=== PATIENT | male | born 1950 | race African-American/Black ===

== ENCOUNTER 2016-07-01 08:10 | Day surgery (SDC) | payer OTHER, MEDICAID ==
[~2016-07-01 08:10] MED LIST: ASPI81 CHEW; ATOR40TA49 PO; CART240C4 PO; CLOP75 PO; DOCU50SY2 PO; LISI20 PO; LORA0.5T PO; NITR0.4S SL; PROT40TA PO; REST30CA PO; SULF-154 PO; VENTAER INH
== END 2016-07-01 08:35 | disposition home or self-care (01) ==
LOC: HROP 08:10 → HRIP 08:19 → HROP 08:35
PROVIDERS: ATTEND Internal Medicine Hematology & Oncology
DX: Z45.2 Encounter for adjustment and management of vascular access device (principal); C34.32 Malignant neoplasm of lower lobe, left bronchus or lung; Z53.9 Procedure and treatment not carried out, unspecified reason

== ENCOUNTER 2016-07-07 12:04 | Day surgery (SDC) | payer OTHER ==
[~2016-07-07] VITALS: Ht 182.9 cm; Wt 61.8 kg
[2016-07-07 12:27] VITALS: BP 129/69; PULSE 68; RESP 20; TEMP 98.2; O2SAT 99
[2016-07-07] MEDS ORDERED: ceFAZolin 2 GM PREMIX 50 ML - gastrostomy and jejunostomy initial insertion IV SCH (12:45)
[2016-07-07] MEDS ORDERED: Infusaport/Implanted VAD PRN NS Lock Flush IVF (12:45)
[2016-07-07] MEDS ORDERED: SODIUM CHLORIDE 0.9% 1000 ML IV SCH (13:00)
[2016-07-07 13:08] LABS: APTT (PATIENT) 25.9 SEC (24.3-30.1); PROTHROMBIN TIME - PATIENT 11.3 SEC (9.8-11.6)
[2016-07-07] MEDS ORDERED: MIDAZOLAM HCL 5 MG/5 ML VIAL ONE (14:59)
[2016-07-07] MEDS ORDERED: fentaNYL CITRATE 250 MCG/5 ML AMP ONE (15:00)
[2016-07-07] MEDS ORDERED: GLUCAGON 1 MG/ML VIAL ONE (15:00)
[2016-07-07] MEDS ORDERED: MIDAZOLAM HCL 2 MG/2 ML VIAL ONE (15:41)
--- NOTE | 2016-07-07 15:58 | PD.RAD ---
Post Procedure Progress Note Pre Procedure Diagnosis: (1) Pulmonary mass Post Procedure Diagnosis: (1) Pulmonary mass Procedure Date: Jul 07, 2016 Supervising Radiologist: Rc Hsu Proceduralist/Assist: Byron Ruiz RT(R), Lily Prather RT(R)() Anesthesia: Local, Conscious Sedation Plan of Activity Patient to Unit: [facility] Patient Condition: Fair See PACS Report for procedural detail/treatment Feeding Tube Gastrostomy Placement Lebanese: 18 Rc Hsu MD Jul 07, 2016 15:58
[2016-07-07 16:00] VITALS: BP 102/53; PULSE 68; RESP 18; TEMP 97.8; O2SAT 98
[2016-07-07] MEDS ORDERED: IOHEXOL 350 MG/ML 50 ML BTL (for RAD DIAG) G-TUBE ONE (16:04)
[2016-07-07 16:15] VITALS: BP 105/57; PULSE 66; RESP 18; O2SAT 97
--- NOTE | 2016-07-07 16:20 | RADRPT ---
EXAM DATE/TIME: 07/07/2016 14:54 [facility] COMPARISON: No previous studies available for comparison. INDICATIONS : Patient presents with lung cancer and the inability to eat in need of gastrostomy tube placement for nutrition. 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 Limited abdominal ultrasound. 2. Fluoroscopically guided gastrostomy tube placement. 3. Conscious sedation with continuous EKG and oximetry monitoring. The risks, benefits and alternatives to the procedure were explained and verbal and written consent w as obtained. The site was prepped in sterile fashion. Full sterile technique was used, including ca p, mask, sterile gloves and gown and a large sterile sheet. Hand hygiene and 2% chlorhexidine and/or betadine/alcohol prep was utilized per protocol for cutaneous antisepsis. The skin and subcutaneous tissues were infiltrated with local anesthetic solution. Ultrasound was used to parth the position of the liver. The stomach was insufflated with room air. Th ree percutaneous fasteners were placed to secure the anterior gastric wall. A small incision was made between the fasteners. The stomach was accessed with an 18 gauge needle. A n 0.035 wire was advanced into the small bowel. The tract was dilated. The gastrostomy tube was int roduced through a peel-away sheath. The position was confirmed with an injection of contrast. Conscious sedation was performed with the prescribed dosages and duration as above. The patient kamron ated the procedure well and there were no complications. EKG and oximetry remained stable throughout the procedure. The patient was sent to post anesthesia recovery in stable condition. CONCLUSION: Uncomplicated gastrostomy tube placement as above. Rc Hsu MD on July 07, 2016 at 16:18 Board Certified Radiologist. This report was verified electronically.
[2016-07-07 16:45] VITALS: BP 109/67; PULSE 69; RESP 18; O2SAT 96
[2016-07-07 17:15] VITALS: BP 111/69; PULSE 65; RESP 18; O2SAT 97
[2016-07-07 17:45] VITALS: BP 131/76; PULSE 60; RESP 18; O2SAT 95
[2016-07-07] MEDS ORDERED: HYDROmorphone HCL PF 2 MG/ML VIAL ONE (17:45)
== END 2016-07-07 18:25 | disposition home or self-care (01) ==
LOC: HROP 12:04 → HRIP 12:06 → HROP 18:25
PROVIDERS: ATTEND Internal Medicine Hematology & Oncology
DX: C34.90 Malignant neoplasm of unspecified part of unspecified bronchus or lung (principal); I10 Essential (primary) hypertension; I25.2 Old myocardial infarction; Z01.818 Encounter for other preprocedural examination
CPT/HCPCS: 49440; 76942; 85610; 85730; C1769; C1887; J0690; J1170; J1610; J1642; J2250; J3010; Q9967

== ENCOUNTER 2016-07-09 19:26 | Emergency (ER) | payer OTHER ==
[~2016-07-09] VITALS: Ht 182.9 cm; Wt 60.0 kg
[~2016-07-09 19:26] MED LIST changes: -SULF-154 PO
[2016-07-09 19:37] VITALS: BP 100/59; PULSE 98; RESP 14; TEMP 98.4; O2SAT 95
[2016-07-09] MEDS ORDERED: DIATRIZOATE MEGLUM/DIATRIZOATE SOD 120 ML BTL (for RAD DIAG) PEG ONE (21:02)
--- NOTE | 2016-07-09 21:28 | PD ---
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 He states that he had just placed a few days ago. He accidentally pulled it out this evening when he was attempting to do a tube feeding. He states that he pushed it right back in. He did go ahead and feed himself. His doctor advised him to come in this evening to have it checked. He has no complaints otherwise. PFSH Past Medical History Hx Anticoagulant Therapy: Yes (ASA) Arthritis: Yes Asthma: No Autoimmune Disease: No Blood Disorders: No Anxiety: No Depression: No Heart Rhythm Problems: No Cancer: No Cardiac Catheterization: Yes (W/ STENTS) Cardiovascular Problems: Yes (LOOP MONITOR STENTS) High Cholesterol: Yes Chemotherapy: No Chest Pain: No Congestive Heart Failure: No COPD: No Cerebrovascular Accident: No Diabetes: No Diminished Hearing: No Endocrine: No GERD: No Glaucoma: No Genitourinary: No Headaches: Yes (OCC) Hepatitis: No Hiatal Hernia: No Heparin Induced Thrombocytopen: No Hypertension: Yes Immune Disorder: No Kidney Stones: Yes Musculoskeletal: Yes Neurologic: No Psychiatric: No Reproductive: No Respiratory: No Migraines: No Myocardial Infarction: Yes ([place] x2) Radiation Therapy: No Renal Failure: No Seizures: No Sickle Cell Disease: No Sleep Apnea: No Thyroid Disease: No Ulcer: Yes Tetanus Vaccination: > 5 Years Past Surgical History Abdominal Surgery: No AICD: No Appendectomy: No Arteriovenous Shunt: No Cardiac Surgery: Yes (stents* 3, LOOP RECORDER) Cholecystectomy: No Ear Surgery: No Endocrine Surgery: No Eye Surgery: No Genitourinary Surgery: No Gynecologic Surgery: No Insulin Pump: No Joint Replacement: No Oral Surgery: Yes Pacemaker: No Thoracic Surgery: No Other Surgery: Yes Social History Alcohol Use: No Tobacco Use: No Substance Use: No Allergies-Medications (Allergen,Severity, Reaction): Coded Allergies: No Known Allergies (Unverified , 07/09/16) Reported Meds & Prescriptions Reported Meds & Active Scripts Active Ventolin Hfa 18 GM Inh (Albuterol Sulfate) 90 Mcg/Act Aer 2 Puff INH Q4H PRN Lipitor 40 Mg Tab (Atorvastatin Calcium) 40 Mg Tab 40 Mg PO HS 30 Days Protonix (Pantoprazole Sodium) 40 Mg Tab 40 Mg PO DAILY 90 Days Prinivil 20 mg (Lisinopril) 20 Mg Tab 20 Mg PO DAILY 30 Days Plavix (Clopidogrel Bisulfate) 75 Mg Tab 75 Mg PO DAILY 90 Days Aspirin Low Str81 M3 81 Mg Chw 81 Mg CHEW DAILY 30 Days Reported Docusate Sodium 50 Mg/5 Ml Liq 100 Mg PO DAILY Nitrostat (Nitroglycerin) 0.4 Mg Subl 0.4 Mg SL PRN 1 TAB SL EVERY 5 MINS X 3 PRN CHEST PAIN Lorazepam 0.5 Mg Tab 0.5 Mg PO DAILY Cartia Xt240 Mg/24 240 Mg/24 Hr Cap 240 Mg PO DAILY Restoril 30 mg (Temazepam) 30 Mg Cap 1 Cap PO HS PRN Review of Systems Except as stated in HPI: all other systems reviewed are Neg General / Constitutional: No: Fever, Chills Cardiovascular: No: Chest Pain or Discomfort Respiratory: No: Cough, Shortness of Breath Gastrointestinal: No: Nausea, Vomiting, Abdominal Pain Genitourinary: No: Dysuria, Hematuria Physical Exam Narrative GENERAL: This is a well-nourished, well-developed patient, in no apparent distress. SKIN: No rashes, ecchymoses or lesions. Warm and dry. HEAD: Atraumatic. Normocephalic. EYES: PERRL, EOMI, no discharge or injection. No scleral icterus. EARS: Clear NOSE: Nasal turbinates appear normal. THROAT: Mucosa pink and moist. Airway patent. NECK: Trachea midline. supple, moves head freely. LUNGS: Clear to auscultation. CV: Regular in rhythm. ABDOMEN: Soft nontender. Patient has a feeding tube in place. EXT: No clubbing cyanosis or edema. Data Data Last Documented VS Vital Signs Date Time Temp Pulse Resp B/P Pulse Ox O2 Delivery O2 Flow Rate FiO2 07/09/16 20:56 Room Air 07/09/16 19:37 98.4 98 14 100/59 95 Orders Abdomen, Single View (07/09/16 ) Diatrizoate Liq ( Gastrocharles Lynn) (07/09/16 21:02) MDM Medical Decision Making Medical Screen Exam Complete: Yes Emergency Medical Condition: Yes Medical Record Reviewed: Yes Interpretation(s) KUB: Positive feeding tube in the stomach. There is reflux into the esophagus. Differential Diagnosis Differential diagnoses: Feeding tube malfunction, normal feeding tube, feeding tube in the peritoneal cavity Narrative Course The feeding tube has no air in the balloon. We have flushed the balloon with 5 cc of saline have gotten all of the saline back. We have now gone ahead and placed 10 cc in the balloon. He has been sent for a KUB with Gastrografin to verify placement. Diagnosis Primary Impression: feeding tube malfunction Patient Instructions: General Instructions Additional Instructions: Rest. Continue your normal feedings. Follow-up with your doctor next week. Med/Other Pt SpecificInfo: No Change to Meds Disposition: 01 DISCHARGE HOME Condition: Stable Stanton Harvey Jul 09, 2016 21:28
--- NOTE | 2016-07-09 21:36 | RADRPT ---
EXAM DATE/TIME: 07/09/2016 20:50 [facility] COMPARISON: No previous studies available for comparison. INDICATIONS : Evaluate feeding tube placement. MEDICAL HISTORY : None. SURGICAL HISTORY : PEG tube placement. ENCOUNTER: Initial ACUITY: 1 day PAIN SCORE: 0/10 LOCATION: Bilateral abdomen. FINDINGS: Contrast has been instilled through a PEG tube. It clearly fills the stomach. There is reflux into the distal esophagus. There is increased density at the left lung base. There is a loop recorder in place. CONCLUSION: 1. PEG tube with its tip in the stomach. 2. Reflux of contrast into the distal esophagus. 3. Left base consolidation, atelectasis and possible effusion. Jamil Ramirez MD on July 09, 2016 at 21:30 Board Certified Radiologist. This report was verified electronically.
== END 2016-07-09 22:01 | disposition home or self-care (01) ==
LOC: NEPB 19:26
DX: K94.23 Gastrostomy malfunction (principal)
CPT/HCPCS: 74000; 99283; Q9963

== ENCOUNTER 2016-08-01 11:38 | Emergency (ER) | payer OTHER ==
[~2016-08-01] VITALS: Ht 182.9 cm; Wt 58.0 kg
[2016-08-01 11:40] VITALS: BP 110/59; PULSE 91; RESP 14; TEMP 97.5; O2SAT 96
[2016-08-01 11:54] VITALS: BP 125/65; PULSE 81; RESP 18; TEMP 98.3; O2SAT 99
--- NOTE | 2016-08-01 11:56 | PD ---
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 He states he feel as if the balloon is not inflated. Patient reports getting the feeding tube approximately 1 month ago. His oncologist is Dr. Gannon. He states he had malignancy that was pushing on his esophagus. He was unable to eat or drink and a feeding tube was placed. However, he states he is now able to eat and drink. He has the feeding tube taped to his abdominal wall because he states that slides out and water comes out around the feeding tube. Patient states otherwise, he feels good. PFSH Past Medical History Hx Anticoagulant Therapy: Yes (ASA) Arthritis: Yes Asthma: No Autoimmune Disease: No Blood Disorders: No Anxiety: No Depression: No Heart Rhythm Problems: No Cancer: No Cardiac Catheterization: Yes (W/ STENTS) Cardiovascular Problems: Yes (LOOP MONITOR STENTS) High Cholesterol: Yes Chemotherapy: No Chest Pain: No Congestive Heart Failure: No COPD: No Cerebrovascular Accident: No Diabetes: No Diminished Hearing: No Endocrine: No GERD: No Glaucoma: No Genitourinary: No Headaches: Yes (OCC) Hepatitis: No Hiatal Hernia: No Heparin Induced Thrombocytopen: No Hypertension: Yes Immune Disorder: No Kidney Stones: Yes Musculoskeletal: Yes Neurologic: No Psychiatric: No Reproductive: No Respiratory: No Migraines: No Myocardial Infarction: Yes ([place] x2) Radiation Therapy: No Renal Failure: No Seizures: No Sickle Cell Disease: No Sleep Apnea: No Thyroid Disease: No Ulcer: Yes Past Surgical History Abdominal Surgery: No AICD: No Appendectomy: No Arteriovenous Shunt: No Cardiac Surgery: Yes (stents* 3, LOOP RECORDER) Cholecystectomy: No Ear Surgery: No Endocrine Surgery: No Eye Surgery: No Genitourinary Surgery: No Gynecologic Surgery: No Insulin Pump: No Joint Replacement: No Oral Surgery: Yes Pacemaker: No Thoracic Surgery: No Other Surgery: Yes Social History Alcohol Use: No Tobacco Use: No Substance Use: No Allergies-Medications (Allergen,Severity, Reaction): Coded Allergies: No Known Allergies (Unverified , 07/09/16) Reported Meds & Prescriptions Reported Meds & Active Scripts Active Ventolin Hfa 18 GM Inh (Albuterol Sulfate) 90 Mcg/Act Aer 2 Puff INH Q4H PRN Lipitor 40 Mg Tab (Atorvastatin Calcium) 40 Mg Tab 40 Mg PO HS 30 Days Protonix (Pantoprazole Sodium) 40 Mg Tab 40 Mg PO DAILY 90 Days Prinivil 20 mg (Lisinopril) 20 Mg Tab 20 Mg PO DAILY 30 Days Plavix (Clopidogrel Bisulfate) 75 Mg Tab 75 Mg PO DAILY 90 Days Aspirin Low Str81 M3 81 Mg Chw 81 Mg CHEW DAILY 30 Days Reported Docusate Sodium 50 Mg/5 Ml Liq 100 Mg PO DAILY Nitrostat (Nitroglycerin) 0.4 Mg Subl 0.4 Mg SL PRN 1 TAB SL EVERY 5 MINS X 3 PRN CHEST PAIN Lorazepam 0.5 Mg Tab 0.5 Mg PO DAILY Cartia Xt240 Mg/24 240 Mg/24 Hr Cap 240 Mg PO DAILY Restoril 30 mg (Temazepam) 30 Mg Cap 1 Cap PO HS PRN Review of Systems Except as stated in HPI: all other systems reviewed are Neg Physical Exam Narrative GENERAL: Well-developed male patient, afebrile. SKIN: Warm and dry. HEAD: Normocephalic. Atraumatic. EYES: No scleral icterus. No injection or drainage. NECK: Supple, trachea midline. No JVD or lymphadenopathy. CARDIOVASCULAR: Regular rate and rhythm without murmurs, gallops, or rubs. RESPIRATORY: Breath sounds equal bilaterally. No accessory muscle use. GASTROINTESTINAL: Abdomen soft, non-tender, nondistended. Patient has 18 Libyan feeding tube to the mid abdomen that is taped in place. MUSCULOSKELETAL: No cyanosis, or edema. BACK: Nontender without obvious deformity. No CVA tenderness. Data Data Last Documented VS Vital Signs Date Time Temp Pulse Resp B/P Pulse Ox O2 Delivery O2 Flow Rate FiO2 08/01/16 11:59 78 77 99 Room Air 08/01/16 11:54 98.3 125/65 MDM Medical Decision Making Medical Screen Exam Complete: Yes Emergency Medical Condition: Yes Medical Record Reviewed: Yes Differential Diagnosis Feeding tube dislodgment versus new feeding tube placement versus medical clearance Narrative Course 66-year-old male presents to the emergency department stating that he believes his feeding tube is dislodged and the balloon is no longer keeping it in place. I discussed the case with my attending physician, Dr. Buck, who recommends feeding tube replacement. Dr. Buck and I attempted to replace 18 occitan feeding tube. When existing feeding tube was removed, it was found that the balloon was deflated and just under the skin. We attempted to replace tube with a new one, however, we were unable to advance feeding tube. Patient wishes to not have a new tube stating he has not received nutrition from it in 4-[address] Bolaños is paged. [phone] - I spoke to Dr. Johnson, business economist for Dr. Bolaños, who recommends not replacing the tube due to not currently using. Dressing is placed. Patient is agreeable to this. He is instructed to follow up with Dr. Bolaños. He is to return for any acute, worsening symptoms. The patient was discharged in stable condition with instructions, including return instructions and follow up instructions. Diagnosis Primary Impression: Feeding tube dysfunction Qualified Code: T85.598A - Feeding tube dysfunction, initial encounter Referrals: Gregory Bolaños MD call for appointment Patient Instructions: General Instructions, Tube Feeding (DC) Additional Instructions: Follow up with Dr. Bolaños. Feeding tube site my leak. Return to the emergency department for any acute, worsening of symptoms. Med/Other Pt SpecificInfo: No Change to Meds Disposition: 01 DISCHARGE HOME Condition: Stable Allison Mandel GUNJAN Aug 01, 2016 11:56
--- NOTE | 2016-08-01 12:55 | PD ---
Data Data Last Documented VS Vital Signs Date Time Temp Pulse Resp B/P Pulse Ox O2 Delivery O2 Flow Rate FiO2 08/01/16 11:59 78 77 99 Room Air 08/01/16 11:54 98.3 125/65 MDM Supervised Visit with SHEA: Yes Narrative Course The history, exam, and medical decision-making in the associated mid-level provider note were completed with my assistance. I reviewed and agree with the findings presented. I attest that I had a [id number] encounter with the patient on the same day, and personally performed and documented my assessment and findings in the medical record. *My assessment and Findings: 66-year-old man presents with malfunctioning feeding tube. He feels like the balloons dominant coming out. We removed due to with the tendon replacing it. The tube was only barely into 16 his tissues. The tract below that appears to have completely close. Were unable to replace the feeding tube. We spoke with Dr. Hamilton, remote operations producer for the patient's oncologist, who agrees with leaving the tube out. The patient hasn't used the tube for nutrition some time. Diagnosis Primary Impression: Feeding tube dysfunction Qualified Code: T85.598A - Feeding tube dysfunction, initial encounter Referrals: Gregory Bolaños MD call for appointment Patient Instructions: General Instructions, Tube Feeding (DC) Additional Instruction: Follow up with Dr. Bolaños. Feeding tube site my leak. Return to the emergency department for any acute, worsening of symptoms. Disposition: 01 DISCHARGE HOME Condition: Stable Kaleb Buck MD Aug 01, 2016 12:55
[2016-08-01 13:26] VITALS: BP 126/76; TEMP 98.4
== END 2016-08-01 13:16 | disposition home or self-care (01) ==
LOC: NEPC 11:38
DX: T85.598A Other mechanical complication of other gastrointestinal prosthetic devices, implants and grafts, initial encounter (principal); E78.00 Pure hypercholesterolemia, unspecified; I10 Essential (primary) hypertension; I25.2 Old myocardial infarction; Z43.1 Encounter for attention to gastrostomy; Z79.82 Long term (current) use of aspirin; Z87.39 Personal history of other diseases of the musculoskeletal system and connective tissue; Z86.79 Personal history of other diseases of the circulatory system; Z87.442 Personal history of urinary calculi; Z87.19 Personal history of other diseases of the digestive system
CPT/HCPCS: 99282

== ENCOUNTER 2016-08-16 12:21 | Emergency (ER) | payer OTHER ==
[~2016-08-16] VITALS: Ht 182.9 cm; Wt 58.0 kg
[2016-08-16 12:25] VITALS: BP 98/57; PULSE 104; RESP 20; TEMP 98; O2SAT 90
--- NOTE | 2016-08-16 13:19 | PD ---
HPI Chief Complaint: GI Complaint Time Seen by Provider: 13:14 Travel History International Travel<30 days: No Contact w/Intl Traveler<30days: No Traveled to known affect area: No History of Present Illness HPI Patient is a 66-year-old male who presents emergency department for evaluation of increased fatigue, weakness. Patient is currently being treated for lung cancer. His last chemotherapy was one week ago. He has radiation daily. Patient states that his feeding tube came out 2 weeks ago, he was evaluated for that and it was decided to leave it out since at that time he had good oral intake. Patient was supplementing himself through the feeding tube with 3-5 cans a day of nutritional supplementation, since the feeding tube has been out patient has not been getting the extra supplementation. Patient reports an episode of vomiting this morning and a fast heart rate for the last week as well. Patient's oncologist is Dr. Bolaños, his primary doctor is Reginaldo. PFSH Past Medical History Hx Anticoagulant Therapy: Yes (ASA) Arthritis: Yes Asthma: No Autoimmune Disease: No Blood Disorders: No Anxiety: No Depression: No Heart Rhythm Problems: No Cancer: No Cardiac Catheterization: Yes (W/ STENTS) Cardiovascular Problems: Yes (STENTS) High Cholesterol: Yes Chemotherapy: Yes Chest Pain: No Congestive Heart Failure: No COPD: No Cerebrovascular Accident: No Diabetes: No Diminished Hearing: No Endocrine: No Gastrointestinal Disorders: No GERD: No Glaucoma: No Genitourinary: No Headaches: Yes (OCC) Hepatitis: No Hiatal Hernia: No Heparin Induced Thrombocytopen: No Hypertension: Yes Immune Disorder: No Implanted Vascular Access Dvce: No Kidney Stones: Yes Musculoskeletal: Yes Neurologic: No Psychiatric: No Reproductive: No Respiratory: Yes (LUNG CA) Migraines: No Myocardial Infarction: Yes ([place] x2) Radiation Therapy: No Renal Failure: No Seizures: No Sickle Cell Disease: No Sleep Apnea: No Thyroid Disease: No Ulcer: Yes Past Surgical History Abdominal Surgery: No AICD: No Appendectomy: No Arteriovenous Shunt: No Cardiac Surgery: Yes (stents* 3, LOOP RECORDER) Cholecystectomy: No Ear Surgery: No Endocrine Surgery: No Eye Surgery: No Genitourinary Surgery: No Gynecologic Surgery: No Insulin Pump: No Joint Replacement: No Neurologic Surgery: No Oral Surgery: Yes Pacemaker: No Thoracic Surgery: No Other Surgery: Yes Social History Alcohol Use: No Tobacco Use: No Substance Use: No Allergies-Medications (Allergen,Severity, Reaction): Coded Allergies: No Known Allergies (Unverified , 08/16/16) Reported Meds & Prescriptions Reported Meds & Active Scripts Active Ventolin Hfa 18 GM Inh (Albuterol Sulfate) 90 Mcg/Act Aer 2 Puff INH Q4H PRN Lipitor 40 Mg Tab (Atorvastatin Calcium) 40 Mg Tab 40 Mg PO HS 30 Days Protonix (Pantoprazole Sodium) 40 Mg Tab 40 Mg PO DAILY 90 Days Prinivil 20 mg (Lisinopril) 20 Mg Tab 20 Mg PO DAILY 30 Days Plavix (Clopidogrel Bisulfate) 75 Mg Tab 75 Mg PO DAILY 90 Days Aspirin Low Str81 M3 81 Mg Chw 81 Mg CHEW DAILY 30 Days Reported Docusate Sodium 50 Mg/5 Ml Liq 100 Mg PO DAILY Nitrostat (Nitroglycerin) 0.4 Mg Subl 0.4 Mg SL PRN 1 TAB SL EVERY 5 MINS X 3 PRN CHEST PAIN Lorazepam 0.5 Mg Tab 0.5 Mg PO DAILY Cartia Xt240 Mg/24 240 Mg/24 Hr Cap 240 Mg PO DAILY Restoril 30 mg (Temazepam) 30 Mg Cap 1 Cap PO HS PRN Review of Systems Except as stated in HPI: all other systems reviewed are Neg General / Constitutional: Positive: Other (fatigued) Cardiovascular: No: Chest Pain or Discomfort Respiratory: No: Shortness of Breath Gastrointestinal: Positive: Nausea, Vomiting, Loss of Appetite, No: Abdominal Pain Musculoskeletal: No: Myalgias Neurologic: Positive: Weakness Physical Exam Narrative GENERAL: Cachectic, well-developed, gentleman. Resting comfortably in no acute distress. SKIN: Warm and dry. HEAD: Atraumatic. Normocephalic. EYES: Pupils equal and round. No scleral icterus. No injection or drainage. ENT: No nasal bleeding or discharge. Mucous membranes pink and moist. NECK: Trachea midline. No JVD. CARDIOVASCULAR: Mildly tachycardic with a rate in the low 100s. No murmur appreciated. RESPIRATORY: No accessory muscle use. Clear to auscultation. Breath sounds equal bilaterally. GASTROINTESTINAL: Abdomen soft, non-tender, nondistended. Hepatic and splenic margins not palpable. MUSCULOSKELETAL: No obvious deformities. No clubbing. No cyanosis. No edema. NEUROLOGICAL: Awake and alert. No obvious cranial nerve deficits. Motor grossly within normal limits. Normal speech. PSYCHIATRIC: Appropriate mood and affect; insight and judgment normal. Data Data Last Documented VS Vital Signs Date Time Temp Pulse Resp B/P Pulse Ox O2 Delivery O2 Flow Rate FiO2 08/16/16 12:25 98.0 104 20 98/57 90 Room Air Orders Complete Blood Count With Diff (08/16/16 13:04) Comprehensive Metabolic Panel (08/16/16 13:04) Lactic Acid Sepsis Protocol (08/16/16 13:04) Magnesium (Mg) (08/16/16 13:04) Urinalysis - C+S If Indicated (08/16/16 13:04) [facility] Medical Decision Making Medical Screen Exam Complete: Yes Emergency Medical Condition: Yes Medical Record Reviewed: Yes Interpretation(s) Vital Signs Date Time Temp Pulse Resp B/P Pulse Ox O2 Delivery O2 Flow Rate FiO2 08/16/16 12:25 98.0 104 20 98/57 90 Room Air Differential Diagnosis Dehydration versus anemia versus neutropenia versus sepsis versus electrolyte abnormality versus acute kidney injury versus other Narrative Course Patient 66-year-old male presenting to emergency room evaluation of increased fatigue and weakness over the last week. Patient's feeding tube became dislodged 2 weeks ago, patient did use the feeding tube for medications as well as nutritional supplementation. Patient was using 3-5 cans a day of a nutritional supplement, now he has only been able to drink one can a day. Patient symptoms may likely be secondary to dehydration, malnutrition since the feeding tube was dislodged. Labs ordered and pending. Care of patient will be transferred to provide a medical bed when available. Petra Duron Aug 16, 2016 13:19
[2016-08-16 13:56] LABS: BLOOD, URINE NEG (NEG); GLUCOSE,URINE NEG (NEG); HYALINE CAST, URINE 16 /lpf (RARE); KETONE, URINE NEG (NEG); MUCUS URINE FEW /lpf (OCC); NITRITE,URINE NEG (NEG); SQUAMOUS EPITHELIAL CELL URINE <1 /hpf (0-5); URINE COLOR YELLOW (YELLW/STRAW)
[2016-08-16 13:58] LABS: COMMENT (UR) CATH-CULT NOT IND; CULTURE IF INDICATED CATH CULTURE NOT IND
[2016-08-16 14:01] LABS: AUTOMATED NEUTROPHIL # 2.2 TH/MM3 (1.8-7.7); BASOPHIL % 0.6 % (0.0-2.0); EOSINOPHIL % 0.7 % (0.0-4.0); HEMATOCRIT 28.9 % (39.0-51.0); HEMO FLAGS DIFF FINAL; LYMPH % 9.9 % (9.0-44.0); LYMPHOCYTE # 0.3 TH/MM3 (1.0-4.8); MEAN CORPUSCULAR HEMOGLOBIN 32.8 PG (27.0-34.0); MEAN CORPUSCULAR HGB CONC 33.8 % (32.0-36.0); MONO % 12.6 % (0.0-8.0); NEUT % 76.2 % (16.0-70.0); PLATELET COUNT 434 TH/MM3 (150-450); RED BLOOD COUNT 2.97 MIL/MM3 (4.50-5.90); WHITE BLOOD COUNT 2.9 TH/MM3 (4.0-11.0)
[2016-08-16] MEDS ORDERED: SODIUM CHLOR 0.9% 1000 ML INJ 1,000 ML IV SCH (14:01)
[2016-08-16 14:07] VITALS: BP 120/73; PULSE 96; RESP 13; O2SAT 100
[2016-08-16 14:15] VITALS: BP_SYST 106; BP_SYST 108; BP_SYST 117; BP_DIAS 54; BP_DIAS 66; BP_DIAS 68; RESP 14; RESP 20; RESP 22
[2016-08-16 14:15] LABS: ALT (GPT) 17 U/L (12-78); ANION GAP 7 MEQ/L (5-15); AST (GOT) 18 U/L (15-37); BICARBONATE 28.2 MEQ/L (21.0-32.0); BLOOD UREA NITROGEN 16 MG/DL (7-18); CHLORIDE 101 MEQ/L (98-107); GLOMERULAR FILTRATION RATE 89 ML/MIN (>89); MAGNESIUM 1.9 MG/DL (1.5-2.5); POTASSIUM 4.2 MEQ/L (3.5-5.1); SODIUM (NA) 136 MEQ/L (136-145)
[2016-08-16] MEDS ORDERED: SODIUM CHLORIDE 0.9% FLUSH 5 ML FLUSH IVF PRN (14:15)
[2016-08-16 14:17] LABS: ALKALINE PHOSPHATASE 79 U/L (45-117); TOTAL BILIRUBIN ADULT 0.4 MG/DL (0.2-1.0)
[2016-08-16 14:30] VITALS: BP 113/71; PULSE 104; RESP 22; O2SAT 99
[2016-08-16] MEDS ORDERED: COLA100C3 PO (14:46)
[2016-08-16] MEDS ORDERED: SYMB160A INH (14:46)
[2016-08-16] MEDS ORDERED: PLAV75TA29 PO (14:46)
[2016-08-16] MEDS ORDERED: REST30CA PO (14:46)
[2016-08-16] MEDS ORDERED: OMEP20TA PO (14:46)
[2016-08-16] MEDS ORDERED: ONDA8TAB8 SL (14:46)
[2016-08-16] MEDS ORDERED: DIGO0.12 PO (14:46)
[2016-08-16] MEDS ORDERED: ASPI81TA11 PO (14:46)
[2016-08-16] MEDS ORDERED: LORA-373 PO (14:46)
[2016-08-16] MEDS ORDERED: NITR1SUB3 SL (14:46)
[2016-08-16] MEDS ORDERED: ATOR40TA16 PO (14:46)
[2016-08-16] MEDS ORDERED: MAGICADU2 SWISH-SWAL (14:46)
--- NOTE | 2016-08-16 15:08 | RADRPT ---
EXAM DATE/TIME: 08/16/2016 14:32 [facility] COMPARISON: CHEST SINGLE AP, May 12, 2016, 16:04. INDICATIONS : Short of breath, pain in right ribs MEDICAL HISTORY : Carcinoma, lung. Cardiovascular disease. Myocardial infarction. SURGICAL HISTORY : Coronary artery stent. infusaport, loop recorder ENCOUNTER: Initial ACUITY: 1 day PAIN SCORE: 10/10 LOCATION: Right chest FINDINGS: A single view of the chest demonstrates the lungs to be symmetrically aerated without evidence of mas s, infiltrate or effusion. The cardiomediastinal contours are unremarkable. Osseous structures are intact. Right subclavian venous catheter in place a pneumothorax CONCLUSION: No acute disease. Oscar Hobbs MD on August 16, 2016 at 15:06 Board Certified Radiologist. This report was verified electronically.
--- NOTE | 2016-08-16 15:09 | PD ---
Physical Exam Time Seen by Provider: 15:03 Narrative Patient was initially assessed and evaluated by GUNJAN Smith. See her note for initial assessment. Data Data Last Documented VS Vital Signs Date Time Temp Pulse Resp B/P Pulse Ox O2 Delivery O2 Flow Rate FiO2 08/16/16 14:15 101 14 117/66 107 20 108/68 126 22 106/54 08/16/16 14:10 100 Room Air 08/16/16 12:25 98.0 Orders Complete Blood Count With Diff (08/16/16 13:04) Comprehensive Metabolic Panel (08/16/16 13:04) Lactic Acid Sepsis Protocol (08/16/16 13:04) Magnesium (Mg) (08/16/16 13:04) Urinalysis - C+S If Indicated (08/16/16 13:04) Electrocardiogram (08/16/16 14:01) Chest, Single Ap (08/16/16 14:01) Ecg Monitoring (08/16/16 14:01) Iv Access Insert/Monitor (08/16/16 14:01) Oximetry (08/16/16 14:01) Sodium Chloride 0.9% Flush (Ns Flush) (08/16/16 14:15) Orthostatic Vital Signs (08/16/16 14:01) Sodium Chlor 0.9% 1000 Ml Inj (Ns 1000 M (08/16/16 14:01) Oxygen Administration (08/16/16 14:06) Ct Pulmonary Angiogram (08/16/16 ) Iohexol 350 Inj (Omnipaque 350 Inj) (08/16/16 15:43) Labs Laboratory Tests Test 08/16/16 08/16/16 13:29 13:30 Sodium Level 136 MEQ/L Potassium Level 4.2 MEQ/L Chloride Level 101 MEQ/L Carbon Dioxide Level 28.2 MEQ/L Anion Gap 7 MEQ/L Blood Urea Nitrogen 16 MG/DL Creatinine 1.01 MG/DL Estimat Glomerular Filtration 89 ML/MIN Rate Random Glucose 104 MG/DL Calcium Level 8.8 MG/DL Magnesium Level 1.9 MG/DL Total Bilirubin 0.4 MG/DL Aspartate Amino Transf 18 U/L (AST/SGOT) Alanine Aminotransferase 17 U/L (ALT/SGPT) Alkaline Phosphatase 79 U/L Total Protein 7.3 GM/DL Albumin 3.1 GM/DL White Blood Count 2.9 TH/MM3 Red Blood Count 2.97 MIL/MM3 Hemoglobin 9.8 GM/DL Hematocrit 28.9 % Mean Corpuscular Volume 97.0 FL Mean Corpuscular Hemoglobin 32.8 PG Mean Corpuscular Hemoglobin 33.8 % Concent Red Cell Distribution Width 14.0 % Platelet Count 434 TH/MM3 Mean Platelet Volume 6.6 FL Neutrophils (%) (Auto) 76.2 % Lymphocytes (%) (Auto) 9.9 % Monocytes (%) (Auto) 12.6 % Eosinophils (%) (Auto) 0.7 % Basophils (%) (Auto) 0.6 % Neutrophils # (Auto) 2.2 TH/MM3 Lymphocytes # (Auto) 0.3 TH/MM3 Monocytes # (Auto) 0.4 TH/MM3 Eosinophils # (Auto) 0.0 TH/MM3 Basophils # (Auto) 0.0 TH/MM3 CBC Comment DIFF FINAL Differential Comment Urine Color YELLOW Urine Turbidity CLEAR Urine pH 6.0 Urine Specific [place] 1.018 Urine Protein TRACE mg/dL Urine Glucose (UA) NEG mg/dL Urine Ketones NEG mg/dL Urine Occult Blood NEG Urine Nitrite NEG Urine Bilirubin NEG Urine Urobilinogen 2.0 MG/DL Urine Leukocyte Esterase NEG Urine RBC LESS THAN 1 /hpf Urine WBC 1 /hpf Urine Squamous Epithelial <1 /hpf Cells Urine Hyaline Casts 16 /lpf Urine Mucus FEW /lpf Microscopic Urinalysis Comment CATH-CULT NOT IND Lactic Acid Level 1.1 mmol/L [facility] Medical Record Reviewed: Yes Supervised Visit with SHEA: Yes Differential Diagnosis Electrolyte imbalance, arrhythmia, dehydration, PE Narrative Course I assumed patient care upon arrival to [facility]. See GUNJAN Ross's note for initial assessment. Patient placed on cardiopulmonary monitor. IV site obtained. Labs pending. Chest x-ray ordered. Fluid bolus ordered. CBC findings are consistent with past lab findings; WBC 2.9, hemoglobin 9.8. BMP unremarkable. Lactic acid 1.1. Urinalysis with no signs of infection. 1517: Chest x-ray with no acute findings. I discussed the patient with my attending physician, Dr. Pitt, and he agreed CTA is necessary to rule out PE. CTA ordered. 1618: CTA concludes No evidence of pulmonary no acute cardiopulmonary process. Regression with persistent thickening of the left hilar mass and mediastinal adenopathy. New finding of metastatic disease to the liver. Copy of CTA provided to the patient. Findings discussed. Instructed patient to follow up with oncologist. Patient verbalized understanding and agreement with treatment plan. Patient is medically cleared and stable for discharge. Discussed reasons to return to the emergency department. Instructed patient to follow up with primary care provider. Patient agrees with treatment plan. The patients vital signs are stable and the patient is stable for outpatient follow-up and treatment. Patient discharged home, stable and in no acute distress. Diagnosis Primary Impression: Metastatic cancer to liver Referrals: Oncologist Primary Care Physician Patient Instructions: General Instructions, Liver Cancer (DC) Additional Instruction: Follow-up with oncologist Follow-up with primary care provider Return to the emergency department immediately with worsening of symptoms Disposition: 01 DISCHARGE HOME Condition: Stable Paola Al Aug 16, 2016 15:09
[2016-08-16] MEDS ORDERED: IOHEXOL 350 MG/ML 10 ML VIAL (for RAD DIAG) IV ONE (15:43)
--- NOTE | 2016-08-16 16:02 | RADRPT ---
EXAM DATE/TIME: 08/16/2016 15:37 [facility] COMPARISON: CT PULMONARY ANGIOGRAM, May 07, 2016, 20:31. CHEST SINGLE AP, August 16, 2016, 14:32. INDICATIONS : General weakness and syncope for one week. IV CONTRAST: 50 cc Omnipaque 350 (iohexol) IV RADIATION DOSE: 4.83 CTDIvol (mGy) MEDICAL HISTORY : Carcinoma, lung. Myocardial infarction. SURGICAL HISTORY : loop recorder, cardiac stents ENCOUNTER: Initial ACUITY: 1 week PAIN SCALE: 0/10 LOCATION: Bilateral chest TECHNIQUE: Volumetric scanning of the chest was performed using a pulmonary embolism protocol MIP images were re constructed. Using automated exposure control and adjustment of the mA and/or kV according to patien t size, radiation dose was kept as low as reasonably achievable to obtain optimal diagnostic quality images. FINDINGS: There is regression of the [place] left hilar mass and mediastinal adenopathy with residual thickening. There is no evidence of pulmonary embolism with a vessel seen to the fourth and fifth order branchin g and no evidence of defect. Noted in the upper abdomen is apparent low density ill-defined lesions m ultiple the liver consistent with metastatic disease. Indwelling right venous catheter is noted in pl [place]. CONCLUSION: No evidence of pulmonary no acute cardiopulmonary process. Regression with persistent thickening of the left hilar mass and mediastinal adenopathy. New finding of metastatic disease to the liver Oscar Hobbs MD on August 16, 2016 at 15:55 Board Certified Radiologist. This report was verified electronically.
[2016-08-16 17:05] VITALS: BP 105/58; PULSE 98; RESP 12; O2SAT 99
--- NOTE | 2016-08-17 17:02 | EKG ---
Date Performed: 08/16/2016 Time Performed: 14:20:56 PTAGE: 66 years EKG: Sinus rhythm POSSIBLE RIGHT ATRIAL ENLARGEMENT POSSIBLE LEFT ATRIAL ENLARGEMENT LOW QRS VOLTAGE IN EXTREMITY LEAD S Since previous tracing, no significant change noted BORDERLINE ECG PREVIOUS TRACING : 02/12/2016 10.35 DOCTOR: Bennie Sloan Interpretating Date/Time 08/17/2016 17:00:40
== END 2016-08-16 17:25 | disposition home or self-care (01) ==
LOC: NEPE 12:21
DX: C78.7 Secondary malignant neoplasm of liver and intrahepatic bile duct (principal); C34.90 Malignant neoplasm of unspecified part of unspecified bronchus or lung; I10 Essential (primary) hypertension; I25.2 Old myocardial infarction; R53.1 Weakness; Z79.899 Other long term (current) drug therapy
CPT/HCPCS: 71010; 71275; 80053; 81001; 83605; 83735; 85025; 93005; 96360; 99285; J7030; Q9967

== ENCOUNTER 2016-09-07 11:45 | Inpatient (IN) | payer OTHER, MEDICARE ==
[~2016-09-07] VITALS: Ht 182.9 cm; Wt 62.3 kg
[2016-09-07] VITALS (9 sets, daily range): BP systolic 88–120; BP diastolic 51–60; PULSE 74–112; RESP 16–22; TEMP 97.6–98.7; O2SAT 95–99
[~2016-09-07 11:45] MED LIST changes: -ASPI81 CHEW; +ASPI81TA11 PO; +ATOR40TA16 PO; -ATOR40TA49 PO; -CART240C4 PO; -CLOP75 PO; +COLA100C3 PO; +DIGO0.12 PO; -DOCU50SY2 PO; -LISI20 PO; +LORA-373 PO; -LORA0.5T PO; +MAGICADU2 SWISH-SWAL; -NITR0.4S SL; +NITR1SUB3 SL; +OMEP20TA PO; +ONDA8TAB8 SL; +PLAV75TA29 PO; -PROT40TA PO; +SYMB160A INH
--- NOTE | 2016-09-07 12:25 | PD ---
HPI Chief Complaint: General Weakness Time Seen by Provider: 12:22 Travel History International Travel<30 days: No Contact w/Intl Traveler<30days: No Traveled to known affect area: No History of Present Illness HPI Patient is a 66-year-old male sent by his primary care provider Dr. Rice due to generalized weakness. Patient has metastatic lung cancer. He reports increased dizziness, shortness of breath, constipation. He also reports feeling heart palpitations and his heart racing yesterday. Patient states it is feeling weak for a few weeks however it's gotten worse and was sent to emergency department for evaluation. He denies any nausea, vomiting, chest pain , diarrhea, appetite disturbance, falls. 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 Velazquez placed him on diltiazem 3 times daily on September 03 due to the fast heart rate. PFSH Past Medical History Hx Anticoagulant Therapy: Yes (ASA) Arthritis: Yes Asthma: No Autoimmune Disease: No Blood Disorders: No Anxiety: No Depression: No Heart Rhythm Problems: No Cancer: Yes (LUNG CA) Cardiac Catheterization: Yes (W/ STENTS X 3) Cardiovascular Problems: Yes (STENTS) High Cholesterol: Yes Chemotherapy: Yes Chest Pain: No Congestive Heart Failure: No COPD: No Cerebrovascular Accident: No Diabetes: No Diminished Hearing: No Endocrine: No Gastrointestinal Disorders: No GERD: No Glaucoma: No Genitourinary: No Headaches: Yes Hepatitis: No Hiatal Hernia: No Heparin Induced Thrombocytopen: No Hypertension: Yes Immune Disorder: No Implanted Vascular Access Dvce: Yes (RIGHT CHEST) Kidney Stones: Yes Musculoskeletal: Yes Neurologic: No Psychiatric: No Reproductive: No Respiratory: Yes (LUNG CA) Migraines: No Myocardial Infarction: Yes (SD x2) Pneumonia: Yes Radiation Therapy: No Renal Failure: No Seizures: No Sickle Cell Disease: No Sleep Apnea: No Thyroid Disease: No Ulcer: Yes Past Surgical History Abdominal Surgery: No AICD: No Appendectomy: No Arteriovenous Shunt: No Cardiac Surgery: Yes (stents* 3, LOOP RECORDER) Cholecystectomy: No Coronary Stent: Yes (X 3) Ear Surgery: No Endocrine Surgery: No Eye Surgery: No Genitourinary Surgery: No Gynecologic Surgery: No Insulin Pump: No Joint Replacement: No Neurologic Surgery: No Oral Surgery: Yes Pacemaker: No Thoracic Surgery: No Other Surgery: Yes (PORT PLACED- RIGHT CHEST) Social History Alcohol Use: No Tobacco Use: No Substance Use: No Allergies-Medications (Allergen,Severity, Reaction): Coded Allergies: No Known Allergies (Unverified , 09/07/16) Reported Meds & Prescriptions Reported Meds & Active Scripts Active Ventolin Hfa 18 GM Inh (Albuterol Sulfate) 90 Mcg/Act Aer 2 Puff INH Q4H PRN Reported Diltiazem (Diltiazem HCl) 90 Mg Tab 90 Mg PO QID PRN Aspirin EC (Aspirin) 81 Mg Tabdr 81 Mg PO DAILY Atorvastatin (Atorvastatin Calcium) 40 Mg Tab 40 Mg PO DAILY Plavix (Clopidogrel Bisulfate) 75 Mg Tab 75 Mg PO DAILY Lorazepam 0.5 Mg Tab 0.5 Mg PO HS PRN Omeprazole 20 Mg Tab 20 Mg PO DAILY Restoril (Temazepam) 30 Mg Cap 30 Mg PO HS PRN Symbicort Inh (Budesonide/Formoterol Fumarate) 160-4.5 Mcg/Act Aero 2 Puff INH Q12HR Colace (Docusate Sodium) 100 Mg Cap 100 Mg PO DAILY Ondansetron Odt 8 Mg Tab 8 Mg SL TID PRN Nitroglycerin SL (Nitroglycerin) 0.4 Mg Subl 0.4 Mg SL DIRECTED PRN ONE TABLET UNDER THE TONGUE NEEDED FOR CHEST PAIN, MAY REPEAT EVERY FIVE MINUTES FOR A TOTAL OF 3 DOSES OR CALL 911 IF NO RELIEF Magic Mouthwash Adult Liq (Multi-Ingredient Mouthwash/Gargle) 120 Ml Susp 5 Ml SWISH-SWAL TIDAC Each 5mL contains: Nystatin 200,000units, Diphenhydramine 4.25mg, Viscous Lidocaine 10mg, Fernando syrup 0.8 mL Review of Systems Except as stated in HPI: all other systems reviewed are Neg General / Constitutional: No: Fever, Chills HENT: No: Headaches Cardiovascular: No: Chest Pain or Discomfort Respiratory: Positive: Shortness of Breath Gastrointestinal: Positive: Nausea, Constipation, No: Vomiting, Abdominal Pain Genitourinary: No: Dysuria Musculoskeletal: No: Myalgias Neurologic: Positive: Weakness, Dizziness, No: Syncope Physical Exam Narrative GENERAL: Cachectic, well-developed, alert gentleman. Resting comfortably in no acute distress. SKIN: Warm and dry. HEAD: Atraumatic. Normocephalic. EYES: Pupils equal and round. No scleral icterus. No injection or drainage. ENT: No nasal bleeding or discharge. Mucous membranes pink and moist. NECK: Trachea midline. No JVD. CARDIOVASCULAR: Tachycardic. No murmur appreciated. RESPIRATORY: No accessory muscle use. Diminished in bases. No wheezes, rhonchi , rales noted. GASTROINTESTINAL: Abdomen soft, non-tender, nondistended. Hepatic and splenic margins not palpable. MUSCULOSKELETAL: No obvious deformities. No clubbing. No cyanosis. No edema. NEUROLOGICAL: Awake and alert. No obvious cranial nerve deficits. Motor grossly within normal limits. Normal speech. PSYCHIATRIC: Appropriate mood and affect; insight and judgment normal. Data Data Last Documented VS Vital Signs Date Time Temp Pulse Resp B/P Pulse Ox O2 Delivery O2 Flow Rate FiO2 09/07/16 14:23 77 18 114/59 96 Nasal Cannula 2 09/07/16 11:48 97.8 Orders Complete Blood Count With Diff (09/07/16 12:18) Comprehensive Metabolic Panel (09/07/16 12:18) Magnesium (Mg) (09/07/16 12:18) Urinalysis - C+S If Indicated (09/07/16 12:18) Electrocardiogram (09/07/16 12:18) Chest, Pa & Lat (09/07/16 12:18) Abdomen, Kub Only (09/07/16 ) Lactic Acid Sepsis Protocol (09/07/16 12:25) Prothrombin Time / Inr (Pt) (09/07/16 13:22) Act Partial Throm Time (Ptt) (09/07/16 13:22) Phosphorus (Po4) (09/07/16 13:22) Ckmb (Isoenzyme) Profile (09/07/16 13:22) Troponin I (09/07/16 13:22) Influenzae A/B Antigen (09/07/16 13:22) Blood Culture (09/07/16 13:22) Vancomycin Inj (Vancomycin Inj) (09/07/16 13:25) Piperacil-Tazo 4.5 Gm Premix (Zosyn 4.5 (09/07/16 13:25) Sodium Chlor 0.9% 1000 Ml Inj (Ns 1000 M (09/07/16 13:25) Sodium Chlor 0.9% 1000 Ml Inj (Ns 1000 M (09/07/16 13:25) Admit Order (Ed Use Only) (09/07/16 14:37) Labs Laboratory Tests Test 09/07/16 09/07/16 12:34 13:55 White Blood Count 5.5 TH/MM3 Red Blood Count 2.37 MIL/MM3 Hemoglobin 8.1 GM/DL Hematocrit 24.5 % Mean Corpuscular Volume 103.2 FL Mean Corpuscular Hemoglobin 34.2 PG Mean Corpuscular Hemoglobin 33.2 % Concent Red Cell Distribution Width 18.7 % Platelet Count 176 TH/MM3 Mean Platelet Volume 7.5 FL Neutrophils (%) (Auto) 74.0 % Lymphocytes (%) (Auto) 12.1 % Monocytes (%) (Auto) 12.6 % Eosinophils (%) (Auto) 0.9 % Basophils (%) (Auto) 0.4 % Neutrophils # (Auto) 4.1 TH/MM3 Lymphocytes # (Auto) 0.7 TH/MM3 Monocytes # (Auto) 0.7 TH/MM3 Eosinophils # (Auto) 0.1 TH/MM3 Basophils # (Auto) 0.0 TH/MM3 CBC Comment DIFF FINAL Differential Comment Urine Color YELLOW Urine Turbidity CLEAR Urine pH 5.5 Urine Specific [place] 1.017 Urine Protein TRACE mg/dL Urine Glucose (UA) NEG mg/dL Urine Ketones NEG mg/dL Urine Occult Blood MOD Urine Nitrite NEG Urine Bilirubin NEG Urine Urobilinogen 2.0 MG/DL Urine Leukocyte Esterase NEG Urine RBC 3 /hpf Urine WBC 1 /hpf Urine Squamous Epithelial <1 /hpf Cells Urine Hyaline Casts 21 /lpf Urine Mucus FEW /lpf Microscopic Urinalysis Comment CULT NOT INDICATED Sodium Level 141 MEQ/L Potassium Level 4.2 MEQ/L Chloride Level 105 MEQ/L Carbon Dioxide Level 23.1 MEQ/L Anion Gap 13 MEQ/L Blood Urea Nitrogen 17 MG/DL Creatinine 0.89 MG/DL Estimat Glomerular Filtration 103 ML/MIN Rate Random Glucose 111 MG/DL Lactic Acid Level 4.1 mmol/L Calcium Level 8.8 MG/DL Magnesium Level 1.7 MG/DL Total Bilirubin 0.4 MG/DL Aspartate Amino Transf 45 U/L (AST/SGOT) Alanine Aminotransferase 31 U/L (ALT/SGPT) Alkaline Phosphatase 97 U/L Total Protein 7.2 GM/DL Albumin 2.6 GM/DL Prothrombin Time 12.4 SEC Prothromb Time International 1.1 RATIO Ratio Activated Partial 26.7 SEC Thromboplast Time Phosphorus Level 3.1 MG/DL Total Creatine Kinase 51 U/L Troponin I LESS THAN 0.02 NG/ML MDM Medical Decision Making Medical Screen Exam Complete: Yes Emergency Medical Condition: Yes Interpretation(s) Vital Signs Date Time Temp Pulse Resp B/P Pulse Ox O2 Delivery O2 Flow Rate FiO2 09/07/16 11:48 97.8 112 16 88/51 95 Differential Diagnosis Obstruction versus electrolyte abnormality versus pneumonia versus increased tumor burden versus medication side effects versus sepsis versus other Narrative Course Patient is a 66-year-old male presenting to emergency for generalized weakness, dizziness, nausea, constipation. He was sent by his primary care provider. Patient is hypotensive and tachycardic in the emergency department. Labs and imaging ordered and pending. Workup initiated triage, care of patient was transferred to a provider with a medical bed is available. Petra Duron Sep 07, 2016 12:25
[2016-09-07 12:50] LABS: AUTOMATED NEUTROPHIL # 4.1 TH/MM3 (1.8-7.7); BASOPHIL % 0.4 % (0.0-2.0); EOSINOPHIL # 0.1 TH/MM3 (0-0.4); EOSINOPHIL % 0.9 % (0.0-4.0); HEMATOCRIT 24.5 % (39.0-51.0); HEMO FLAGS DIFF FINAL; LYMPH % 12.1 % (9.0-44.0); LYMPHOCYTE # 0.7 TH/MM3 (1.0-4.8); MEAN CELL VOLUME 103.2 FL (80.0-100.0); MEAN CORPUSCULAR HEMOGLOBIN 34.2 PG (27.0-34.0); MEAN CORPUSCULAR HGB CONC 33.2 % (32.0-36.0); MONO % 12.6 % (0.0-8.0); PLATELET COUNT 176 TH/MM3 (150-450); RED BLOOD COUNT 2.37 MIL/MM3 (4.50-5.90); RED CELL DISTRIBUTION WIDTH 18.7 % (11.6-17.2); WHITE BLOOD COUNT 5.5 TH/MM3 (4.0-11.0)
[2016-09-07 12:59] LABS: BLOOD, URINE MOD (NEG); COMMENT (UR) CULT NOT INDICATED; CULTURE IF INDICATED CULT NOT INDICATED; GLUCOSE,URINE NEG (NEG); HYALINE CAST, URINE 21 /lpf (RARE); KETONE, URINE NEG (NEG); MUCUS URINE FEW /lpf (OCC); NITRITE,URINE NEG (NEG); PH, URINE 5.5 (5.0-8.5); SQUAMOUS EPITHELIAL CELL URINE <1 /hpf (0-5); URINE COLOR YELLOW (YELLW/STRAW)
[2016-09-07 13:11] LABS: ALT (GPT) 31 U/L (12-78); ANION GAP 13 MEQ/L (5-15); AST (GOT) 45 U/L (15-37); BICARBONATE 23.1 MEQ/L (21.0-32.0); BLOOD UREA NITROGEN 17 MG/DL (7-18); CHLORIDE 105 MEQ/L (98-107); GLOMERULAR FILTRATION RATE 103 ML/MIN (>89); MAGNESIUM 1.7 MG/DL (1.5-2.5); POTASSIUM 4.2 MEQ/L (3.5-5.1); SODIUM (NA) 141 MEQ/L (136-145)
[2016-09-07 13:17] LABS: ALKALINE PHOSPHATASE 97 U/L (45-117); TOTAL BILIRUBIN ADULT 0.4 MG/DL (0.2-1.0)
[2016-09-07] MEDS ORDERED: VANCOMYCIN INJ 1,000 MG in SODIUM CHLOR 0.9% 250 ML INJ 250 ML IV STA (13:25)
[2016-09-07] MEDS ORDERED: PIPERACIL-TAZO 4.5 GM PREMIX 100 ML IV STA (13:25)
[2016-09-07] MEDS ORDERED: SODIUM CHLOR 0.9% 1000 ML INJ 1,000 ML IV ONE (13:25)
[2016-09-07] MEDS ORDERED: SODIUM CHLOR 0.9% 1000 ML INJ 800 ML IV ONE (13:25)
--- NOTE | 2016-09-07 13:30 | RADRPT ---
EXAM DATE/TIME: 09/07/2016 12:53 [facility] COMPARISON: CHEST PA & LAT, October 19, 2015, 8:18. INDICATIONS : Patient has been short of breath for a week. MEDICAL HISTORY : Carcinoma, lung. Cardiovascular disease. Myocardial infarction. SURGICAL HISTORY : Coronary artery stent. infusaport, loop recorder ENCOUNTER: Initial ACUITY: 1 week PAIN SCORE: 0/10 LOCATION: Bilateral chest FINDINGS: There is a CT compatible [id number] in place from the right side with the tip overlying the SVC. T here is a loop recorder seen. The heart size is normal. Coronary artery stent is seen. There is incre ased density at the left base and a mild left effusion. The right lung is grossly clear. CONCLUSION: Left lower lobe consolidation and mild effusion. Jamil Ramirez MD on September 07, 2016 at 13:22 Board Certified Radiologist. This report was verified electronically.
[2016-09-07] MEDS ORDERED: DILT90TA PO (13:34)
--- NOTE | 2016-09-07 13:47 | PD ---
Physical Exam Time Seen by Provider: 13:43 Narrative 66-year-old male with history of metastatic small cell carcinoma, hypertension, CAD, cardiac stent placement, presents to emergency department for evaluation of worsening weakness, dizziness, constipation. Patient was advised to come here by his primary care provider Dr. Hair. Patient completed radiation treatments July,. He is followed by Dr. Bolaños. As that approximately 3 weeks since his last chemotherapy treatment and he is to start a new chemotherapy treatment tomorrow. Patient denies any recent fever or chills. He has had decreased appetite and an underlying nausea without vomiting. He has not had a bowel movement in 2 days. Denies any abdominal pain. Patient has a chronic productive cough of a clear sputum. Denies hemoptysis. No urinary difficulty. No other symptoms to report. Data Data Last Documented VS Vital Signs Date Time Temp Pulse Resp B/P Pulse Ox O2 Delivery O2 Flow Rate FiO2 09/07/16 13:19 82 18 120/58 113/60 09/07/16 11:48 97.8 95 Orders Complete Blood Count With Diff (09/07/16 12:18) Comprehensive Metabolic Panel (09/07/16 12:18) Magnesium (Mg) (09/07/16 12:18) Urinalysis - C+S If Indicated (09/07/16 12:18) Electrocardiogram (09/07/16 12:18) Chest, Pa & Lat (09/07/16 12:18) Abdomen, Kub Only (09/07/16 ) Lactic Acid Sepsis Protocol (09/07/16 12:25) Prothrombin Time / Inr (Pt) (09/07/16 13:22) Act Partial Throm Time (Ptt) (09/07/16 13:22) Phosphorus (Po4) (09/07/16 13:22) Ckmb (Isoenzyme) Profile (09/07/16 13:22) Troponin I (09/07/16 13:22) Influenzae A/B Antigen (09/07/16 13:22) Blood Culture (09/07/16 13:22) Vancomycin Inj (Vancomycin Inj) (09/07/16 13:25) Piperacil-Tazo 4.5 Gm Premix (Zosyn 4.5 (09/07/16 13:25) Sodium Chlor 0.9% 1000 Ml Inj (Ns 1000 M (09/07/16 13:25) Sodium Chlor 0.9% 1000 Ml Inj (Ns 1000 M (09/07/16 13:25) Labs Laboratory Tests Test 09/07/16 12:34 White Blood Count 5.5 TH/MM3 Red Blood Count 2.37 MIL/MM3 Hemoglobin 8.1 GM/DL Hematocrit 24.5 % Mean Corpuscular Volume 103.2 FL Mean Corpuscular Hemoglobin 34.2 PG Mean Corpuscular Hemoglobin 33.2 % Concent Red Cell Distribution Width 18.7 % Platelet Count 176 TH/MM3 Mean Platelet Volume 7.5 FL Neutrophils (%) (Auto) 74.0 % Lymphocytes (%) (Auto) 12.1 % Monocytes (%) (Auto) 12.6 % Eosinophils (%) (Auto) 0.9 % Basophils (%) (Auto) 0.4 % Neutrophils # (Auto) 4.1 TH/MM3 Lymphocytes # (Auto) 0.7 TH/MM3 Monocytes # (Auto) 0.7 TH/MM3 Eosinophils # (Auto) 0.1 TH/MM3 Basophils # (Auto) 0.0 TH/MM3 CBC Comment DIFF FINAL Differential Comment Urine Color YELLOW Urine Turbidity CLEAR Urine pH 5.5 Urine Specific [place] 1.017 Urine Protein TRACE mg/dL Urine Glucose (UA) NEG mg/dL Urine Ketones NEG mg/dL Urine Occult Blood MOD Urine Nitrite NEG Urine Bilirubin NEG Urine Urobilinogen 2.0 MG/DL Urine Leukocyte Esterase NEG Urine RBC 3 /hpf Urine WBC 1 /hpf Urine Squamous Epithelial <1 /hpf Cells Urine Hyaline Casts 21 /lpf Urine Mucus FEW /lpf Microscopic Urinalysis Comment CULT NOT INDICATED Sodium Level 141 MEQ/L Potassium Level 4.2 MEQ/L Chloride Level 105 MEQ/L Carbon Dioxide Level 23.1 MEQ/L Anion Gap 13 MEQ/L Blood Urea Nitrogen 17 MG/DL Creatinine 0.89 MG/DL Estimat Glomerular Filtration 103 ML/MIN Rate Random Glucose 111 MG/DL Lactic Acid Level 4.1 mmol/L Calcium Level 8.8 MG/DL Magnesium Level 1.7 MG/DL Total Bilirubin 0.4 MG/DL Aspartate Amino Transf 45 U/L (AST/SGOT) Alanine Aminotransferase 31 U/L (ALT/SGPT) Alkaline Phosphatase 97 U/L Total Protein 7.2 GM/DL Albumin 2.6 GM/DL [facility] Medical Record Reviewed: Yes Supervised Visit with SHEA: No Differential Diagnosis Pneumonia versus influenza versus bacteremia versus UTI Narrative Course 66-year-old male presents to emergency department for evaluation of worsening weakness. Patient appears as though he does not feel well. He is hypotensive and tachycardic initially. Sepsis protocol was initiated in triage. I seemed care of the patient when he is transferred to a medical bed. I discussed the patient and his history with my attending physician Dr. Nascimento who recommends broad-spectrum antibiotic and IV fluids. Lactic acid is 4.1. Laboratory Tests Test 09/07/16 12:34 White Blood Count 5.5 TH/MM3 Red Blood Count 2.37 MIL/MM3 Hemoglobin 8.1 GM/DL Hematocrit 24.5 % Mean Corpuscular Volume 103.2 FL Mean Corpuscular Hemoglobin 34.2 PG Mean Corpuscular Hemoglobin 33.2 % Concent Red Cell Distribution Width 18.7 % Platelet Count 176 TH/MM3 Mean Platelet Volume 7.5 FL Neutrophils (%) (Auto) 74.0 % Lymphocytes (%) (Auto) 12.1 % Monocytes (%) (Auto) 12.6 % Eosinophils (%) (Auto) 0.9 % Basophils (%) (Auto) 0.4 % Neutrophils # (Auto) 4.1 TH/MM3 Lymphocytes # (Auto) 0.7 TH/MM3 Monocytes # (Auto) 0.7 TH/MM3 Eosinophils # (Auto) 0.1 TH/MM3 Basophils # (Auto) 0.0 TH/MM3 CBC Comment DIFF FINAL Differential Comment Urine Color YELLOW Urine Turbidity CLEAR Urine pH 5.5 Urine Specific [place] 1.017 Urine Protein TRACE mg/dL Urine Glucose (UA) NEG mg/dL Urine Ketones NEG mg/dL Urine Occult Blood MOD Urine Nitrite NEG Urine Bilirubin NEG Urine Urobilinogen 2.0 MG/DL Urine Leukocyte Esterase NEG Urine RBC 3 /hpf Urine WBC 1 /hpf Urine Squamous Epithelial <1 /hpf Cells Urine Hyaline Casts 21 /lpf Urine Mucus FEW /lpf Microscopic Urinalysis Comment CULT NOT INDICATED Sodium Level 141 MEQ/L Potassium Level 4.2 MEQ/L Chloride Level 105 MEQ/L Carbon Dioxide Level 23.1 MEQ/L Anion Gap 13 MEQ/L Blood Urea Nitrogen 17 MG/DL Creatinine 0.89 MG/DL Estimat Glomerular Filtration 103 ML/MIN Rate Random Glucose 111 MG/DL Lactic Acid Level 4.1 mmol/L Calcium Level 8.8 MG/DL Magnesium Level 1.7 MG/DL Total Bilirubin 0.4 MG/DL Aspartate Amino Transf 45 U/L (AST/SGOT) Alanine Aminotransferase 31 U/L (ALT/SGPT) Alkaline Phosphatase 97 U/L Total Protein 7.2 GM/DL Albumin 2.6 GM/DL CBC is without leukocytosis however patient has undergone chemotherapy, hemoglobin is 8.1. CMP is without acute concern. Urinalysis is a moderate occult blood, few mucus. Culture is not indicated. Chest x-ray shows left lower lobe consolidation and mild effusion. Patient meets sepsis criteria. A call has been placed to [facility] for admission. Diagnosis Primary Impression: Sepsis Qualified Code: A41.9 - Sepsis, due to unspecified organism Additional Impressions: Pneumonia Qualified Code: J18.1 - Pneumonia of left lower lobe due to infectious organism Generalized weakness Pulmonary mass Metastatic cancer to liver Admitting Information Admitting Physician Requests: Admit Condition: Stable Mary Kate Ojeda Sep 07, 2016 13:46
--- NOTE | 2016-09-07 14:16 | RADRPT ---
EXAM DATE/TIME: 09/07/2016 13:00 [facility] COMPARISON: No previous studies available for comparison. INDICATIONS : Patient was short of breath. MEDICAL HISTORY : Carcinoma, lung. Cardiovascular disease. Myocardial infarction. SURGICAL HISTORY : Coronary artery stent. infMyShape, GITR recorder ENCOUNTER: Initial ACUITY: 1 day PAIN SCORE: 0/10 LOCATION: Abdomen. FINDINGS: Supine view of the abdomen was performed. The abdominal bowel gas pattern is normal. Oral contrast i s seen in the colon. No abnormal masses, calcifications, or organomegaly is seen. The osseous struct ures are unremarkable. CONCLUSION: No acute disease. Jamil Ramirez MD on September 07, 2016 at 14:09 Board Certified Radiologist. This report was verified electronically.
--- NOTE | 2016-09-07 14:30 | PD ---
Data Data Last Documented VS Vital Signs Date Time Temp Pulse Resp B/P Pulse Ox O2 Delivery O2 Flow Rate FiO2 09/07/16 14:23 77 18 114/59 96 Nasal Cannula 2 09/07/16 11:48 97.8 Orders Complete Blood Count With Diff (09/07/16 12:18) Comprehensive Metabolic Panel (09/07/16 12:18) Magnesium (Mg) (09/07/16 12:18) Urinalysis - C+S If Indicated (09/07/16 12:18) Electrocardiogram (09/07/16 12:18) Chest, Pa & Lat (09/07/16 12:18) Abdomen, Kub Only (09/07/16 ) Lactic Acid Sepsis Protocol (09/07/16 12:25) Prothrombin Time / Inr (Pt) (09/07/16 13:22) Act Partial Throm Time (Ptt) (09/07/16 13:22) Phosphorus (Po4) (09/07/16 13:22) Ckmb (Isoenzyme) Profile (09/07/16 13:22) Troponin I (09/07/16 13:22) Influenzae A/B Antigen (09/07/16 13:22) Blood Culture (09/07/16 13:22) Vancomycin Inj (Vancomycin Inj) (09/07/16 13:25) Piperacil-Tazo 4.5 Gm Premix (Zosyn 4.5 (09/07/16 13:25) Sodium Chlor 0.9% 1000 Ml Inj (Ns 1000 M (09/07/16 13:25) Sodium Chlor 0.9% 1000 Ml Inj (Ns 1000 M (09/07/16 13:25) Labs Laboratory Tests Test 09/07/16 12:34 White Blood Count 5.5 TH/MM3 Red Blood Count 2.37 MIL/MM3 Hemoglobin 8.1 GM/DL Hematocrit 24.5 % Mean Corpuscular Volume 103.2 FL Mean Corpuscular Hemoglobin 34.2 PG Mean Corpuscular Hemoglobin 33.2 % Concent Red Cell Distribution Width 18.7 % Platelet Count 176 TH/MM3 Mean Platelet Volume 7.5 FL Neutrophils (%) (Auto) 74.0 % Lymphocytes (%) (Auto) 12.1 % Monocytes (%) (Auto) 12.6 % Eosinophils (%) (Auto) 0.9 % Basophils (%) (Auto) 0.4 % Neutrophils # (Auto) 4.1 TH/MM3 Lymphocytes # (Auto) 0.7 TH/MM3 Monocytes # (Auto) 0.7 TH/MM3 Eosinophils # (Auto) 0.1 TH/MM3 Basophils # (Auto) 0.0 TH/MM3 CBC Comment DIFF FINAL Differential Comment Urine Color YELLOW Urine Turbidity CLEAR Urine pH 5.5 Urine Specific [place] 1.017 Urine Protein TRACE mg/dL Urine Glucose (UA) NEG mg/dL Urine Ketones NEG mg/dL Urine Occult Blood MOD Urine Nitrite NEG Urine Bilirubin NEG Urine Urobilinogen 2.0 MG/DL Urine Leukocyte Esterase NEG Urine RBC 3 /hpf Urine WBC 1 /hpf Urine Squamous Epithelial <1 /hpf Cells Urine Hyaline Casts 21 /lpf Urine Mucus FEW /lpf Microscopic Urinalysis Comment CULT NOT INDICATED Sodium Level 141 MEQ/L Potassium Level 4.2 MEQ/L Chloride Level 105 MEQ/L Carbon Dioxide Level 23.1 MEQ/L Anion Gap 13 MEQ/L Blood Urea Nitrogen 17 MG/DL Creatinine 0.89 MG/DL Estimat Glomerular Filtration 103 ML/MIN Rate Random Glucose 111 MG/DL Lactic Acid Level 4.1 mmol/L Calcium Level 8.8 MG/DL Magnesium Level 1.7 MG/DL Total Bilirubin 0.4 MG/DL Aspartate Amino Transf 45 U/L (AST/SGOT) Alanine Aminotransferase 31 U/L (ALT/SGPT) Alkaline Phosphatase 97 U/L Total Protein 7.2 GM/DL Albumin 2.6 GM/DL MDM Supervised Visit with SHEA: Yes Narrative Course I, Dr. Nascimento, have reviewed the advance practice practioner's documentation and am in agreement, met with the patient face to face, made the diagnosis, and the medical decision making was done by me. *My assessment and Findings: 66-year-old male undergoing treatment for metastatic lung cancer here with complaint of generalized weakness and hypotension. Patient states that for the last week or so he is felt generally weak, fatigue, poor appetite. No documented fevers or chills. He notes some mild increase in shortness of breath and a dry primarily nonproductive cough. No abdominal pain, nausea vomiting, urinary symptoms. He has a port in the right upper chest. Patient was seen by his PCP and noted to be hypotensive in the 80s and transferred here for further evaluation. Patient is well-appearing on exam, cachectic. Lung sounds are clear bilaterally but decreased in left base. Family note a history of a left-sided pleural effusion. Patient has a benign abdominal examination. Differential includes dehydration, electrolyte abnormality, symptomatic anemia, pneumonia, pleural effusion, UTI, sepsis. Laboratory workup and imaging notable for elevated lactate 4.1 and a left-sided pneumonia with pleural effusion. Patient treated with vancomycin, Zosyn, 30 mg/ kg normal saline bolus and will be admitted for further management. Sepsis Criteria SIRS Criteria (2 or more): Heart rate over 90 Sepsis Criteria (SIRS+source): Infect source susp/known Severe Sepsis (+one): Lactate >2 Septic Shock Criteria: Lactic acid >=4 Criteria Outcome: Meets SIRS criteria, Meets sepsis criteria, Meets severe sepsis criteria, Meets septic shock criteria Diagnosis Primary Impression: Septic shock Additional Impressions: Sepsis Qualified Code: A41.9 - Sepsis, due to unspecified organism Pulmonary mass Metastatic cancer to liver Generalized weakness Pneumonia Qualified Code: J18.1 - Pneumonia of left lower lobe due to infectious organism Admitting Information Admitting Physician Requests: Admit Condition: Stable Sandra Nascimento MD Sep 07, 2016 14:30
[2016-09-07 14:34] LABS: APTT (PATIENT) 26.7 SEC (24.3-30.1); INTERNATIONAL NORMALIZED RATIO 1.1 RATIO; PROTHROMBIN TIME - PATIENT 12.4 SEC (9.8-11.6)
[2016-09-07 14:43] LABS: LACTIC ACID GHOST NOT REPORTABLE
[2016-09-07] MEDS ORDERED: ONDANSETRON HCL 4 MG/2 ML VIAL IV PUSH PRN (15:00)
[2016-09-07] MEDS ORDERED: Vancomycin Consult Pharmacy 1 EA OTHER SCH (15:00)
[2016-09-07] MEDS ORDERED: RESP: ALBUTEROL 1.25 MG/3 ML NEB (PRN) NEB (15:00)
[2016-09-07] MEDS ORDERED: ACETAMINOPHEN 325 MG TAB PO PRN (15:00)
--- NOTE | 2016-09-07 15:03 | HHI.HP ---
[facility] Service [place] [facility] Primary Care Physician Jennifer Hair MD Admission Diagnosis SEPSIS; LLL pneumonia; anemia Diagnoses: (1) Pneumonia Diagnosis: Principal Chief Complaint: generalized weakness Travel History International Travel<30 Days: No Contact w/Intl Traveler <30 Da: No Traveled to Known Affected Are: No History of Present Illness patient is a 66 y/o male with history of metastatic non-small cell lung carcinoma, on radiation and chemo who was sent to ER by his pcp because of generalized weakness. he says that his weakness started after the last radiation about three weeks ago. he says that he's had some sob and with just taking a few steps he gets tired.he had some on and off fever and chills at home. he's had some cough productive of small amount of clear sputum. of note he was taken off his N/C oxygen and his O2 sat dropped to 81 %- this was improved to 95% upon putting him back on oxygen.he says that he's being followed up by and he's supposed to restart his chemo tomorrow. Review of Systems Constitutional: COMPLAINS OF: Fatigue, Fever, Chills, DENIES: Weight loss, Night Sweats Eyes: DENIES: Blurred vision, Diplopia, Vision loss, Double Vision Ears, nose, mouth, throat: DENIES: Tinnitus, Vertigo, Throat pain, Epistaxis Respiratory: COMPLAINS OF: Cough, Shortness of breath, DENIES: Apneas, Snoring , Wheezing, Hemoptysis, Sputum production Cardiovascular: DENIES: Chest pain, Palpitations, Syncope, Dyspnea on Exertion , PND, Lower Extremity Edema, Orthopnea, Claudication Gastrointestinal: DENIES: Abdominal pain, Black stools, Bloody stools, Constipation, Diarrhea, Nausea, Vomiting, Difficulty Swallowing, Anorexia Genitourinary: DENIES: Urinary frequency, Urgency, Hematuria, Dysuria Musculoskeletal: DENIES: Joint pain, Muscle aches, Stiffness, Joint Swelling Integumentary: DENIES: Rash Neurologic: DENIES: Abnormal gait, Headache, Localized weakness, Paresthesias, Seizures, Speech Problems, Tremor, Poor Balance Psychiatric: DENIES: Anxiety, Confusion, Mood changes, Depression, Hallucinations, Agitation, Suicidal Ideation, Homicidal Ideation, Delusions Past Family Social History Past Medical History lung cancer hypertension CAD Past Surgical History port placement loop recorder and stent placement Reported Medications Aspirin EC (Aspirin) 81 Mg Tabdr 81 Mg PO DAILY Atorvastatin (Atorvastatin Calcium) 40 Mg Tab 40 Mg PO DAILY Plavix (Clopidogrel Bisulfate) 75 Mg Tab 75 Mg PO DAILY Lorazepam 0.5 Mg Tab 0.5 Mg PO HS PRN Omeprazole 20 Mg Tab 20 Mg PO DAILY Restoril (Temazepam) 30 Mg Cap 30 Mg PO HS PRN Symbicort Inh (Budesonide/Formoterol Fumarate) 160-4.5 Mcg/Act Aero 2 Puff INH Q12HR Colace (Docusate Sodium) 100 Mg Cap 100 Mg PO DAILY Digoxin 0.125 Mg Tab 0.125 Mg PO DAILY Ondansetron Odt 8 Mg Tab 8 Mg SL TID PRN Nitroglycerin SL (Nitroglycerin) 0.4 Mg Subl 0.4 Mg SL DIRECTED PRN ONE TABLET UNDER THE TONGUE NEEDED FOR CHEST PAIN, MAY REPEAT EVERY FIVE MINUTES FOR A TOTAL OF 3 DOSES OR CALL 911 IF NO RELIEF Magic Mouthwash Adult Liq (Multi-Ingredient Mouthwash/Gargle) 120 Ml Susp 5 Ml SWISH-SWAL TIDAC Each 5mL contains: Nystatin 200,000units, Diphenhydramine 4.25mg, Viscous Lidocaine 10mg, Fernando syrup 0.8 mL Allergies: Coded Allergies: No Known Allergies (Unverified , 09/07/16) Active Ordered Medications Current Medications Vancomycin HCl 1000 mg/Sodium Chloride 250 ml @ 250 mls/hr ONCE STAT IV Last administered on 09/07/16 14:13; Start 09/07/16 at 13:25; Stop 09/07/16 at 14:29 ; Status DC Piperacillin Sod/ Tazobactam Sod 100 ml @ 200 mls/hr ONCE STAT IV Last administered on 09/07/16 14:22; Start 09/07/16 at 13:25; Stop 09/07/16 at 13:54 ; Status DC Sodium Chloride 1,000 ml @ 1,000 mls/hr Q1H ONCE IV Last administered on 14:21; Start 09/07/16 at 13:25; Stop 09/07/16 at 14:29; Status DC Sodium Chloride (NS 1000 ml Inj) 800 ml @ 1,000 mls/hr Q48M ONCE IV Last administered on 09/07/16t 14:22; Start 09/07/16 at 13:25; Stop 09/07/16 at 14:12 ; Status DC Family History cancer in brother and sister. Social History quit smoking nine months ago. Physical Exam Vital Signs Vital Signs Date Time Temp Pulse Resp B/P Pulse Ox O2 Delivery O2 Flow Rate FiO2 09/07/16 14:23 77 18 114/59 96 Nasal Cannula 2 09/07/16 13:19 82 18 120/58 113/60 09/07/16 13:09 97 09/07/16 11:48 97.8 112 16 88/51 95 Physical Exam GENERAL: with mild sob SKIN: No rashes, ecchymoses or lesions. Cool and dry. HEAD: Atraumatic. Normocephalic. No temporal or scalp tenderness. EYES: Pupils equal round and reactive. Extraocular motions intact. No scleral icterus. No injection or drainage. ENT: Nose without bleeding, purulent drainage or septal hematoma. Throat without erythema, tonsillar hypertrophy or exudate. Uvula midline. Airway patent. NECK: Trachea midline. No JVD or lymphadenopathy. Supple, nontender, no meningeal signs. CARDIOVASCULAR: Regular rate and rhythm without murmurs, gallops, or rubs. RESPIRATORY: diminished air entry in bases GASTROINTESTINAL: Abdomen soft, non-tender, nondistended. No hepato-splenomegaly , or palpable masses. No guarding. MUSCULOSKELETAL: Extremities without clubbing, cyanosis, or edema. No joint tenderness, effusion, or edema noted. No calf tenderness. Negative Homans sign bilaterally. NEUROLOGICAL: Awake and alert. Cranial nerves II through XII intact. Motor and sensory grossly within normal limits. Five out of 5 muscle strength in all muscle groups. Normal speech. Laboratory Laboratory Tests Test 09/07/16 09/07/16 12:34 13:55 White Blood Count 5.5 Red Blood Count 2.37 Hemoglobin 8.1 Hematocrit 24.5 Mean Corpuscular Volume 103.2 Mean Corpuscular Hemoglobin 34.2 Mean Corpuscular Hemoglobin 33.2 Concent Red Cell Distribution Width 18.7 Platelet Count 176 Mean Platelet Volume 7.5 Neutrophils (%) (Auto) 74.0 Lymphocytes (%) (Auto) 12.1 Monocytes (%) (Auto) 12.6 Eosinophils (%) (Auto) 0.9 Basophils (%) (Auto) 0.4 Neutrophils # (Auto) 4.1 Lymphocytes # (Auto) 0.7 Monocytes # (Auto) 0.7 Eosinophils # (Auto) 0.1 Basophils # (Auto) 0.0 CBC Comment DIFF FINAL Differential Comment Urine Color YELLOW Urine Turbidity CLEAR Urine pH 5.5 Urine Specific [place] 1.017 Urine Protein TRACE Urine Glucose (UA) NEG Urine Ketones NEG Urine Occult Blood MOD Urine Nitrite NEG Urine Bilirubin NEG Urine Urobilinogen 2.0 Urine Leukocyte Esterase NEG Urine RBC 3 Urine WBC 1 Urine Squamous Epithelial <1 Cells Urine Hyaline Casts 21 Urine Mucus FEW Microscopic Urinalysis Comment CULT NOT INDICATED Sodium Level 141 Potassium Level 4.2 Chloride Level 105 Carbon Dioxide Level 23.1 Anion Gap 13 Blood Urea Nitrogen 17 Creatinine 0.89 Estimat Glomerular Filtration 103 Rate Random Glucose 111 Lactic Acid Level 4.1 Calcium Level 8.8 Magnesium Level 1.7 Total Bilirubin 0.4 Aspartate Amino Transf 45 (AST/SGOT) Alanine Aminotransferase 31 (ALT/SGPT) Alkaline Phosphatase 97 Total Protein 7.2 Albumin 2.6 Prothrombin Time 12.4 Prothromb Time International 1.1 Ratio Activated Partial 26.7 Thromboplast Time Phosphorus Level 3.1 Date/Time Procedure Status Source Growth 09/07/16 14:00 Influenza Types A,B Antigen (CHERI) - Final Complete Nasal Washing NEGATIVE FOR FLU A AND B ANTIGEN.... 09/07/16 13:55 Aerobic Blood Culture Received Blood Peripheral Pending 09/07/16 13:55 Anaerobic Blood Culture Received Blood Peripheral Pending Result Diagram: 09/07/16 1234 09/07/16 1234 Imaging CXR; LLL infiltrate and effusion Assessment and Plan Assessment and Plan A/P - acute hypoxemic respiratory failure due to LLL pneumonia with history of metastatic non-small cell carcinoma continue with broad spectrum IV antibiotics given the recent radiation therapy - start neb treatment- check ABG and keep on oxygen to keep O2 sat > 90%. will follow the cultures- consult oncology ( ) -generalized weakness; consult PT -anemia- chronic; will monitor -CAD- s/p stent placement; continue aspirin and plavix -hypertension; hold Cardizem for now due to low-normal BP upon presentation -DVT prophylaxis with SCD's Discussed Condition With ER and the patient. Physician Certification 2 Midnight Certification Type: Admission for Inpatient Services Order for Inpatient Services The services are ordered in accordance with Medicare regulations or non- Medicare payer requirements, as applicable. In the case of services not specified as inpatient-only, they are appropriately provided as inpatient services in accordance with the 2-midnight benchmark. Estimated LOS (days): 2 days is the estimated time the patient will need to remain in the hospital, assuming treatment plan goals are met and no additional complications. Post-Hospital Plan: Home Problem Qualifiers (1) Pneumonia: Qualified Code: J18.1 - Pneumonia of left lower lobe due to infectious organism Tj Dobson MD Sep 07, 2016 15:03
[2016-09-07 15:12] LABS: CREATINE KINASE 51 U/L (39-308)
[2016-09-07 16:01] LABS: BLOOD GAS BASE EXCESS -3.6 mmol/L (-2-2); BLOOD GAS CARBOXYHEMOGLOBIN 1.7 % (0-4); BLOOD GAS HCO3 20 mmol/L (22-26); BLOOD GAS METHEMOGLOBIN 0.3 % (0-2); BLOOD GAS O2 HGB SATURATION 94 % (90-100); BLOOD GAS OXYGEN CONTENT 11.9 Vol % (12.0-20.0); BLOOD GAS PCO2 32 mmHg (38-42); BLOOD GAS PO2 85 mmHG (61-120); BLOOD GAS TOTAL HGB 8.9 G/DL (12.0-16.0); TEMP CORR TO 98.6
[2016-09-07 16:02] LABS: CRITICAL VALUE NO; DRAW SITE RT RADIAL; FIO2 21 %; NUMBER OF ARTERIAL PUNCTURES 1; STAT YES; ULNAR PULSE PRESENT
[2016-09-07] MEDS: RESP: ALBUTEROL 2.5 MG/IPRATROPIUM 0.5 MG NEB (SCH) NEB ×2 (17:16→21:05)
--- NOTE | 2016-09-07 18:09 | PD.PN.STU ---
Subjective Remarks Mr Lal is a pleasant 66 yo M w/metastatic non-small cell lung ca who presents with a 4 week history of weakness, shortness of breath on exertion, dizziness, and generalized fatigue. He reports that his shortness of breath has been relatively stable for the past month, but today during a PCP visit, he was told to go to the ER for low blood pressure. He also reports a recent PET scan that showed a moderate left-sided effusion. He is followed by oncologist Dr. Bolaños. He has been undergoing radiation treatment with Dr. De Luna daily for the last number of weeks. He is unsure of the chemotherapy regimen, but he underwent his last treatment 3 weeks ago and is due for another round of chemo tomorrow. Objective Vitals Vital Signs Date Time Temp Pulse Resp B/P Pulse Ox O2 Delivery O2 Flow Rate FiO2 09/07/16 17:49 83 16 113/58 96 Room Air 2 09/07/16 15:18 74 22 110/53 96 2 09/07/16 14:56 96 Nasal Cannula 2.00 09/07/16 14:23 77 18 114/59 96 Nasal Cannula 2 09/07/16 13:19 82 18 120/58 113/60 09/07/16 13:09 97 09/07/16 11:48 97.8 112 16 88/51 95 Result Diagram: 09/07/16 1234 09/07/16 1234 Imaging Last 48 hours Impressions Chest X-Ray 09/07/16 1218 Signed Impressions: Service Date/Time: Wednesday, September 07, 2016 12:53 - CONCLUSION: Left lower lobe consolidation and mild effusion. Jamil Ramirez MD Abdomen X-Ray 09/07/16 0000 Signed Impressions: Service Date/Time: Wednesday, September 07, 2016 13:00 - CONCLUSION: No acute disease. Jamil Ramirez MD Objective Remarks GENERAL: Chronically ill appearing male, n/c in place, no increased work of breathing SKIN: Warm and dry. HEAD: Atraumatic. Normocephalic. EYES: Pupils equal and round. No scleral icterus. No injection or drainage. ENT: No nasal bleeding or discharge. Mucous membranes pink and moist. NECK: Trachea midline. No JVD. Port placed on R CARDIOVASCULAR: Regular rate and rhythm. RESPIRATORY: No accessory muscle use. Decreased breath sounds on L lung base, mild inspiratory crackles on R GASTROINTESTINAL: Abdomen soft, non-tender, nondistended. Hepatic and splenic margins not palpable. MUSCULOSKELETAL: Extremities without clubbing, cyanosis, or edema. No obvious deformities. NEUROLOGICAL: Awake and alert. No obvious cranial nerve deficits. Motor grossly within normal limits. Five out of 5 muscle strength in the arms and legs. Normal speech. PSYCHIATRIC: Appropriate mood and affect; insight and judgment normal. Sierra Razo M3 Sep 07, 2016 18:09
--- NOTE | 2016-09-07 20:16 | MB ---
cc: AMOL BOLAÑOS M.D., RICHARD DATE OF CONSULTATION: 09/07/2016 REASON FOR CONSULTATION: A 66 year-old male with stage IV adenocarcinoma of the lung with metastatic disease to the liver, hypoxia, left pleural effusion. PATIENT PROFILE The patient is a 66 year-old black male. He has been twice and . He has fiance with whom he has been with for many years. He was born in [place]. He has lived in [place] for most of his life. HISTORY OF PRESENT ILLNESS The patient's history dates back to April 2016 when he was found to have a non-small cell lung cancer on bronchoscopy involving the left lower lobe. At that time he was felt to have stage III disease with involvement of the hilum and mediastinum. He was treated with radiation therapy and concomitant chemotherapy with carboplatin and Taxol by Dr. Vito De Luna, and Dr. Tashi Bolaños. Following the treatment he has not done well and there has been a general failure to thrive with increasing weakness, exertional shortness of breath, anorexia, and progressive weight loss. He had a CT scan of the thorax with contrast on August 31, 2016. I personally reviewed the images. There is significant emphysema. There are several nodules involving the left upper lobe. There is a mild to moderate left pleural effusion. The hilar and mediastinal adenopathy has decreased in size. Unfortunately the patient now has evidence of extensive metastatic disease to the liver. He had staining of the tumor and the PDL 1, was 50%. Dr. Bolaños was planning on treating him Keytruda. Today he was seen by his primary care physician. He had a low blood pressure. He was sent to the emergency room and at some point during the course of his evaluation his saturations dropped into the low 80%. He has not had any pleuritic pain. There has been no hemoptysis. The shortness of breath has been of gradual onset. In April [address] angiogram which showed a large left hilar mass. It did not show evidence of pulmonary emboli. He has had no fever or significant sputum production. PAST SURGICAL HISTORY: 1. Port placement right upper chest. 2. He briefly had a PEG placement for feeding. 3. camera operator for monitoring rhythm placed in 2016. 4. Coronary stents x3 in 2015. 5. Bronchoscopy and biopsy revealing nonsmall cell lung cancer, specifically adenocarcinoma 05/12/2016. PAST MEDICAL HISTORY: 1. Coronary artery disease with stents. 2. Myocardial infarction 2010. 3. Elevated cholesterol. 4. Hypertension. 5. Recent completion of chemotherapy and radiation therapy for what was initially stage III-A disease. ALLERGIES: None known. MEDICATIONS PRIOR TO ADMISSION 1. Albuterol 2. Aspirin 3. Atorvastatin. 4. Plavix 5. Symbicort 6. Ativan. 7. Nitroglycerin 8. Omeprazole 9. Ondansetron 10. Temazepam REVIEW OF SYSTEMS No change in vision or hearing. Occasional mild discomfort in right chest tending to relate to body position. Respiratory: Exertional shortness of breath. He could only walk about 10 to 20 feet. GI: Poor appetite, extensive weight loss. : Poor urinary stream. Musculoskeletal: No bone pain. Neurologic: No focal weakness. Psychiatric: No problems. PHYSICAL EXAMINATION: Reveals a gaunt male. He is not in acute distress. VITAL SIGNS: Blood pressure is 95/44, respiratory rate 16, pulse 85 afebrile. O2 sat presently 96% on two liters, although I am told in speaking to Dr. Dobson, who is his hospitalist that it dropped down to th low 80s off oxygen in the emergency room. Head is normocephalic. Sclera and conjunctivae are normal. Oropharynx: Upper dentures, no lesions. Heart: Regular rhythm. Lungs: The left lung decreased sounds lower third, otherwise left and right lung clear. Upper chest has [id number] right upper chest. In the left chest, the patient has a device used to monitor rhythm. Heart: Regular, rate 80. Abdomen: Soft. Liver I believe is 1 or 2 cm below the right costal margin. Extremities: No edema. Musculoskeletal: Moderate amount of muscle wasting. Neurologic: No focal weakness. ASSESSMENT A 66-year-old male who has stage IV adenocarcinoma of the lung with extensive disease involving the liver which has evolved rapidly over about 3-4 months. He has worsening shortness of breath which most likely is due to emphysema, the pleural effusion, and recent radiation therapy which included the hilum and mediastinum. RECOMMENDATIONS: 1. He may benefit from a thoracentesis although the improvement would be modest as the effusion is not large. 2. He will require oxygen at home and oxygen any time he is other than sedentary. 3. Following the paracentesis and arrangements for home oxygen, he can be discharged. He has a very small chance of long-term survival and if this to take place, it will be a result of immune therapy and, therefore, I would proceed with the thoracentesis and arrangements for home O2. Following this it would be appropriate for him to go ahead with Kim. I spoke to him about Hospice and this is not something he wants to pursue. The situation has been discussed with Dr. Dobson. Dr. Dobson will write the orders and I will be available as needed. Dr. Bolaños will return next week. In addition, it would be reasonable to give him one unit of packed cells, bringing his hemoglobin from 8.1 to 9. This may cause a transient improvement, and this man needs everything he can get. MD JUNAID Luna/CRUZ /7:15 PM /7:59 PM GISELLE
[2016-09-07] MEDS: PIPERACIL-TAZO 3.375 GM PREMIX 50 ML IV SCH (20:55)
[2016-09-07] MEDS: BUDESONIDE-FORMOTEROL 160/4.5 MCG INHALER INH SCH (20:56)
[2016-09-07] MEDS: LORazepam 0.5 MG TAB PO PRN (20:59)
[2016-09-08] VITALS (17 sets, daily range): BP systolic 92–124; BP diastolic 52–69; PULSE 90–105; RESP 17–21; TEMP 98.3–100.8; O2SAT 96–100
[2016-09-08] MEDS: PIPERACIL-TAZO 3.375 GM PREMIX 50 ML IV SCH ×4 (00:59→20:57)
[2016-09-08] MEDS: VANCOMYCIN 1,000 MG/NS 250 ML IV SCH ×4 (01:05→13:40)
[2016-09-08 02:31] LABS: AUTOMATED NEUTROPHIL # 2.5 TH/MM3 (1.8-7.7); BASOPHIL % 0.7 % (0.0-2.0); EOSINOPHIL # 0.1 TH/MM3 (0-0.4); LYMPH % 14.7 % (9.0-44.0); LYMPHOCYTE # 0.5 TH/MM3 (1.0-4.8); MEAN CELL VOLUME 100.8 FL (80.0-100.0); MEAN CORPUSCULAR HEMOGLOBIN 33.8 PG (27.0-34.0); MEAN CORPUSCULAR HGB CONC 33.5 % (32.0-36.0); MONO % 15.2 % (0.0-8.0); NEUT % 67.4 % (16.0-70.0); PLATELET COUNT 133 TH/MM3 (150-450); RED CELL DISTRIBUTION WIDTH 18.3 % (11.6-17.2); WHITE BLOOD COUNT 3.7 TH/MM3 (4.0-11.0)
[2016-09-08 02:40] LABS: HEMO FLAGS DIFF FINAL
[2016-09-08 02:41] LABS: HEMATOCRIT 18.2 % (39.0-51.0)
[2016-09-08] MEDS: RESP: ALBUTEROL 2.5 MG/IPRATROPIUM 0.5 MG NEB (SCH) NEB ×2 (03:35→08:59)
[2016-09-08] MEDS ORDERED: SODIUM CHLOR 0.9% 250 ML INJ 250 ML IV ONE (06:30)
[2016-09-08] MEDS: BUDESONIDE-FORMOTEROL 160/4.5 MCG INHALER INH SCH ×2 (09:00→20:57)
[2016-09-08] MEDS: ASPIRIN EC 81 MG TABEC PO SCH (09:00)
[2016-09-08] MEDS: CLOPIDOGREL 75 MG TAB PO SCH (09:00)
[2016-09-08] MEDS: ATORVASTATIN 40 MG TAB PO SCH (09:43)
[2016-09-08] MEDS: PANTOPRAZOLE SOD 20 MG DELAYED RELEASE TAB PO SCH (09:43)
--- NOTE | 2016-09-08 12:26 | HHI.PR ---
Subjective Remarks resting comfortably with no distress. still with some exertional dyspnea. denies pain. blood transfusion in process. Objective Vitals Vital Signs Date Time Temp Pulse Resp B/P Pulse Ox O2 Delivery O2 Flow Rate FiO2 09/08/16 09:00 96 Nasal Cannula 1.00 09/08/16 08:00 99.5 98 17 121/64 100 09/08/16 07:51 98.7 95 18 109/69 100 09/08/16 07:36 99.5 90 18 121/64 100 09/08/16 06:30 98.3 98 18 119/62 100 09/08/16 04:23 99.1 96 18 100/55 98 09/08/16 04:17 99.2 101 18 95/52 100 09/08/16 03:47 99.1 96 18 97/53 97 09/08/16 03:37 98 Nasal Cannula 2.00 09/08/16 03:31 99.1 96 18 100/55 98 09/08/16 00:27 98.8 92 20 92/53 100 09/07/16 22:00 98 Nasal Cannula 2.00 09/07/16 21:13 100 Nasal Cannula 2.00 09/07/16 21:05 99 Nasal Cannula 2.00 09/07/16 20:00 98.7 81 18 119/57 99 09/07/16 18:40 97.6 85 16 93/55 96 09/07/16 17:49 83 16 113/58 96 Room Air 2 09/07/16 15:18 74 22 110/53 96 2 09/07/16 14:56 96 Nasal Cannula 2.00 09/07/16 14:23 77 18 114/59 96 Nasal Cannula 2 09/07/16 13:19 82 18 120/58 113/60 09/07/16 13:09 97 I/O 09/07/16 09/07/16 09/07/16 09/08/16 09/08/16 09/08/16 07:00 15:00 23:00 07:00 15:00 23:00 Intake Total 480 ml Output Total 350 ml Balance 480 ml -350 ml Intake Oral 480 ml Output Urine Total 350 ml # Voids 1 2 Result Diagram: 09/08/16 0215 09/07/16 1234 Imaging Last Impressions Chest X-Ray 09/07/16 1218 Signed Impressions: Service Date/Time: Wednesday, September 07, 2016 12:53 - CONCLUSION: Left lower lobe consolidation and mild effusion. Jamil Ramirez MD Abdomen X-Ray 09/07/16 0000 Signed Impressions: Service Date/Time: Wednesday, September 07, 2016 13:00 - CONCLUSION: No acute disease. Jamil Ramirez MD Objective Remarks GENERAL: This is a well-nourished, well-developed patient, in no apparent distress. CARDIOVASCULAR: Regular rate and regular rhythm without murmurs, gallops, or rubs. RESPIRATORY: Clear to auscultation. Breath sounds equal bilaterally. No wheezes , rales, or rhonchi. GASTROINTESTINAL: Abdomen soft, non-tender, nondistended. Normal, active bowel sounds MUSCULOSKELETAL: Extremities without clubbing, cyanosis, or edema. NEURO: Alert & Oriented x4 to person, place, time, situation. Moves all ext x4 Procedures none Medications and IVs Current Medications Vancomycin HCl 1000 mg/Sodium Chloride 250 ml @ 250 mls/hr ONCE STAT IV Last administered on 09/07/16 14:13; Start 09/07/16 at 13:25; Stop 09/07/16 at 14:29 ; Status DC Piperacillin Sod/ Tazobactam Sod 100 ml @ 200 mls/hr ONCE STAT IV Last administered on 09/07/16 14:22; Start 09/07/16 at 13:25; Stop 09/07/16 at 13:54 ; Status DC Sodium Chloride 1,000 ml @ 1,000 mls/hr Q1H ONCE IV Last administered on 14:21; Start 09/07/16 at 13:25; Stop 09/07/16 at 14:29; Status DC Sodium Chloride 800 ml @ 1,000 mls/hr Q48M ONCE IV Last administered on 14:22; Start 09/07/16 at 13:25; Stop 09/07/16 at 14:12; Status DC Pharmacy Profile Note 0 ml @ 0 mls/hr UNSCH OTHER ; Start 09/07/16 at 15:00 Piperacillin Sod/ Tazobactam Sod (Zosyn 3.375 Gm Premix) 50 ml @ 100 mls/hr Q6H IV Last administered on 09/08/16 09:40; Start 09/07/16 at 20:00 Albuterol/ Ipratropium (Duoneb Neb) 1 ampule Q6HR NEB NEB Last administered on 09/08/16 08:59; Start 09/07/16 at 16:00; Stop 09/08/16 at 15:00 Albuterol Sulfate (Albuterol Neb) 1.25 mg Q2HR NEB PRN NEB SHORTNESS OF BREATH ; Start 09/07/16 at 15:00 Aspirin (Ecotrin Ec) 81 mg DAILY PO ; Start 09/08/16 at 09:00 Atorvastatin Calcium (Lipitor) 40 mg DAILY PO Last administered on 09/08/16 09 :43; Start 09/08/16 at 09:00 Budesonide/ Formoterol Fumarate (Symbicort 160-4.5 Inh) 2 puff Q12HR INH Last administered on 09/07/16 20:56; Start 09/07/16 at 21:00 Clopidogrel Bisulfate (Plavix) 75 mg DAILY PO ; Start 09/08/16 at 09:00 Lorazepam (Ativan) 0.5 mg HS PRN PO ANXIETY AND/OR INSOMNIA Last administered on 09/07/16 20:59; Start 09/07/16 at 15:00 Pantoprazole Sodium (Protonix) 20 mg DAILY PO Last administered on 09/08/16 09 :43; Start 09/08/16 at 09:00 Acetaminophen (Tylenol) 650 mg Q4H PRN PO FEVER/PAIN/HEADACHE; Start 09/07/16 at 15:00 Ondansetron HCl 4 mg 4 mg Q8HR PRN IV PUSH NAUSEA; Start 09/07/16 at 15:00 Vancomycin HCl/ Sodium Chloride (Vancomycin Inj/ NS 250 ml Inj) 250 ml @ 250 mls/hr Q12H IV Last administered on 09/08/16 01:05; Start 09/08/16 at 01:00 Miscellaneous Information SPECIFIC LAB TO BE DRAWN:VANCOMYCIN TROUGH DATE TO... ONCE ONCE XX ; Start 09/09/16 at 12:45; Stop 09/09/16 at 12:46 Sodium Chloride (NS 250 ml Inj) 250 ml @ 15 mls/hr ONCE ONCE IV Last administered on 09/08/16 06:30; Start 09/08/16 at 06:30; Stop 09/08/16 at 23:09 A/P Assessment and Plan - acute hypoxemic respiratory failure due to LLL pneumonia with history of metastatic non-small cell carcinoma continue with broad spectrum IV antibiotics given the recent radiation therapy ; will deescalate the antibiotics soon if cultures negative- continue neb treatment- keep on oxygen to keep O2 sat > 90%. follow the cultures- consulted oncology ( being followed up by ) d/w Dr. Jenkins; IR consulted for thoracentesis- walk test tomorrow. -generalized weakness; consulted PT -anemia- chronic;PRBC transfusion in process- will monitor H/H post-transfusion. -CAD- s/p stent placement; aspirin and plavix on hold for planned procedure -hypertension; hold Cardizem for now due to low-normal BP - will monitor for now -DVT prophylaxis with SCD's Tj Dobson MD Sep 08, 2016 12:26
[2016-09-08] MEDS ORDERED: MAGNESIUM HYDROXIDE SUSP 30 ML CUP PO PRN (14:30)
[2016-09-08 17:32] LABS: HEMATOCRIT 27.2 % (39.0-51.0)
--- NOTE | 2016-09-08 18:45 | PD.ONC.PN ---
Subjective Subjective Remarks remains tired and sob with mild exertion Objective Data Date Time Temp Pulse Resp B/P Pulse Ox O2 Delivery O2 Flow Rate FiO2 09/08/16 18:17 99 Nasal Cannula 1.00 09/08/16 16:00 100.8 102 21 124/64 99 09/08/16 12:29 100.3 99 17 103/59 99 09/08/16 09:00 96 Nasal Cannula 1.00 09/08/16 08:00 99.5 98 17 121/64 100 09/08/16 07:51 98.7 95 18 109/69 100 09/08/16 07:36 99.5 90 18 121/64 100 09/08/16 06:30 98.3 98 18 119/62 100 09/08/16 04:23 99.1 96 18 100/55 98 09/08/16 04:17 99.2 101 18 95/52 100 09/08/16 03:47 99.1 96 18 97/53 97 09/08/16 03:37 98 Nasal Cannula 2.00 09/08/16 03:31 99.1 96 18 100/55 98 09/08/16 00:27 98.8 92 20 92/53 100 09/07/16 22:00 98 Nasal Cannula 2.00 09/07/16 21:13 100 Nasal Cannula 2.00 09/07/16 21:05 99 Nasal Cannula 2.00 09/07/16 20:00 98.7 81 18 119/57 99 09/08/16 09/08/16 09/08/16 07:00 15:00 23:00 Intake Total 825 ml Output Total 350 ml Balance -350 ml 825 ml Result Diagram: 09/08/16 1634 09/07/16 1234 Laboratory Results Laboratory Tests Test 09/08/16 09/08/16 02:15 16:34 White Blood Count 3.7 TH/MM3 Red Blood Count 1.80 MIL/MM3 Hemoglobin 6.1 GM/DL 9.5 GM/DL Hematocrit 18.2 % 27.2 % Mean Corpuscular Volume 100.8 FL Mean Corpuscular Hemoglobin 33.8 PG Mean Corpuscular Hemoglobin 33.5 % Concent Red Cell Distribution Width 18.3 % Platelet Count 133 TH/MM3 Mean Platelet Volume 7.1 FL Neutrophils (%) (Auto) 67.4 % Lymphocytes (%) (Auto) 14.7 % Monocytes (%) (Auto) 15.2 % Eosinophils (%) (Auto) 2.0 % Basophils (%) (Auto) 0.7 % Neutrophils # (Auto) 2.5 TH/MM3 Lymphocytes # (Auto) 0.5 TH/MM3 Monocytes # (Auto) 0.6 TH/MM3 Eosinophils # (Auto) 0.1 TH/MM3 Basophils # (Auto) 0.0 TH/MM3 CBC Comment DIFF FINAL Differential Comment Lactic Acid Level 2.5 mmol/L Blood Type B POSITIVE Antibody Screen NEGATIVE Crossmatch Leukocyte-Reduced Red Blood Cells Blood Bank Comment Culture Results Microbiology Date/Time Procedure Status Source Growth 09/07/16 13:50 Aerobic Blood Culture - Preliminary Resulted Blood Peripheral NO GROWTH IN 1 DAY 09/07/16 13:50 Anaerobic Blood Culture - Preliminary Resulted Blood Peripheral NO GROWTH IN 1 DAY 09/07/16 13:55 Aerobic Blood Culture - Preliminary Resulted Blood Peripheral NO GROWTH IN 1 DAY 09/07/16 13:55 Anaerobic Blood Culture - Preliminary Resulted Blood Peripheral NO GROWTH IN 1 DAY 09/07/16 14:00 Influenza Types A,B Antigen (CHERI) - Final Complete Nasal Washing NEGATIVE FOR FLU A AND B ANTIGEN.... Administered Medications Medications (Trade) Dose Ordered Sig/Edvin Route PRN Reason Start Time Stop Time Status Last Admin Dose Admin Piperacillin Sod/ Tazobactam Sod (Zosyn 3.375 Gm Premix) 50 ml @ 100 mls/hr Q6H IV 09/07/16 20:00 09/08/16 15:40 Atorvastatin Calcium (Lipitor) 40 mg DAILY PO 09/08/16 09:00 09/08/16 09:43 Budesonide/ Formoterol Fumarate (Symbicort 160-4.5 Inh) 2 puff Q12HR INH 09/07/16 21:00 09/07/16 20:56 Lorazepam (Ativan) 0.5 mg HS PRN PO ANXIETY AND/OR INSOMNIA 09/07/16 15:00 09/07/16 20:59 Pantoprazole Sodium (Protonix) 20 mg DAILY PO 09/08/16 09:00 09/08/16 09:43 Acetaminophen 650 mg 650 mg Q4H PRN PO FEVER/PAIN/HEADACHE 09/07/16 15:00 09/08/16 16:30 Vancomycin HCl 1000 mg/Sodium Chloride 250 ml @ 250 mls/hr Q12H IV 09/08/16 01:00 09/08/16 13:40 Sodium Chloride (NS 250 ml Inj) 250 ml @ 15 mls/hr ONCE ONCE IV 09/08/16 06:30 09/08/16 23:09 09/08/16 06:30 Magnesium Hydroxide (Milk Of Magnshanice Liq) 30 ml DAILY PRN PO CONSTIPATION 09/08/16 14:30 09/08/16 16:28 Objective Remarks GENERAL: gaunt SKIN: Warm and dry. HEAD: Normocephalic. EYES: No scleral icterus. No injection or drainage. NECK: Supple, trachea midline. No JVD or lymphadenopathy. LYMPHATIC: No adenopathy. CARDIOVASCULAR: Regular rate and rhythm without murmurs. RESPIRATORY: decreased sounds left base. GASTROINTESTINAL: Abdomen soft, non-tender, nondistended. EXTREMITIES: No cyanosis, or edema. MUSCULOSKELETAL: mild muscle wasting. NEUROLOGICAL: No obvious focal deficit. Awake, alert, and oriented x3. PSYCHIATRIC: Appropriate mood and affect; insight and judgment normal. Assessment/Plan Assessment 1: stage IV non small cell lung cancer with liver mets and moderate left sided effusion. Case discussed with Dr. Dobson and recommend - transfuse to hemoglobin of greater then or equal to 9. hold plavix and proceed with left thoracentesis. oxygen at home. Once this has taken place the patient will proceed with immune therapy with pembroluzimab. Rambo Jenkins MD Sep 08, 2016 18:45
--- NOTE | 2016-09-08 20:26 | EKG ---
Date Performed: 09/07/2016 Time Performed: 12:28:56 PTAGE: 66 years EKG: Sinus rhythm LOW QRS VOLTAGE IN EXTREMITY LEADS ABNORMAL ECG PREVIOUS TRACING : 08/16/2016 14.20 Compared to prior tracing no significant change DOCTOR: Lauro Evans Interpretating Date/Time 09/08/2016 20:24:33
[2016-09-09] VITALS (7 sets, daily range): BP systolic 106–125; BP diastolic 63–68; PULSE 88–109; RESP 20; TEMP 97.6–100.6; O2SAT 96–99
[2016-09-09] MEDS: VANCOMYCIN 1,000 MG/NS 250 ML IV SCH ×2 (00:43)
[2016-09-09] MEDS: PIPERACIL-TAZO 3.375 GM PREMIX 50 ML IV SCH ×4 (02:24→20:59)
[2016-09-09 06:16] LABS: AUTOMATED NEUTROPHIL # 4.3 TH/MM3 (1.8-7.7); BASOPHIL % 0.4 % (0.0-2.0); EOSINOPHIL # 0.1 TH/MM3 (0-0.4); EOSINOPHIL % 1.6 % (0.0-4.0); HEMATOCRIT 29.5 % (39.0-51.0); HEMO FLAGS DIFF FINAL; LYMPH % 10.8 % (9.0-44.0); LYMPHOCYTE # 0.6 TH/MM3 (1.0-4.8); MEAN CELL VOLUME 94.8 FL (80.0-100.0); MEAN CORPUSCULAR HEMOGLOBIN 32.3 PG (27.0-34.0); MEAN CORPUSCULAR HGB CONC 34.1 % (32.0-36.0); MONO % 12.1 % (0.0-8.0); NEUT % 75.1 % (16.0-70.0); PLATELET COUNT 119 TH/MM3 (150-450); RED BLOOD COUNT 3.11 MIL/MM3 (4.50-5.90); RED CELL DISTRIBUTION WIDTH 19.4 % (11.6-17.2); WHITE BLOOD COUNT 5.7 TH/MM3 (4.0-11.0)
--- NOTE | 2016-09-09 07:30 | HHI.PR ---
Subjective Remarks This is a pleasant 66 y/o male with history of Metastatic non small cell lung carcinoma, on radiation and chemotherapy, sent to ER by PCP due to generalized weakness, that started after the last radiation therapy, three weeks ago, came with productive cough, with Hypoxemia on admission, admitted with LLL Pneumonia and anemia, also had Hypertension, CAD, Patient seen in the room in the presence of nurse Mr. Rajput no complaint, wants to go home, awaiting for Left Thoracentesis. Awaiting final recommendations by Hematology and processing specialist for discharge. Objective Vital Signs Date Time Temp Pulse Resp B/P Pulse Ox O2 Delivery O2 Flow Rate FiO2 09/09/16 04:00 97.6 93 20 111/63 99 09/09/16 00:00 98.9 100 20 115/67 98 09/08/16 22:10 98 Room Air 09/08/16 20:55 99.0 94 18 124/60 96 09/08/16 18:17 99 21 09/08/16 16:00 100.8 102 21 124/64 99 09/08/16 12:29 100.3 99 17 103/59 99 09/08/16 09:40 Nasal Cannula 2.00 09/08/16 09:00 96 Nasal Cannula 1.00 09/08/16 08:05 98.5 105 19 112/67 97 09/08/16 08:00 99.5 98 17 121/64 100 09/08/16 07:51 98.7 95 18 109/69 100 09/08/16 07:50 98.7 94 20 109/69 100 09/08/16 07:36 99.5 90 18 121/64 100 I/O 09/08/16 09/08/16 09/08/16 09/09/16 09/09/16 09/09/16 07:00 15:00 23:00 07:00 15:00 23:00 Intake Total 1185 ml 120 ml Output Total 350 ml Balance -350 ml 1185 ml 120 ml Intake Oral 1185 ml 120 ml Output Urine Total 350 ml # Voids 4 1 # Bowel Movements 1 2 Result Diagram: 09/09/16 0556 09/09/16 0556 Imaging Last Impressions Chest X-Ray 09/07/16 1218 Signed Impressions: Service Date/Time: Wednesday, September 07, 2016 12:53 - CONCLUSION: Left lower lobe consolidation and mild effusion. Jamil Ramirez MD Abdomen X-Ray 09/07/16 0000 Signed Impressions: Service Date/Time: Wednesday, September 07, 2016 13:00 - CONCLUSION: No acute disease. Jamil Ramirez MD Procedures No procedures performed Other Results Laboratory Tests Test 09/07/16 09/07/16 09/07/16 09/08/16 12:34 13:55 15:47 02:15 Urine Color YELLOW Urine Turbidity CLEAR Urine pH 5.5 Urine Specific Craig 1.017 Urine Protein TRACE mg/dL Urine Glucose (UA) NEG mg/dL Urine Ketones NEG mg/dL Urine Occult Blood MOD Urine Nitrite NEG Urine Bilirubin NEG Urine Urobilinogen 2.0 MG/DL Urine Leukocyte Esterase NEG Urine RBC 3 /hpf Urine WBC 1 /hpf Urine Squamous Epithelial <1 /hpf Cells Urine Hyaline Casts 21 /lpf Urine Mucus FEW /lpf Microscopic Urinalysis Comment CULT NOT INDICATED Sodium Level 141 MEQ/L Potassium Level 4.2 MEQ/L Chloride Level 105 MEQ/L Carbon Dioxide Level 23.1 MEQ/L Anion Gap 13 MEQ/L Blood Urea Nitrogen 17 MG/DL Random Glucose 111 MG/DL Calcium Level 8.8 MG/DL Magnesium Level 1.7 MG/DL Total Bilirubin 0.4 MG/DL Aspartate Amino Transf 45 U/L (AST/SGOT) Alanine Aminotransferase 31 U/L (ALT/SGPT) Alkaline Phosphatase 97 U/L Total Protein 7.2 GM/DL Albumin 2.6 GM/DL Prothrombin Time 12.4 SEC Prothromb Time International 1.1 RATIO Ratio Activated Partial 26.7 SEC Thromboplast Time Phosphorus Level 3.1 MG/DL Total Creatine Kinase 51 U/L Troponin I LESS THAN 0.02 NG/ML Blood Gas Puncture Site RT RADIAL Blood Gas Patient Temperature 98.6 Blood Gas HCO3 20 mmol/L Blood Gas Base Excess -3.6 mmol/L Blood Gas Oxygen Saturation 94 % Arterial Blood pH 7.41 Arterial Blood Partial 32 mmHg Pressure CO2 Arterial Blood Partial 85 mmHG Pressure O2 Arterial Blood Oxygen Content 11.9 Vol % Arterial Blood 1.7 % Carboxyhemoglobin Arterial Blood Methemoglobin 0.3 % Blood Gas Hemoglobin 8.9 G/DL Blood Gas Inspired Oxygen 21 % Lactic Acid Level 2.5 mmol/L Blood Type B POSITIVE Antibody Screen NEGATIVE Crossmatch Leukocyte-Reduced Red Blood Cells Blood Bank Comment Test 09/09/16 05:56 White Blood Count 5.7 TH/MM3 Red Blood Count 3.11 MIL/MM3 Hemoglobin 10.0 GM/DL Hematocrit 29.5 % Mean Corpuscular Volume 94.8 FL Mean Corpuscular Hemoglobin 32.3 PG Mean Corpuscular Hemoglobin 34.1 % Concent Red Cell Distribution Width 19.4 % Platelet Count 119 TH/MM3 Mean Platelet Volume 7.3 FL Neutrophils (%) (Auto) 75.1 % Lymphocytes (%) (Auto) 10.8 % Monocytes (%) (Auto) 12.1 % Eosinophils (%) (Auto) 1.6 % Basophils (%) (Auto) 0.4 % Neutrophils # (Auto) 4.3 TH/MM3 Lymphocytes # (Auto) 0.6 TH/MM3 Monocytes # (Auto) 0.7 TH/MM3 Eosinophils # (Auto) 0.1 TH/MM3 Basophils # (Auto) 0.0 TH/MM3 CBC Comment DIFF FINAL Differential Comment Creatinine 0.81 MG/DL Estimat Glomerular Filtration 115 ML/MIN Rate Objective Remarks GENERAL: No acute distress. SKIN: No rashes, ecchymoses or lesions. Cool and dry. HEAD: Atraumatic. Normocephalic. No temporal or scalp tenderness. EYES: Pupils equal round and reactive. Extraocular motions intact. No scleral icterus. No injection or drainage. ENT: Nose without bleeding, purulent drainage or septal hematoma. Throat without erythema, tonsillar hypertrophy or exudate. Uvula midline. Airway patent. NECK: Trachea midline. No JVD or lymphadenopathy. Supple, nontender, no meningeal signs. CARDIOVASCULAR: Regular rate and rhythm without murmurs, gallops, or rubs. Right anterior Port in place. RESPIRATORY: Decreased breath sounds bilateral no wheezing, crackles. GASTROINTESTINAL: Abdomen soft, non-tender, nondistended. No hepato-splenomegaly , or palpable masses. No guarding. MUSCULOSKELETAL: Extremities without clubbing, cyanosis, or edema. No joint tenderness, effusion, or edema noted. No calf tenderness. Negative Homans sign bilaterally. NEUROLOGICAL: Awake and alert. Cranial nerves II through XII intact. Motor and sensory grossly within normal limits. Five out of 5 muscle strength in all muscle groups. Normal speech. Medications and IVs Current Medications Medications (Trade) Dose Ordered Sig/Edvin Route Start Time Stop Time Status Last Admin Pharmacy Profile Note 0 ml @ 0 mls/hr UNSCH OTHER 09/07/16 15:00 (Zosyn 3.375 Gm Premix) 50 ml @ 100 mls/hr Q6H IV 09/07/16 20:00 09/09/16 02:24 (Ecotrin Ec) 81 mg DAILY PO 09/08/16 09:00 (Lipitor) 40 mg DAILY PO 09/08/16 09:00 09/08/16 09:43 (Symbicort 160-4.5 Inh) 2 puff Q12HR INH 09/07/16 21:00 09/07/16 20:56 (Plavix) 75 mg DAILY PO 09/08/16 09:00 (Ativan) 0.5 mg HS PRN PO 09/07/16 15:00 09/07/16 20:59 (Protonix) 20 mg DAILY PO 09/08/16 09:00 09/08/16 09:43 (Tylenol) 650 mg Q4H PRN PO 09/07/16 15:00 09/08/16 16:30 Ondansetron HCl 4 mg 4 mg Q8HR PRN IV PUSH 09/07/16 15:00 (Vancomycin Inj/ NS 250 ml Inj) 250 ml @ 250 mls/hr Q12H IV 09/08/16 01:00 09/09/16 00:43 Miscellaneous Information SPECIFIC LAB TO BE DRAWN:VANCOMYCIN TROUGH DATE TO... ONCE ONCE XX 09/09/16 12:45 09/09/16 12:46 (Milk Of Magnshanice Liq) 30 ml DAILY PRN PO 09/08/16 14:30 09/08/16 16:28 A/P Assessment and Plan 1. acute hypoxemic respiratory failure due to LLL pneumonia with history of metastatic non-small cell carcinoma On Vancomycin and Zosyn, to remove Vancomycin if blood culture negative the first 48 hours, continue Oxygen to keep O2 sat >90%, Hematology and processing specialist consulted IR for Left Thoracentesis.Walk test for today 2. Generalized weakness consulted PT and no further Physical Therapy management. 3. Anemia/Thrombocytopenia on chronic disease status post blood transfusion, recommended by Hematology to keep Hb in 9 or over today Hemoglobin 10 4. CAD status post Stent placement Aspirin, Plavix on hold for planned procedure 5. Hypertension on hold Cardizem due to low to normal blood pressure continue monitoring. 6. Stage IV non Small cell lung cancer with liver metastases and moderate left sided effusion, planned for Immune therapy with Pembrolizumab. after Left Thoracentesis performed. 7. LLL Pneumonia blood culture is negative in 48 hours, discontinued Vancomycin and continue Zosyn and follow. he had fever until yesterday. continue present care, added Bronchodilator, Mucolytic and Incentive spirometry. DVT prophylaxis with SCDs Discharge Planning Expected by tomorrow. [place] Ritchie MD Sep 09, 2016 07:30
[2016-09-09] MEDS: ATORVASTATIN 40 MG TAB PO SCH (08:49)
[2016-09-09] MEDS: PANTOPRAZOLE SOD 20 MG DELAYED RELEASE TAB PO SCH (08:50)
[2016-09-09] MEDS: BUDESONIDE-FORMOTEROL 160/4.5 MCG INHALER INH SCH ×2 (08:57→20:59)
[2016-09-09] MEDS: ASPIRIN EC 81 MG TABEC PO SCH (08:57)
[2016-09-09] MEDS: CLOPIDOGREL 75 MG TAB PO SCH (08:57)
[2016-09-09] MEDS ORDERED: PHARMACY ORDERED LAB XX ONE (12:45)
[2016-09-09] MEDS: guaiFENesin E.R. 600 MG TAB PO SCH ×2 (13:36→20:59)
[2016-09-09] MEDS: LORazepam 0.5 MG TAB PO PRN (20:59)
[2016-09-10] MEDS: PIPERACIL-TAZO 3.375 GM PREMIX 50 ML IV SCH ×3 (01:33→14:18)
[2016-09-10 04:00] VITALS: BP 93/59; PULSE 110; RESP 20; TEMP 96; O2SAT 99
[2016-09-10 08:03] VITALS: O2SAT 99
[2016-09-10 08:32] VITALS: BP 99/67; PULSE 107; RESP 19; TEMP 97.2; O2SAT 98
[2016-09-10] MEDS: BUDESONIDE-FORMOTEROL 160/4.5 MCG INHALER INH SCH (09:00)
[2016-09-10] MEDS: CLOPIDOGREL 75 MG TAB PO SCH (09:00)
[2016-09-10] MEDS: ASPIRIN EC 81 MG TABEC PO SCH (09:00)
[2016-09-10] MEDS: guaiFENesin E.R. 600 MG TAB PO SCH (09:04)
[2016-09-10] MEDS: ATORVASTATIN 40 MG TAB PO SCH (09:05)
[2016-09-10] MEDS: PANTOPRAZOLE SOD 20 MG DELAYED RELEASE TAB PO SCH (09:05)
--- NOTE | 2016-09-10 09:15 | HHI.PR ---
Subjective Remarks This is a pleasant 66 y/o male with history of Metastatic non small cell lung carcinoma, on radiation and chemotherapy, sent to ER by PCP due to generalized weakness, that started after the last radiation therapy, three weeks ago, came with productive cough, with Hypoxemia on admission, admitted with LLL Pneumonia and anemia, also had Hypertension, CAD, Patient seen in the room in the presence of nurse Mr. Rajput no complaint, wants to go home, The patient was awaiting for Left Thoracentesis, but today stars specialist discussed with IR Doctor Ventura and the patient cant have Thoracentesis due to Insufficient Volume Patient cleared for discharge , recommended to Resume Plavix and Aspirin upon Discharge, Slightly elevated Temperature due to Metastatic Disease recommended to stop IV antibiotics and sent home with By mouth antibiotics, recommended to schedule and appointment with Doctor Bolaños for next week. Objective Vital Signs Date Time Temp Pulse Resp B/P Pulse Ox O2 Delivery O2 Flow Rate FiO2 09/10/16 08:32 97.2 107 19 99/67 98 09/10/16 08:03 99 Nasal Cannula 1.00 09/10/16 04:00 96.0 110 20 93/59 99 09/09/16 23:59 98.3 100 20 106/63 96 09/09/16 22:13 Room Air 09/09/16 20:00 100.6 105 20 107/65 97 09/09/16 16:42 100.3 94 20 118/67 96 09/09/16 12:03 98.2 88 20 125/68 98 I/O 09/09/16 09/09/16 09/09/16 09/10/16 09/10/16 09/10/16 07:00 15:00 23:00 07:00 15:00 23:00 Intake Total 120 ml 360 ml 240 ml 585 ml Output Total 200 ml 900 ml Balance 120 ml 360 ml 40 ml -315 ml Intake Oral 120 ml 360 ml 240 ml 480 ml IV Total 105 ml Output Urine Total 200 ml 900 ml # Voids 1 3 1 # Bowel Movements 2 1 0 0 Result Diagram: 09/09/16 0556 09/09/16 0556 Imaging Last Impressions Chest X-Ray 09/07/16 1218 Signed Impressions: Service Date/Time: Wednesday, September 07, 2016 12:53 - CONCLUSION: Left lower lobe consolidation and mild effusion. Jamil Ramirez MD Abdomen X-Ray 09/07/16 0000 Signed Impressions: Service Date/Time: Wednesday, September 07, 2016 13:00 - CONCLUSION: No acute disease. Jamil Ramirez MD Procedures No procedures performed Other Results Laboratory Tests Test 09/07/16 09/07/16 09/07/16 09/08/16 12:34 13:55 15:47 02:15 Urine Color YELLOW Urine Turbidity CLEAR Urine pH 5.5 Urine Specific [place] 1.017 Urine Protein TRACE mg/dL Urine Glucose (UA) NEG mg/dL Urine Ketones NEG mg/dL Urine Occult Blood MOD Urine Nitrite NEG Urine Bilirubin NEG Urine Urobilinogen 2.0 MG/DL Urine Leukocyte Esterase NEG Urine RBC 3 /hpf Urine WBC 1 /hpf Urine Squamous Epithelial <1 /hpf Cells Urine Hyaline Casts 21 /lpf Urine Mucus FEW /lpf Microscopic Urinalysis Comment CULT NOT INDICATED Sodium Level 141 MEQ/L Potassium Level 4.2 MEQ/L Chloride Level 105 MEQ/L Carbon Dioxide Level 23.1 MEQ/L Anion Gap 13 MEQ/L Blood Urea Nitrogen 17 MG/DL Random Glucose 111 MG/DL Calcium Level 8.8 MG/DL Magnesium Level 1.7 MG/DL Total Bilirubin 0.4 MG/DL Aspartate Amino Transf 45 U/L (AST/SGOT) Alanine Aminotransferase 31 U/L (ALT/SGPT) Alkaline Phosphatase 97 U/L Total Protein 7.2 GM/DL Albumin 2.6 GM/DL Prothrombin Time 12.4 SEC Prothromb Time International 1.1 RATIO Ratio Activated Partial 26.7 SEC Thromboplast Time Phosphorus Level 3.1 MG/DL Total Creatine Kinase 51 U/L Troponin I LESS THAN 0.02 NG/ML Blood Gas Puncture Site RT RADIAL Blood Gas Patient Temperature 98.6 Blood Gas HCO3 20 mmol/L Blood Gas Base Excess -3.6 mmol/L Blood Gas Oxygen Saturation 94 % Arterial Blood pH 7.41 Arterial Blood Partial 32 mmHg Pressure CO2 Arterial Blood Partial 85 mmHG Pressure O2 Arterial Blood Oxygen Content 11.9 Vol % Arterial Blood 1.7 % Carboxyhemoglobin Arterial Blood Methemoglobin 0.3 % Blood Gas Hemoglobin 8.9 G/DL Blood Gas Inspired Oxygen 21 % Lactic Acid Level 2.5 mmol/L Blood Type B POSITIVE Antibody Screen NEGATIVE Crossmatch Leukocyte-Reduced Red Blood Cells Blood Bank Comment Test 09/09/16 05:56 White Blood Count 5.7 TH/MM3 Red Blood Count 3.11 MIL/MM3 Hemoglobin 10.0 GM/DL Hematocrit 29.5 % Mean Corpuscular Volume 94.8 FL Mean Corpuscular Hemoglobin 32.3 PG Mean Corpuscular Hemoglobin 34.1 % Concent Red Cell Distribution Width 19.4 % Platelet Count 119 TH/MM3 Mean Platelet Volume 7.3 FL Neutrophils (%) (Auto) 75.1 % Lymphocytes (%) (Auto) 10.8 % Monocytes (%) (Auto) 12.1 % Eosinophils (%) (Auto) 1.6 % Basophils (%) (Auto) 0.4 % Neutrophils # (Auto) 4.3 TH/MM3 Lymphocytes # (Auto) 0.6 TH/MM3 Monocytes # (Auto) 0.7 TH/MM3 Eosinophils # (Auto) 0.1 TH/MM3 Basophils # (Auto) 0.0 TH/MM3 CBC Comment DIFF FINAL Differential Comment Creatinine 0.81 MG/DL Estimat Glomerular Filtration 115 ML/MIN Rate Objective Remarks GENERAL: No acute distress. SKIN: No rashes, ecchymoses or lesions. Cool and dry. HEAD: Atraumatic. Normocephalic. No temporal or scalp tenderness. EYES: Pupils equal round and reactive. Extraocular motions intact. No scleral icterus. No injection or drainage. ENT: Nose without bleeding, purulent drainage or septal hematoma. Throat without erythema, tonsillar hypertrophy or exudate. Uvula midline. Airway patent. NECK: Trachea midline. No JVD or lymphadenopathy. Supple, nontender, no meningeal signs. CARDIOVASCULAR: Regular rate and rhythm without murmurs, gallops, or rubs. Right anterior Port in place. RESPIRATORY: Decreased breath sounds bilateral no wheezing, crackles. GASTROINTESTINAL: Abdomen soft, non-tender, nondistended. No hepato-splenomegaly , or palpable masses. No guarding. MUSCULOSKELETAL: Extremities without clubbing, cyanosis, or edema. No joint tenderness, effusion, or edema noted. No calf tenderness. Negative Homans sign bilaterally. NEUROLOGICAL: Awake and alert. Cranial nerves II through XII intact. Motor and sensory grossly within normal limits. Five out of 5 muscle strength in all muscle groups. Normal speech. Medications and IVs Current Medications Medications (Trade) Dose Ordered Sig/Edvin Route Start Time Stop Time Status Last Admin (Zosyn 3.375 Gm Premix) 50 ml @ 100 mls/hr Q6H IV 09/07/16 20:00 09/10/16 01:33 (Ecotrin Ec) 81 mg DAILY PO 09/08/16 09:00 (Lipitor) 40 mg DAILY PO 09/08/16 09:00 09/09/16 08:49 (Symbicort 160-4.5 Inh) 2 puff Q12HR INH 09/07/16 21:00 09/07/16 20:56 (Plavix) 75 mg DAILY PO 09/08/16 09:00 (Ativan) 0.5 mg HS PRN PO 09/07/16 15:00 09/09/16 20:59 (Protonix) 20 mg DAILY PO 09/08/16 09:00 09/09/16 08:50 (Tylenol) 650 mg Q4H PRN PO 09/07/16 15:00 09/08/16 16:30 (Zofran Inj) 4 mg Q8HR PRN IV PUSH 09/07/16 15:00 (Milk Of Magnesia Liq) 30 ml DAILY PRN PO 09/08/16 14:30 09/08/16 16:28 (Mucinex Er) 600 mg BID PO 09/09/16 12:15 09/09/16 20:59 A/P Problem List: (1) Pneumonia ICD Code: J18.9 (2) Sepsis ICD Code: A41.9 (3) Pulmonary mass ICD Code: R91.8 (4) Metastatic cancer to liver ICD Code: C78.7 Assessment and Plan 1. acute hypoxemic respiratory failure due to LLL pneumonia with history of metastatic non-small cell carcinoma On Vancomycin and Zosyn, to remove Vancomycin if blood culture negative the first 48 hours, continue Oxygen to keep O2 sat >90%, Hematology and air traffic control specialist center consulted IR for Left Thoracentesis.Walk test for today 95% Patient discussed by The patient was awaiting for Left Thoracentesis, but today stars specialist discussed with IR Doctor Ventura and the patient can't have Thoracentesis due to Insufficient Volume Patient cleared for discharge, recommended to Resume Plavix and Aspirin upon Discharge, Slightly elevated Temperature due to Metastatic Disease recommended to stop IV antibiotics and sent home with By mouth antibiotics , recommended to schedule and appointment with Doctor Bolaños for next week. 2. Generalized weakness consulted PT and no further Physical Therapy management. 3. Anemia/Thrombocytopenia on chronic disease status post blood transfusion, recommended by Hematology to keep Hb in 9 or over today Hemoglobin 10 4. CAD status post Stent placement Aspirin, Plavix re started no procedure planned 5. Hypertension on hold Cardizem 6. Stage IV non Small cell lung cancer with liver metastases and moderate left sided effusion, planned for Immune therapy with Pembrolizumab. after Left Thoracentesis performed. 7. LLL Pneumonia blood culture is negative in 48 hours, discontinued Vancomycin and continue Zosyn and follow. will continue Levofloxacin at discharge along with Probiotics and follow by PCP and air traffic control specialist center next week. continue present care, added Bronchodilator, Mucolytic and Incentive spirometry. Discussed with patient and nurse Mr. Rajput in the room and with his all questions answered to the best of my abilities. DVT prophylaxis with SCDs Discharge Planning Discharge Home today. Problem Qualifiers (1) Pneumonia: Qualified Code: J18.1 - Pneumonia of left lower lobe due to infectious organism (2) Sepsis: Qualified Code: A41.9 - Sepsis, due to unspecified organism Berlin Ritchie MD Sep 10, 2016 09:15
--- NOTE | 2016-09-10 09:36 | PD.ONC.PN ---
Subjective Subjective Remarks Tmax 100.6 overnight. Patient wants to know when he can go home. He is still waiting to have thoracentesis. Objective Data Date Time Temp Pulse Resp B/P Pulse Ox O2 Delivery O2 Flow Rate FiO2 09/10/16 08:32 97.2 107 19 99/67 98 09/10/16 08:03 99 Nasal Cannula 1.00 09/10/16 04:00 96.0 110 20 93/59 99 09/09/16 23:59 98.3 100 20 106/63 96 09/09/16 22:13 Room Air 09/09/16 20:00 100.6 105 20 107/65 97 09/09/16 16:42 100.3 94 20 118/67 96 09/09/16 12:03 98.2 88 20 125/68 98 09/10/16 09/10/16 09/10/16 07:00 15:00 23:00 Intake Total 585 ml Output Total 900 ml Balance -315 ml Result Diagram: 09/09/16 0556 09/09/16 0556 Culture Results Microbiology Date/Time Procedure Status Source Growth 09/07/16 13:50 Aerobic Blood Culture - Preliminary Resulted Blood Peripheral NO GROWTH IN 2 DAYS 09/07/16 13:50 Anaerobic Blood Culture - Preliminary Resulted Blood Peripheral NO GROWTH IN 2 DAYS 09/07/16 13:55 Aerobic Blood Culture - Preliminary Resulted Blood Peripheral NO GROWTH IN 2 DAYS 09/07/16 13:55 Anaerobic Blood Culture - Preliminary Resulted Blood Peripheral NO GROWTH IN 2 DAYS 09/07/16 14:00 Influenza Types A,B Antigen (CHERI) - Final Complete Nasal Washing NEGATIVE FOR FLU A AND B ANTIGEN.... Administered Medications Medications (Trade) Dose Ordered Sig/Edvin Route PRN Reason Start Time Stop Time Status Last Admin Dose Admin Piperacillin Sod/ Tazobactam Sod (Zosyn 3.375 Gm Premix) 50 ml @ 100 mls/hr Q6H IV 09/07/16 20:00 09/10/16 09:04 Atorvastatin Calcium (Lipitor) 40 mg DAILY PO 09/08/16 09:00 09/10/16 09:05 Budesonide/ Formoterol Fumarate (Symbicort 160-4.5 Inh) 2 puff Q12HR INH 09/07/16 21:00 09/07/16 20:56 Lorazepam (Ativan) 0.5 mg HS PRN PO ANXIETY AND/OR INSOMNIA 09/07/16 15:00 09/09/16 20:59 Pantoprazole Sodium (Protonix) 20 mg DAILY PO 09/08/16 09:00 09/10/16 09:05 Acetaminophen (Tylenol) 650 mg Q4H PRN PO FEVER/PAIN/HEADACHE 09/07/16 15:00 09/08/16 16:30 Magnesium Hydroxide (Milk Of Magnesia Liq) 30 ml DAILY PRN PO CONSTIPATION 09/08/16 14:30 09/08/16 16:28 Guaifenesin (Mucinex Er) 600 mg BID PO 09/09/16 12:15 09/10/16 09:04 Objective Remarks GENERAL: Middle aged male, sitting up in bed in nad. SKIN: Warm and dry. HEAD: Normocephalic. EYES: No injection or drainage. NECK: Supple, trachea midline. CARDIOVASCULAR: Regular rate and rhythm RESPIRATORY: diminished at left base. GASTROINTESTINAL: Abdomen soft, non-tender, nondistended. EXTREMITIES: No cyanosis, or edema. MUSCULOSKELETAL: Adequate muscle tone. NEUROLOGICAL: awake and alert, normal speech. moving extremities. Assessment/Plan Assessment 66y/o male with stage IV NSCLC Plan 1. will ask IR if they can do thoracentesis today. Patient can be discharged home following thoracentesis. UPDATE: I spoke with Dr. Ventura, patient cannot have thoracentesis d/t insufficient volume. patient clear for discharge home. 2. would resume Plavix and ASA upon discharge. 3. Slightly elevated temp is likely due to metastatic disease. would stop IV antibiotics and send home with ~ 1 week oral antibiotics. 4. patient advised to call the clinic and schedule appointment for next week with Dr. Bolaños as he missed his appointment this week due to admission. Attending Statement The exam, history, and the medical decision-making described in the above note were completed with the assistance of the mid-level provider. I reviewed and agree with the findings presented. I attest that I had a [id number] encounter with the patient on the same day, and personally performed and documented my assessment and findings in the medical record. patient seen and clinically unchanged. he his having low grade temperatures and I do not believe the problem is pneumonia. suspect temps secondary to extensive tumor in liver. Agree with discharge and follow up as outpatient to begin treatment with immune checkpoint inhibitor next week as this is the only chance of significantly impacting the progression of his disease. would empirically give him 1 week of antibiotics on discharge but suspect low grade fevers will continue. he can resume aspirin and Plavix on discharge. Marie Croft Sep 10, 2016 09:36 Rambo Jenkins MD Sep 10, 2016 18:08
--- NOTE | 2016-09-10 11:26 | RADRPT ---
EXAM DATE/TIME: 09/10/2016 00:00 [facility] COMPARISON: No previous studies available for comparison. INDICATIONS : History of lung cancer, small left pleural effusion. FINDINGS: By chest radiographs Mr. askew has a small left pleural effusion , less then 15%. This is not safe to aspirate while on 83 date hold for Plavix. Thank you for this consultation. Ajay Ventura MD FACR on September 10, 2016 at 11:23 Board Certified Radiologist. This report was verified electronically.
[2016-09-10 11:59] VITALS: BP 100/64; PULSE 95; RESP 18; TEMP 98.8; O2SAT 98
[2016-09-10] MEDS ORDERED: LEVA750T PO (14:59)
[2016-09-10] MEDS ORDERED: MUCI600T PO (14:59)
--- NOTE | 2016-09-10 15:07 | HHI.DS ---
Discharge Summary Admission Date Sep 07, 2016 at 14:40 Discharge Date: Sep 10, 2016 Admitting Diagnosis SEPSIS; LLL pneumonia; anemia (1) Pneumonia ICD Code: J18.9 Diagnosis: Principal (2) Pulmonary mass ICD Code: R91.8 Diagnosis: Principal (3) Metastatic cancer to liver ICD Code: C78.7 Diagnosis: Principal (4) Sepsis ICD Code: A41.9 Diagnosis: Principal Procedures none Brief History - From Admission patient is a 66 y/o male with history of metastatic non-small cell lung carcinoma, on radiation and chemo who was sent to ER by his pcp because of generalized weakness. he says that his weakness started after the last radiation about three weeks ago. he says that he's had some sob and with just taking a few steps he gets tired.he had some on and off fever and chills at home. he's had some cough productive of small amount of clear sputum. of note he was taken off his N/C oxygen and his O2 sat dropped to 81 %- this was improved to 95% upon putting him back on oxygen.he says that he's being followed up by and he's supposed to restart his chemo tomorrow. CBC/BMP: 09/09/16 0556 09/09/16 0556 Significant Findings Laboratory Tests Test 09/07/16 09/08/16 09/08/16 09/09/16 15:47 02:15 16:34 05:56 Blood Gas HCO3 20 mmol/L (22-26) Blood Gas Base Excess -3.6 mmol/L (-2-2) Arterial Blood Partial 32 mmHg (38-42) Pressure CO2 Arterial Blood Oxygen Content 11.9 Vol % (12.0-20.0) Blood Gas Hemoglobin 8.9 G/DL (12.0-16.0) White Blood Count 3.7 TH/MM3 (4.0-11.0) Red Blood Count 1.80 MIL/MM3 3.11 MIL/MM3 (4.50-5.90) (4.50-5.90) Hemoglobin 6.1 GM/DL 9.5 GM/DL 10.0 GM/DL (13.0-17.0) (13.0-17.0) (13.0-17.0) Hematocrit 18.2 % 27.2 % 29.5 % (39.0-51.0) (39.0-51.0) (39.0-51.0) Mean Corpuscular Volume 100.8 FL (80.0-100.0) Red Cell Distribution Width 18.3 % 19.4 % (11.6-17.2) (11.6-17.2) Platelet Count 133 TH/MM3 119 TH/MM3 (150-450) (150-450) Monocytes (%) (Auto) 15.2 % 12.1 % (0.0-8.0) (0.0-8.0) Lymphocytes # (Auto) 0.5 TH/MM3 0.6 TH/MM3 (1.0-4.8) (1.0-4.8) Lactic Acid Level 2.5 mmol/L (0.4-2.0) Neutrophils (%) (Auto) 75.1 % (16.0-70.0) Imaging Last Impressions Chest X-Ray 09/07/16 1218 Signed Impressions: Service Date/Time: Wednesday, September 07, 2016 12:53 - CONCLUSION: Left lower lobe consolidation and mild effusion. Jamil Ramirez MD Abdomen X-Ray 09/07/16 0000 Signed Impressions: Service Date/Time: Wednesday, September 07, 2016 13:00 - CONCLUSION: No acute disease. Jamil Ramirez MD PE at Discharge GENERAL: This is a well-nourished, well-developed patient, in no apparent distress. CARDIOVASCULAR: Regular rate and regular rhythm without murmurs, gallops, or rubs. RESPIRATORY: Clear to auscultation. Breath sounds equal bilaterally. No wheezes , rales, or rhonchi. GASTROINTESTINAL: Abdomen soft, non-tender, nondistended. Normal, active bowel sounds MUSCULOSKELETAL: Extremities without clubbing, cyanosis, or edema. NEURO: Alert & Oriented x4 to person, place, time, situation. Moves all ext x4 Hospital Course This is a pleasant 66 y/o male with history of Metastatic non small cell lung carcinoma, on radiation and chemotherapy, sent to ER by PCP due to generalized weakness, that started after the last radiation therapy, three weeks ago, came with productive cough, with Hypoxemia on admission, admitted with LLL Pneumonia and anemia, also had Hypertension, CAD, Patient seen in the room in the presence of nurse Mr. Rajput no complaint, wants to go home, The patient was awaiting for Left Thoracentesis, but today process control specialist discussed with IR Doctor Ventura and the patient cant have Thoracentesis due to Insufficient Volume Patient cleared for discharge , recommended to Resume Plavix and Aspirin upon Discharge, Slightly elevated Temperature due to Metastatic Disease recommended to stop IV antibiotics and sent home with By mouth antibiotics, recommended to schedule and appointment with Doctor Bolaños for next week. Assessment and Plan 1. acute hypoxemic respiratory failure due to LLL pneumonia with history of metastatic non-small cell carcinoma On Vancomycin and Zosyn, to remove Vancomycin if blood culture negative the first 48 hours, continue Oxygen to keep O2 sat >90%, Hematology and client relation specialist consulted IR for Left Thoracentesis.Walk test for today 95% Patient discussed by The patient was awaiting for Left Thoracentesis, but today process control specialist discussed with IR Doctor Ventura and the patient can't have Thoracentesis due to Insufficient Volume Patient cleared for discharge, recommended to Resume Plavix and Aspirin upon Discharge, Slightly elevated Temperature due to Metastatic Disease recommended to stop IV antibiotics and sent home with By mouth antibiotics , recommended to schedule and appointment with Doctor Bolaños for next week. 2. Generalized weakness consulted PT and no further Physical Therapy management. 3. Anemia/Thrombocytopenia on chronic disease status post blood transfusion, recommended by Hematology to keep Hb in 9 or over today Hemoglobin 10 4. CAD status post Stent placement Aspirin, Plavix re started no procedure planned 5. Hypertension on hold Cardizem 6. Stage IV non Small cell lung cancer with liver metastases and moderate left sided effusion, planned for Immune therapy with Pembrolizumab. after Left Thoracentesis performed. 7. LLL Pneumonia blood culture is negative in 48 hours, discontinued Vancomycin and continue Zosyn and follow. will continue Levofloxacin at discharge along with Probiotics and follow by PCP and client relation specialist next week. continue present care, added Bronchodilator, Mucolytic and Incentive spirometry. Discussed with patient and nurse Mr. Rajput in the room and with his all questions answered to the best of my abilities. DVT prophylaxis with SCDs Discharge Planning Discharge Home today. Pt Condition on Discharge: Stable Discharge Disposition: Discharge Home Discharge Time: > 30 minutes Discharge Instructions DIET: Follow Instructions for: Heart Healthy Diet Activities you can perform: Regular-No Restrictions [place] Ritchie MD Sep 10, 2016 15:07
--- NOTE | 2016-09-18 12:44 | PQ ---
Physician Query Response Document PATIENT: GEOFFREY GOLD : 1950 ADMIT DATE: 09/07/2016 2:40 PM DISCH DATE: 09/10/2016 4:28 PM RESPONDING PROVIDER #: [email or web address] QUERY TEXT: Sepsis Query Based on your medical judgement, can you further clarify the folowiin. Sepsis (SIRS due to an infection) 2. Sepsis with Organ Dysfunction 3. A localized Infection only 4. Another condition - please specify 5. Unable to determine - please explain. Depending on your selection above, please indicate one of the below if applicable: - Sepsis was present on Admission - Sepsis developed after admission The patient's Clinical Indicators include: Heart rate over > 90, Resp >20, wbd >12, temp <96.9 or >100.9, systolic B/P >90, lactic acid >2 09/07/16: temp 97.8, HR 112, Resp 16, B/P 88/51, pulse ox 95 (2L/NC) 09/07/16: WBC 5.5; 09/08/16: Wbc 3.7 09/07/16: Lactic Acid 4.1 Query created by: Felix Mercer on 09/08/2016 4:29 PM RESPONSE TEXT: Localized infection. QUERY TEXT: Anemia Type Anemia is documented in the Medical Record. Please specify the cause (includes suspected or probable cause) Such as: -- Due to acute blood loss -- Due to chronic blood loss -- Due to iron deficiency -- Due to postoperative blood loss -- Due to chronic disease -- Other, please specify The patient's Clinical Indicators include: History and physical 09/07/14: -anemia- chronic; will monitor 09/07/16 Hbg 8.1, Hct 24.5 09/08/16 hbg 6.1, Hct 18.2 Query created by: Felix Mercer on 09/08/2016 4:43 PM RESPONSE TEXT: Anemia of chronic disease. QUERY TEXT: Malnutrition Severity Based on your medical judgment, can you further clarify which, if any, of the following conditions are associated with this information: -- Malnutrition: unspecified protein calorie -- Mild malnutrition -- Moderate malnutritiion -- Severe malnutrition -- Unable to determine (please explain) -- Other, please specify The patient's Clinical Indicators include: BMI= _18.1___ weight upon admission: kg wt / cm ht Albumin=_2.6 __ Other: anorexia Query created by: Felix Mercer on 09/09/2016 9:10 AM RESPONSE TEXT: Moderate malnutrition. Electronically signed by: Tj Dobson MD 09/18/2016 12:40 PM
== END 2016-09-10 16:28 | disposition home or self-care (01) | DRG 193 ==
LOC: NEPE 11:45 → NEDA 14:40 → N05A 18:13
PROVIDERS: ADMIT Internal Medicine; ATTEND Internal Medicine
PROC: 30233N1 Transfusion of Nonautologous Red Blood Cells into Peripheral Vein, Percutaneous Approach (ICD-10-PCS; principal; 2016-09-07)
DX: J18.9 Pneumonia, unspecified organism (principal); J96.01 Acute respiratory failure with hypoxia; R64 Cachexia; C78.7 Secondary malignant neoplasm of liver and intrahepatic bile duct; D69.6 Thrombocytopenia, unspecified; J91.8 Pleural effusion in other conditions classified elsewhere; C34.90 Malignant neoplasm of unspecified part of unspecified bronchus or lung; J43.9 Emphysema, unspecified; R62.7 Adult failure to thrive; R50.81 Fever presenting with conditions classified elsewhere; I10 Essential (primary) hypertension; I25.10 Atherosclerotic heart disease of native coronary artery without angina pectoris; K59.00 Constipation, unspecified; Z92.3 Personal history of irradiation; I25.2 Old myocardial infarction; Z95.5 Presence of coronary angioplasty implant and graft; M19.90 Unspecified osteoarthritis, unspecified site; Z79.82 Long term (current) use of aspirin; Z87.442 Personal history of urinary calculi; E78.00 Pure hypercholesterolemia, unspecified; Z79.02 Long term (current) use of antithrombotics/antiplatelets; Z87.891 Personal history of nicotine dependence; R59.0 Localized enlarged lymph nodes; D63.8 Anemia in other chronic diseases classified elsewhere
CPT/HCPCS: 36430; 36600; 71020; 74000; 80053; 81001; 82550; 82565; 82805; 83605; 83735; 84100; 84484; 85014; 85018; 85025; 85610; 85730; 86850; 86900; 86901; 86920; 87040; 87804; 93005; 94150; 94620; 94640; 94664; 96365; J2543; J3370; J7030; J7050; J7613; P9016

== ENCOUNTER 2016-09-23 23:55 | Inpatient (IN) | payer MEDICARE, OTHER ==
[~2016-09-23] VITALS: Ht 91.4 cm; Wt 54.1 kg
[~2016-09-23 23:55] MED LIST changes: -DIGO0.12 PO; +LEVA750T PO; +MUCI600T PO
[2016-09-23 23:57] VITALS: BP 98/52; PULSE 112; RESP 22; O2SAT 95
[2016-09-24] VITALS (12 sets, daily range): BP systolic 82–111; BP diastolic 51–69; PULSE 90–112; RESP 12–19; TEMP 96.9–98.6; O2SAT 92–100
[2016-09-24] MEDS ORDERED: SODIUM CHLORIDE 0.9% FLUSH 10 ML FLUSH IVF PRN (00:30)
[2016-09-24] MEDS ORDERED: MORP1SOL3 PO (00:52)
[2016-09-24 01:01] LABS: AUTOMATED NEUTROPHIL # 9.2 TH/MM3 (1.8-7.7); BASOPHIL # 0.2 TH/MM3 (0-0.2); BASOPHIL % 1.2 % (0.0-2.0); EOSINOPHIL # 0.1 TH/MM3 (0-0.4); EOSINOPHIL % 0.5 % (0.0-4.0); LYMPH % 14.7 % (9.0-44.0); LYMPHOCYTE # 1.9 TH/MM3 (1.0-4.8); MEAN CELL VOLUME 101.5 FL (80.0-100.0); MEAN CORPUSCULAR HEMOGLOBIN 33.3 PG (27.0-34.0); MEAN CORPUSCULAR HGB CONC 32.8 % (32.0-36.0); MONO % 12.5 % (0.0-8.0); NEUT % 71.1 % (16.0-70.0); PLATELET COUNT 282 TH/MM3 (150-450); RED BLOOD COUNT 1.96 MIL/MM3 (4.50-5.90); RED CELL DISTRIBUTION WIDTH 21.3 % (11.6-17.2)
--- NOTE | 2016-09-24 01:02 | RADRPT ---
EXAM DATE/TIME: 09/24/2016 00:26 [facility] COMPARISON: CHEST PA & LAT, September 07, 2016, 12:53. CHEST SINGLE AP, August 16, 2016, 14:32. INDICATIONS : Shortness of breath. MEDICAL HISTORY : Carcinoma, lung. Cardiovascular disease. Myocardial infarction. SURGICAL HISTORY : Coronary artery stent. Infusaport. Loop recorder ENCOUNTER: Initial ACUITY: 3 days PAIN SCORE: 0/10 LOCATION: chest FINDINGS: Portable AP view of the chest demonstrates a normal-sized cardiac silhouette. Right chest wall Infuse -a-Port remains present and a loop recorder device is in place. There is a large left-sided pleural-p arenchymal opacity that has significantly increased from the prior study. No abnormality is identifie d in the right hemithorax. No acute osseous abnormalities seen. CONCLUSION: Large left pleural effusion with associated compressive atelectasis and/or consolidation. The left pl eural effusion has significantly increased in size compared to the study from earlier this month. Jamil Gates MD on September 24, 2016 at 0:59 Board Certified Radiologist. This report was verified electronically.
[2016-09-24 01:03] LABS: BLOOD GAS CARBOXYHEMOGLOBIN 1.9 % (0-4); BLOOD GAS HCO3 17 mmol/L (22-26); BLOOD GAS METHEMOGLOBIN 0.4 % (0-2); BLOOD GAS O2 HGB SATURATION 92 % (90-100); BLOOD GAS OXYGEN CONTENT 10.5 Vol % (12.0-20.0); BLOOD GAS PCO2 24 mmHg (38-42); BLOOD GAS PO2 72 mmHG (61-120); CRITICAL VALUE YES; TEMP CORR TO 98.6
[2016-09-24 01:04] LABS: DRAW SITE RT RADIAL; FIO2 28 %; LITER FLOW 2 L/M; NUMBER OF ARTERIAL PUNCTURES 1; OXYGEN DEVICE NASAL CANNULA; STAT NO; ULNAR PULSE PRESENT
[2016-09-24 01:05] LABS: HEMO FLAGS AUTO DIFF
[2016-09-24 01:06] LABS: HEMATOCRIT 19.9 % (39.0-51.0)
[2016-09-24 01:11] LABS: APTT (PATIENT) 26.7 SEC (24.3-30.1); INTERNATIONAL NORMALIZED RATIO 1.2 RATIO; PROTHROMBIN TIME - PATIENT 13.2 SEC (9.8-11.6)
[2016-09-24 01:14] LABS: ANION GAP 17 MEQ/L (5-15); BICARBONATE 19.8 MEQ/L (21.0-32.0); BLOOD UREA NITROGEN 37 MG/DL (7-18); CHLORIDE 101 MEQ/L (98-107); GLOMERULAR FILTRATION RATE 72 ML/MIN (>89); MAGNESIUM 2.9 MG/DL (1.5-2.5); POTASSIUM 4.6 MEQ/L (3.5-5.1); SODIUM (NA) 138 MEQ/L (136-145)
--- NOTE | 2016-09-24 01:15 | PD ---
HPI Chief Complaint: Respiratory Distress Time Seen by Provider: 00:09 Travel History International Travel<30 days: No Contact w/Intl Traveler<30days: No Traveled to known affect area: No History of Present Illness HPI 66yo M with PMH of metastatic nonsmall cell lung CA, HTN, HLD presents to the ED with c/o worsening sob. Pt has chronic abdominal pain secondary to metastasis to the liver. Denies any fever, chest pain, n/v, focal weakness or numbness. Pt uses oxygen at home. As per Dr. Bolaños's note on 09/01/16, pt completed radiation on 08/18 and had increased sob and fatigue. Pt states he completed chemotherapy. PFSH Past Medical History Hx Anticoagulant Therapy: Yes Arthritis: Yes Asthma: No Autoimmune Disease: No Blood Disorders: No Anxiety: No Depression: No Heart Rhythm Problems: No Cancer: Yes (LUNG CA) Cardiac Catheterization: Yes (W/ STENTS X 3) Cardiovascular Problems: Yes High Cholesterol: Yes Chemotherapy: Yes Chest Pain: No Congestive Heart Failure: No COPD: No Cerebrovascular Accident: No Diabetes: No Diminished Hearing: No Endocrine: No Gastrointestinal Disorders: No GERD: No Glaucoma: No Genitourinary: No Headaches: Yes Hepatitis: No Hiatal Hernia: No Heparin Induced Thrombocytopen: No Hypertension: Yes Immune Disorder: No Implanted Vascular Access Dvce: Yes (RIGHT CHEST) Kidney Stones: Yes Musculoskeletal: Yes Neurologic: No Psychiatric: No Reproductive: No Respiratory: Yes Migraines: No Myocardial Infarction: Yes (ID x2) Pneumonia: Yes Radiation Therapy: No Renal Failure: No Seizures: No Sickle Cell Disease: No Sleep Apnea: No Thyroid Disease: No Ulcer: Yes Past Surgical History Abdominal Surgery: No AICD: No Appendectomy: No Arteriovenous Shunt: No Cardiac Surgery: Yes (stents* 3, LOOP RECORDER) Cholecystectomy: No Coronary Stent: Yes (X 3) Ear Surgery: No Endocrine Surgery: No Eye Surgery: No Genitourinary Surgery: No Gynecologic Surgery: No Insulin Pump: No Joint Replacement: No Neurologic Surgery: No Oral Surgery: No Pacemaker: No Thoracic Surgery: No Other Surgery: Yes (PORT PLACED- RIGHT CHEST) Social History Alcohol Use: No Tobacco Use: No Substance Use: No Allergies-Medications (Allergen,Severity, Reaction): Coded Allergies: No Known Allergies (Unverified , 09/07/16) Reported Meds & Prescriptions Reported Meds & Active Scripts Active Mucinex ER 12 HR (Guaifenesin) 600 Mg Kassidy 600 Mg PO BID Ventolin Hfa 18 GM Inh (Albuterol Sulfate) 90 Mcg/Act Aer 2 Puff INH Q4H PRN Reported Morphine Liq (Morphine Sulfate) 10 Mg/5 Ml Liq 10 Mg PO Q3HR Aspirin EC (Aspirin) 81 Mg Tabdr 81 Mg PO DAILY Plavix (Clopidogrel Bisulfate) 75 Mg Tab 75 Mg PO DAILY Lorazepam 0.5 Mg Tab 0.5 Mg PO HS PRN Omeprazole 20 Mg Tab 20 Mg PO DAILY Restoril (Temazepam) 30 Mg Cap 30 Mg PO HS PRN Symbicort Inh (Budesonide/Formoterol Fumarate) 160-4.5 Mcg/Act Aero 2 Puff INH Q12HR Colace (Docusate Sodium) 100 Mg Cap 100 Mg PO DAILY Ondansetron Odt 8 Mg Tab 8 Mg SL TID PRN Nitroglycerin SL (Nitroglycerin) 0.4 Mg Subl 0.4 Mg SL DIRECTED PRN ONE TABLET UNDER THE TONGUE NEEDED FOR CHEST PAIN, MAY REPEAT EVERY FIVE MINUTES FOR A TOTAL OF 3 DOSES OR CALL 911 IF NO RELIEF Magic Mouthwash Adult Liq (Multi-Ingredient Mouthwash/Gargle) 120 Ml Susp 5 Ml SWISH-SWAL TIDAC Each 5mL contains: Nystatin 200,000units, Diphenhydramine 4.25mg, Viscous Lidocaine 10mg, Fernando syrup 0.8 mL Review of Systems Except as stated in HPI: all other systems reviewed are Neg Physical Exam Narrative GENERAL: 66yo M in moderate distress. Pt is cachetic. SKIN: Focused skin assessment warm/dry. HEAD: Atraumatic. Normocephalic. EYES: Pupils equal and round. No scleral icterus. No injection or drainage. ENT: No nasal bleeding or discharge. Mucous membranes pink and moist. NECK: Trachea midline. No JVD. CARDIOVASCULAR: Regular rate and rhythm. No murmur appreciated. RESPIRATORY: +accessory muscle use. Decreased breath sounds on left. GASTROINTESTINAL: Abdomen soft, +TTP diffusely. MUSCULOSKELETAL: No obvious deformities. No clubbing. No cyanosis. No edema. NEUROLOGICAL: Awake and alert. No obvious cranial nerve deficits. Motor grossly within normal limits. Normal speech. PSYCHIATRIC: Appropriate mood and affect; insight and judgment normal. Data Data Last Documented VS Vital Signs Date Time Temp Pulse Resp B/P Pulse Ox O2 Delivery O2 Flow Rate FiO2 09/24/16 00:53 94 Nasal Cannula 2 09/23/16 23:57 112 22 98/52 Orders Complete Blood Count With Diff (09/24/16 00:24) Basic Metabolic Panel (Bmp) (09/24/16 00:24) B-Type Natriuretic Peptide (09/24/16 00:24) Act Partial Throm Time (Ptt) (09/24/16:24) Prothrombin Time / Inr (Pt) (09/24/16 00:24) Magnesium (Mg) (09/24/16 00:24) Ckmb (Isoenzyme) Profile (09/24/16:24) Troponin I (09/24/16:24) Arterial Blood Gas (Abg) (09/24/16 00:24) Influenzae A/B Antigen (09/24/16 00:24) Blood Culture (09/24/16:24) Iv Access Insert/Monitor (09/24/16:24) Electrocardiogram (09/24/16:24) Ecg Monitoring (09/24/16 00:24) Oximetry (09/24/16 00:24) Oxygen Administration (09/24/16:24) Chest, Single Ap (09/24/16 00:24) Sodium Chloride 0.9% Flush (Ns Flush) (09/24/16 00:30) Ct Abd/Pel W Iv Contrast(Rout) (09/24/16 ) Blood Product Administration .UPON TRANSFUSION (09/24/16 01:20) Sodium Chlor 0.9% 250 Ml Inj (Ns 250 Ml (09/24/16 01:30) Lactic Acid Sepsis Protocol (09/24/16 01:21) Ct Thorax/ Chest W Iv Contrast (09/24/16 ) Vancomycin Inj (Vancomycin Inj) (09/24/16 01:30) Piperacil-Tazo 3.375 Gm Premix (Zosyn 3. (09/24/16 01:30) Sodium Chlor 0.9% 1000 Ml Inj (Ns 1000 M (09/24/16 01:30) Iohexol 350 Inj (Omnipaque 350 Inj) (09/24/16 02:01) Admit Order (Ed Use Only) (09/24/16 02:25) Labs Laboratory Tests Test 09/24/16 09/24/16 09/24/16 00:30 00:47 01:50 White Blood Count 13.0 TH/MM3 Red Blood Count 1.96 MIL/MM3 Hemoglobin 6.5 GM/DL Hematocrit 19.9 % Mean Corpuscular Volume 101.5 FL Mean Corpuscular Hemoglobin 33.3 PG Mean Corpuscular Hemoglobin 32.8 % Concent Red Cell Distribution Width 21.3 % Platelet Count 282 TH/MM3 Mean Platelet Volume 8.4 FL Neutrophils (%) (Auto) 71.1 % Lymphocytes (%) (Auto) 14.7 % Monocytes (%) (Auto) 12.5 % Eosinophils (%) (Auto) 0.5 % Basophils (%) (Auto) 1.2 % Neutrophils # (Auto) 9.2 TH/MM3 Lymphocytes # (Auto) 1.9 TH/MM3 Monocytes # (Auto) 1.6 TH/MM3 Eosinophils # (Auto) 0.1 TH/MM3 Basophils # (Auto) 0.2 TH/MM3 CBC Comment AUTO DIFF Differential Total Cells 100 Counted Neutrophils % (Manual) 75 % Band Neutrophils % 2 % Lymphocytes % 8 % Monocytes % 12 % Basophils % 1 % Neutrophils # (Manual) 10.3 TH/MM3 Metamyelocytes 2 % Nucleated Red Blood Cells 1 /100 WBC Differential Comment FINAL DIFF MANUAL Platelet Estimate NORMAL Platelet Morphology Comment NORMAL Polychromasia 2.0 % Keratocytes 3+ Prothrombin Time 13.2 SEC Prothromb Time International 1.2 RATIO Ratio Activated Partial 26.7 SEC Thromboplast Time Sodium Level 138 MEQ/L Potassium Level 4.6 MEQ/L Chloride Level 101 MEQ/L Carbon Dioxide Level 19.8 MEQ/L Anion Gap 17 MEQ/L Blood Urea Nitrogen 37 MG/DL Creatinine 1.21 MG/DL Estimat Glomerular Filtration 72 ML/MIN Rate Random Glucose 152 MG/DL Calcium Level 8.9 MG/DL Magnesium Level 2.9 MG/DL Total Creatine Kinase 96 U/L Troponin I LESS THAN 0.02 NG/ML B-Type Natriuretic Peptide 102 PG/ML Blood Gas Puncture Site RT RADIAL Blood Gas Patient Temperature 98.6 Blood Gas HCO3 17 mmol/L Blood Gas Base Excess -6.0 mmol/L Blood Gas Oxygen Saturation 92 % Arterial Blood pH 7.46 Arterial Blood Partial 24 mmHg Pressure CO2 Arterial Blood Partial 72 mmHG Pressure O2 Arterial Blood Oxygen Content 10.5 Vol % Arterial Blood 1.9 % Carboxyhemoglobin Arterial Blood Methemoglobin 0.4 % Blood Gas Hemoglobin 8.0 G/DL Oxygen Delivery Device NASAL CANNULA Blood Gas Liter Flow 2 L/M Blood Gas Inspired Oxygen 28 % Lactic Acid Level 6.8 mmol/L [facility] Medical Decision Making Medical Screen Exam Complete: Yes Emergency Medical Condition: Yes Interpretation(s) Laboratory Tests Test 09/24/16 09/24/16 09/24/16 00:30 00:47 01:50 White Blood Count 13.0 TH/MM3 (4.0-11.0) Red Blood Count 1.96 MIL/MM3 (4.50-5.90) Hemoglobin 6.5 GM/DL (13.0-17.0) Hematocrit 19.9 % (39.0-51.0) Mean Corpuscular Volume 101.5 FL (80.0-100.0) Mean Corpuscular Hemoglobin 33.3 PG (27.0-34.0) Mean Corpuscular Hemoglobin 32.8 % Concent (32.0-36.0) Red Cell Distribution Width 21.3 % (11.6-17.2) Platelet Count 282 TH/MM3 (150-450) Mean Platelet Volume 8.4 FL (7.0-11.0) Neutrophils (%) (Auto) 71.1 % (16.0-70.0) Lymphocytes (%) (Auto) 14.7 % (9.0-44.0) Monocytes (%) (Auto) 12.5 % (0.0-8.0) Eosinophils (%) (Auto) 0.5 % (0.0-4.0) Basophils (%) (Auto) 1.2 % (0.0-2.0) Neutrophils # (Auto) 9.2 TH/MM3 (1.8-7.7) Lymphocytes # (Auto) 1.9 TH/MM3 (1.0-4.8) Monocytes # (Auto) 1.6 TH/MM3 (0-0.9) Eosinophils # (Auto) 0.1 TH/MM3 (0-0.4) Basophils # (Auto) 0.2 TH/MM3 (0-0.2) CBC Comment AUTO DIFF Differential Total Cells 100 Counted Neutrophils % (Manual) 75 % (16-70) Band Neutrophils % 2 % (0-6) Lymphocytes % 8 % (9-44) Monocytes % 12 % (0-8) Basophils % 1 % (0-2) Neutrophils # (Manual) 10.3 TH/MM3 (1.8-7.7) Metamyelocytes 2 % (0-1) Nucleated Red Blood Cells 1 /100 WBC (0-0) Differential Comment FINAL DIFF MANUAL Platelet Estimate NORMAL (NORMAL) Platelet Morphology Comment NORMAL (NORMAL) Polychromasia 2.0 % (0.0-1.9) Keratocytes 3+ (NORMAL) Prothrombin Time 13.2 SEC (9.8-11.6) Prothromb Time International 1.2 RATIO Ratio Activated Partial 26.7 SEC Thromboplast Time (24.3-30.1) Sodium Level 138 MEQ/L (136-145) Potassium Level 4.6 MEQ/L (3.5-5.1) Chloride Level 101 MEQ/L (98-107) Carbon Dioxide Level 19.8 MEQ/L (21.0-32.0) Anion Gap 17 MEQ/L (5-15) Blood Urea Nitrogen 37 MG/DL (7-18) Creatinine 1.21 MG/DL (0.60-1.30) Estimat Glomerular Filtration 72 ML/MIN (>89) Rate Random Glucose 152 MG/DL (74-106) Calcium Level 8.9 MG/DL (8.5-10.1) Magnesium Level 2.9 MG/DL (1.5-2.5) Total Creatine Kinase 96 U/L (39-308) Troponin I LESS THAN 0.02 NG/ML (0.02-0.05) B-Type Natriuretic Peptide 102 PG/ML (0-100) Blood Gas Puncture Site RT RADIAL Blood Gas Patient Temperature 98.6 Blood Gas HCO3 17 mmol/L (22-26) Blood Gas Base Excess -6.0 mmol/L (-2-2) Blood Gas Oxygen Saturation 92 % (90-100) Arterial Blood pH 7.46 (7.380-7.420) Arterial Blood Partial 24 mmHg (38-42) Pressure CO2 Arterial Blood Partial 72 mmHG Pressure O2 (61-120) Arterial Blood Oxygen Content 10.5 Vol % (12.0-20.0) Arterial Blood 1.9 % (0-4) Carboxyhemoglobin Arterial Blood Methemoglobin 0.4 % (0-2) Blood Gas Hemoglobin 8.0 G/DL (12.0-16.0) Oxygen Delivery Device NASAL CANNULA Blood Gas Liter Flow 2 L/M Blood Gas Inspired Oxygen 28 % Lactic Acid Level 6.8 mmol/L (0.4-2.0) Last Impressions Chest X-Ray 09/24/16 0024 Signed Impressions: Service Date/Time: Saturday, September 24, 2016 00:26 - CONCLUSION: Large left pleural effusion with associated compressive atelectasis and/or consolidation. The left pleural effusion has significantly increased in size compared to the study from earlier this month. Jamil Gates MD Chest CT 09/24/16 0000 Signed Impressions: Service Date/Time: Saturday, September 24, 2016 01:47 - CONCLUSION: 1. Large left pleural effusion with enhancing pleural masses in the posterior inferior left hemithorax. These findings are suspicious for pleural-based metastasis. The pleural effusion has significantly increased in size from the prior exams. 2. Please refer to abdomen and pelvis CT report for description of the subdiaphragmatic findings. Jamil Gates MD Abdomen/Pelvis CT 09/24/16 0000 Signed Impressions: Service Date/Time: Saturday, September 24, 2016 01:47 - CONCLUSION: 1. Innumerable liver masses characteristic of metastatic disease. Comparing to the partially visualized liver on the 08/16/2016 CT, suggest normal progression of metastatic disease. 2. Please refer to chest CT report for description of the supradiaphragmatic findings. Jamil Gates MD Differential Diagnosis Pleural effusion vs. pneumonia Narrative Course 66yo M with metastatic lung cancer here with worsening SOB. Pt is tachypneic and tachycardic and empirically covered with vancomycin and zosyn. Labs reviewed , leukocytosis and low hemoglobin of 6.5. Pt had history of hemoptysis but denies any current hemoptysis. I was not able to obtain much stool from rectal exam but it was positive. BUN elevated. Lactic acid elevated at 6.8. CXR showed large pleural effusion with consolidation and significantly larger than study earlier this month. CT chest showed pleural effusion and mets. CT abd/ pelvis showed innumerable liver mets. Discussed with Dr. Santacruz and accepted to ICU. Critical Care Narrative Aggregate critical care time was 40 minutes. Time to perform other separately billable procedures was not included in the critical care time. My time did not include minutes spent treating any other patients simultaneously or on activities that did nto directly contribute to the patient's treatment. The services I provided to this patient were to treat and/or prevent clinically significant deterioration that could result in: cardiovascular collapse or . I provided critical care services requiring my management, as noted below: Chart data/review, documentation time, medication orders and management, vital sign assessments/reviewing monitor data, ordering and reviewing lab tests, ordering and interpreting/reviewing x-rays and diagnostic studies, care of the patient and discussion of the patient with the admitting physicians. Diagnosis Primary Impression: Pleural effusion Admitting Information Admitting Physician Requests: Stephanie Galeana DO Sep 24, 2016 01:15
[2016-09-24 01:19] LABS: CREATINE KINASE 96 U/L (39-308)
[2016-09-24] MEDS ORDERED: PIPERACIL-TAZO 3.375 GM PREMIX 50 ML IV ONE (01:30)
[2016-09-24] MEDS ORDERED: SODIUM CHLOR 0.9% 1000 ML INJ 1,000 ML IV ONE (01:30)
[2016-09-24] MEDS ORDERED: SODIUM CHLOR 0.9% 250 ML INJ 250 ML IV ONE (01:30)
[2016-09-24] MEDS ORDERED: VANCOMYCIN INJ 1,000 MG in SODIUM CHLOR 0.9% 250 ML INJ 250 ML IV ONE (01:30)
[2016-09-24 01:35] LABS: BANDS 2 % (0-6); BASOPHILS 1 % (0-2); CORRECTED NUCLEATED RBC 1 /100 WBC (0-0); METAMYELOCYTES 2 % (0-1); NEUTROPHIL # MANUAL DIFF 10.3 TH/MM3 (1.8-7.7); POLYS (SEG NEUTROPHILS) 75 % (16-70); WBC DIFF SAMPLE 100
[2016-09-24 01:37] LABS: KERATOCYTES 3+ (NORMAL); PLATELET ESTIMATE SMEAR NORMAL (NORMAL); PLATELET MORPHOLOGY NORMAL (NORMAL); SCAN/DIFF FINAL DIFF MANUAL
[2016-09-24] MEDS ORDERED: IOHEXOL 350 MG/ML 10 ML VIAL (for RAD DIAG) IV ONE (02:01)
--- NOTE | 2016-09-24 02:15 | RADRPT ---
EXAM DATE/TIME: 09/24/2016 01:47 [facility] COMPARISON: CT PULMONARY ANGIOGRAM, August 16, 2016, 15:37. INDICATIONS : Abdominal pain and vomiting. IV CONTRAST: 70 cc Omnipaque 350 (iohexol) IV ; Cumulative dose for multiple exams. ORAL CONTRAST: No oral contrast ingested. RADIATION DOSE: 5.10 CTDIvol (mGy) ; Combined studies - Thorax/Abdomen/Pelvis MEDICAL HISTORY : Carcinoma, lung. Hypertension. Renal calculi. SURGICAL HISTORY : None. ENCOUNTER: Initial ACUITY: 1 day PAIN SCALE: 0/10 LOCATION: abdomen TECHNIQUE: Volumetric scanning of the abdomen and pelvis was performed. Using automated exposure control and ad justment of the mA and/or kV according to patient size, radiation dose was kept as low as reasonably achievable to obtain optimal diagnostic quality images. FINDINGS: LOWER LUNGS: Please refer to chest CT report for description of the supradiaphragmatic findings. LIVER: There are innumerable hypodense liver mass is with the largest confluence mass in the right lobe alon uring approximately 10.3 cm. There is no dilation of the biliary tree. No calcified gallstones. SPLEEN: Normal size without lesion. PANCREAS: Within normal limits. KIDNEYS: Normal in size and shape. There is no mass, stone or hydronephrosis. ADRENAL GLANDS: Within normal limits. VASCULAR: There is no aortic aneurysm. There is moderate atherosclerotic disease. BOWEL/MESENTERY: The stomach, small bowel, and colon demonstrate no acute abnormality. There is no free intraperitone al air. There is trace free fluid in the pelvis. ABDOMINAL WALL: Within normal limits. RETROPERITONEUM: There is no lymphadenopathy. BLADDER: No wall thickening or mass. REPRODUCTIVE: Within normal limits. INGUINAL: There is no lymphadenopathy or hernia. MUSCULOSKELETAL: There is a bone island in the left iliac bone. No acute osseous abnormalities identified. CONCLUSION: 1. Innumerable liver masses characteristic of metastatic disease. Comparing to the partially visualiz ed liver on the 08/16/2016 CT, suggest normal progression of metastatic disease. 2. Please refer to chest CT report for description of the supradiaphragmatic findings. Jamil Gates MD on September 24, 2016 at 2:08 Board Certified Radiologist. This report was verified electronically.
--- NOTE | 2016-09-24 02:18 | RADRPT ---
EXAM DATE/TIME: 09/24/2016 01:47 [facility] COMPARISON: CT PULMONARY ANGIOGRAM, August 16, 2016, 15:37. INDICATIONS : Shortness of breath. IV CONTRAST: 70 cc Omnipaque 350 (iohexol) IV ; Cumulative dose for multiple exams. RADIATION DOSE: 5.10 CTDIvol (mGy) ; Combined studies - Thorax/Abdomen/Pelvis MEDICAL HISTORY : Myocardial infarction. Hypertension. Carcinoma, lung. SURGICAL HISTORY : Stents ENCOUNTER: Initial ACUITY: 1 day PAIN SCALE: 0/10 LOCATION: chest TECHNIQUE: Volumetric scanning of the chest was performed. Using automated exposure control and adjustment of t he mA and/or kV according to patient size, radiation dose was kept as low as reasonably achievable to obtain optimal diagnostic quality images. FINDINGS: LUNGS: There is no consolidation or pneumothorax. There is compressive atelectasis of the left lung. PLEURA: There is a large left pleural effusion with enhancing pleural masses posteriorly in the mid to inferi or hemithorax. MEDIASTINUM: The heart and great vessels demonstrate no acute abnormality. There is no mediastinal or hilar lymph adenopathy. There is rightward shift of the mediastinum. [id number] is present. AXILLAE: Within normal limits. No lymphadenopathy. SKELETAL: There are degenerative changes. No acute osseous abnormality. MISCELLANEOUS: Please refer to abdomen and pelvis CT report for description of the subdiaphragmatic findings. CONCLUSION: 1. Large left pleural effusion with enhancing pleural masses in the posterior inferior left hemithora x. These findings are suspicious for pleural-based metastasis. The pleural effusion has significantly increased in size from the prior exams. 2. Please refer to abdomen and pelvis CT report for description of the subdiaphragmatic findings. Jamil Gates MD on September 24, 2016 at 2:13 Board Certified Radiologist. This report was verified electronically.
[2016-09-24] MEDS ORDERED: PANTOPRAZOLE INJ 80 MG in SODIUM CHLORIDE 0.9% INJ 35 ML IV ONE (02:30)
[2016-09-24] MEDS ORDERED: PANTOPRAZOLE INJ 80 MG in SODIUM CHLORIDE 0.9% INJ 100 ML IV SCH (02:30)
[2016-09-24] MEDS ORDERED: ZOLPIDEM TARTRATE 10 MG TAB PO ONE (03:30)
[2016-09-24] MEDS ORDERED: MORPHINE SULFATE ORAL SOLN 10 MG/0.5 ML SYRINGE PO PRN (03:45)
[2016-09-24] MEDS: PANTOPRAZOLE SODIUM 40 MG VIAL IV PUSH SCH ×2 (03:49→16:22)
[2016-09-24] MEDS: fentaNYL 25 MCG/HR PATCH T-DERMAL SCH (03:49)
--- NOTE | 2016-09-24 03:51 | HHI.HP ---
HPI Service Critical Care Medicine Primary Care Physician Jennifer Hair MD Admission Diagnosis Left pleural effusion Diagnosis: Travel History International Travel<30 Days: No Contact w/Intl Traveler <30 Da: No Traveled to Known Affected Are: No History of Present Illness 66-year-old male with past medical history of metastatic non-small cell lung cancer who presents to [facility] emergency department complaining of fatigue and shortness of breath. He states he has had progressive shortness of breath over several weeks/months. He was recently started on home O2. He has cough productive of white sputum and subjective fevers. No hemoptysis. CT C/A/P was performed in ED that demonstrates large L pleural effusion with evidence of L upper and left lower pleural metastases. He also has anemia with Hgb 6.5. He vomited x1 today, no hematemesis. He denies melena or bright red blood per rectum. Stool Hemoccult was positive. He is being transfused 2 units PRBC per ED physician. Family states that they met with Dr. Bolaños in clinic on Tuesday09/22/16 and that they were told he would not be a candidate for further chemotherapy due to poor functional status. He enrolled in hospice at that time. He states that his pain has not been adequately controlled with his pain medication regimen per hospice. He was initially on morphine 2.5 q3hr. He states it was recently increased in the last 24 hours to 10 mg q3hr but he indicates that his pain is not controlled and that he has not able to sleep despite Restoril and Ativan. Past Family Social History Allergies: Coded Allergies: No Known Allergies (Unverified , 09/07/16) Past Medical History Non-small cell lung cancer Status post palliative chemotherapy and radiation. Completed radiation therapy 08/18/16. Coronary artery disease status post stents Hyperlipidemia Hypertension Past Surgical History Port placement right chest PEG (has subsequently fallen out) Loop recorder Coronary stent Family History Has had a brother and a sister who have both of cancer though he is uncertain what type. His sister just 2 weeks ago. Social History Is a former smoker. Currently not actively smoking Denies use of alcohol or illicit drugs He is His nephew Tom Lal and Alexandro Lal are his healthcare surrogates. Physical Exam Vital Signs Vital Signs Date Time Temp Pulse Resp B/P Pulse Ox O2 Delivery O2 Flow Rate FiO2 09/24/16 00:53 94 Nasal Cannula 2 3/31/17 00:12 Nasal Cannula 2 09/23/16 23:57 112 22 98/52 95 Room Air Physical Exam GENERAL: Cachectic AAM, alert, pleasant, talkative. SKIN: Warm and dry. HEAD: Atraumatic. Normocephalic. EYES: Pupils equal and round. No scleral icterus. ENT: No nasal bleeding or discharge. Mucous membranes dry. NECK: Trachea midline. No JVD. CARDIOVASCULAR: Regular rate and rhythm, sinus on monitor. No murmurs rubs or gallops. RESPIRATORY: Diminished breath sounds left lung field and right base. No w/r. GASTROINTESTINAL: Abdomen soft, tender RUQ with hepatomegaly. Bowel sounds present. Prior PEG site healed. MUSCULOSKELETAL: Extremities without clubbing, cyanosis, or edema. No obvious deformities. NEUROLOGICAL: Awake and alert. No obvious cranial nerve deficits. Motor grossly within normal limits. Normal speech. Laboratory Laboratory Tests Test 09/24/16 09/24/16 09/24/16 00:30 00:47 01:50 White Blood Count 13.0 Red Blood Count 1.96 Hemoglobin 6.5 Hematocrit 19.9 Mean Corpuscular Volume 101.5 Mean Corpuscular Hemoglobin 33.3 Mean Corpuscular Hemoglobin 32.8 Concent Red Cell Distribution Width 21.3 Platelet Count 282 Mean Platelet Volume 8.4 Neutrophils (%) (Auto) 71.1 Lymphocytes (%) (Auto) 14.7 Monocytes (%) (Auto) 12.5 Eosinophils (%) (Auto) 0.5 Basophils (%) (Auto) 1.2 Neutrophils # (Auto) 9.2 Lymphocytes # (Auto) 1.9 Monocytes # (Auto) 1.6 Eosinophils # (Auto) 0.1 Basophils # (Auto) 0.2 CBC Comment AUTO DIFF Differential Total Cells 100 Counted Neutrophils % (Manual) 75 Band Neutrophils % 2 Lymphocytes % 8 Monocytes % 12 Basophils % 1 Neutrophils # (Manual) 10.3 Metamyelocytes 2 Nucleated Red Blood Cells 1 Differential Comment FINAL DIFF MANUAL Platelet Estimate NORMAL Platelet Morphology Comment NORMAL Polychromasia 2.0 Keratocytes 3+ Prothrombin Time 13.2 Prothromb Time International 1.2 Ratio Activated Partial 26.7 Thromboplast Time Sodium Level 138 Potassium Level 4.6 Chloride Level 101 Carbon Dioxide Level 19.8 Anion Gap 17 Blood Urea Nitrogen 37 Creatinine 1.21 Estimat Glomerular Filtration 72 Rate Random Glucose 152 Calcium Level 8.9 Magnesium Level 2.9 Total Creatine Kinase 96 Troponin I LESS THAN 0.02 B-Type Natriuretic Peptide 102 Blood Gas Puncture Site RT RADIAL Blood Gas Patient Temperature 98.6 Blood Gas HCO3 17 Blood Gas Base Excess -6.0 Blood Gas Oxygen Saturation 92 Arterial Blood pH 7.46 Arterial Blood Partial 24 Pressure CO2 Arterial Blood Partial 72 Pressure O2 Arterial Blood Oxygen Content 10.5 Arterial Blood 1.9 Carboxyhemoglobin Arterial Blood Methemoglobin 0.4 Blood Gas Hemoglobin 8.0 Oxygen Delivery Device NASAL CANNULA Blood Gas Liter Flow 2 Blood Gas Inspired Oxygen 28 Lactic Acid Level 6.8 Date/Time Procedure Status Source Growth 09/24/16 00:35 Influenza Types A,B Antigen (CHERI) - Final Complete Nasal Aspirate NEGATIVE FOR FLU A AND B ANTIGEN.... 09/24/16 00:35 Aerobic Blood Culture Received Blood Peripheral Pending 09/24/16 00:35 Anaerobic Blood Culture Received Blood Peripheral Pending 09/24/16 00:24 Influenza Types A,B Antigen (CHERI) Received Nasal Aspirate Pending Result Diagram: 09/24/162909/24/160 Assessment and Plan Assessment and Plan NEURO: Pain secondary to metastatic lung cancer Start Fentanyl patch 25 mcg. Morphine 10 q4 hours prn. Fentanyl 25-50 mcg IV q1 hour for breakthrough pain. Ambien prn sleep RESP: Metastatic non-small cell lung cancer with pleural metastases Large left pleural effusion Hypoxia Nasal cannula wean as tolerated. IS q1 hour awake. DuoNeb every 6 hours. Symbicort 2 puffs inhaled every 12 hours. Albuterol every 2 hours as needed Guafenesin 600 bid Consult IR for palliative CT guided thoracentesis if able to perform with multiple pleural mets. Hold Plavix and ASA. CV: CAD Hold ASA/plavix for thoracentesis. Monitor hemodynamics GI: Dysphagia Abdominal pain and hepatomegaly secondary to multiple liver metastases Chronic severe protein energy malnutrition Speech therapy to evaluate following provide diet recommendations. Regular diet for now as he has been taking this at home. FEN/RENAL: Voiding. Monitor intake and output. Monitor electrolyte. Replace as indicated. ID: Postobstructive pneumonia Zosyn 4.5 IV q6 hours. Followup blood cultures. Influenza negative. HEME: Symptomatic anemia Transfused 2 units packed red cells now. Updated Dr. Bolaños regarding patient's admission, he will see. ENDO: Mild hyperglycemia. Monitor and initiate insulin sliding scale if indicated. PROPH: SCDs for DVT prophylaxis. Protonix 40 g IV every 12 hours. ACCESS: Right chest port is accessed. Patient states that he does not wish to be intubated for respiratory failure. He states he is DNR/DNI. His nephew is at bedside. Admit patient to floor. Hospitalist consult to assume care. Level II H&P Ness Santacruz MD Sep 24, 2016 03:51
[2016-09-24 03:56] LABS: LACTIC ACID GHOST NOT REPORTABLE
[2016-09-24] MEDS ORDERED: RESP: ALBUTEROL 2.5 MG/3 ML NEB (PRN) INH (04:00)
[2016-09-24] MEDS ORDERED: CHLORHEXIDINE GLUCONATE 2 % 1 PACK (2 CLOTHS) TOP PRN (04:00)
[2016-09-24] MEDS ORDERED: MISCELLANEOUS NURSING INFORMATION XX SCH (04:00)
[2016-09-24] MEDS: CHLORHEXIDINE GLUCONATE 2 % 1 PACK (2 CLOTHS) TOP SCH (04:00)
[2016-09-24] MEDS: RESP: ALBUTEROL 2.5 MG/IPRATROPIUM 0.5 MG NEB (SCH) INH ×4 (04:37→20:33)
[2016-09-24] MEDS: NYSTAT/DIPHENHY/LIDO MOUTHWASH (Adult) 120ML SWISH-SWAL SCH ×3 (08:00→18:22)
[2016-09-24] MEDS ORDERED: DOCUSATE SODIUM 100 MG CAP PO SCH (09:00)
[2016-09-24] MEDS: BUDESONIDE-FORMOTEROL 160/4.5 MCG INHALER INH SCH ×2 (11:23→20:27)
[2016-09-24] MEDS: DOCUSATE SODIUM 100 MG CAP PO SCH ×2 (11:23→20:26)
[2016-09-24] MEDS: guaiFENesin E.R. 600 MG TAB PO SCH ×2 (11:24→20:26)
[2016-09-24] MEDS: SODIUM CHLOR 0.9% 1000 ML INJ 1,000 ML IV SCH ×2 (12:56→15:46)
[2016-09-24] MEDS: PIPERACIL-TAZO 4.5 GM PREMIX 100 ML IV SCH ×3 (12:56→18:22)
[2016-09-24] MEDS: MORPHINE SULFATE ORAL SOLN 10 MG/0.5 ML SYRINGE PO PRN (16:26)
--- NOTE | 2016-09-24 16:38 | EKG ---
Date Performed: 09/24/2016 Time Performed: 01:33:28 PTAGE: 66 years EKG: SINUS TACHYCARDIA LOW QRS VOLTAGE IN EXTREMITY LEADS ABNORMAL RHYTHM ECG Compared to prior tracing no significant change PREVIOUS TRACING : 09/07/2016 12.28 DOCTOR: Alexia Luevano Interpretating Date/Time 09/24/2016 16:35:59
[2016-09-24] MEDS: ZOLPIDEM TARTRATE 10 MG TAB PO PRN (20:55)
[2016-09-24 21:04] LABS: AUTOMATED NEUTROPHIL # 6.9 TH/MM3 (1.8-7.7); BASOPHIL # 0.1 TH/MM3 (0-0.2); BASOPHIL % 1.2 % (0.0-2.0); EOSINOPHIL # 0.1 TH/MM3 (0-0.4); EOSINOPHIL % 1.1 % (0.0-4.0); HEMATOCRIT 32.6 % (39.0-51.0); LYMPH % 6.9 % (9.0-44.0); LYMPHOCYTE # 0.6 TH/MM3 (1.0-4.8); MEAN CELL VOLUME 96.4 FL (80.0-100.0); MEAN CORPUSCULAR HEMOGLOBIN 32.9 PG (27.0-34.0); MEAN CORPUSCULAR HGB CONC 34.1 % (32.0-36.0); MONO % 13.4 % (0.0-8.0); NEUT % 77.4 % (16.0-70.0); PLATELET COUNT 196 TH/MM3 (150-450); RED BLOOD COUNT 3.38 MIL/MM3 (4.50-5.90); RED CELL DISTRIBUTION WIDTH 18.2 % (11.6-17.2); WHITE BLOOD COUNT 8.9 TH/MM3 (4.0-11.0)
[2016-09-24 21:34] LABS: HEMO FLAGS AUTO DIFF
[2016-09-24 22:19] LABS: BANDS 5 % (0-6); CORRECTED NUCLEATED RBC 7 /100 WBC (0-0); EOSINOPHILS 1 % (0-4); NEUTROPHIL # MANUAL DIFF 7.7 TH/MM3 (1.8-7.7); POLYS (SEG NEUTROPHILS) 81 % (16-70); WBC DIFF SAMPLE 100
[2016-09-24 22:21] LABS: PLATELET ESTIMATE SMEAR NORMAL (NORMAL)
[2016-09-24 22:22] LABS: PLATELET MORPHOLOGY NORMAL (NORMAL); SCAN/DIFF FINAL DIFF MANUAL
--- NOTE | 2016-09-24 23:09 | MB ---
cc: AMOL TEMPLE MD DATE OF CONSULTATION 09/24/[address] Santacruz REASON FOR CONSULTATION Oncology is consulted to render opinion regarding patient with metastatic lung cancer admitted with weakness and shortness of breath. HISTORY OF PRESENT ILLNESS The patient is a 66-year-old male with history of metastatic non-small cell lung cancer who presented at the hospital with increased weakness and shortness of breath. He first presented with left hilar mass and mediastinal adenopathy. PET scan also showed multiple liver lesion consistent with metastatic disease. He had hemoptysis initially and was started on palliative radiation with chemotherapy which he just completed in July. I initially planned to treat him with palliative chemotherapy. However, he had a declining performance status. He was admitted to [facility] last week with pneumonia. When I saw him in clinic earlier this week, he was very weak and bedridden. He was under the care of hospice when he was discharged from the hospital last week. He stated that over last two days he has had increased shortness of breath and was very weak. Has family brought him to the hospital. He was found to have hemoglobin of 6.[address] showed increased left pleural effusion. He also had pain in the mid epigastric and right upper quadrant area. When I saw him this evening he had to receive two units of packed red blood cell transfusion. He is feeling a little better. He denies any fever or chills. Denies any chest pain. He has dysphagia. Denies any nausea, vomiting, diarrhea, denies any melena, hematochezia, any dysuria, hematuria. PAST MEDICAL HISTORY 1. Metastatic non-small cell lung carcinoma 2. Coronary artery disease 3. Hyperlipidemia 4. Hypertension. PAST SURGICAL HISTORY 1. Port placement 2. PEG tube placement which subsequently fell out 3. Loop recorder placement 4. Coronary stent placement. FAMILY HISTORY He has a brother and sister both have some sort of cancer. SOCIAL HISTORY He has quit tobacco. He denies alcohol use. ALLERGIES No known drug allergy. MEDICATIONS Current, 1. Symbicort 2. Mucinex. 3. Colace 4. Magic mouth wash 5. Zosyn 6. Fentanyl patch. 7. DuoNebs 8. Protonix REVIEW OF SYSTEMS CONSTITUTIONAL: Increased weakness and weight loss. EYES: Denies any blurry vision, double vision. ENT: Denies sores or voice changes. CARDIOVASCULAR: Denies chest pain, palpitation RESPIRATORY: As above. GI: Denies any nausea, vomiting, diarrhea. He has a right upper quadrant mid epigastric pain. : No dysuria, hematuria. MUSCULOSKELETAL: No significant bone pain HEMATOLOGY: Negative. ENDOCRINE: Negative DERMATOLOGY: Negative. PSYCHIATRIC: Negative. NEUROLOGIC: Denies any headache, focal numbness or weakness. IMPRESSION 1. Metastatic non-small cell lung carcinoma. He first presented with hemoptysis. He had a large left hilar mass with mediastinal adenopathy. PET scan also showed multiple liver lesions consistent with metastatic disease. Bronchoscopy showed extrinsic compression of left lower lobe bronchus. Biopsy showed adenocarcinoma, but not enough tissue to do EGFR or ALK study. Due to the hemoptysis, he was given palliative radiation with concurrent chemotherapy. The initial plan was to give him more palliative chemotherapy after the radiation, however, restaging CT showed that he had a progression of disease. He also had declining performance status. He was admitted to the hospital last week with pneumonia. Since then, he has been getting weaker. He was discharged home with hospice. However, the family had decided to bring him into the hospital because of increased shortness of breath and weakness. This morning CT of the chest showed increased left lung disease. I have personally reviewed the CT scan and there is significant increase in the pleural-based masses in the left thorax. There was also increased liver metastasis. His disease is very aggressive. Clinically, he is quite weak and has poor performance status. His prognosis is very poor. He is not a good candidate for palliative chemotherapy. I recommend to continue Hospice care. 2. Shortness of breath which I think is due to progression of the left lung disease. CT showed large left pleural effusion. A few weeks ago, I sent him for thoracenteses but ultrasound did not show enough fluid. Can consult radiology again for ultrasound guided thoracentesis. 3. Dysphagia. This could be due to compression on esophagus from the tumor. However, he had received radiation to thorax and may have formed esophageal stricture. The family wants something done. We will consult GI to consider upper endoscopy to see if he has any stricture that could be a dilated. 4. Coronary artery disease, stable 5. Hypertension, stable PLAN 1. Continue supportive care. 2. Consult gastroenterology and consider upper endoscopy to evaluate the dysphagia per family request 3. Consult radiology for ultrasound guided thoracentesis 4. Recommend continue Hospice care once he is discharged from the hospital. Thank you, Dr. Santacruz, for asking me to see this patient. MD IVONNE Swan/ /7:24 PM /10:50 PM GISELLE
[2016-09-25] VITALS (9 sets, daily range): BP systolic 95–116; BP diastolic 58–72; PULSE 107–123; RESP 19–21; TEMP 95.9–98.6; O2SAT 92–97
[2016-09-25] MEDS: PIPERACIL-TAZO 4.5 GM PREMIX 100 ML IV SCH ×4 (01:11→18:04)
[2016-09-25] MEDS: PANTOPRAZOLE SODIUM 40 MG VIAL IV PUSH SCH ×2 (02:44→16:32)
[2016-09-25] MEDS: SODIUM CHLOR 0.9% 1000 ML INJ 1,000 ML IV SCH ×2 (02:49→15:36)
[2016-09-25] MEDS: CHLORHEXIDINE GLUCONATE 2 % 1 PACK (2 CLOTHS) TOP SCH (04:00)
[2016-09-25] MEDS: RESP: ALBUTEROL 2.5 MG/IPRATROPIUM 0.5 MG NEB (SCH) INH ×4 (04:36→20:12)
[2016-09-25 05:16] LABS: AUTOMATED NEUTROPHIL # 7.1 TH/MM3 (1.8-7.7); BASOPHIL # 0.1 TH/MM3 (0-0.2); BASOPHIL % 1.3 % (0.0-2.0); EOSINOPHIL # 0.1 TH/MM3 (0-0.4); EOSINOPHIL % 1.2 % (0.0-4.0); HEMATOCRIT 30.8 % (39.0-51.0); LYMPH % 6.8 % (9.0-44.0); LYMPHOCYTE # 0.6 TH/MM3 (1.0-4.8); MEAN CELL VOLUME 97.4 FL (80.0-100.0); MEAN CORPUSCULAR HEMOGLOBIN 33.5 PG (27.0-34.0); MEAN CORPUSCULAR HGB CONC 34.4 % (32.0-36.0); MONO % 13.9 % (0.0-8.0); NEUT % 76.8 % (16.0-70.0); PLATELET COUNT 173 TH/MM3 (150-450); RED BLOOD COUNT 3.17 MIL/MM3 (4.50-5.90); WHITE BLOOD COUNT 9.2 TH/MM3 (4.0-11.0)
[2016-09-25 05:24] LABS: HEMO FLAGS AUTO DIFF
[2016-09-25] MEDS: MORPHINE SULFATE ORAL SOLN 10 MG/0.5 ML SYRINGE PO PRN ×2 (05:43→09:10)
[2016-09-25 07:27] LABS: BANDS 14 % (0-6); CORRECTED NUCLEATED RBC 5 /100 WBC (0-0); METAMYELOCYTES 2 % (0-1); NEUTROPHIL # MANUAL DIFF 8.1 TH/MM3 (1.8-7.7); POLYS (SEG NEUTROPHILS) 72 % (16-70); WBC DIFF SAMPLE 100
[2016-09-25 07:34] LABS: KERATOCYTES OCC (NORMAL); PLATELET ESTIMATE SMEAR NORMAL (NORMAL); PLATELET MORPHOLOGY NORMAL (NORMAL); SCAN/DIFF FINAL DIFF MANUAL
[2016-09-25] MEDS: NYSTAT/DIPHENHY/LIDO MOUTHWASH (Adult) 120ML SWISH-SWAL SCH ×3 (09:08→16:32)
[2016-09-25] MEDS: DOCUSATE SODIUM 100 MG CAP PO SCH ×2 (09:08→20:41)
[2016-09-25] MEDS: guaiFENesin E.R. 600 MG TAB PO SCH ×2 (09:08→20:41)
[2016-09-25] MEDS: BUDESONIDE-FORMOTEROL 160/4.5 MCG INHALER INH SCH ×2 (09:09→20:41)
--- NOTE | 2016-09-25 09:55 | PD.ONC.PN ---
Subjective Subjective Remarks Afebrile overnight. Patient resting comfortably. He just woke up. He is tolerating kenny cayden this AM, but has not tried to eat/drink anything else. Objective Data Date Time Temp Pulse Resp B/P Pulse Ox O2 Delivery O2 Flow Rate FiO2 09/25/16 08:45 92 Nasal Cannula 2.00 09/25/16 04:39 96 Nasal Cannula 2.00 09/25/16 04:00 95.9 107 21 98/72 96 09/25/16 00:00 96.9 113 20 95/65 94 09/24/16 20:33 94 Nasal Cannula 2.00 09/24/16 20:00 96.9 112 19 96/64 94 09/24/16 16:00 98.3 98 12 97/69 95 09/24/16 16:00 92 Nasal Cannula 2.00 09/24/16 14:39 97.7 94 18 101/67 99 09/24/16 11:20 98.6 90 18 111/65 97 Nasal Cannula 2 09/24/16 10:20 98.6 94 18 90/60 99 Nasal Cannula 2 Result Diagram: 09/25/16 0425 09/24/16 0030 Laboratory Results Laboratory Tests Test 09/24/16 09/25/16 20:17 04:25 White Blood Count 8.9 TH/MM3 9.2 TH/MM3 Red Blood Count 3.38 MIL/MM3 3.17 MIL/MM3 Hemoglobin 11.1 GM/DL 10.6 GM/DL Hematocrit 32.6 % 30.8 % Mean Corpuscular Volume 96.4 FL 97.4 FL Mean Corpuscular Hemoglobin 32.9 PG 33.5 PG Mean Corpuscular Hemoglobin 34.1 % 34.4 % Concent Red Cell Distribution Width 18.2 % 18.0 % Platelet Count 196 TH/MM3 173 TH/MM3 Mean Platelet Volume 8.3 FL 8.0 FL Neutrophils (%) (Auto) 77.4 % 76.8 % Lymphocytes (%) (Auto) 6.9 % 6.8 % Monocytes (%) (Auto) 13.4 % 13.9 % Eosinophils (%) (Auto) 1.1 % 1.2 % Basophils (%) (Auto) 1.2 % 1.3 % Neutrophils # (Auto) 6.9 TH/MM3 7.1 TH/MM3 Lymphocytes # (Auto) 0.6 TH/MM3 0.6 TH/MM3 Monocytes # (Auto) 1.2 TH/MM3 1.3 TH/MM3 Eosinophils # (Auto) 0.1 TH/MM3 0.1 TH/MM3 Basophils # (Auto) 0.1 TH/MM3 0.1 TH/MM3 CBC Comment AUTO DIFF AUTO DIFF Differential Total Cells 100 100 Counted Neutrophils % (Manual) 81 % 72 % Band Neutrophils % 5 % 14 % Lymphocytes % 7 % 4 % Monocytes % 6 % 8 % Eosinophils % 1 % Neutrophils # (Manual) 7.7 TH/MM3 8.1 TH/MM3 Nucleated Red Blood Cells 7 /100 WBC 5 /100 WBC Differential Comment FINAL DIFF FINAL DIFF MANUAL MANUAL Platelet Estimate NORMAL NORMAL Platelet Morphology Comment NORMAL NORMAL Metamyelocytes 2 % Keratocytes OCC Culture Results Microbiology Date/Time Procedure Status Source Growth 09/24/16 00:24 Influenza Types A,B Antigen (CHERI) Received Nasal Aspirate Pending 09/24/16 00:30 Aerobic Blood Culture Received Blood Peripheral Pending 09/24/16 00:30 Anaerobic Blood Culture Received Blood Peripheral Pending 09/24/16 00:35 Aerobic Blood Culture Received Blood Peripheral Pending 09/24/16 00:35 Anaerobic Blood Culture Received Blood Peripheral Pending 09/24/16 00:35 Influenza Types A,B Antigen (CHERI) - Final Complete Nasal Aspirate NEGATIVE FOR FLU A AND B ANTIGEN.... Administered Medications Medications (Trade) Dose Ordered Sig/Edvin Route PRN Reason Start Time Stop Time Status Last Admin Dose Admin Sodium Chloride (NS Flush) 2 ml UNSCH PRN IVF FLUSH AFTER USING IV ACCESS 09/24/16 00:30 09/24/16 03:08 Pantoprazole Sodium (Protonix Inj) 40 mg Q12H IV PUSH 09/24/16 03:30 09/25/16 02:44 Budesonide/ Formoterol Fumarate (Symbicort 160-4.5 Inh) 2 puff Q12HR INH 09/24/16 09:00 09/25/16 09:09 Guaifenesin (Mucinex Er) 600 mg BID PO 09/24/16 09:00 09/25/16 09:08 Multi-Ingredient Mouthwash/Gargle (Magic Mouthwash Adult Liq) 5 ml TIDAC SWISH-SWAL 09/24/16 08:00 10/08/16 07:59 09/25/16 09:08 Fentanyl (Duragesic 25 Mcg Patch.72 Hr) 1 patch Q3D T-DERMAL 09/24/16 05:00 09/24/16 03:49 Morphine Sulfate 10 mg 10 mg Q3H PRN PO PAIN 1-10 09/24/16 06:45 09/25/16 09:10 Sodium Chloride (NS 1000 ml Inj) 1,000 ml @ 84 mls/hr [id number] IV 09/24/16 03:51 09/25/16 02:49 Docusate Sodium (Colace) 100 mg BID PO 09/24/16 09:00 09/25/16 09:08 Zolpidem Tartrate 10 mg 10 mg HS PRN PO INSOMNIA 09/24/16 04:00 09/24/16 20:55 Piperacillin Sod/ Tazobactam Sod (Zosyn 4.5 Gm Premix) 100 ml @ 200 mls/hr Q6H IV 09/24/16 07:00 09/25/16 05:45 Objective Remarks GENERAL: chronically ill elderly male, thin, lying in bed supine in nad SKIN: Warm and dry. HEAD: Normocephalic. EYES: No injection or drainage. NECK: Supple, trachea midline. CARDIOVASCULAR: Regular rate and rhythm RESPIRATORY: diminished at bases. scattered rhonchi. GASTROINTESTINAL: Abdomen soft, non-tender, nondistended. EXTREMITIES: No cyanosis MUSCULOSKELETAL: Adequate muscle tone. NEUROLOGICAL: No obvious focal deficit. Awake, alert, and oriented x3. Assessment/Plan Problem List: (1) Metastatic lung carcinoma Status: Acute Plan: --recommend continuing hospice care upon discharge. not a candidate for further chemotherapy History: --presented with large left hilar mass with mediastinal adenopathy. +multiple liver lesions ++adenocarcinoma, not enough tissue to do EGFR or ALK study. --given palliative radiation with concurrent chemotherapy. -- admitted to the hospital last week with pneumonia. Since then, he has been getting weaker. --was discharged home with hospice. However, the family had decided to bring him into the hospital because of increased shortness of breath and weakness. This morning CT of the chest showed increased left lung disease. ++significant increase in the pleural-based masses in the left thorax. + increased liver metastasis. --not a good candidate for palliative chemotherapy. (2) Dyspnea Status: Acute Plan: --likely due to progression of disease --radiology consulted for CT guided thoracentesis (3) Dysphagia Status: Acute Plan: --could be due to compression on esophagus from the tumor vs formed esophageal stricture d/t radiation --will consult GI to consider upper endoscopy to see if he has any stricture that could be dilated. Assessment 66y/o male with metastatic lung cancer admitted with weakness and shortness of breath. h/o Coronary artery disease Hyperlipidemia Hypertension. Plan 1. await GI Consult for possible EGD/dilation 2. await thoracentesis through IR 3. continue supportive measures 4. recommend discharging with hospice once the above are completed. Attending Statement The exam, history, and the medical decision-making described in the above note were completed with the assistance of the mid-level provider. I reviewed and agree with the findings presented. I attest that I had a [id number] encounter with the patient on the same day, and personally performed and documented my assessment and findings in the medical record. Still weak. Dysphagia the same. SOB stable. Consult GI for dysphagia. Await US guided thoracentesis possbily Tuesday. Continue supportive care. Continue hospice care after d/c. Marie Croft Sep 25, 2016 09:55 Gregory Bolaños MD Sep 25, 2016 11:42
--- NOTE | 2016-09-25 14:07 | HHI.PR ---
Subjective Remarks Consulted by critical care medicine for medical management and transfer of care. Chart reviewed. Follow-up dyspnea. Stable dyspnea on 2 L nasal cannula. Still having difficulty swallowing. Seen with family. Discussed with RN Objective Vitals Vital Signs Date Time Temp Pulse Resp B/P Pulse Ox O2 Delivery O2 Flow Rate FiO2 09/25/16 08:45 92 Nasal Cannula 2.00 09/25/16 08:00 97.3 118 20 103/72 93 09/25/16 04:39 96 Nasal Cannula 2.00 09/25/16 04:00 95.9 107 21 98/72 96 09/25/16 00:00 96.9 113 20 95/65 94 09/24/16 20:33 94 Nasal Cannula 2.00 09/24/16 20:00 96.9 112 19 96/64 94 09/24/16 16:00 98.3 98 12 97/69 95 09/24/16 16:00 92 Nasal Cannula 2.00 09/24/16 14:39 97.7 94 18 101/67 99 I/O 09/24/16 09/24/16 09/24/16 09/25/16 09/25/16 09/25/16 07:00 15:00 23:00 07:00 15:00 23:00 Intake Total 500 ml 240 ml 240 ml Balance 500 ml 240 ml 240 ml Intake Oral 240 ml 240 ml Packed Cells 500 ml # Voids 1 Result Diagram: 09/25/16 0425 09/24/16 0030 Imaging Last Impressions Chest X-Ray 09/24/16 0024 Signed Impressions: Service Date/Time: Saturday, September 24, 2016 00:26 - CONCLUSION: Large left pleural effusion with associated compressive atelectasis and/or consolidation. The left pleural effusion has significantly increased in size compared to the study from earlier this month. Jamil Gates MD Chest CT 09/24/16 0000 Signed Impressions: Service Date/Time: Saturday, September 24, 2016 01:47 - CONCLUSION: 1. Large left pleural effusion with enhancing pleural masses in the posterior inferior left hemithorax. These findings are suspicious for pleural-based metastasis. The pleural effusion has significantly increased in size from the prior exams. 2. Please refer to abdomen and pelvis CT report for description of the subdiaphragmatic findings. Jamil Gates MD Abdomen/Pelvis CT 09/24/16 0000 Signed Impressions: Service Date/Time: Saturday, September 24, 2016 01:47 - CONCLUSION: 1. Innumerable liver masses characteristic of metastatic disease. Comparing to the partially visualized liver on the 08/16/2016 CT, suggest normal progression of metastatic disease. 2. Please refer to chest CT report for description of the supradiaphragmatic findings. Jamil Gates MD Objective Remarks GENERAL: Cachectic AAM, looks weak SKIN: Warm and dry. HEAD: Atraumatic. Normocephalic. EYES: Pupils equal and round. No scleral icterus. ENT: No nasal bleeding or discharge. Mucous membranes dry. NECK: Trachea midline. No JVD. CARDIOVASCULAR: Regular rate and rhythm, sinus on monitor. No murmurs rubs or gallops. RESPIRATORY: Diminished breath sounds left lung field and right base. No w/r. GASTROINTESTINAL: Abdomen soft, tender RUQ with hepatomegaly. Bowel sounds present. Prior PEG site healed. MUSCULOSKELETAL: Extremities without clubbing, cyanosis, or edema. No obvious deformities. NEUROLOGICAL: Awake and alert. No obvious cranial nerve deficits. Motor grossly within normal limits. Normal speech. NEURO: A/P Problem List: (1) Dysphagia ICD Code: R13.10 Status: Acute (2) Dyspnea ICD Code: R06.00 Status: Acute (3) Pleural effusion ICD Code: J90 Status: Acute Assessment and Plan Pain secondary to metastatic lung cancer Stable continue Fentanyl patch 25 mcg. Morphine 10 q4 hours prn. Fentanyl 25-50 mcg IV q1 hour for breakthrough pain. Ambien prn sleep RESP: Metastatic non-small cell lung cancer with pleural metastases Large left pleural effusion Hypoxia Nasal cannula wean as tolerated. IS q1 hour awake. DuoNeb every 6 hours. Symbicort 2 puffs inhaled every 12 hours. Albuterol every 2 hours as needed Guafenesin 600 bid Consult IR for palliative CT guided thoracentesis if able to perform with multiple pleural mets. Hold Plavix and ASA. CV: CAD Hold ASA/plavix for thoracentesis. Monitor hemodynamics GI: Dysphagia Abdominal pain and hepatomegaly secondary to multiple liver metastases Chronic severe protein energy malnutrition Speech therapy to evaluate following provide diet recommendations recommends full liquid. Consult to GI for EGD and possible dilation FEN/RENAL: Voiding. Monitor intake and output. Monitor electrolyte. Replace as indicated. ID: Postobstructive pneumonia Septic shock with elevated lactic acid Continue IV hydration. Repeat lactic acid in the morning Continue Zosyn 4.5 IV q6 hours. Followup blood cultures. Influenza negative. HEME: Symptomatic anemia. Improved Transfused 2 units packed red cells ENDO: Mild hyperglycemia. Monitor and initiate insulin sliding scale if indicated. PROPH: SCDs for DVT prophylaxis. Hold pharmacological prophylaxis secondary to anemia. Protonix 40 g IV every 12 hours. ACCESS: Right chest port is accessed. Patient states that he does not wish to be intubated for respiratory failure. He states he is DNR/DNI. Several family members at bedside. Suraj Smith MD Sep 25, 2016 14:07
[2016-09-25] MEDS ORDERED: DILT90TA PO (16:19)
--- NOTE | 2016-09-25 16:53 | MB ---
cc: FIDE TERAN MD, JOSE R. MD DATE OF CONSULTATION 09/25/16 REASON FOR CONSULTATION Dysphagia. HISTORY OF PRESENT ILLNESS Mr. Lal is a 76-year-old gentleman with metastatic [id number] lung cancer basically admitted to the hospital this time around weakness and shortness of breath. He has a rapidly advancing disease. GI service has been consulted for difficulty with swallowing. He states he has poor appetite, but he also feels that the food does not go done well after swallowing. PAST MEDICAL HISTORY 1. Metastatic [id number] lung carcinoma 2. Coronary artery disease, 3. Hyperlipidemia, 4. Hypertension. PAST SURGICAL HISTORY 1. PEG placement which subsequently fell out. 2. Port placement 3. Coronary stent placement. FAMILY HISTORY Cancer in the family, not clear what the family has. SOCIAL HISTORY No tobacco, no alcohol at this time. ALLERGIES None documented MEDICATIONS 1. Inhalers 2. Colace. 3. Fentanyl 4. Duonebs 5. Protonix. REVIEW OF SYSTEMS Emaciated man, some shortness of breath, also has constipation complaint and dysphagia. PHYSICAL EXAMINATION GENERAL: A well-nourished man in no apparent distress. VITAL SIGNS: Stable. HEAD/NECK: Anicteric sclerae. CHEST: Bilateral air entry with rales. ABDOMENZ: Soft, nontender. No hepatosplenomegaly. Bowel sounds are present. MARINE ARCHITECT: Exam is nonfocal. RECTAL: Exam deferred at this time. LABORATORY DATA Hemoglobin 10.6, INR is 1.2, creatinine is 1.21. IMAGING STUDIES CT of the abdomen and pelvis reveals multiple spots on the liver. IMPRESSION Dysphagia RECOMMENDATIONS EGD with possible dilation tentatively planned for Tuesday, n.p.o. after midnight. Until then, continue diet as tolerated. Protonix 40 mg daily. This has been discussed with the patient and the family. We will follow with you. Thank you for this referral. MD TERRI Rasheed/ /4:37 PM /4:43 PM
[2016-09-25] MEDS ORDERED: BISACODYL 10 MG SUPP RECTAL PRN (17:30)
[2016-09-25] MEDS: SENNOSIDES 8.6 MG TAB PO SCH (18:04)
[2016-09-25] MEDS: MAGNESIUM HYDROXIDE SUSP 30 ML CUP PO PRN (18:04)
[2016-09-25] MEDS: ONDANSETRON HCL 4 MG/2 ML VIAL IV PRN (21:09)
[2016-09-26] VITALS (10 sets, daily range): BP systolic 95–121; BP diastolic 62–83; PULSE 113–119; RESP 19–24; TEMP 95.7–98.5; O2SAT 93–99
[2016-09-26] MEDS: PIPERACIL-TAZO 4.5 GM PREMIX 100 ML IV SCH ×4 (00:44→18:34)
[2016-09-26] MEDS: RESP: ALBUTEROL 2.5 MG/IPRATROPIUM 0.5 MG NEB (SCH) INH ×4 (03:04→20:19)
[2016-09-26] MEDS: CHLORHEXIDINE GLUCONATE 2 % 1 PACK (2 CLOTHS) TOP SCH (04:00)
[2016-09-26] MEDS: PANTOPRAZOLE SODIUM 40 MG VIAL IV PUSH SCH ×2 (04:16→15:20)
[2016-09-26] MEDS: SODIUM CHLOR 0.9% 1000 ML INJ 1,000 ML IV SCH (04:17)
[2016-09-26 04:36] LABS: BASOPHIL # 0.1 TH/MM3 (0-0.2); EOSINOPHIL % 0.5 % (0.0-4.0); HEMATOCRIT 29.2 % (39.0-51.0); LYMPH % 5.7 % (9.0-44.0); LYMPHOCYTE # 0.5 TH/MM3 (1.0-4.8); MEAN CELL VOLUME 99.1 FL (80.0-100.0); MEAN CORPUSCULAR HEMOGLOBIN 32.7 PG (27.0-34.0); MONO % 15.6 % (0.0-8.0); NEUT % 77.2 % (16.0-70.0); PLATELET COUNT 128 TH/MM3 (150-450); RED BLOOD COUNT 2.94 MIL/MM3 (4.50-5.90); RED CELL DISTRIBUTION WIDTH 18.5 % (11.6-17.2); WHITE BLOOD COUNT 9.1 TH/MM3 (4.0-11.0)
[2016-09-26 04:37] LABS: HEMO FLAGS AUTO DIFF
[2016-09-26 05:13] LABS: BICARBONATE 19.9 MEQ/L (21.0-32.0); MAGNESIUM 2.3 MG/DL (1.5-2.5); POTASSIUM 4.1 MEQ/L (3.5-5.1)
[2016-09-26 05:18] LABS: SCAN/DIFF AUTO DIFF CONFIRMED
[2016-09-26] MEDS ORDERED: SODIUM CHLOR 0.9% 1000 ML INJ 1,000 ML IV ONE ×2 (05:49)
[2016-09-26 06:28] LABS: LACTIC ACID GHOST NOT REPORTABLE
[2016-09-26] MEDS: SENNOSIDES 8.6 MG TAB PO SCH (08:02)
[2016-09-26] MEDS: MORPHINE SULFATE ORAL SOLN 10 MG/0.5 ML SYRINGE PO PRN ×3 (08:02→19:42)
[2016-09-26] MEDS: DOCUSATE SODIUM 100 MG CAP PO SCH ×2 (08:02→22:31)
[2016-09-26] MEDS: guaiFENesin E.R. 600 MG TAB PO SCH ×2 (08:02→22:31)
[2016-09-26] MEDS: MAGNESIUM HYDROXIDE SUSP 30 ML CUP PO PRN (08:02)
[2016-09-26] MEDS: BUDESONIDE-FORMOTEROL 160/4.5 MCG INHALER INH SCH ×2 (08:03→22:31)
[2016-09-26] MEDS: NYSTAT/DIPHENHY/LIDO MOUTHWASH (Adult) 120ML SWISH-SWAL SCH ×3 (08:03→17:42)
--- NOTE | 2016-09-26 08:40 | RADRPT ---
EXAM DATE/TIME: 09/26/2016 08:12 [place] COMPARISON: CT THORAX W CONTRAST, September 24, 2016, 1:47. CHEST SINGLE AP, September 24, 2016, 0:26. INDICATIONS : Shortness of breath. MEDICAL HISTORY : Carcinoma, lung. Cardiovascular disease. Myocardial infarction. SURGICAL HISTORY : Coronary artery stent. [id number]. Loop recorder ENCOUNTER: Initial ACUITY: 1 day PAIN SCORE: 0/10 LOCATION: Bilateral chest FINDINGS: Line in good position. Extensive consolidation and fluid is present on the left, stable in the inter jarek. Right lung is clear. Heart and pulmonary vascularity are normal. Portion of bony skeleton vis ualized is unremarkable. CONCLUSION: Stable chest with a large amount of fluid and consolidation on the left. Findings are unchanged from 09/24/2016. Ajay Ventura MD FACR on September 26, 2016 at 8:35 Board Certified Radiologist. This report was verified electronically.
--- NOTE | 2016-09-26 08:51 | HHI.PR ---
Subjective Remarks Follow-up septic shock. Did not tolerate fluid bolus complained of increased shortness of breath after 1 L bolus. Oxygen requirement increased to 5 L. at this time, improved shortness of breath Discussed with RN Objective Vitals Vital Signs Date Time Temp Pulse Resp B/P Pulse Ox O2 Delivery O2 Flow Rate FiO2 09/26/16 07:47 93 Nasal Cannula 4.00 09/26/16 04:00 97.1 115 19 108/71 95 09/26/16 00:00 98.5 118 19 95/69 95 09/25/16 20:12 93 Nasal Cannula 2.00 09/25/16 20:00 96.6 119 19 99/58 96 09/25/16 16:00 98.6 123 20 115/60 95 09/25/16 12:00 97.2 111 20 116/70 97 I/O 09/25/16 09/25/16 09/25/16 09/26/16 09/26/16 09/26/16 07:00 15:00 23:00 07:00 15:00 23:00 Intake Total 240 ml 240 ml 1664 ml 240 ml Output Total 550 ml 275 ml Balance 240 ml 240 ml 1114 ml -35 ml Intake Oral 240 ml 240 ml 480 ml 240 ml IV Total 1184 ml Output Urine Total 550 ml 275 ml # Voids 1 2 Result Diagram: 09/26/16 0400 09/26/16 0400 Imaging Last Impressions Chest X-Ray 09/26/16 0000 Signed Impressions: Service Date/Time: Monday, September 26, 2016 08:12 - CONCLUSION: Stable chest with a large amount of fluid and consolidation on the left. Findings are unchanged from 09/24/2016. Ajay Ventura MD FACR Chest CT 09/24/16 0000 Signed Impressions: Service Date/Time: Saturday, September 24, 2016 01:47 - CONCLUSION: 1. Large left pleural effusion with enhancing pleural masses in the posterior inferior left hemithorax. These findings are suspicious for pleural-based metastasis. The pleural effusion has significantly increased in size from the prior exams. 2. Please refer to abdomen and pelvis CT report for description of the subdiaphragmatic findings. Jamil Gates MD Abdomen/Pelvis CT 09/24/16 0000 Signed Impressions: Service Date/Time: Saturday, September 24, 2016 01:47 - CONCLUSION: 1. Innumerable liver masses characteristic of metastatic disease. Comparing to the partially visualized liver on the 08/16/2016 CT, suggest normal progression of metastatic disease. 2. Please refer to chest CT report for description of the supradiaphragmatic findings. Jamil Gates MD Objective Remarks GENERAL: Cachectic AAM, looks weak SKIN: Warm and dry. HEAD: Atraumatic. Normocephalic. EYES: Pupils equal and round. No scleral icterus. ENT: No nasal bleeding or discharge. Mucous membranes dry. NECK: Trachea midline. No JVD. CARDIOVASCULAR: Regular rate and rhythm, sinus on monitor. No murmurs rubs or gallops. RESPIRATORY: Diminished breath sounds left lung field and right base. No w/r. GASTROINTESTINAL: Abdomen soft, tender RUQ with hepatomegaly. Bowel sounds present. Prior PEG site healed. MUSCULOSKELETAL: Extremities without clubbing, cyanosis, or edema. No obvious deformities. NEUROLOGICAL: Awake and alert. No obvious cranial nerve deficits. Motor grossly within normal limits. Normal speech. Nonfocal A/P Problem List: (1) Dysphagia ICD Code: R13.10 Status: Acute (2) Dyspnea ICD Code: R06.00 Status: Acute (3) Pleural effusion ICD Code: J90 Status: Acute Assessment and Plan Pain secondary to metastatic lung cancer Stable continue Fentanyl patch 25 mcg. Morphine 10 q4 hours prn. Fentanyl 25-50 mcg IV q1 hour for breakthrough pain. Ambien prn sleep RESP: Metastatic non-small cell lung cancer with pleural metastases Large left pleural effusion Hypoxia Nasal cannula wean as tolerated. IS q1 hour awake. DuoNeb every 6 hours. Symbicort 2 puffs inhaled every 12 hours. Albuterol every 2 hours as needed Guafenesin 600 bid Consult IR for palliative CT guided thoracentesis if able to perform with multiple pleural mets. Hold Plavix and ASA. CV: CAD Hold ASA/plavix for thoracentesis. Monitor hemodynamics GI: Dysphagia Abdominal pain and hepatomegaly secondary to multiple liver metastases Chronic severe protein energy malnutrition Speech therapy to evaluate following provide diet recommendations recommends full liquid. GI for EGD and possible dilation in the morning. Continue PPI FEN/RENAL: Voiding. Monitor intake and output. Monitor electrolyte. Replace as indicated. ID: Postobstructive pneumonia Septic shock with elevated lactic acid Did not tolerate fluid bolus as per sepsis protocol. Continue IV hydration as tolerated. Continue Zosyn 4.5 IV q6 hours. Followup blood cultures. Influenza negative. HEME: Symptomatic anemia. Improved Transfused 2 units packed red cells ENDO: Mild hyperglycemia. Monitor and initiate insulin sliding scale if indicated. PROPH: SCDs for DVT prophylaxis. Hold pharmacological prophylaxis secondary to anemia. Protonix 40 g every 12 hours. ACCESS: Right chest port is accessed. Patient states that he does not wish to be intubated for respiratory failure. He states he is DNR/DNI. Several family members at bedside. Suraj Smith MD Sep 26, 2016 08:51
[2016-09-26] MEDS: DILTIAZEM HCL 30 MG TAB PO SCH ×3 (08:55→17:37)
--- NOTE | 2016-09-26 10:18 | PD.ONC.PN ---
Subjective Subjective Remarks Afebrile overnight. Patient states he had a hard time sleeping last night because he felt short of breath. Today he feels better now that his oxygen has been turned up. Objective Data Date Time Temp Pulse Resp B/P Pulse Ox O2 Delivery O2 Flow Rate FiO2 09/26/16 07:47 93 Nasal Cannula 4.00 09/26/16 04:00 97.1 115 19 108/71 95 09/26/16 00:00 98.5 118 19 95/69 95 09/25/16 20:12 93 Nasal Cannula 2.00 09/25/16 20:00 96.6 119 19 99/58 96 09/25/16 16:00 98.6 123 20 115/60 95 09/25/16 12:00 97.2 111 20 116/70 97 09/26/16 09/26/16 09/26/16 07:00 15:00 23:00 Intake Total 240 ml 2100 ml Output Total 275 ml 500 ml Balance -35 ml 1600 ml Result Diagram: 09/26/16 0400 09/26/16 0400 Laboratory Results Laboratory Tests Test 09/26/16 09/26/16 09/26/16 04:00 06:50 09:15 White Blood Count 9.1 TH/MM3 Red Blood Count 2.94 MIL/MM3 Hemoglobin 9.6 GM/DL Hematocrit 29.2 % Mean Corpuscular Volume 99.1 FL Mean Corpuscular Hemoglobin 32.7 PG Mean Corpuscular Hemoglobin 33.0 % Concent Red Cell Distribution Width 18.5 % Platelet Count 128 TH/MM3 Mean Platelet Volume 7.9 FL Neutrophils (%) (Auto) 77.2 % Lymphocytes (%) (Auto) 5.7 % Monocytes (%) (Auto) 15.6 % Eosinophils (%) (Auto) 0.5 % Basophils (%) (Auto) 1.0 % Neutrophils # (Auto) 7.0 TH/MM3 Lymphocytes # (Auto) 0.5 TH/MM3 Monocytes # (Auto) 1.4 TH/MM3 Eosinophils # (Auto) 0.0 TH/MM3 Basophils # (Auto) 0.1 TH/MM3 CBC Comment AUTO DIFF Differential Comment AUTO DIFF CONFIRMED Sodium Level 142 MEQ/L Potassium Level 4.1 MEQ/L Chloride Level 108 MEQ/L Carbon Dioxide Level 19.9 MEQ/L Anion Gap 14 MEQ/L Blood Urea Nitrogen 14 MG/DL Creatinine 0.76 MG/DL Estimat Glomerular Filtration 124 ML/MIN Rate Random Glucose 102 MG/DL Lactic Acid Level 6.7 mmol/L 6.0 mmol/L Calcium Level 7.9 MG/DL Magnesium Level 2.3 MG/DL B-Type Natriuretic Peptide 205 PG/ML Culture Results Microbiology Date/Time Procedure Status Source Growth 09/24/16 00:24 Influenza Types A,B Antigen (CHERI) Received Nasal Aspirate Pending 09/24/16 00:30 Aerobic Blood Culture - Preliminary Resulted Blood Peripheral NO GROWTH IN 1 DAY 09/24/16 00:30 Anaerobic Blood Culture - Preliminary Resulted Blood Peripheral NO GROWTH IN 1 DAY 09/24/16 00:35 Aerobic Blood Culture - Preliminary Resulted Blood Peripheral NO GROWTH IN 1 DAY 09/24/16 00:35 Anaerobic Blood Culture - Preliminary Resulted Blood Peripheral NO GROWTH IN 1 DAY 09/24/16 00:35 Influenza Types A,B Antigen (CHERI) - Final Complete Nasal Aspirate NEGATIVE FOR FLU A AND B ANTIGEN.... Administered Medications Medications (Trade) Dose Ordered Sig/Edvin Route PRN Reason Start Time Stop Time Status Last Admin Dose Admin Sodium Chloride (NS Flush) 2 ml UNSCH PRN IVF FLUSH AFTER USING IV ACCESS 09/24/16 00:30 09/24/16 03:08 Pantoprazole Sodium (Protonix Inj) 40 mg Q12H IV PUSH 09/24/16 03:30 09/26/16 04:16 Budesonide/ Formoterol Fumarate (Symbicort 160-4.5 Inh) 2 puff Q12HR INH 09/24/16 09:00 09/26/16 08:03 Guaifenesin (Mucinex Er) 600 mg BID PO 09/24/16 09:00 09/26/16 08:02 Multi-Ingredient Mouthwash/Gargle (Magic Mouthwash Adult Liq) 5 ml TIDAC SWISH-SWAL 09/24/16 08:00 10/08/16 07:59 09/26/16 08:03 Fentanyl (Duragesic 25 Mcg Patch.72 Hr) 1 patch Q3D T-DERMAL 09/24/16 05:00 09/24/16 03:49 Morphine Sulfate (Roxanol Liq) 10 mg Q3H PRN PO PAIN 1-10 09/24/16 06:45 09/26/16 08:02 Ondansetron HCl (Zofran Inj) 4 mg Q6H PRN IV NAUSEA OR VOMITING 09/24/16 04:00 09/25/16 21:09 Docusate Sodium (Colace) 100 mg BID PO 09/24/16 09:00 09/26/16 08:02 Zolpidem Tartrate (Ambien) 10 mg HS PRN PO INSOMNIA 09/24/16 04:00 09/24/16 20:55 Chlorhexidine Gluconate 3 pack 3 pack Taper DAILY@04 TOP 09/24/16 04:00 09/20/17 03:59 09/26/16 04:00 Piperacillin Sod/ Tazobactam Sod (Zosyn 4.5 Gm Premix) 100 ml @ 200 mls/hr Q6H IV 09/24/16 07:00 09/26/16 06:33 Magnesium Hydroxide (Milk Of Magnshanice Liq) 30 ml Q6H PRN PO CONSTIPATION 09/25/16 17:30 09/26/16 08:02 Sennosides (Senokot) 8.6 mg DAILY PO 09/25/16 17:30 09/26/16 08:02 Objective Remarks GENERAL: Thin male, sitting up in bed on 4L O2 via NC. appears comfortable. SKIN: Warm and dry. HEAD: Normocephalic. EYES: No injection or drainage. NECK: Supple, trachea midline. CARDIOVASCULAR: Regular rate and rhythm RESPIRATORY: +scattered rhonchi GASTROINTESTINAL: Abdomen soft, non-tender, nondistended. EXTREMITIES: No cyanosis MUSCULOSKELETAL: Adequate muscle tone. NEUROLOGICAL: awake and alert, normal speech. moving all extremities. Assessment/Plan Problem List: (1) Metastatic lung carcinoma Status: Acute Plan: --recommend continuing hospice care upon discharge. not a candidate for further chemotherapy History: --presented with large left hilar mass with mediastinal adenopathy. +multiple liver lesions ++adenocarcinoma, not enough tissue to do EGFR or ALK study. --given palliative radiation with concurrent chemotherapy. -- admitted to the hospital last week with pneumonia. Since then, he has been getting weaker. --was discharged home with hospice. However, the family had decided to bring him into the hospital because of increased shortness of breath and weakness. This morning CT of the chest showed increased left lung disease. ++significant increase in the pleural-based masses in the left thorax. + increased liver metastasis. --not a good candidate for palliative chemotherapy. (2) Dyspnea Status: Acute Plan: --CXR 4/2 shows stable chest. --likely due to progression of disease --radiology consulted for CT guided thoracentesis (3) Dysphagia Status: Acute Plan: --could be due to compression on esophagus from the tumor vs formed esophageal stricture d/t radiation --will consult GI to consider upper endoscopy to see if he has any stricture that could be dilated. Assessment 66y/o male with metastatic lung cancer admitted with weakness and shortness of breath. h/o Coronary artery disease Hyperlipidemia Hypertension. Plan 1. EGD tomorrow 2. thoracentesis through IR 3. hold fluids--could be contributing to dyspnea 4. continue supportive care Attending Statement The exam, history, and the medical decision-making described in the above note were completed with the assistance of the mid-level provider. I reviewed and agree with the findings presented. I attest that I had a [id number] encounter with the patient on the same day, and personally performed and documented my assessment and findings in the medical record. SOB improved with increased O2. No significant pain. Await EGD and possible thoracentesis tomorrow. Marie Croft Sep 26, 2016 10:18 Gregory Bolaños MD Sep 26, 2016 11:35
--- NOTE | 2016-09-26 15:25 | HHI.GIFU ---
Subjective Remarks 66 yo male lying in bed in no apparent distress. (Barbara Anthony) Objective Vitals I&O Vital Signs Date Time Temp Pulse Resp B/P Pulse Ox O2 Delivery O2 Flow Rate FiO2 09/26/16 12:00 98.1 116 20 98/64 96 09/26/16 08:30 116 09/26/16 08:00 95.7 117 24 121/83 99 09/26/16 07:47 93 Nasal Cannula 4.00 09/26/16 04:00 97.1 115 19 108/71 95 09/26/16 00:00 98.5 118 19 95/69 95 09/25/16 20:12 93 Nasal Cannula 2.00 09/25/16 20:00 96.6 119 19 99/58 96 09/25/16 16:00 98.6 123 20 115/60 95 I/O 09/25/16 09/25/16 09/25/16 09/26/16 09/26/16 09/26/16 07:00 15:00 23:00 07:00 15:00 23:00 Intake Total 240 ml 240 ml 1664 ml 240 ml 2100 ml Output Total 550 ml 275 ml 500 ml Balance 240 ml 240 ml 1114 ml -35 ml 1600 ml Intake Oral 240 ml 240 ml 480 ml 240 ml IV Total 1184 ml 2100 ml Output Urine Total 550 ml 275 ml 500 ml # Voids 1 2 Laboratory Laboratory Tests Test 09/26/16 09/26/16 09/26/16 04:00 06:50 09:15 White Blood Count 9.1 Red Blood Count 2.94 Hemoglobin 9.6 Hematocrit 29.2 Mean Corpuscular Volume 99.1 Mean Corpuscular Hemoglobin 32.7 Mean Corpuscular Hemoglobin 33.0 Concent Red Cell Distribution Width 18.5 Platelet Count 128 Mean Platelet Volume 7.9 Neutrophils (%) (Auto) 77.2 Lymphocytes (%) (Auto) 5.7 Monocytes (%) (Auto) 15.6 Eosinophils (%) (Auto) 0.5 Basophils (%) (Auto) 1.0 Neutrophils # (Auto) 7.0 Lymphocytes # (Auto) 0.5 Monocytes # (Auto) 1.4 Eosinophils # (Auto) 0.0 Basophils # (Auto) 0.1 CBC Comment AUTO DIFF Differential Comment AUTO DIFF CONFIRMED Sodium Level 142 Potassium Level 4.1 Chloride Level 108 Carbon Dioxide Level 19.9 Anion Gap 14 Blood Urea Nitrogen 14 Creatinine 0.76 Estimat Glomerular Filtration 124 Rate Random Glucose 102 Lactic Acid Level 6.7 6.0 Calcium Level 7.9 Magnesium Level 2.3 B-Type Natriuretic Peptide 205 Date/Time Procedure Status Source Growth 09/24/16 00:35 Influenza Types A,B Antigen (CHERI) - Final Complete Nasal Aspirate NEGATIVE FOR FLU A AND B ANTIGEN.... 09/24/16 00:35 Aerobic Blood Culture - Preliminary Resulted Blood Peripheral NO GROWTH IN 2 DAYS 09/24/16 00:35 Anaerobic Blood Culture - Preliminary Resulted Blood Peripheral NO GROWTH IN 2 DAYS 09/24/16 00:24 Influenza Types A,B Antigen (CHERI) Received Nasal Aspirate Pending Imaging Last Impressions Chest X-Ray 09/26/16 0000 Signed Impressions: Service Date/Time: Monday, September 26, 2016 08:12 - CONCLUSION: Stable chest with a large amount of fluid and consolidation on the left. Findings are unchanged from 09/24/2016. Ajay Ventura MD FACR Chest CT 09/24/16 0000 Signed Impressions: Service Date/Time: Saturday, September 24, 2016 01:47 - CONCLUSION: 1. Large left pleural effusion with enhancing pleural masses in the posterior inferior left hemithorax. These findings are suspicious for pleural-based metastasis. The pleural effusion has significantly increased in size from the prior exams. 2. Please refer to abdomen and pelvis CT report for description of the subdiaphragmatic findings. Jamil Gates MD Abdomen/Pelvis CT 09/24/16 0000 Signed Impressions: Service Date/Time: Saturday, September 24, 2016 01:47 - CONCLUSION: 1. Innumerable liver masses characteristic of metastatic disease. Comparing to the partially visualized liver on the 08/16/2016 CT, suggest normal progression of metastatic disease. 2. Please refer to chest CT report for description of the supradiaphragmatic findings. Jamil Gates MD Physical Exam HEENT: PERRLA; normocephalic; atraumatic; no jaundice. NECK: Neck is supple, no JVD, no lymphadenopathy. CHEST: CTA CARDIAC: RRR with no murmur gallop or rubs. ABDOMEN: Soft, nondistended, tender RUQ, with hepatomegaly; bowel sounds x 4 quadrants. Prior PEG site healed EXTREMITIES: No clubbing, cyanosis, or edema. SKIN: Normal; no rash; no jaundice. PHYSICAL CHEMIST: No focal deficits; A&O x 3. (Barbara Anthony) Assessment and Plan Plan ASSESSMENT: -Dysphagia, EGD with dilation on Tuesday planned. Speech therapy recommends full liquid diet. -RUQ Abdominal Pain and hepatomegaly, secondary to multiple liver metastases Abdomen/Pelvis CT 09/24/16 1. Innumerable liver masses characteristic of metastatic disease. Comparing to the partially visualized liver on the 08/16/2016 CT, suggest normal progression of metastatic disease. 2. Please refer to chest CT report for description of the supradiaphragmatic findings. -Metastatic non-small cell lung cancer with pleural metastases. With Hypoxia. Chest CT 09/24/16 1. Large left pleural effusion with enhancing pleural masses in the posterior inferior left hemithorax. These findings are suspicious for pleural-based metastasis. The pleural effusion has significantly increased in size from the prior exams. Chest X-Ray 09/26/16 0000 Signed Stable chest with a large amount of fluid and consolidation on the left. Findings are unchanged from 09/24/2016. -Anemia, Improved HH on 09/24 was 6.5/19.9, s/p transfusion 2 u PRBC. Today HH 9.6/29.2 -Septic shock with elevated lactic acid, per primary. Blood culture, no growth in 2 days. Lactic acid 6 today. IV hydration. PLAN: -EGD with dilation Tuesday -Obtain consents -NPO after MN tonight -Protonix 40 mg daily -Monitor H/H, transfuse as needed. -Further recommendations to follow based on results of above. Patient seen and examined by Dr. Rey and myself and this note is written on his behalf. (Barbara Anthony) Physician Comments Seen and examined with SENIOR SOFTWARE ANALYST, egd/dilation planned for tomorrow. (Raul Rey MD) Barbara Anthony Sep 26, 2016 15:25 Raul Rey MD Sep 26, 2016 15:36
[2016-09-26] MEDS ORDERED: SODIUM CHLOR 0.9% 1000 ML INJ 1,000 ML IV SCH (22:15)
[2016-09-27] VITALS (14 sets, daily range): BP systolic 86–117; BP diastolic 53–74; PULSE 10–115; RESP 18–20; TEMP 96.3–99.4; O2SAT 88–100
[2016-09-27] MEDS: PIPERACIL-TAZO 4.5 GM PREMIX 100 ML IV SCH ×4 (01:42→18:36)
[2016-09-27] MEDS: RESP: ALBUTEROL 2.5 MG/IPRATROPIUM 0.5 MG NEB (SCH) INH ×4 (02:40→21:36)
[2016-09-27] MEDS: LACTATED RINGER'S 1000 ML INJ 1,000 ML IV SCH (03:30)
[2016-09-27] MEDS ORDERED: SODIUM CHLORID 0.9% 500 ML IV PRN (03:30)
[2016-09-27] MEDS ORDERED: CHLORHEXIDINE GLUCONATE 2 % 1 PACK (2 CLOTHS) TOPICAL PRN (03:30)
[2016-09-27] MEDS ORDERED: POVIDONE IODINE 5% (ANTISEPSIS KIT) 4 APPLICATIONS EACH NARE PRN (03:30)
[2016-09-27] MEDS: PANTOPRAZOLE SODIUM 40 MG VIAL IV PUSH SCH (04:47)
[2016-09-27] MEDS: CHLORHEXIDINE GLUCONATE 2 % 1 PACK (2 CLOTHS) TOP SCH (04:50)
[2016-09-27] MEDS: fentaNYL 25 MCG/HR PATCH T-DERMAL SCH (04:55)
[2016-09-27] MEDS: DOCUSATE SODIUM 100 MG CAP PO SCH ×2 (07:54→21:35)
[2016-09-27] MEDS: guaiFENesin E.R. 600 MG TAB PO SCH ×2 (07:54→21:35)
[2016-09-27] MEDS: SENNOSIDES 8.6 MG TAB PO SCH (07:54)
[2016-09-27] MEDS: NYSTAT/DIPHENHY/LIDO MOUTHWASH (Adult) 120ML SWISH-SWAL SCH ×3 (07:54→16:24)
[2016-09-27] MEDS: DILTIAZEM HCL 30 MG TAB PO SCH ×3 (08:44→16:17)
[2016-09-27] MEDS: BUDESONIDE-FORMOTEROL 160/4.5 MCG INHALER INH SCH ×2 (09:00→21:36)
[2016-09-27] MEDS ORDERED: PROPOFOL 200 MG/20 ML AMP IV ONE (09:17)
[2016-09-27 09:55] LABS: APTT (PATIENT) 34.3 SEC (24.3-30.1); INTERNATIONAL NORMALIZED RATIO 1.3 RATIO; PROTHROMBIN TIME - PATIENT 14.2 SEC (9.8-11.6)
[2016-09-27] MEDS: ONDANSETRON HCL 4 MG/2 ML VIAL IV PRN (10:06)
--- NOTE | 2016-09-27 10:06 | GIPROC ---
[facility] [address] [facility]. [facility], [id number] EGD PROCEDURE REPORT EXAM DATE: 09/27/2016 PATIENT NAME: Gunnar Lal MR #: [id number] BIRTHDATE: 1950 ATTENDING: Raul Rey MD ORDER #: [id number] COAL GETTER: Bandar Teague and Musa Thompson STATUS: inpatient INDICATIONS: The patient is a 66 yr old male here for an EGD due to dysphagia PROCEDURE PERFORMED: EGD w/ dilation of esophagus via guidewire MEDICATIONS: None and Per Anesthesia. TOPICAL ANESTHETIC: CONSENT: The patient understands the risks and benefits of the procedure and understands that these risks include, but are not limited to: sedation, allergic reaction, infection, perforation and/or bleeding. Alternative means of evaluation and treatment include, among others: physical exam, x-rays, and/or surgical intervention. The patient elects to proceed with this endoscopic procedure. medical equipment was checked for proper function. Hand hygiene and appropriate measures for infection prevention was taken. After the risks, benefits and alternatives of the procedure were thoroughly explained, Informed consent was verified, confirmed and timeout was successfully executed by the treatment team. The patient was anesthetized with topical anesthesia and the Pentax [id number] endoscope was introduced through the mouth and advanced to the gastroesophageal junction. The gastroscope was then slowly withdrawn and removed. ESOPHAGUS: There was LA Class C esophagitis noted. The stricture was dilated using a 15mm (45Fr) savary dilator over guidewire. Following this dilation, there was a moderate amount of heme. ADVERSE EVENTS: There were no complications. IMPRESSIONS: There was LA Class C esophagitis noted; The stricture was dilated using a 15mm (45Fr) savary dilator over guidewire.; Following this dilation, there was a moderate amount of heme RECOMMENDATIONS: 1. Anti-reflux regimen 2. Continue PPI PATIENT CONDITION: stable DISPOSITION: Inpatient REPEAT EXAM: Return 1 week EGD Raul Rey MD eSigned: Raul Rey MD 09/27/2016 10:06 AM cc:
--- NOTE | 2016-09-27 10:58 | HHI.PR ---
Subjective Remarks Follow-up hypoxia. Denies shortness of breath oxygen down to 3.5 L. Tolerated EGD reportedly underwent dilatation. Discussed with RN, not to restart IV fluid Objective Vitals Vital Signs Date Time Temp Pulse Resp B/P Pulse Ox O2 Delivery O2 Flow Rate FiO2 09/27/16 10:22 96.4 109 20 117/73 97 09/27/16 09:34 101 16 95/67 97 09/27/16 09:29 102 16 102/68 97 09/27/16 09:24 97.5 107 16 100/67 96 09/27/16 08:54 96.6 10 19 91/69 100 09/27/16 04:00 96.6 110 19 91/69 100 09/27/16 00:00 99.0 115 18 94/59 99 09/26/16 20:20 97 Nasal Cannula 4.00 09/26/16 20:18 113 09/26/16 20:00 97.4 119 19 100/68 96 09/26/16 16:00 98.0 119 20 104/62 98 09/26/16 12:00 98.1 116 20 98/64 96 I/O 09/26/16 09/26/16 09/26/16 09/27/16 09/27/16 09/27/16 07:00 15:00 23:00 07:00 15:00 23:00 Intake Total 240 ml 2340 ml 690 ml 480 ml 200 ml Output Total 275 ml 700 ml 500 ml 150 ml Balance -35 ml 1640 ml 190 ml 330 ml 200 ml Intake Oral 240 ml 240 ml 480 ml IV Total 2100 ml 210 ml 480 ml Other 200 ml Output Urine Total 275 ml 700 ml 500 ml 150 ml # Voids 2 Result Diagram: 09/26/16 0400 09/26/16 0400 Imaging Last Impressions Chest X-Ray 09/26/16 0000 Signed Impressions: Service Date/Time: Monday, September 26, 2016 08:12 - CONCLUSION: Stable chest with a large amount of fluid and consolidation on the left. Findings are unchanged from 09/24/2016. Ajay Ventura MD FACR Chest CT 09/24/16 0000 Signed Impressions: Service Date/Time: Saturday, September 24, 2016 01:47 - CONCLUSION: 1. Large left pleural effusion with enhancing pleural masses in the posterior inferior left hemithorax. These findings are suspicious for pleural-based metastasis. The pleural effusion has significantly increased in size from the prior exams. 2. Please refer to abdomen and pelvis CT report for description of the subdiaphragmatic findings. Jamil Gates MD Abdomen/Pelvis CT 09/24/16 0000 Signed Impressions: Service Date/Time: Saturday, September 24, 2016 01:47 - CONCLUSION: 1. Innumerable liver masses characteristic of metastatic disease. Comparing to the partially visualized liver on the 08/16/2016 CT, suggest normal progression of metastatic disease. 2. Please refer to chest CT report for description of the supradiaphragmatic findings. Jamil Gates MD Objective Remarks GENERAL: Cachectic AAM, looks weak SKIN: Warm and dry. HEAD: Atraumatic. Normocephalic. EYES: Pupils equal and round. No scleral icterus. ENT: No nasal bleeding or discharge. Mucous membranes dry. NECK: Trachea midline. No JVD. CARDIOVASCULAR: Regular rate and rhythm, sinus on monitor. No murmurs rubs or gallops. RESPIRATORY: Diminished breath sounds left lung field and right base. No w/r. GASTROINTESTINAL: Abdomen soft, tender RUQ with hepatomegaly. Bowel sounds present. Prior PEG site healed. MUSCULOSKELETAL: Extremities without clubbing, cyanosis, or edema. No obvious deformities. NEUROLOGICAL: Awake and alert. No obvious cranial nerve deficits. Motor grossly within normal limits. Normal speech. Nonfocal A/P Problem List: (1) Dysphagia ICD Code: R13.10 Status: Acute (2) Dyspnea ICD Code: R06.00 Status: Acute (3) Pleural effusion ICD Code: J90 Status: Acute Assessment and Plan Pain secondary to metastatic lung cancer Stable continue Fentanyl patch 25 mcg. Morphine 10 q4 hours prn. Fentanyl 25 mcg IV q1 hour for breakthrough pain. Ambien prn sleep RESP: Metastatic non-small cell lung cancer with pleural metastases Large left pleural effusion Hypoxia Nasal cannula wean as tolerated. IS q1 hour awake. DuoNeb every 6 hours. Symbicort 2 puffs inhaled every 12 hours. Albuterol every 2 hours as needed Guafenesin 600 bid Consult IR for palliative CT guided thoracentesis if able to perform with multiple pleural mets. Hold Plavix and ASA. CV: CAD Hold ASA/plavix for thoracentesis. Monitor hemodynamics GI: Dysphagia Abdominal pain and hepatomegaly secondary to multiple liver metastases Chronic severe protein energy malnutrition Speech therapy to evaluate following provide diet recommendations recommends full liquid. Status post EGD with dilation. Antireflux mechanisms. Continue PPI FEN/RENAL: Voiding. Monitor intake and output. Monitor electrolyte. Replace as indicated. ID: Postobstructive pneumonia Septic shock with elevated lactic acid Did not tolerate fluid bolus as per sepsis protocol. Continue IV hydration as tolerated. Continue Zosyn 4.5 IV q6 hours. Followup blood cultures. Influenza negative. HEME: Symptomatic anemia. Improved Transfused 2 units packed red cells ENDO: Mild hyperglycemia. Monitor and initiate insulin sliding scale if indicated. PROPH: SCDs for DVT prophylaxis. Hold pharmacological prophylaxis secondary to anemia. Protonix 40 g every 12 hours. ACCESS: Right chest port is accessed. Patient states that he does not wish to be intubated for respiratory failure. He states he is DNR/DNI. Several family members at bedside. Discharge Planning Not ready for discharge Suraj Smith MD Sep 27, 2016 10:58
[2016-09-27] MEDS: MORPHINE SULFATE ORAL SOLN 10 MG/0.5 ML SYRINGE PO PRN (11:27)
--- NOTE | 2016-09-27 12:01 | PD.ONC.PN ---
Subjective Subjective Remarks Afebrile overnight. Pt resting in bed getting a breathing treatment. He has just come back from an esophageal dilatation, and is scheduled to go downstairs for a CT guided thoracentesis. He is asking for water. Objective Data Date Time Temp Pulse Resp B/P Pulse Ox O2 Delivery O2 Flow Rate FiO2 09/27/16 10:22 96.4 109 20 117/73 97 09/27/16 09:34 101 16 95/67 97 09/27/16 09:29 102 16 102/68 97 09/27/16 09:24 97.5 107 16 100/67 96 09/27/16 08:54 96.6 10 19 91/69 100 09/27/16 04:00 96.6 110 19 91/69 100 09/27/16 00:00 99.0 115 18 94/59 99 09/26/16 20:20 97 Nasal Cannula 4.00 09/26/16 20:18 113 09/26/16 20:00 97.4 119 19 100/68 96 09/26/16 16:00 98.0 119 20 104/62 98 09/26/16 12:00 98.1 116 20 98/64 96 09/27/16 09/27/16 09/27/16 07:00 15:00 23:00 Intake Total 480 ml 200 ml Output Total 150 ml Balance 330 ml 200 ml Result Diagram: 09/26/16 0400 09/26/16 0400 Laboratory Results Laboratory Tests Test 09/27/16 08:30 Prothrombin Time 14.2 SEC Prothromb Time International 1.3 RATIO Ratio Activated Partial 34.3 SEC Thromboplast Time Imaging Studies Last 48 hours Impressions Chest X-Ray 09/26/16 0000 Signed Impressions: Service Date/Time: Monday, September 26, 2016 08:12 - CONCLUSION: Stable chest with a large amount of fluid and consolidation on the left. Findings are unchanged from 09/24/2016. Ajay Ventura MD FACR Administered Medications Medications (Trade) Dose Ordered Sig/Edvin Route PRN Reason Start Time Stop Time Status Last Admin Dose Admin Sodium Chloride (NS Flush) 2 ml UNSCH PRN IVF FLUSH AFTER USING IV ACCESS 09/24/16 00:30 09/24/16 03:08 Pantoprazole Sodium (Protonix Inj) 40 mg Q12H IV PUSH 09/24/16 03:30 09/27/16 04:47 Budesonide/ Formoterol Fumarate (Symbicort 160-4.5 Inh) 2 puff Q12HR INH 09/24/16 09:00 09/26/16 22:31 Guaifenesin (Mucinex Er) 600 mg BID PO 09/24/16 09:00 09/26/16 22:31 Multi-Ingredient Mouthwash/Gargle (Magic Mouthwash Adult Liq) 5 ml TIDAC SWISH-SWAL 09/24/16 08:00 10/08/16 07:59 09/26/16 17:42 Fentanyl (Duragesic 25 Mcg Patch.72 Hr) 1 patch Q3D T-DERMAL 09/24/16 05:00 09/27/16 04:55 Morphine Sulfate (Roxanol Liq) 10 mg Q3H PRN PO PAIN 1-10 09/24/16 06:45 09/27/16 11:27 Ondansetron HCl (Zofran Inj) 4 mg Q6H PRN IV NAUSEA OR VOMITING 09/24/16 04:00 09/27/16 10:06 Docusate Sodium (Colace) 100 mg BID PO 09/24/16 09:00 09/26/16 22:31 Zolpidem Tartrate (Ambien) 10 mg HS PRN PO INSOMNIA 09/24/16 04:00 09/24/16 20:55 Chlorhexidine Gluconate 3 pack 3 pack Taper DAILY@04 TOP 09/24/16 04:00 09/20/17 03:59 09/27/16 04:50 Piperacillin Sod/ Tazobactam Sod (Zosyn 4.5 Gm Premix) 100 ml @ 200 mls/hr Q6H IV 09/24/16 07:00 09/27/16 06:08 Magnesium Hydroxide (Milk Of Magnesia Liq) 30 ml Q6H PRN PO CONSTIPATION 09/25/16 17:30 09/26/16 08:02 Sennosides (Senokot) 8.6 mg DAILY PO 09/25/16 17:30 09/26/16 08:02 Objective Remarks GENERAL: Older male, lying in bed getting a breathing treatment. SKIN: Warm and dry. HEAD: Normocephalic. EYES: No injection or drainage. NECK: Supple, trachea midline. CARDIOVASCULAR: Regular rate and rhythm without murmurs. RESPIRATORY: Occasional rhonchi anteriorly. GASTROINTESTINAL: Abdomen soft, non-tender, nondistended. EXTREMITIES: No edema. NEUROLOGICAL: No obvious focal deficit. Awake, alert, and oriented x3. Assessment/Plan Problem List: (1) Metastatic lung carcinoma Status: Acute Plan: --recommend continuing hospice care upon discharge. not a candidate for further chemotherapy History: --presented with large left hilar mass with mediastinal adenopathy. +multiple liver lesions ++adenocarcinoma, not enough tissue to do EGFR or ALK study. --given palliative radiation with concurrent chemotherapy. -- admitted to the hospital last week with pneumonia. Since then, he has been getting weaker. --was discharged home with hospice. However, the family had decided to bring him into the hospital because of increased shortness of breath and weakness. This morning CT of the chest showed increased left lung disease. ++significant increase in the pleural-based masses in the left thorax. + increased liver metastasis. --not a good candidate for palliative chemotherapy. (2) Dyspnea Status: Acute Plan: --CXR 09/26 shows stable chest. --likely due to progression of disease -- CT guided thoracentesis planned for today 09/27. (3) Dysphagia Status: Acute Plan: --GI did an upper endoscopy for dilatation of the esophagus. Assessment 66y/o male with metastatic lung cancer admitted with weakness and shortness of breath. h/o Coronary artery disease Hyperlipidemia Hypertension. Plan 1. Esophageal dilatation done by GI this am. 2. Ct guided thoracentesis planned for today. 3. Labs in am. 4. Continue supportive care. Attending Statement The exam, history, and the medical decision-making described in the above note were completed with the assistance of the mid-level provider. I reviewed and agree with the findings presented. I attest that I had a [id number] encounter with the patient on the same day, and personally performed and documented my assessment and findings in the medical record.+SOB. Await thoracentesis. S/p EGD with dilatation of esophageal stricture. Continue supportive care. Karley Hernandez Sep 27, 2016 12:01 Gregory Bolaños MD Sep 27, 2016 17:32
[2016-09-27] MEDS ORDERED: fentaNYL CITRATE 250 MCG/5 ML AMP ONE (12:49)
[2016-09-27] MEDS ORDERED: MIDAZOLAM HCL 5 MG/5 ML VIAL ONE (12:49)
--- NOTE | 2016-09-27 15:58 | RADRPT ---
EXAM DATE/TIME: 09/27/2016 13:38 INDICATIONS : Left thoracentesis with chest tube placement; pleural effusion. SEDATION TIME: 30 minutes MEDICATION(S): 1.) 0.50 mg midazolam (Versed) IV 2.) 50 mcg fentanyl (Sublimaze) IV DEVICE(S): 1.) 8 Fr catheter MEDICAL HISTORY : Carcinoma, lung. SURGICAL HISTORY : None. ENCOUNTER: Initial ACUITY: 1 day PAIN SCORE: 0/10 LOCATION: Left chest PROCEDURE: 1. CT guided Left thoracentesis with chest tube placement. 2. Conscious sedation with continuous EKG and oximetry monitoring. 3. EKG and oximetry remained stable throughout the procedure. The site was prepped in sterile fashion. Full sterile technique was used, including cap, mask, steri le gloves and gown and a large sterile sheet. Hand hygiene and 2% chlorhexidine and/or betadine/alco hol prep was utilized per protocol for cutaneous antisepsis. The skin and subcutaneous tissues were infiltrated with local anesthetic solution. Using automated exposure control and adjustment of the m A and/or kV according to patient size, radiation dose was kept as low as reasonably achievable to obt ain optimal diagnostic quality images. Under CT guidance an 8-Spanish catheter was placed in the left pleural space and 3500 cc of hemorrhagi c fluid were removed. Catheter was sutured in placed to Pleur-evac. Patient may be candidate for talc pleurodesis The patient tolerated the procedure well and there were no complications. EKG and oximetry remained s table throughout the procedure. The patient was sent to recovery in stable condition. CONCLUSION: Uncomplicated CT-guided chest tube placement on the left Ajay Ventura MD FACR on September 27, 2016 at 15:54 Board Certified Radiologist. This report was verified electronically.
[2016-09-27] MEDS: PANTOPRAZOLE SOD 40 MG DELAYED RELEASE TAB PO SCH (21:35)
[2016-09-28] VITALS (9 sets, daily range): BP systolic 92–100; BP diastolic 52–65; PULSE 97–108; RESP 12–16; TEMP 96.1–98.6; O2SAT 92–99
[2016-09-28] MEDS: ONDANSETRON HCL 4 MG/2 ML VIAL IV PRN ×2 (00:27→10:09)
[2016-09-28] MEDS: PIPERACIL-TAZO 4.5 GM PREMIX 100 ML IV SCH ×4 (02:08→18:08)
[2016-09-28] MEDS: MAGNESIUM HYDROXIDE SUSP 30 ML CUP PO PRN ×2 (02:11→09:26)
[2016-09-28] MEDS: LACTATED RINGER'S 1000 ML INJ 1,000 ML IV SCH (03:30)
[2016-09-28] MEDS: RESP: ALBUTEROL 2.5 MG/IPRATROPIUM 0.5 MG NEB (SCH) INH ×4 (04:03→22:27)
[2016-09-28] MEDS: CHLORHEXIDINE GLUCONATE 2 % 1 PACK (2 CLOTHS) TOP SCH (04:17)
--- NOTE | 2016-09-28 06:22 | RADRPT ---
EXAM DATE/TIME: 09/28/2016 05:36 [facility] COMPARISON: CHEST SINGLE AP, September 26, 2016, 8:12. INDICATIONS : Short of breath, evaluate left pneumothorax and chest tube MEDICAL HISTORY : Carcinoma, lung. SURGICAL HISTORY : thoracentesis, chest tube ENCOUNTER: Subsequent ACUITY: 2 days PAIN SCORE: Non-responsive. LOCATION: Left chest FINDINGS: A single portable frontal view of the chest shows interval placement of a small caliber left chest tu be. The effusion has resolved. A mixed interstitial and intra-alveolar infiltrate is seen involving t he left lung most pronounced within the lingula and lower lobe. Right lung is hyperinflated and clear . Heart is normal in size. Power port is seen on the right. Heart is normal in size. No pneumothorace s. CONCLUSION: Interval left thoracostomy tube placement with evacuation of the effusion. A left lung infiltrate is noted. Talha Long Jr., MD on September 28, 2016 at 6:19 Board Certified Radiologist. This report was verified electronically.
[2016-09-28] MEDS: MORPHINE SULFATE ORAL SOLN 10 MG/0.5 ML SYRINGE PO PRN ×3 (06:51→22:14)
[2016-09-28] MEDS: NYSTAT/DIPHENHY/LIDO MOUTHWASH (Adult) 120ML SWISH-SWAL SCH ×3 (08:00→16:04)
--- NOTE | 2016-09-28 08:46 | HHI.GIFU ---
Subjective Remarks Resting in bed. Intermittent nausea, no vomiting. States he is swallowing better. Objective Vitals I&O Vital Signs Date Time Temp Pulse Resp B/P Pulse Ox O2 Delivery O2 Flow Rate FiO2 09/28/16 08:00 98.6 97 12 92/52 93 09/28/16 04:00 98.0 100 16 94/59 09/28/16 00:30 98.1 104 99 09/28/16 00:30 92/63 09/27/16 21:43 Nasal Cannula 4.00 09/27/16 20:19 109 09/27/16 20:00 99.4 110 99 09/27/16 20:00 90/60 09/27/16 16:34 98.7 112 18 95/61 09/27/16 16:00 97.3 114 20 105/64 09/27/16 15:05 98 20 90/53 94 09/27/16 14:35 102 20 86/67 92 09/27/16 14:20 97.5 67 18 99/74 88 09/27/16 14:20 97.5 98 20 99/74 88 09/27/16 13:08 108 09/27/16 12:00 96.3 111 20 105/63 97 09/27/16 10:22 96.4 109 20 117/73 97 09/27/16 10:20 96 Nasal Cannula 4.00 09/27/16 09:34 101 16 95/67 97 09/27/16 09:29 102 16 102/68 97 09/27/16 09:24 97.5 107 16 100/67 96 09/27/16 08:54 96.6 10 19 91/69 100 I/O 09/27/16 09/27/16 09/27/16 09/28/16 09/28/16 09/28/16 07:00 15:00 23:00 07:00 15:00 23:00 Intake Total 480 ml 200 ml 340 ml 340 ml Output Total 150 ml 2300 ml 450 ml Balance 330 ml 200 ml -1960 ml -110 ml Intake Oral 0 ml 240 ml 240 ml IV Total 480 ml 100 ml 100 ml Other 200 ml Output Urine Total 150 ml 200 ml Chest Tube Drainage Total 1850 ml 250 ml Drainage Total 450 ml # Voids 2 # Bowel Movements 0 Laboratory Date/Time Procedure Status Source Growth 09/24/16 00:35 Influenza Types A,B Antigen ([facility]) - Final Complete Nasal Aspirate NEGATIVE FOR FLU A AND B ANTIGEN.... 09/24/16 00:35 Aerobic Blood Culture - Preliminary Resulted Blood Peripheral NO GROWTH IN 3 DAYS 09/24/16 00:35 Anaerobic Blood Culture - Preliminary Resulted Blood Peripheral NO GROWTH IN 3 DAYS 09/24/16 00:24 Influenza Types A,B Antigen ([facility]) Received Nasal Aspirate Pending Imaging Last Impressions Chest X-Ray 09/28/16 0000 Signed Impressions: Service Date/Time: Wednesday, September 28, 2016 05:36 - CONCLUSION: Interval left thoracostomy tube placement with evacuation of the effusion. A left lung infiltrate is noted. Talha Long Jr., MD Chest Tube Insertion 09/27/16 0000 Signed Impressions: Service Date/Time: Tuesday, September 27, 2016 13:38 - CONCLUSION: Uncomplicated CT-guided chest tube placement on the left Ajay Ventura MD FACR Chest CT 09/24/16 0000 Signed Impressions: Service Date/Time: Saturday, September 24, 2016 01:47 - CONCLUSION: 1. Large left pleural effusion with enhancing pleural masses in the posterior inferior left hemithorax. These findings are suspicious for pleural-based metastasis. The pleural effusion has significantly increased in size from the prior exams. 2. Please refer to abdomen and pelvis CT report for description of the subdiaphragmatic findings. Jamil Gates MD Abdomen/Pelvis CT 09/24/16 0000 Signed Impressions: Service Date/Time: Saturday, September 24, 2016 01:47 - CONCLUSION: 1. Innumerable liver masses characteristic of metastatic disease. Comparing to the partially visualized liver on the 08/16/2016 CT, suggest normal progression of metastatic disease. 2. Please refer to chest CT report for description of the supradiaphragmatic findings. Jamil Gates MD Physical Exam HEENT: PERRLA; normocephalic; atraumatic; no jaundice. CHEST: Resp. even/unlabored. CT to left. N/C 4L CARDIAC: RRR with no murmur gallop or rubs. ABDOMEN: Soft, nondistended, tender RUQ, with hepatomegaly; bowel sounds x 4 quadrants. EXTREMITIES: No clubbing, cyanosis, or edema. SKIN: Normal; no rash; no jaundice. CLINICAL PROJECT ASSISTANT: No focal deficits; A&O x 3. Assessment and Plan Plan ASSESSMENT: -Dysphagia. S/P EGD with dilatation (09/27/16)----> There was LA Class C esophagitis noted; The stricture was dilated using a 15mm (45Fr) savary dilator over guidewire.; Following this dilation, there was a moderate amount of heme. Recommend EGD in 1 week. PPI. -RUQ Abdominal Pain and hepatomegaly, secondary to multiple liver metastases Abdomen/Pelvis CT 09/24/16 1. Innumerable liver masses characteristic of metastatic disease. Comparing to the partially visualized liver on the 08/16/2016 CT, suggest normal progression of metastatic disease. 2. Please refer to chest CT report for description of the supradiaphragmatic findings. Controlled. -Metastatic non-small cell lung cancer with pleural metastases. With Hypoxia. Chest CT 09/24/16 1. Large left pleural effusion with enhancing pleural masses in the posterior inferior left hemithorax. These findings are suspicious for pleural-based metastasis. The pleural effusion has significantly increased in size from the prior exams. Chest X-Ray 09/26/16 0000 Signed Stable chest with a large amount of fluid and consolidation on the left. Findings are unchanged from 09/24/2016. Pt with CT to left. -Anemia. S/P 2 units PRBC. HH 9.1/26.0. -Septic shock with elevated lactic acid, per primary. Blood culture, no growth in 2 days. Lactic acid 6 today. IV hydration. PLAN: - [facility] - Cont. PPI - Monitor HH - Transfuse as necessary - Rpt EGD 1 week - Supportive care - Further recommendations to follow based on results of above - Pt seen and examined by Dr. Olivera and myself and this note is written on his behalf Sandrita Llanes Sep 28, 2016 08:46
[2016-09-28] MEDS: DILTIAZEM HCL 30 MG TAB PO SCH ×3 (09:00→17:40)
[2016-09-28] MEDS: BUDESONIDE-FORMOTEROL 160/4.5 MCG INHALER INH SCH ×2 (09:00→19:46)
[2016-09-28] MEDS: PANTOPRAZOLE SOD 40 MG DELAYED RELEASE TAB PO SCH ×2 (09:25→19:45)
[2016-09-28] MEDS: guaiFENesin E.R. 600 MG TAB PO SCH ×2 (09:25→19:45)
[2016-09-28] MEDS: DOCUSATE SODIUM 100 MG CAP PO SCH ×2 (09:25→19:45)
[2016-09-28] MEDS: SENNOSIDES 8.6 MG TAB PO SCH (09:25)
--- NOTE | 2016-09-28 11:26 | PD.ONC.PN ---
Subjective Subjective Remarks Afebrile overnight. Patient had chest tube placed yesterday and EGD with dilatation. He states he can swallow easier but food doesn't have much taste. Objective Data Date Time Temp Pulse Resp B/P Pulse Ox O2 Delivery O2 Flow Rate FiO2 09/28/16 10:31 92 High Flow Nasal Cannula 4.00 09/28/16 08:00 98.6 97 12 92/52 93 09/28/16 04:00 98.0 100 16 94/59 09/28/16 00:30 98.1 104 99 09/28/16 00:30 92/63 09/27/16 21:43 Nasal Cannula 4.00 09/27/16 20:19 109 09/27/16 20:00 99.4 110 99 09/27/16 20:00 90/60 09/27/16 16:34 98.7 112 18 95/61 09/27/16 16:00 97.3 114 20 105/64 09/27/16 15:05 98 20 90/53 94 09/27/16 14:35 102 20 86/67 92 09/27/16 14:20 97.5 67 18 99/74 88 09/27/16 14:20 97.5 98 20 99/74 88 09/27/16 13:08 108 09/27/16 12:00 96.3 111 20 105/63 97 09/28/16 09/28/16 09/28/16 07:00 15:00 23:00 Intake Total 340 ml Output Total 450 ml Balance -110 ml Result Diagram: 09/26/16 0400 09/26/16 0400 Imaging Studies Last 24 hours Impressions Chest X-Ray 09/28/16 0000 Signed Impressions: Service Date/Time: Wednesday, September 28, 2016 05:36 - CONCLUSION: Interval left thoracostomy tube placement with evacuation of the effusion. A left lung infiltrate is noted. Talha Long Jr., MD Administered Medications Medications (Trade) Dose Ordered Sig/Edvin Route PRN Reason Start Time Stop Time Status Last Admin Dose Admin Sodium Chloride (NS Flush) 2 ml UNSCH PRN IVF FLUSH AFTER USING IV ACCESS 09/24/16 00:30 09/24/16 03:08 Budesonide/ Formoterol Fumarate (Symbicort 160-4.5 Inh) 2 puff Q12HR INH 09/24/16 09:00 4/3/17 21:36 Guaifenesin (Mucinex Er) 600 mg BID PO 09/24/16 09:00 09/28/16 09:25 Multi-Ingredient Mouthwash/Gargle (Magic Mouthwash Adult Liq) 5 ml TIDAC SWISH-SWAL 09/24/16 08:00 10/08/16 07:59 09/26/16 17:42 Fentanyl (Duragesic 25 Mcg Patch.72 Hr) 1 patch Q3D T-DERMAL 09/24/16 05:00 09/27/16 04:55 Morphine Sulfate (Roxanol Liq) 10 mg Q3H PRN PO PAIN 1-10 09/24/16 06:45 09/28/16 06:51 Ondansetron HCl (Zofran Inj) 4 mg Q6H PRN IV NAUSEA OR VOMITING 09/24/16 04:00 09/28/16 10:09 Docusate Sodium (Colace) 100 mg BID PO 09/24/16 09:00 09/28/16 09:25 Zolpidem Tartrate (Ambien) 10 mg HS PRN PO INSOMNIA 09/24/16 04:00 09/24/16 20:55 Chlorhexidine Gluconate 3 pack 3 pack Taper DAILY@04 TOP 09/24/16 04:00 09/20/17 03:59 09/28/16 04:17 Piperacillin Sod/ Tazobactam Sod (Zosyn 4.5 Gm Premix) 100 ml @ 200 mls/hr Q6H IV 09/24/16 07:00 09/28/16 06:10 Magnesium Hydroxide (Milk Of Magnesia Liq) 30 ml Q6H PRN PO CONSTIPATION 09/25/16 17:30 09/28/16 09:26 Sennosides (Senokot) 8.6 mg DAILY PO 09/25/16 17:30 09/28/16 09:25 Pantoprazole Sodium (Protonix) 40 mg Q12HR PO 09/27/16 21:00 09/28/16 09:25 Objective Remarks GENERAL: chronically ill male, sitting up in bed, multiple family members at bedside. SKIN: Warm and dry. HEAD: Normocephalic. EYES: No injection or drainage. NECK: Supple, trachea midline. CARDIOVASCULAR: Regular rate and rhythm RESPIRATORY: +scattered rhonchi GASTROINTESTINAL: Abdomen soft, non-tender, nondistended. EXTREMITIES: No cyanosis MUSCULOSKELETAL: Adequate muscle tone. NEUROLOGICAL: aox3. normal speech. moving extremities. Assessment/Plan Problem List: (1) Metastatic lung carcinoma Status: Acute Plan: --recommend continuing hospice care upon discharge. not a candidate for further chemotherapy History: --presented with large left hilar mass with mediastinal adenopathy. +multiple liver lesions ++adenocarcinoma, not enough tissue to do EGFR or ALK study. --given palliative radiation with concurrent chemotherapy. -- admitted to the hospital last week with pneumonia. Since then, he has been getting weaker. --was discharged home with hospice. However, the family had decided to bring him into the hospital because of increased shortness of breath and weakness. This morning CT of the chest showed increased left lung disease. ++significant increase in the pleural-based masses in the left thorax. + increased liver metastasis. --not a good candidate for palliative chemotherapy. (2) Dyspnea Status: Acute Plan: --CXR 09/26 shows stable chest. --likely due to progression of disease -- s/p thoracentesis with chest tube placement on 09/27. will have pleurodesis or pleur-x catheter placement once drainage reduced (3) Dysphagia Status: Acute Plan: --s/p EGD for dilatation of the esophagus, 09/27 Assessment 66y/o male with metastatic lung cancer admitted with weakness and shortness of breath. h/o Coronary artery disease Hyperlipidemia Hypertension. Plan 1. supportive care 2. pleur-x catheter vs. pleurodesis once drainage improved per IR Attending Statement The exam, history, and the medical decision-making described in the above note were completed with the assistance of the mid-level provider. I reviewed and agree with the findings presented. I attest that I had a [id number] encounter with the patient on the same day, and personally performed and documented my assessment and findings in the medical record. Feels better after the chest tube placement. Has soreness around the chest tube site. Consider Pleurx catheter placement so hospice can manage the pleural effusion after d/c. Continue supportive care. Marie Croft Sep 28, 2016 11:26 Gregory Bolaños MD Sep 28, 2016 17:51
--- NOTE | 2016-09-28 12:14 | HHI.PR ---
Subjective Remarks Follow-up dysphagia and shortness of breath. Tolerated EGD and elevation states swallowing better. Improving shortness of breath on 4 L nasal cannula. Still with significant output from chest to 250 cc in the last 8 hours. Discussed with RN and IR Objective Vitals Vital Signs Date Time Temp Pulse Resp B/P Pulse Ox O2 Delivery O2 Flow Rate FiO2 09/28/16 10:31 92 High Flow Nasal Cannula 4.00 09/28/16 08:00 98.6 97 12 92/52 93 09/28/16 04:00 98.0 100 16 94/59 09/28/16 00:30 98.1 104 99 09/28/16 00:30 92/63 09/27/16 21:43 Nasal Cannula 4.00 09/27/16 20:19 109 09/27/16 20:00 99.4 110 99 09/27/16 20:00 90/60 09/27/16 16:34 98.7 112 18 95/61 09/27/16 16:00 97.3 114 20 105/64 09/27/16 15:05 98 20 90/53 94 09/27/16 14:35 102 20 86/67 92 09/27/16 14:20 97.5 67 18 99/74 88 09/27/16 14:20 97.5 98 20 99/74 88 09/27/16 13:08 108 I/O 09/27/16 09/27/16 09/27/16 09/28/16 09/28/16 09/28/16 07:00 15:00 23:00 07:00 15:00 23:00 Intake Total 480 ml 200 ml 340 ml 340 ml Output Total 150 ml 2300 ml 450 ml Balance 330 ml 200 ml -1960 ml -110 ml Intake Oral 0 ml 240 ml 240 ml IV Total 480 ml 100 ml 100 ml Other 200 ml Output Urine Total 150 ml 200 ml Chest Tube Drainage Total 1850 ml 250 ml Drainage Total 450 ml # Voids 2 # Bowel Movements 0 Result Diagram: 09/26/16 0400 09/26/16 0400 Imaging Last Impressions Chest X-Ray 09/28/16 0000 Signed Impressions: Service Date/Time: Wednesday, September 28, 2016 05:36 - CONCLUSION: Interval left thoracostomy tube placement with evacuation of the effusion. A left lung infiltrate is noted. Talha Long Jr., MD Chest Tube Insertion 09/27/16 0000 Signed Impressions: Service Date/Time: Tuesday, September 27, 2016 13:38 - CONCLUSION: Uncomplicated CT-guided chest tube placement on the left Ajay Ventura MD FACR Chest CT 09/24/16 0000 Signed Impressions: Service Date/Time: Saturday, September 24, 2016 01:47 - CONCLUSION: 1. Large left pleural effusion with enhancing pleural masses in the posterior inferior left hemithorax. These findings are suspicious for pleural-based metastasis. The pleural effusion has significantly increased in size from the prior exams. 2. Please refer to abdomen and pelvis CT report for description of the subdiaphragmatic findings. Jamil Gates MD Abdomen/Pelvis CT 09/24/16 0000 Signed Impressions: Service Date/Time: Saturday, September 24, 2016 01:47 - CONCLUSION: 1. Innumerable liver masses characteristic of metastatic disease. Comparing to the partially visualized liver on the 08/16/2016 CT, suggest normal progression of metastatic disease. 2. Please refer to chest CT report for description of the supradiaphragmatic findings. Jamil Gates MD Objective Remarks GENERAL: Cachectic AAM, looks weak SKIN: Warm and dry. HEAD: Atraumatic. Normocephalic. EYES: Pupils equal and round. No scleral icterus. ENT: No nasal bleeding or discharge. Mucous membranes dry. NECK: Trachea midline. No JVD. CARDIOVASCULAR: Regular rate and rhythm, sinus on monitor. No murmurs rubs or gallops. RESPIRATORY: Diminished breath sounds left lung field and right base. Left chest tube in place GASTROINTESTINAL: Abdomen soft, tender RUQ with hepatomegaly. Bowel sounds present. Prior PEG site healed. MUSCULOSKELETAL: Extremities without clubbing, cyanosis, or edema. No obvious deformities. NEUROLOGICAL: Awake and alert. No obvious cranial nerve deficits. Motor grossly within normal limits. Normal speech. Nonfocal Procedures Chest tube insertion A/P Problem List: (1) Dysphagia ICD Code: R13.10 Status: Acute (2) Dyspnea ICD Code: R06.00 Status: Acute (3) Pleural effusion ICD Code: J90 Status: Acute Assessment and Plan Pain secondary to metastatic lung cancer Stable continue Fentanyl patch 25 mcg. Morphine 10 q4 hours prn. Fentanyl 25 mcg IV q1 hour for breakthrough pain. Ambien prn sleep RESP: Metastatic non-small cell lung cancer with pleural metastases Large left pleural effusion Hypoxia Nasal cannula wean as tolerated. IS q1 hour awake. DuoNeb every 6 hours. Symbicort 2 puffs inhaled every 12 hours. Albuterol every 2 hours as needed Guafenesin 600 bid Discussed with IR, continue chest tube until output has decreased significantly and will consider Pleurx versus pleurodesis CV: CAD Hold ASA/plavix till cleared by IR Monitor hemodynamics GI: Dysphagia Abdominal pain and hepatomegaly secondary to multiple liver metastases Chronic severe protein energy malnutrition Speech therapy to evaluate following provide diet recommendations recommends full liquid. Status post EGD with dilation. Antireflux mechanisms. Continue PPI FEN/RENAL: Voiding. Monitor intake and output. Monitor electrolyte. Replace as indicated. ID: Postobstructive pneumonia Septic shock with elevated lactic acid Did not tolerate fluid bolus as per sepsis protocol. Continue Zosyn 4.5 IV q6 hours. Followup blood cultures. Influenza negative. HEME: Symptomatic anemia. Improved Transfused 2 units packed red cells ENDO: Mild hyperglycemia. Monitor and initiate insulin sliding scale if indicated. PROPH: SCDs for DVT prophylaxis. Hold pharmacological prophylaxis secondary to anemia. Protonix 40 g every 12 hours. ACCESS: Right chest port is accessed. Patient states that he does not wish to be intubated for respiratory failure. He states he is DNR/DNI. He wants to wait for his nephew before making decision about resuming hospice Discharge Planning Not ready for discharge Suraj Smith MD Sep 28, 2016 12:14
[2016-09-29] VITALS (13 sets, daily range): BP systolic 79–100; BP diastolic 51–68; PULSE 78–117; RESP 16–20; TEMP 94–99; O2SAT 92–100
[2016-09-29] MEDS: PIPERACIL-TAZO 4.5 GM PREMIX 100 ML IV SCH ×4 (01:21→18:54)
[2016-09-29] MEDS: RESP: ALBUTEROL 2.5 MG/IPRATROPIUM 0.5 MG NEB (SCH) INH ×4 (03:05→19:35)
[2016-09-29] MEDS: LACTATED RINGER'S 1000 ML INJ 1,000 ML IV SCH (03:30)
[2016-09-29] MEDS: CHLORHEXIDINE GLUCONATE 2 % 1 PACK (2 CLOTHS) TOP SCH (04:32)
[2016-09-29 05:55] LABS: AUTOMATED NEUTROPHIL # 7.5 TH/MM3 (1.8-7.7); BASOPHIL % 0.4 % (0.0-2.0); EOSINOPHIL # 0.1 TH/MM3 (0-0.4); EOSINOPHIL % 0.8 % (0.0-4.0); HEMATOCRIT 22.9 % (39.0-51.0); LYMPH % 4.9 % (9.0-44.0); LYMPHOCYTE # 0.5 TH/MM3 (1.0-4.8); MEAN CELL VOLUME 100.9 FL (80.0-100.0); MEAN CORPUSCULAR HEMOGLOBIN 33.5 PG (27.0-34.0); MEAN CORPUSCULAR HGB CONC 33.2 % (32.0-36.0); MONO % 13.6 % (0.0-8.0); NEUT % 80.3 % (16.0-70.0); PLATELET COUNT 101 TH/MM3 (150-450); RED BLOOD COUNT 2.27 MIL/MM3 (4.50-5.90); RED CELL DISTRIBUTION WIDTH 19.9 % (11.6-17.2); WHITE BLOOD COUNT 9.3 TH/MM3 (4.0-11.0)
[2016-09-29 06:00] LABS: HEMO FLAGS AUTO DIFF
[2016-09-29] MEDS: NYSTAT/DIPHENHY/LIDO MOUTHWASH (Adult) 120ML SWISH-SWAL SCH ×3 (08:00→12:10)
[2016-09-29 08:08] LABS: BANDS 8 % (0-6); CORRECTED NUCLEATED RBC 4 /100 WBC (0-0); EOSINOPHILS 1 % (0-4); NEUTROPHIL # MANUAL DIFF 8.6 TH/MM3 (1.8-7.7); PLATELET ESTIMATE SMEAR LOW (NORMAL); PLATELET MORPHOLOGY NORMAL (NORMAL); POLYCHROMASIA 2.1 % (0.0-1.9); POLYS (SEG NEUTROPHILS) 84 % (16-70); SCAN/DIFF FINAL DIFF MANUAL; WBC DIFF SAMPLE 100
[2016-09-29] MEDS ORDERED: SODIUM CHLOR 0.9% 250 ML INJ 250 ML IV ONE (08:30)
[2016-09-29] MEDS: DILTIAZEM HCL 30 MG TAB PO SCH ×4 (09:00→16:23)
[2016-09-29] MEDS: BUDESONIDE-FORMOTEROL 160/4.5 MCG INHALER INH SCH ×2 (09:00→20:58)
[2016-09-29] MEDS: ONDANSETRON HCL 4 MG/2 ML VIAL IV PRN (09:30)
[2016-09-29] MEDS: FUROSEMIDE 20 MG/2 ML VIAL IV ONE ×2 (09:32→18:54)
[2016-09-29] MEDS: PANTOPRAZOLE SOD 40 MG DELAYED RELEASE TAB PO SCH ×2 (09:35→21:00)
[2016-09-29] MEDS: DOCUSATE SODIUM 100 MG CAP PO SCH ×2 (09:35→20:59)
[2016-09-29] MEDS: guaiFENesin E.R. 600 MG TAB PO SCH ×2 (09:36→20:59)
[2016-09-29] MEDS: MORPHINE SULFATE ORAL SOLN 10 MG/0.5 ML SYRINGE PO PRN (09:36)
[2016-09-29] MEDS: SENNOSIDES 8.6 MG TAB PO SCH ×2 (09:36→21:00)
--- NOTE | 2016-09-29 11:35 | HHI.PR ---
Subjective Remarks Follow-up pleural effusion. Still with significant output. Requesting switch of liquid narcotics to tabs. Discussed with his nephew, will resume hospice upon discharge. Discussed with RN Objective Vitals Vital Signs Date Time Temp Pulse Resp B/P Pulse Ox O2 Delivery O2 Flow Rate FiO2 09/29/16 09:23 92 Nasal Cannula 4.00 09/29/16 08:00 97.9 103 18 92/68 09/29/16 08:00 117 09/29/16 04:00 97.2 101 18 95/57 100 09/29/16 00:00 99.0 101 18 94/54 99 09/28/16 22:27 96 Nasal Cannula 4.00 09/28/16 21:00 98.5 108 16 100/58 95 09/28/16 16:00 96.1 102 16 98/59 93 09/28/16 12:48 105 09/28/16 12:00 96.5 105 16 99/65 95 I/O 09/28/16 09/28/16 09/28/16 09/29/16 09/29/16 09/29/16 07:00 15:00 23:00 07:00 15:00 23:00 Intake Total 340 ml 120 ml 390 ml 240 ml Output Total 450 ml 660 ml 550 ml 170 ml Balance -110 ml 120 ml -270 ml -310 ml -170 ml Intake Oral 240 ml 120 ml 240 ml 120 ml IV Total 100 ml 150 ml 120 ml Output Urine Total 200 ml 400 ml Chest Tube Drainage Total 250 ml 260 ml 550 ml 170 ml # Voids 0 # Bowel Movements 0 Result Diagram: 09/29/16 0535 09/26/16 0400 Objective Remarks GENERAL: Cachectic AAM, looks weak SKIN: Warm and dry. HEAD: Atraumatic. Normocephalic. EYES: Pupils equal and round. No scleral icterus. ENT: No nasal bleeding or discharge. Mucous membranes dry. NECK: Trachea midline. No JVD. CARDIOVASCULAR: Regular rate and rhythm, sinus on monitor. No murmurs rubs or gallops. RESPIRATORY: Diminished breath sounds left lung field and right base. Left chest tube in place GASTROINTESTINAL: Abdomen soft, tender RUQ with hepatomegaly. Bowel sounds present. Prior PEG site healed. MUSCULOSKELETAL: Extremities without clubbing, cyanosis, or edema. No obvious deformities. NEUROLOGICAL: Awake and alert. No obvious cranial nerve deficits. Motor grossly within normal limits. Normal speech. Nonfocal Procedures Chest tube insertion A/P Problem List: (1) Dysphagia ICD Code: R13.10 Status: Acute (2) Dyspnea ICD Code: R06.00 Status: Acute (3) Pleural effusion ICD Code: J90 Status: Acute Assessment and Plan Pain secondary to metastatic lung cancer Stable continue Fentanyl patch 25 mcg, switch morphine pills as needed and fentanyl IV for breakthrough. Ambien prn sleep RESP: Metastatic non-small cell lung cancer with pleural metastases Large left pleural effusion Hypoxia Nasal cannula wean as tolerated. IS q1 hour awake. DuoNeb every 6 hours. Symbicort 2 puffs inhaled every 12 hours. Albuterol every 2 hours as needed Guafenesin 600 bid Discussed with IR, continue chest tube until output has decreased significantly and will consider Pleurx versus pleurodesis CV: CAD Hold ASA/plavix till cleared by IR Monitor hemodynamics GI: Dysphagia Abdominal pain and hepatomegaly secondary to multiple liver metastases Chronic severe protein energy malnutrition Speech therapy to evaluate following provide diet recommendations recommends full liquid. Status post EGD with dilation. Antireflux mechanisms. Continue PPI FEN/RENAL: Voiding. Monitor intake and output. Monitor electrolyte. Replace as indicated. ID: Postobstructive pneumonia Septic shock with elevated lactic acid Did not tolerate fluid bolus as per sepsis protocol. Continue Zosyn 4.5 IV q6 hours. Followup blood cultures. Influenza negative. HEME: Symptomatic anemia. Improved Transfused 2 units packed red cells /5. Hemoglobin 7.6, he agrees to receive another part RBC transfusion. Repeat CBC in the morning ENDO: Mild hyperglycemia. Monitor and initiate insulin sliding scale if indicated. PROPH: SCDs for DVT prophylaxis. Hold pharmacological prophylaxis secondary to anemia. Protonix 40 g every 12 hours. ACCESS: Right chest port is accessed. Patient states that he does not wish to be intubated for respiratory failure. He states he is DNR/DNI. Discharge Planning Not ready for discharge Suraj Smith MD Sep 29, 2016 11:35
[2016-09-29] MEDS: MORPHINE SULFATE 15 MG TAB PO PRN ×2 (12:12→23:03)
--- NOTE | 2016-09-29 12:37 | PD.ONC.PN ---
Subjective Subjective Remarks Afebrile overnight. Patient felt nauseated this AM and did not have much of an appetite. He ate very little food. CT in place, they are waiting for the drainage to reduce so pleurodesis can be done. Objective Data Date Time Temp Pulse Resp B/P Pulse Ox O2 Delivery O2 Flow Rate FiO2 09/29/16 09:23 92 Nasal Cannula 4.00 09/29/16 08:00 97.9 103 18 92/68 09/29/16 08:00 117 09/29/16 04:00 97.2 101 18 95/57 100 09/29/16 00:00 99.0 101 18 94/54 99 09/28/16 22:27 96 Nasal Cannula 4.00 09/28/16 21:00 98.5 108 16 100/58 95 09/28/16 16:00 96.1 102 16 98/59 93 09/28/16 12:48 105 09/29/16 09/29/16 09/29/16 07:00 15:00 23:00 Intake Total 240 ml Output Total 550 ml 170 ml Balance -310 ml -170 ml Result Diagram: 09/29/16 0535 09/26/16 0400 Laboratory Results Laboratory Tests Test 09/29/16 09/29/16 05:35 10:35 White Blood Count 9.3 TH/MM3 Red Blood Count 2.27 MIL/MM3 Hemoglobin 7.6 GM/DL Hematocrit 22.9 % Mean Corpuscular Volume 100.9 FL Mean Corpuscular Hemoglobin 33.5 PG Mean Corpuscular Hemoglobin 33.2 % Concent Red Cell Distribution Width 19.9 % Platelet Count 101 TH/MM3 Mean Platelet Volume 8.7 FL Neutrophils (%) (Auto) 80.3 % Lymphocytes (%) (Auto) 4.9 % Monocytes (%) (Auto) 13.6 % Eosinophils (%) (Auto) 0.8 % Basophils (%) (Auto) 0.4 % Neutrophils # (Auto) 7.5 TH/MM3 Lymphocytes # (Auto) 0.5 TH/MM3 Monocytes # (Auto) 1.3 TH/MM3 Eosinophils # (Auto) 0.1 TH/MM3 Basophils # (Auto) 0.0 TH/MM3 CBC Comment AUTO DIFF Differential Total Cells 100 Counted Neutrophils % (Manual) 84 % Band Neutrophils % 8 % Lymphocytes % 1 % Monocytes % 6 % Eosinophils % 1 % Neutrophils # (Manual) 8.6 TH/MM3 Nucleated Red Blood Cells 4 /100 WBC Differential Comment FINAL DIFF MANUAL Platelet Estimate LOW Platelet Morphology Comment NORMAL Polychromasia 2.1 % Blood Type B POSITIVE Antibody Screen NEGATIVE Crossmatch Leukocyte-Reduced Red Blood Cells Blood Bank Comment Administered Medications Medications (Trade) Dose Ordered Sig/Edvin Route PRN Reason Start Time Stop Time Status Last Admin Dose Admin Sodium Chloride (NS Flush) 2 ml UNSCH PRN IVF FLUSH AFTER USING IV ACCESS 09/24/16 00:30 09/24/16 03:08 Budesonide/ Formoterol Fumarate (Symbicort 160-4.5 Inh) 2 puff Q12HR INH 09/24/16 09:00 09/29/16 09:00 Guaifenesin (Mucinex Er) 600 mg BID PO 09/24/16 09:00 09/29/16 09:36 Multi-Ingredient Mouthwash/Gargle (Magic Mouthwash Adult Liq) 5 ml TIDAC SWISH-SWAL 09/24/16 08:00 10/08/16 07:59 09/26/16 17:42 Fentanyl (Duragesic 25 Mcg Patch.72 Hr) 1 patch Q3D T-DERMAL 09/24/16 05:00 09/27/16 04:55 Ondansetron HCl (Zofran Inj) 4 mg Q6H PRN IV NAUSEA OR VOMITING 09/24/16 04:00 09/29/16 09:30 Docusate Sodium (Colace) 100 mg BID PO 09/24/16 09:00 09/29/16 09:35 Zolpidem Tartrate (Ambien) 10 mg HS PRN PO INSOMNIA 09/24/16 04:00 09/24/16 20:55 Chlorhexidine Gluconate Taper DAILY@04 TOP 09/24/16 04:00 09/20/17 03:59 09/29/16 04:32 Piperacillin Sod/ Tazobactam Sod (Zosyn 4.5 Gm Premix) 100 ml @ 200 mls/hr Q6H IV 09/24/16 07:00 09/29/16 12:13 Magnesium Hydroxide (Milk Of Magnesia Liq) 30 ml Q6H PRN PO CONSTIPATION 09/25/16 17:30 09/28/16 09:26 Pantoprazole Sodium (Protonix) 40 mg Q12HR PO 09/27/16 21:00 09/29/16 09:35 Sennosides (Senokot) 8.6 mg BID PO 09/29/16 09:00 09/29/16 09:36 Morphine Sulfate (Msir) 15 mg Q4H PRN PO pain 1-10 09/29/16 11:30 09/29/16 12:12 Objective Remarks GENERAL: chronically ill male, supine in bed, appears fatigued. SKIN: Warm and dry. HEAD: Normocephalic. EYES: No injection or drainage. NECK: Supple, trachea midline. CARDIOVASCULAR: Regular rate and rhythm RESPIRATORY: +scattered rhonchi. CT in place. GASTROINTESTINAL: Abdomen soft, non-tender, nondistended. EXTREMITIES: No cyanosis MUSCULOSKELETAL: Adequate muscle tone. NEUROLOGICAL: awake and alert, normal speech. moving extremities. Assessment/Plan Problem List: (1) Metastatic lung carcinoma Status: Acute Plan: --recommend continuing hospice care upon discharge. not a candidate for further chemotherapy History: --presented with large left hilar mass with mediastinal adenopathy. +multiple liver lesions ++adenocarcinoma, not enough tissue to do EGFR or ALK study. --given palliative radiation with concurrent chemotherapy. -- admitted to the hospital last week with pneumonia. Since then, he has been getting weaker. --was discharged home with hospice. However, the family had decided to bring him into the hospital because of increased shortness of breath and weakness. This morning CT of the chest showed increased left lung disease. ++significant increase in the pleural-based masses in the left thorax. + increased liver metastasis. --not a good candidate for palliative chemotherapy. (2) Dyspnea Status: Acute Plan: --likely due to progression of disease -- s/p thoracentesis with chest tube placement on 09/27. will have pleurodesis or pleur-x catheter placement once drainage reduced (3) Dysphagia Status: Acute Plan: --s/p EGD for dilatation of the esophagus, 09/27 Assessment 66y/o male with metastatic lung cancer admitted with weakness and shortness of breath. h/o Coronary artery disease Hyperlipidemia Hypertension. Plan 1. change diet to regular, ensure with each meal 2. pleur-x catheter vs. pleurodesis once drainage improved per IR Attending Statement The exam, history, and the medical decision-making described in the above note were completed with the assistance of the mid-level provider. I reviewed and agree with the findings presented. I attest that I had a [id number] encounter with the patient on the same day, and personally performed and documented my assessment and findings in the medical record. Feels stronger today. SOB improved. Chest tube is still draining. they have questions regarding Pleurx cath vs pleurodesis. Explained procedures to them. Pt prefers pleurodesis because he does not want any foreign body in him. Can have pleurodesis when drainage decreased. Marie Croft Sep 29, 2016 12:37 Gregory Bolaños MD Sep 29, 2016 16:06
--- NOTE | 2016-09-29 14:05 | RADRPT ---
EXAM DATE/TIME: 09/29/2016 13:33 [facility] COMPARISON: CHEST SINGLE AP, September 26, 2016, 8:12. INDICATIONS : Follow up on left chest tube. MEDICAL HISTORY : Cardiovascular disease. Carcinoma, lung. SURGICAL HISTORY : coronary artery stent; port placement; loop recorder ENCOUNTER: Subsequent ACUITY: 2 days PAIN SCORE: 7/10 LOCATION: Left upper chest FINDINGS: A single view of the chest demonstrates the left [place] loop thoracostomy tube is now outside the thora cic cavity in the regional soft tissues. There is a small left pleural effusion, markedly improved f rom the 09-26-16 exam. Patchy airspace disease in the left lung field. Stable pleural catheter and in t he left apex. Right lung is clear. No pneumothorax. Right IJ Insuat-f-Ewnp catheter is unchanged in p osition. Heart size is normal. Loop recorder projects over the left upper abdominal quadrant. CONCLUSION: 1. Left-sided thoracostomy tube has been withdrawn outside the thoracic cavity with the [place] loop in the deep tissues of the left hemithorax. 2. Small left effusion with patchy left basilar airspace disease and stable left apical capping. No p neumothorax. 3. Right lung remains clear. Raymundo Rm MD on September 29, 2016 at 14:00 Board Certified Radiologist. This report was verified electronically.
--- NOTE | 2016-09-29 15:51 | HHI.GIFU ---
Subjective Remarks Resting in bed. States swallowing has improved. Still not much appetite. Thinks he can take ensure. (Sandrita Llanes) Objective Vitals I&O Vital Signs Date Time Temp Pulse Resp B/P Pulse Ox O2 Delivery O2 Flow Rate FiO2 09/29/16 15:21 96.3 98 20 96/54 98 09/29/16 12:00 98.0 112 16 82/54 09/29/16 09:23 92 Nasal Cannula 4.00 09/29/16 08:00 97.9 103 18 92/68 09/29/16 08:00 117 09/29/16 04:00 97.2 101 18 95/57 100 09/29/16 00:00 99.0 101 18 94/54 99 09/28/16 22:27 96 Nasal Cannula 4.00 09/28/16 21:00 98.5 108 16 100/58 95 09/28/16 16:00 96.1 102 16 98/59 93 I/O 09/28/16 09/28/16 09/28/16 09/29/16 09/29/16 09/29/16 07:00 15:00 23:00 07:00 15:00 23:00 Intake Total 340 ml 120 ml 390 ml 240 ml 100 ml Output Total 450 ml 660 ml 550 ml 170 ml Balance -110 ml 120 ml -270 ml -310 ml -70 ml Intake Oral 240 ml 120 ml 240 ml 120 ml IV Total 100 ml 150 ml 120 ml 100 ml Output Urine Total 200 ml 400 ml Chest Tube Drainage Total 250 ml 260 ml 550 ml 170 ml # Voids 0 # Bowel Movements 0 Laboratory Laboratory Tests Test 09/29/16 09/29/16 05:35 10:35 White Blood Count 9.3 Red Blood Count 2.27 Hemoglobin 7.6 Hematocrit 22.9 Mean Corpuscular Volume 100.9 Mean Corpuscular Hemoglobin 33.5 Mean Corpuscular Hemoglobin 33.2 Concent Red Cell Distribution Width 19.9 Platelet Count 101 Mean Platelet Volume 8.7 Neutrophils (%) (Auto) 80.3 Lymphocytes (%) (Auto) 4.9 Monocytes (%) (Auto) 13.6 Eosinophils (%) (Auto) 0.8 Basophils (%) (Auto) 0.4 Neutrophils # (Auto) 7.5 Lymphocytes # (Auto) 0.5 Monocytes # (Auto) 1.3 Eosinophils # (Auto) 0.1 Basophils # (Auto) 0.0 CBC Comment AUTO DIFF Differential Total Cells 100 Counted Neutrophils % (Manual) 84 Band Neutrophils % 8 Lymphocytes % 1 Monocytes % 6 Eosinophils % 1 Neutrophils # (Manual) 8.6 Nucleated Red Blood Cells 4 Differential Comment FINAL DIFF MANUAL Platelet Estimate LOW Platelet Morphology Comment NORMAL Polychromasia 2.1 Blood Type B POSITIVE Antibody Screen NEGATIVE Crossmatch Leukocyte-Reduced Red Blood Cells Blood Bank Comment Imaging Last Impressions Chest X-Ray 09/29/16 0000 Signed Impressions: Service Date/Time: Thursday, September 29, 2016 13:33 - CONCLUSION: 1. Left- sided thoracostomy tube has been withdrawn outside the thoracic cavity with the [place] loop in the deep tissues of the left hemithorax. 2. Small left effusion with patchy left basilar airspace disease and stable left apical capping. No pneumothorax. 3. Right lung remains clear. Raymundo Rm MD Chest Tube Insertion 09/27/16 0000 Signed Impressions: Service Date/Time: Tuesday, September 27, 2016 13:38 - CONCLUSION: Uncomplicated CT-guided chest tube placement on the left Ajay Ventura MD FACR Chest CT 09/24/16 0000 Signed Impressions: Service Date/Time: Saturday, September 24, 2016 01:47 - CONCLUSION: 1. Large left pleural effusion with enhancing pleural masses in the posterior inferior left hemithorax. These findings are suspicious for pleural-based metastasis. The pleural effusion has significantly increased in size from the prior exams. 2. Please refer to abdomen and pelvis CT report for description of the subdiaphragmatic findings. Jamil Gates MD Abdomen/Pelvis CT 09/24/16 0000 Signed Impressions: Service Date/Time: Saturday, September 24, 2016 01:47 - CONCLUSION: 1. Innumerable liver masses characteristic of metastatic disease. Comparing to the partially visualized liver on the 08/16/2016 CT, suggest normal progression of metastatic disease. 2. Please refer to chest CT report for description of the supradiaphragmatic findings. Jamil Gates MD Physical Exam HEENT: PERRLA; normocephalic; atraumatic; no jaundice. CHEST: Resp. even/unlabored. CARDIAC: RRR with no murmur gallop or rubs. ABDOMEN: Soft, nondistended, tender RUQ, with hepatomegaly; bowel sounds x 4 quadrants. EXTREMITIES: No clubbing, cyanosis, or edema. SKIN: Normal; no rash; no jaundice. COAL SCREENER: No focal deficits; A&O x 3. (Sandrita Llanes) Assessment and Plan Plan ASSESSMENT: -Dysphagia. S/P EGD with dilatation (09/27/16)----> There was LA Class C esophagitis noted; The stricture was dilated using a 15mm (45Fr) savary dilator over guidewire.; Following this dilation, there was a moderate amount of heme. Recommend EGD in 1 week. Swallowing has improved. Still not much appetite. Will add ensure. -RUQ Abdominal Pain and hepatomegaly, secondary to multiple liver metastases Abdomen/Pelvis CT 09/24/16 1. Innumerable liver masses characteristic of metastatic disease. Comparing to the partially visualized liver on the 08/16/2016 CT, suggest normal progression of metastatic disease. 2. Please refer to chest CT report for description of the supradiaphragmatic findings. Controlled. -Metastatic non-small cell lung cancer with pleural metastases. With Hypoxia. Chest CT 09/24/16 1. Large left pleural effusion with enhancing pleural masses in the posterior inferior left hemithorax. These findings are suspicious for pleural-based metastasis. The pleural effusion has significantly increased in size from the prior exams. Chest X-Ray 09/26/16 0000 Signed Stable chest with a large amount of fluid and consolidation on the left. Findings are unchanged from 09/24/2016. CT was removed. -Anemia. S/P 3 units PRBC. HH 7.6/22.5 -Septic shock with elevated lactic acid, per primary. Blood culture, no growth in 2 days. Lactic acid 6. IV hydration. PLAN: - ENRICO- Add ensure - Cont. PPI - Monitor HH - Transfuse as necessary - EGD in one week inpatient vs. outpatient - GI will sign off, please reconsult as needed - Pt seen and examined by Dr. Rey and myself and this note is written on his behalf (Sandrita Llanes) Physician Comments Seen and examined with GUNJAN, dysphagia improved after egd/dilation. Repeat exam next week. If discharged please schedule gi fu. Will sign off, thank you ( Raul Rey MD) Sandrita Llanes Sep 29, 2016 15:50 Raul Rey MD Sep 29, 2016 18:55
[2016-09-29] MEDS: ACETAMINOPHEN 325 MG TAB PO PRN (16:09)
[2016-09-29] MEDS: diphenhydrAMINE HCL 25 MG CAP PO PRN (16:09)
[2016-09-29] MEDS ORDERED: ACETAMINOPHEN 325 MG TAB PO PRN (16:45)
[2016-09-29] MEDS ORDERED: diphenhydrAMINE HCL 25 MG CAP PO PRN (17:00)
[2016-09-29] MEDS ORDERED: SODIUM CHLORIDE 0.9% FLUSH 10 ML FLUSH IV FLUSH PRN (23:45)
[2016-09-30] VITALS (9 sets, daily range): BP systolic 88–106; BP diastolic 54–70; PULSE 96–118; RESP 16–20; TEMP 96.3–98.2; O2SAT 94–100
[2016-09-30] MEDS: PIPERACIL-TAZO 4.5 GM PREMIX 100 ML IV SCH ×4 (03:03→18:41)
[2016-09-30] MEDS: LACTATED RINGER'S 1000 ML INJ 1,000 ML IV SCH (03:30)
[2016-09-30] MEDS: CHLORHEXIDINE GLUCONATE 2 % 1 PACK (2 CLOTHS) TOP SCH (03:48)
[2016-09-30] MEDS: RESP: ALBUTEROL 2.5 MG/IPRATROPIUM 0.5 MG NEB (SCH) INH ×4 (04:18→21:27)
[2016-09-30] MEDS: fentaNYL 25 MCG/HR PATCH T-DERMAL SCH (06:14)
[2016-09-30] MEDS ORDERED: ALTEPLASE RECOMBINANT 2 MG VIAL INTRACATH ONE (06:15)
[2016-09-30] MEDS ORDERED: ALTEPLASE RECOMBINANT 2 MG VIAL IV ONE (06:15)
[2016-09-30] MEDS ORDERED: ALTEPLASE RECOMBINANT 2 MG VIAL INTRACATH PRN (07:00)
[2016-09-30] MEDS: NYSTAT/DIPHENHY/LIDO MOUTHWASH (Adult) 120ML SWISH-SWAL SCH ×3 (08:00→18:41)
[2016-09-30] MEDS: DILTIAZEM HCL 30 MG TAB PO SCH ×3 (09:00→17:46)
[2016-09-30] MEDS: guaiFENesin E.R. 600 MG TAB PO SCH ×2 (09:10→20:24)
[2016-09-30] MEDS: PANTOPRAZOLE SOD 40 MG DELAYED RELEASE TAB PO SCH ×2 (09:11→20:25)
[2016-09-30] MEDS: SENNOSIDES 8.6 MG TAB PO SCH ×2 (09:11→20:24)
[2016-09-30] MEDS: DOCUSATE SODIUM 100 MG CAP PO SCH ×2 (09:11→20:25)
[2016-09-30] MEDS: BUDESONIDE-FORMOTEROL 160/4.5 MCG INHALER INH SCH ×2 (09:12→20:26)
[2016-09-30 09:52] LABS: AUTOMATED NEUTROPHIL # 9.5 TH/MM3 (1.8-7.7); BASOPHIL # 0.2 TH/MM3 (0-0.2); EOSINOPHIL # 0.1 TH/MM3 (0-0.4); EOSINOPHIL % 0.7 % (0.0-4.0); HEMATOCRIT 32.1 % (39.0-51.0); LYMPH % 3.3 % (9.0-44.0); LYMPHOCYTE # 0.4 TH/MM3 (1.0-4.8); MEAN CELL VOLUME 96.7 FL (80.0-100.0); MEAN CORPUSCULAR HEMOGLOBIN 31.5 PG (27.0-34.0); MEAN CORPUSCULAR HGB CONC 32.6 % (32.0-36.0); MONO % 13.1 % (0.0-8.0); NEUT % 80.9 % (16.0-70.0); PLATELET COUNT 89 TH/MM3 (150-450); RED BLOOD COUNT 3.32 MIL/MM3 (4.50-5.90); WHITE BLOOD COUNT 11.7 TH/MM3 (4.0-11.0)
[2016-09-30 09:58] LABS: HEMO FLAGS AUTO DIFF
[2016-09-30 10:10] LABS: BICARBONATE 25.8 MEQ/L (21.0-32.0); MAGNESIUM 1.8 MG/DL (1.5-2.5); POTASSIUM 4.2 MEQ/L (3.5-5.1)
--- NOTE | 2016-09-30 10:32 | HHI.PR ---
Subjective Remarks F/u metastatic lung cancer. Improved shortness of breath not wearing oxygen. He does not want Pleurx catheter witnessed by nephew. Discussed with IR and RN Objective Vitals Vital Signs Date Time Temp Pulse Resp B/P Pulse Ox O2 Delivery O2 Flow Rate FiO2 09/30/16 08:54 97.6 105 16 102/62 98 09/30/16 08:25 94 Nasal Cannula 3.00 09/30/16 07:27 18 09/30/16 04:28 98.2 96 20 88/59 97 09/30/16 00:40 16 09/30/16 00:00 96.9 100 18 90/54 100 09/29/16 23:35 97.4 103 18 79/51 98 Manual Cuff/Auscultation 09/29/16 20:22 103 09/29/16 20:00 94.0 103 16 100/56 100 09/29/16 19:35 100 Nasal Cannula 1.00 09/29/16 18:50 96.8 107 16 90/57 97 09/29/16 17:22 98.3 78 16 97/58 09/29/16 17:05 98.9 106 16 93/58 09/29/16 15:21 96.3 98 20 96/54 98 09/29/16 12:00 98.0 112 16 82/54 I/O 09/29/16 09/29/16 09/29/16 09/30/16 09/30/16 09/30/16 07:00 15:00 23:00 07:00 15:00 23:00 Intake Total 240 ml 100 ml 720 ml Output Total 550 ml 170 ml 300 ml Balance -310 ml -70 ml 420 ml Intake Oral 120 ml 720 ml IV Total 120 ml 100 ml Output Urine Total 300 ml Chest Tube Drainage Total 550 ml 170 ml # Voids 1 Result Diagram: 09/30/16 0815 09/30/16 0815 Imaging Last Impressions Chest X-Ray 09/29/16 0000 Signed Impressions: Service Date/Time: Thursday, September 29, 2016 13:33 - CONCLUSION: 1. Left- sided thoracostomy tube has been withdrawn outside the thoracic cavity with the [place] loop in the deep tissues of the left hemithorax. 2. Small left effusion with patchy left basilar airspace disease and stable left apical capping. No pneumothorax. 3. Right lung remains clear. Raymundo Rm MD Chest Tube Insertion 09/27/16 0000 Signed Impressions: Service Date/Time: Tuesday, September 27, 2016 13:38 - CONCLUSION: Uncomplicated CT-guided chest tube placement on the left Ajay Ventura MD FACR Chest CT 09/24/16 0000 Signed Impressions: Service Date/Time: Saturday, September 24, 2016 01:47 - CONCLUSION: 1. Large left pleural effusion with enhancing pleural masses in the posterior inferior left hemithorax. These findings are suspicious for pleural-based metastasis. The pleural effusion has significantly increased in size from the prior exams. 2. Please refer to abdomen and pelvis CT report for description of the subdiaphragmatic findings. Jamil Gates MD Abdomen/Pelvis CT 09/24/16 0000 Signed Impressions: Service Date/Time: Saturday, September 24, 2016 01:47 - CONCLUSION: 1. Innumerable liver masses characteristic of metastatic disease. Comparing to the partially visualized liver on the 08/16/2016 CT, suggest normal progression of metastatic disease. 2. Please refer to chest CT report for description of the supradiaphragmatic findings. Jamil Gates MD Objective Remarks GENERAL: Cachectic AAM, looks weak SKIN: Warm and dry. HEAD: Atraumatic. Normocephalic. EYES: Pupils equal and round. No scleral icterus. ENT: No nasal bleeding or discharge. Mucous membranes dry. NECK: Trachea midline. No JVD. CARDIOVASCULAR: Regular rate and rhythm, sinus on monitor. No murmurs rubs or gallops. RESPIRATORY: Diminished breath sounds left lung field GASTROINTESTINAL: Abdomen soft, tender RUQ with hepatomegaly. Bowel sounds present. Prior PEG site healed. MUSCULOSKELETAL: Extremities without clubbing, cyanosis, or edema. No obvious deformities. NEUROLOGICAL: Awake and alert. No obvious cranial nerve deficits. Motor grossly within normal limits. Normal speech. Nonfocal Procedures Chest tube insertion A/P Problem List: (1) Dysphagia ICD Code: R13.10 Status: Acute (2) Dyspnea ICD Code: R06.00 Status: Acute (3) Pleural effusion ICD Code: J90 Status: Acute Assessment and Plan Pain secondary to metastatic lung cancer Stable continue Fentanyl patch 25 mcg, switch to morphine pills as needed and fentanyl IV for breakthrough. Ambien prn sleep RESP: Metastatic non-small cell lung cancer with pleural metastases Large left pleural effusion Hypoxia Nasal cannula wean as tolerated. IS q1 hour awake. DuoNeb every 6 hours. Symbicort 2 puffs inhaled every 12 hours. Albuterol every 2 hours as needed Guafenesin 600 bid Discussed with IR, rpt CXR today then reinsert CT if indicated then pleurodesis when output has decreased significantly CV: CAD Hold ASA/plavix till cleared by IR Monitor hemodynamics GI: Dysphagia Abdominal pain and hepatomegaly secondary to multiple liver metastases Chronic severe protein energy malnutrition Speech therapy to evaluate following provide diet recommendations recommends full liquid. Status post EGD with dilation. Antireflux mechanisms. Continue PPI FEN/RENAL: Voiding. Monitor intake and output. Monitor electrolyte. Replace as indicated. ID: Postobstructive pneumonia Septic shock with elevated lactic acid Did not tolerate fluid bolus as per sepsis protocol. Clinically improved switch Zosyn to Levaquin Followup blood cultures negative to date. Influenza negative. HEME: Symptomatic anemia. Improved Transfused 2 units packed red cells 4/5. Hemoglobin 7.6, he agrees to receive another part RBC transfusion. Repeat CBC with improved blood count ENDO: Mild hyperglycemia. Monitor and initiate insulin sliding scale if indicated. PROPH: SCDs for DVT prophylaxis. Hold pharmacological prophylaxis secondary to anemia. Protonix 40 g every 12 hours. ACCESS: Right chest port is accessed. Patient states that he does not wish to be intubated for respiratory failure. He states he is DNR/DNI. Discharge Planning Not ready for discharge Suraj Smith MD Sep 30, 2016 10:32
[2016-09-30] MEDS ORDERED: SENN8.6T15 PO (10:35)
[2016-09-30] MEDS ORDERED: MSIR15 PO (10:35)
[2016-09-30] MEDS ORDERED: FENT25T T-DERMAL (10:35)
[2016-09-30] MEDS ORDERED: DILT31TA PO (10:35)
--- NOTE | 2016-09-30 10:35 | HHI.DCPOC ---
Discharge Care Plan Diagnosis: (1) Metastatic lung carcinoma Your Health Problems Are: Difficulty with ADL Exercise Tolerance Goals to Promote Your Health * To prevent worsening of your condition and complications * To maintain your health at the optimal level Directions to Meet Your Goals Take your medications as prescribed Follow your dietary instruction Follow activity as directed Keep your appointments as scheduled Take your immunizations and boosters as scheduled If your symptoms worsen call your PCP, if no PCP go to Urgent Care Center or Emergency Room Smoking is Dangerous to Your Health. Avoid second hand smoke Call the 24-hour hour crisis hotline for domestic abuse at Suraj Smith MD Sep 30, 2016 10:35
[2016-09-30 10:37] LABS: BANDS 13 % (0-6); CORRECTED NUCLEATED RBC 1 /100 WBC (0-0); NEUTROPHIL # MANUAL DIFF 10.8 TH/MM3 (1.8-7.7); POLYS (SEG NEUTROPHILS) 79 % (16-70); WBC DIFF SAMPLE 100
[2016-09-30 10:38] LABS: POLYCHROMASIA 2.3 % (0.0-1.9)
[2016-09-30 10:39] LABS: HELMET CELLS OCC (NORMAL); KERATOCYTES OCC (NORMAL); PLATELET ESTIMATE SMEAR LOW (NORMAL); PLATELET MORPHOLOGY NORMAL (NORMAL); SCAN/DIFF FINAL DIFF MANUAL
--- NOTE | 2016-09-30 12:38 | PD.ONC.PN ---
Subjective Subjective Remarks Afebrile overnight. Chest tube fell out yesterday. He is going to have a new one placed today. Nephew at bedside. Objective Data Date Time Temp Pulse Resp B/P Pulse Ox O2 Delivery O2 Flow Rate FiO2 09/30/16 08:54 97.6 105 16 102/62 98 09/30/16 08:25 94 Nasal Cannula 3.00 09/30/16 07:27 18 09/30/16 04:28 98.2 96 20 88/59 97 09/30/16 00:40 16 09/30/16 00:00 96.9 100 18 90/54 100 09/29/16 23:35 97.4 103 18 79/51 98 Manual Cuff/Auscultation 09/29/16 20:22 103 09/29/16 20:00 94.0 103 16 100/56 100 09/29/16 19:35 100 Nasal Cannula 1.00 09/29/16 18:50 96.8 107 16 90/57 97 09/29/16 17:22 98.3 78 16 97/58 09/29/16 17:05 98.9 106 16 93/58 09/29/16 15:21 96.3 98 20 96/54 98 Result Diagram: 09/30/16 0815 09/30/16 0815 Laboratory Results Laboratory Tests Test 09/30/16 08:15 White Blood Count 11.7 TH/MM3 Red Blood Count 3.32 MIL/MM3 Hemoglobin 10.5 GM/DL Hematocrit 32.1 % Mean Corpuscular Volume 96.7 FL Mean Corpuscular Hemoglobin 31.5 PG Mean Corpuscular Hemoglobin 32.6 % Concent Red Cell Distribution Width 18.0 % Platelet Count 89 TH/MM3 Mean Platelet Volume 9.8 FL Neutrophils (%) (Auto) 80.9 % Lymphocytes (%) (Auto) 3.3 % Monocytes (%) (Auto) 13.1 % Eosinophils (%) (Auto) 0.7 % Basophils (%) (Auto) 2.0 % Neutrophils # (Auto) 9.5 TH/MM3 Lymphocytes # (Auto) 0.4 TH/MM3 Monocytes # (Auto) 1.5 TH/MM3 Eosinophils # (Auto) 0.1 TH/MM3 Basophils # (Auto) 0.2 TH/MM3 CBC Comment AUTO DIFF Differential Total Cells 100 Counted Neutrophils % (Manual) 79 % Band Neutrophils % 13 % Lymphocytes % 3 % Monocytes % 5 % Neutrophils # (Manual) 10.8 TH/MM3 Nucleated Red Blood Cells 1 /100 WBC Differential Comment FINAL DIFF MANUAL Platelet Estimate LOW Platelet Morphology Comment NORMAL Polychromasia 2.3 % Helmet Cells OCC Keratocytes OCC Sodium Level 138 MEQ/L Potassium Level 4.2 MEQ/L Chloride Level 102 MEQ/L Carbon Dioxide Level 25.8 MEQ/L Anion Gap 10 MEQ/L Blood Urea Nitrogen 10 MG/DL Creatinine 0.61 MG/DL Estimat Glomerular Filtration 160 ML/MIN Rate Random Glucose 71 MG/DL Calcium Level 8.1 MG/DL Magnesium Level 1.8 MG/DL Administered Medications Medications (Trade) Dose Ordered Sig/Edvin Route PRN Reason Start Time Stop Time Status Last Admin Dose Admin Sodium Chloride (NS Flush) 2 ml UNSCH PRN IVF FLUSH AFTER USING IV ACCESS 09/24/16 00:30 09/24/16 03:08 Budesonide/ Formoterol Fumarate (Symbicort 160-4.5 Inh) 2 puff Q12HR INH 09/24/16 09:00 09/30/16 09:12 Guaifenesin (Mucinex Er) 600 mg BID PO 09/24/16 09:00 09/30/16 09:10 Multi-Ingredient Mouthwash/Gargle (Magic Mouthwash Adult Liq) 5 ml TIDAC SWISH-SWAL 09/24/16 08:00 10/08/16 07:59 09/26/16 17:42 Fentanyl (Duragesic 25 Mcg Patch.72 Hr) 1 patch Q3D T-DERMAL 09/24/16 05:00 09/30/16 06:14 Ondansetron HCl (Zofran Inj) 4 mg Q6H PRN IV NAUSEA OR VOMITING 09/24/16 04:00 09/29/16 09:30 Docusate Sodium (Colace) 100 mg BID PO 09/24/16 09:00 09/30/16 09:11 Zolpidem Tartrate (Ambien) 10 mg HS PRN PO INSOMNIA 09/24/16 04:00 09/24/16 20:55 Chlorhexidine Gluconate Taper DAILY@04 TOP 09/24/16 04:00 09/20/17 03:59 09/29/16 04:32 Piperacillin Sod/ Tazobactam Sod (Zosyn 4.5 Gm Premix) 100 ml @ 200 mls/hr Q6H IV 09/24/16 07:00 09/30/16 06:15 Magnesium Hydroxide (Milk Of [place]) 30 ml Q6H PRN PO CONSTIPATION 09/25/16 17:30 09/28/16 09:26 Pantoprazole Sodium (Protonix) 40 mg Q12HR PO 09/27/16 21:00 09/30/16 09:11 Sennosides (Senokot) 8.6 mg BID PO 09/29/16 09:00 09/30/16 09:11 Morphine Sulfate (Msir) 15 mg Q4H PRN PO pain 1-10 09/29/16 11:30 09/29/16 23:03 Diphenhydramine HCl (Benadryl) 25 mg Q4H PRN PO BLOOD PRODUCT ADMINSTRATION 09/29/16 16:45 09/29/16 16:09 Acetaminophen (Tylenol) 650 mg Q4H PRN PO BLOOD PRODUCTS ADMINISTRATION 09/29/16 16:45 09/29/16 16:09 Heparin Sodium (Porcine) (Heparin Central Flush) 500 units UNSCH IV FLUSH 09/29/16 23:45 09/29/16 23:45 Objective Remarks GENERAL: malnourished male, lying supine in bed in nad SKIN: Warm and dry. HEAD: Normocephalic. EYES: No injection or drainage. NECK: Supple, trachea midline. CARDIOVASCULAR: Regular rate and rhythm RESPIRATORY: +scattered rhonchi. diminished along left base GASTROINTESTINAL: Abdomen soft, non-tender, nondistended. EXTREMITIES: No cyanosis MUSCULOSKELETAL: Adequate muscle tone. NEUROLOGICAL: aox3 moving extremities. normal speech Assessment/Plan Problem List: (1) Metastatic lung carcinoma Status: Acute Plan: History: --presented with large left hilar mass with mediastinal adenopathy. +multiple liver lesions ++adenocarcinoma, not enough tissue to do EGFR or ALK study. --given palliative radiation with concurrent chemotherapy. -- admitted to the hospital last week with pneumonia. Since then, he has been getting weaker. --was discharged home with hospice. However, the family had decided to bring him into the hospital because of increased shortness of breath and weakness. This morning CT of the chest showed increased left lung disease. ++significant increase in the pleural-based masses in the left thorax. + increased liver metastasis. --not a good candidate for palliative chemotherapy. (2) Dyspnea Status: Acute Plan: --likely due to progression of disease (3) Dysphagia Status: Acute Plan: --s/p EGD for dilatation of the esophagus, 09/27 Assessment 66y/o male with metastatic lung cancer admitted with weakness and shortness of breath. h/o Coronary artery disease Hyperlipidemia Hypertension. Plan 1. new chest tube placement today 2. supportive care Attending Statement The exam, history, and the medical decision-making described in the above note were completed with the assistance of the mid-level provider. I reviewed and agree with the findings presented. I attest that I had a [id number] encounter with the patient on the same day, and personally performed and documented my assessment and findings in the medical record. Chest tube fell out yesterday. Slightly more SOB and fatigue. Await chest tube replacement. He does not want Pleurx cath but he wants pleurodesis. Will consult IR for pleurodesis. Continue supportive care. Marie Croft Sep 30, 2016 12:38 Gregory Bolaños MD Sep 30, 2016 14:27
--- NOTE | 2016-09-30 13:28 | RADRPT ---
EXAM DATE/TIME: 09/30/2016 12:58 [facility] COMPARISON: CHEST EXPIRATION ONLY, September 28, 2016, 5:36. CHEST SINGLE AP, September 29, 2016, 13:33. INDICATIONS : Left pleural effusion. MEDICAL HISTORY : Cardiovascular disease. Carcinoma, lung. SURGICAL HISTORY : Coronary artery stent. Loop recorder. Port placement. ENCOUNTER: Subsequent ACUITY: 4 - 6 days PAIN SCORE: 0/10 LOCATION: Left chest FINDINGS: Frontal view of the chest demonstrates increase in the size of the opacity in the lateral left costop hrenic angle, characteristic of reticulation of pleural effusion. The width of the opacity measures 2.2 cm. There is also some opacity tracking to the apex measuring up to 1 cm in thickness. Some pat marcell infiltrates in the retrocardiac region is similar prior examination. The right lung is clear. R ight hemidiaphragm is well delineated. Ijjbjw-v-Urqh catheter tip in the distal superior vena cava. CONCLUSION: Increasing size to the left costophrenic angle opacity suggesting enlarging pleural effusion. Talha Franklin MD on September 30, 2016 at 13:25 Board Certified Radiologist. This report was verified electronically.
[2016-09-30] MEDS ORDERED: LIDOCAINE 1%/EPINEPHrine 1:100,000 SOLN 20 ML VIAL ONE (15:04)
[2016-09-30] MEDS ORDERED: fentaNYL CITRATE 250 MCG/5 ML AMP ONE (15:50)
[2016-09-30] MEDS ORDERED: MIDAZOLAM HCL 5 MG/5 ML VIAL ONE (15:50)
--- NOTE | 2016-09-30 16:48 | PD.RAD ---
Post Procedure Progress Note Pre Procedure Diagnosis: (1) Pleural effusion (2) Metastatic lung carcinoma Post Procedure Diagnosis: (1) Pleural effusion (2) Metastatic lung carcinoma Procedure Date: Sep 30, 2016 Supervising Radiologist: Yfn Ventura Anesthesia: Local, Conscious Sedation Plan of Activity Patient to Unit: ROPU Patient Condition: Fair Additional Comments: Left chest tube placed without difficulty Tube placed to 40cm suction. Full dictated report to follow. See PACS Report for procedural detail/treatment Yfn Ventura MD Sep 30, 2016 16:48
--- NOTE | 2016-09-30 17:17 | RADRPT ---
EXAM DATE/TIME: 09/30/2016 17:01 [facility] COMPARISON: CHEST SINGLE AP, September 30, 2016, 12:58. INDICATIONS : Chest tube placement. MEDICAL HISTORY : Cardiovascular disease. Carcinoma, lung. SURGICAL HISTORY : coronary artery stent; port placement; loop recorder. ENCOUNTER: Subsequent ACUITY: 1 week PAIN SCORE: Non-responsive. LOCATION: Bilateral chest FINDINGS: Single view thorax demonstrates a small bore chest tube in good position of the left lung base. There is no pneumothorax. There's been complete removal of the patient's left pleural effusion. The Prhhsh-m-Orgm in good position. The right lung is clear. CONCLUSION: 1. Left basilar chest tube in good position. No pneumothorax identified. Yfn Ventura MD on September 30, 2016 at 17:15 Board Certified Radiologist. This report was verified electronically.
[2016-09-30] MEDS: MORPHINE SULFATE 15 MG TAB PO PRN (19:13)
[2016-09-30] MEDS: ZOLPIDEM TARTRATE 10 MG TAB PO PRN (20:24)
[2016-10-01] VITALS (11 sets, daily range): BP systolic 91–100; BP diastolic 53–77; PULSE 18–109; RESP 18–20; TEMP 95–97.1; O2SAT 18–96
[2016-10-01] MEDS: PIPERACIL-TAZO 4.5 GM PREMIX 100 ML IV SCH ×3 (01:10→12:36)
[2016-10-01] MEDS: LACTATED RINGER'S 1000 ML INJ 1,000 ML IV SCH (03:30)
[2016-10-01] MEDS: RESP: ALBUTEROL 2.5 MG/IPRATROPIUM 0.5 MG NEB (SCH) INH ×2 (03:33→08:15)
[2016-10-01] MEDS: CHLORHEXIDINE GLUCONATE 2 % 1 PACK (2 CLOTHS) TOP SCH (03:52)
--- NOTE | 2016-10-01 06:41 | RADRPT ---
EXAM DATE/TIME: 10/01/2016 06:02 [facility] COMPARISON: CHEST SINGLE AP, September 30, 2016, 12:58. CT THORAX W CONTRAST, September 24, 2016, 1:47. CHEST EXPIRATIO N ONLY, September 30, 2016, 17:01. INDICATIONS : Evaluate for pneumothorax. MEDICAL HISTORY : Cardiovascular disease. Carcinoma, lung. SURGICAL HISTORY : Coronary artery stent. Port placement. Loop recorder ENCOUNTER: Subsequent ACUITY: 1 week PAIN SCORE: 0/10 LOCATION: chest FINDINGS: Chest tube is present on the left side. Right Sjaegs-k-Upao is present and there is no pneumothorax. Slight left lung apical opacity is present measure present on the length consolidation and/or infiltr ate, however a mass is difficult to exclude. The rest of the examination has not significantly change d. CONCLUSION: No pneumothorax and left apical density has not changed possibly consolidation or infiltrate and cont inued follow up is suggested. Dodie Jameson MD on October 01, 2016 at 6:37 Board Certified Radiologist. This report was verified electronically.
[2016-10-01 07:27] LABS: AUTOMATED NEUTROPHIL # 9.3 TH/MM3 (1.8-7.7); BASOPHIL # 0.1 TH/MM3 (0-0.2); BASOPHIL % 0.9 % (0.0-2.0); EOSINOPHIL % 0.3 % (0.0-4.0); HEMATOCRIT 26.7 % (39.0-51.0); LYMPH % 4.5 % (9.0-44.0); LYMPHOCYTE # 0.5 TH/MM3 (1.0-4.8); MEAN CELL VOLUME 97.5 FL (80.0-100.0); MEAN CORPUSCULAR HEMOGLOBIN 32.8 PG (27.0-34.0); MEAN CORPUSCULAR HGB CONC 33.6 % (32.0-36.0); MONO % 13.2 % (0.0-8.0); NEUT % 81.1 % (16.0-70.0); PLATELET COUNT 101 TH/MM3 (150-450); RED BLOOD COUNT 2.73 MIL/MM3 (4.50-5.90); RED CELL DISTRIBUTION WIDTH 18.5 % (11.6-17.2); WHITE BLOOD COUNT 11.5 TH/MM3 (4.0-11.0)
[2016-10-01 07:37] LABS: HEMO FLAGS AUTO DIFF
[2016-10-01] MEDS ORDERED: WALKER WHEELS/F1 MIS (07:59)
[2016-10-01] MEDS: SENNOSIDES 8.6 MG TAB PO SCH ×2 (08:30→20:38)
[2016-10-01] MEDS: guaiFENesin E.R. 600 MG TAB PO SCH ×2 (08:30→20:38)
[2016-10-01] MEDS: NYSTAT/DIPHENHY/LIDO MOUTHWASH (Adult) 120ML SWISH-SWAL SCH ×3 (08:30→16:49)
[2016-10-01] MEDS: DOCUSATE SODIUM 100 MG CAP PO SCH ×2 (08:30→20:38)
[2016-10-01] MEDS: PANTOPRAZOLE SOD 40 MG DELAYED RELEASE TAB PO SCH ×2 (08:30→20:39)
[2016-10-01] MEDS: MORPHINE SULFATE 15 MG TAB PO PRN ×3 (08:31→20:38)
[2016-10-01] MEDS: BUDESONIDE-FORMOTEROL 160/4.5 MCG INHALER INH SCH ×2 (08:32→20:41)
--- NOTE | 2016-10-01 08:34 | RADRPT ---
EXAM DATE/TIME: 09/30/2016 16:08 INDICATIONS : Left pleural effusion. SEDATION TIME: 25 minutes MEDICATION(S): 1.) 50 mcg fentanyl (Sublimaze) IV DEVICE(S): 1.) 18 gauge [place] blunt needle 2.) 10 Fr [place] Total volume of850 cc of red fluid was remoted. MEDICAL HISTORY : Carcinoma, lung. Cardiovascular disease. Hypertension. SURGICAL HISTORY : Coronary artery stent. Port-right chest. ENCOUNTER: Initial ACUITY: 1 day PAIN SCORE: 0/10 LOCATION: chest PROCEDURE: PROCEDURE : 1. CT guided chest tube placement. 2. Conscious sedation with continuous EKG and oximetry monitoring. The risks, benefits and alternatives to the procedure were explained and verbal and written consent w as obtained. The site was prepped in sterile fashion. Full sterile technique was used, including ca p, mask, sterile gloves and gown and a large sterile sheet. Hand hygiene and 2% chlorhexidine and/or betadine/alcohol prep was utilized per protocol for cutaneous antisepsis. The skin and subcutaneous tissues were infiltrated with local anesthetic solution. Using automated exposure control and adjus tment of the mA and/or kV according to patient size, radiation dose was kept as low as reasonably ach ievable to obtain optimal diagnostic quality images. With CT guidance the chest was punctured and the prescribed catheter was placed in the lung apex. Wal l suction was applied. Post procedure images demonstrate satisfactory position of the tube. The cat heter was sutured in place and a Percu-Stay was applied. A followup CT scan demonstrated to be in good position. Conscious sedation was performed with the prescribed dosages and duration as above. The patient kamron ated the procedure well and there were no complications. EKG and oximetry remained stable throughout the procedure. The patient was sent to post anesthesia recovery in stable condition. CONCLUSION: Uncomplicated chest tube placement in the left lung base as above. Yfn Ventura MD on October 01, 2016 at 8:32 Board Certified Radiologist. This report was verified electronically.
[2016-10-01] MEDS: DILTIAZEM HCL 30 MG TAB PO SCH ×3 (08:38→16:41)
[2016-10-01 08:41] LABS: BANDS 6 % (0-6); CORRECTED NUCLEATED RBC 1 /100 WBC (0-0); NEUTROPHIL # MANUAL DIFF 9.7 TH/MM3 (1.8-7.7); POLYCHROMASIA 2.7 % (0.0-1.9); POLYS (SEG NEUTROPHILS) 78 % (16-70); WBC DIFF SAMPLE 100
[2016-10-01 08:52] LABS: KERATOCYTES OCC (NORMAL); PLATELET ESTIMATE SMEAR LOW (NORMAL); PLATELET MORPHOLOGY NORMAL (NORMAL); SCAN/DIFF FINAL DIFF MANUAL
--- NOTE | 2016-10-01 08:52 | RADRPT ---
EXAM DATE/TIME: 09/29/2016 00:00 [facility] COMPARISON: No previous studies available for comparison. INDICATIONS : Pleural effusion, chest tube not in pleural space documented on most recent chest x-ray. DEVICE(S): 1.) Vaseline occlusive dressingLeft PROCEDURE : Chest tube removal. Most recent chest radiograph showed the previously placed chest tube positioned outside of the left t horacic cavity in the regional soft tissues. Using aseptic technique the previously placed chest tube was easily removed in one piece and Vaseline gauze and sterile dressing was applied. Chest radiograp h is to be obtained. CONCLUSION: Uncomplicated chest tube removal. Raymundo Rm MD on October 01, 2016 at 8:50 Board Certified Radiologist. This report was verified electronically.
--- NOTE | 2016-10-01 11:15 | HHI.PR ---
Subjective Remarks Follow-up pneumonia with effusion and metastatic lung cancer. Patient undecided on Pleurx catheter versus pleurodesis. Seen with nephew. Discussed with RN Objective Vitals Vital Signs Date Time Temp Pulse Resp B/P Pulse Ox O2 Delivery O2 Flow Rate FiO2 10/01/16 08:16 96 Nasal Cannula 4.00 10/01/16 08:08 105 10/01/16 08:00 96.4 101 19 91/56 94 10/01/16 04:00 97.0 109 19 100/77 94 10/01/16 03:36 96 21 10/01/16 00:00 97.1 101 19 98/58 94 09/30/16 21:27 97 21 09/30/16 20:00 96.3 114 17 95/57 97 09/30/16 20:00 108 09/30/16 19:48 18 09/30/16 17:42 97.5 118 16 106/70 95 09/30/16 12:00 97.4 105 16 96/54 97 I/O 09/30/16 09/30/16 09/30/16 10/01/16 10/01/16 10/01/16 07:00 15:00 23:00 07:00 15:00 23:00 Intake Total 240 ml 120 ml Output Total 350 ml 1580 ml 1180 ml Balance -350 ml -1340 ml -1060 ml Intake Oral 240 ml 120 ml Output Urine Total 350 ml 300 ml 600 ml Drainage Total 1280 ml 580 ml # Voids 1 # Bowel Movements 0 0 Result Diagram: 10/01/16 0547 09/30/16 0815 Imaging Last Impressions Chest X-Ray 10/01/16 0000 Signed Impressions: Service Date/Time: Saturday, October 01, 2016 06:02 - CONCLUSION: No pneumothorax and left apical density has not changed possibly consolidation or infiltrate and continued follow up is suggested. Dodie Jameson MD Chest Tube Insertion 09/30/16 0000 Signed Impressions: Service Date/Time: September 16:08 - CONCLUSION: Uncomplicated chest tube placement in the left lung base as above. Yfn Ventura MD Tunnelled Chest Tube Removal 09/29/16 0000 Signed Impressions: Service Date/Time: Thursday, September 29, 2016 00:00 - CONCLUSION: Uncomplicated chest tube removal. Raymundo Rm MD Chest CT 09/24/16 0000 Signed Impressions: Service Date/Time: Saturday, September 24, 2016 01:47 - CONCLUSION: 1. Large left pleural effusion with enhancing pleural masses in the posterior inferior left hemithorax. These findings are suspicious for pleural-based metastasis. The pleural effusion has significantly increased in size from the prior exams. 2. Please refer to abdomen and pelvis CT report for description of the subdiaphragmatic findings. Jamil Gates MD Abdomen/Pelvis CT 09/24/16 0000 Signed Impressions: Service Date/Time: Saturday, September 24, 2016 01:47 - CONCLUSION: 1. Innumerable liver masses characteristic of metastatic disease. Comparing to the partially visualized liver on the 08/16/2016 CT, suggest normal progression of metastatic disease. 2. Please refer to chest CT report for description of the supradiaphragmatic findings. Jamil Gates MD Objective Remarks GENERAL: Cachectic AAM, looks weak SKIN: Warm and dry. HEAD: Atraumatic. Normocephalic. EYES: Pupils equal and round. No scleral icterus. ENT: No nasal bleeding or discharge. Mucous membranes dry. NECK: Trachea midline. No JVD. CARDIOVASCULAR: Regular rate and rhythm, sinus on monitor. No murmurs rubs or gallops. RESPIRATORY: Diminished breath sounds left lung field. Chest tube in place GASTROINTESTINAL: Abdomen soft, tender RUQ with hepatomegaly. Bowel sounds present. Prior PEG site healed. MUSCULOSKELETAL: Extremities without clubbing, cyanosis, or edema. No obvious deformities. NEUROLOGICAL: Awake and alert. No obvious cranial nerve deficits. Motor grossly within normal limits. Normal speech. Nonfocal Procedures Chest tube insertion 2 A/P Problem List: (1) Dysphagia ICD Code: R13.10 Status: Acute (2) Dyspnea ICD Code: R06.00 Status: Acute (3) Pleural effusion ICD Code: J90 Status: Acute Assessment and Plan Pain secondary to metastatic lung cancer Stable continue Fentanyl patch 25 mcg, switch to morphine pills as needed and fentanyl IV for breakthrough. Ambien prn sleep RESP: Metastatic non-small cell lung cancer Large left pleural effusion Hypoxia Nasal cannula wean as tolerated. IS q1 hour awake. DuoNeb every 6 hours. Symbicort 2 puffs inhaled every 12 hours. Albuterol every 2 hours as needed Guafenesin 600 bid Discussed with IR, reinserted CT still with significant output. Pleur X cath vs pleurodesis when output has decreased significantly CV: CAD Hold ASA/plavix till cleared by IR Monitor hemodynamics GI: Dysphagia Abdominal pain and hepatomegaly secondary to multiple liver metastases Chronic severe protein energy malnutrition Speech therapy to evaluate following provide diet recommendations recommends full liquid. Status post EGD with dilation. Antireflux mechanisms. Continue PPI FEN/RENAL: Voiding. Monitor intake and output. Monitor electrolyte. Replace as indicated. ID: Postobstructive pneumonia Septic shock with elevated lactic acid Did not tolerate fluid bolus as per sepsis protocol. Clinically improved switch Zosyn to Levaquin Followup blood cultures negative to date. Influenza negative. HEME: Symptomatic anemia. Improved Transfused 2 units packed red cells 4/5. Hemoglobin 7.6, he agrees to receive another part RBC transfusion. Repeat CBC with improved blood count ENDO: Mild hyperglycemia. Monitor and initiate insulin sliding scale if indicated. PROPH: SCDs for DVT prophylaxis. Hold pharmacological prophylaxis secondary to anemia. Protonix 40 g every 12 hours. ACCESS: Right chest port is accessed. Patient states that he does not wish to be intubated for respiratory failure. He states he is DNR/DNI. Discharge Planning Dc when pleur x cath placed Suraj Smith MD Oct 01, 2016 11:15
--- NOTE | 2016-10-01 12:54 | PD.ONC.PN ---
Subjective Subjective Remarks Afebrile overnight. No appetite. Feeling fatigued. Katharine Maher, healthcare surrogate is at the bedside. Objective Data Date Time Temp Pulse Resp B/P Pulse Ox O2 Delivery O2 Flow Rate FiO2 10/01/16 08:16 96 Nasal Cannula 4.00 10/01/16 08:08 105 10/01/16 08:00 96.4 101 19 91/56 94 10/01/16 04:00 97.0 109 19 100/77 94 10/01/16 03:36 96 21 10/01/16 00:00 97.1 101 19 98/58 94 09/30/16 21:27 97 21 09/30/16 20:00 96.3 114 17 95/57 97 09/30/16 20:00 108 09/30/16 19:48 18 09/30/16 17:42 97.5 118 16 106/70 95 Result Diagram: 10/01/16 0547 09/30/16 0815 Laboratory Results Laboratory Tests Test 10/01/16 05:47 White Blood Count 11.5 TH/MM3 Red Blood Count 2.73 MIL/MM3 Hemoglobin 9.0 GM/DL Hematocrit 26.7 % Mean Corpuscular Volume 97.5 FL Mean Corpuscular Hemoglobin 32.8 PG Mean Corpuscular Hemoglobin 33.6 % Concent Red Cell Distribution Width 18.5 % Platelet Count 101 TH/MM3 Mean Platelet Volume 9.9 FL Neutrophils (%) (Auto) 81.1 % Lymphocytes (%) (Auto) 4.5 % Monocytes (%) (Auto) 13.2 % Eosinophils (%) (Auto) 0.3 % Basophils (%) (Auto) 0.9 % Neutrophils # (Auto) 9.3 TH/MM3 Lymphocytes # (Auto) 0.5 TH/MM3 Monocytes # (Auto) 1.5 TH/MM3 Eosinophils # (Auto) 0.0 TH/MM3 Basophils # (Auto) 0.1 TH/MM3 CBC Comment AUTO DIFF Differential Total Cells 100 Counted Neutrophils % (Manual) 78 % Band Neutrophils % 6 % Lymphocytes % 3 % Monocytes % 13 % Neutrophils # (Manual) 9.7 TH/MM3 Nucleated Red Blood Cells 1 /100 WBC Differential Comment FINAL DIFF MANUAL Platelet Estimate LOW Platelet Morphology Comment NORMAL Polychromasia 2.7 % Keratocytes OCC Imaging Studies Last 24 hours Impressions Chest X-Ray 10/01/16 0000 Signed Impressions: Service Date/Time: Saturday, October 01, 2016 06:02 - CONCLUSION: No pneumothorax and left apical density has not changed possibly consolidation or infiltrate and continued follow up is suggested. Dodie Jameson MD Administered Medications Medications (Trade) Dose Ordered Sig/Edvin Route PRN Reason Start Time Stop Time Status Last Admin Dose Admin Sodium Chloride (NS Flush) 2 ml UNSCH PRN IVF FLUSH AFTER USING IV ACCESS 09/24/16 00:30 09/24/16 03:08 Budesonide/ Formoterol Fumarate (Symbicort 160-4.5 Inh) 2 puff Q12HR INH 09/24/16 09:00 10/01/16 08:32 Guaifenesin (Mucinex Er) 600 mg BID PO 09/24/16 09:00 10/01/16 08:30 Multi-Ingredient Mouthwash/Gargle (Magic Mouthwash Adult Liq) 5 ml TIDAC SWISH-SWAL 09/24/16 08:00 10/08/16 07:59 10/01/16 12:36 Fentanyl (Duragesic 25 Mcg Patch.72 Hr) 1 patch Q3D T-DERMAL 09/24/16 05:00 09/30/16 06:14 Ondansetron HCl (Zofran Inj) 4 mg Q6H PRN IV NAUSEA OR VOMITING 09/24/16 04:00 09/29/16 09:30 Docusate Sodium (Colace) 100 mg BID PO 09/24/16 09:00 10/01/16 08:30 Zolpidem Tartrate (Ambien) 10 mg HS PRN PO INSOMNIA 09/24/16 04:00 09/30/16 20:24 Chlorhexidine Gluconate Taper DAILY@04 TOP 09/24/16 04:00 09/20/17 03:59 09/29/16 04:32 Piperacillin Sod/ Tazobactam Sod (Zosyn 4.5 Gm Premix) 100 ml @ 200 mls/hr Q6H IV 09/24/16 07:00 10/01/16 12:36 Magnesium Hydroxide (Milk Of Magnesia Liq) 30 ml Q6H PRN PO CONSTIPATION 09/25/16 17:30 09/28/16 09:26 Pantoprazole Sodium (Protonix) 40 mg Q12HR PO 09/27/16 21:00 10/01/16 08:30 Sennosides (Senokot) 8.6 mg BID PO 09/29/16 09:00 10/01/16 08:30 Morphine Sulfate (Msir) 15 mg Q4H PRN PO pain 1-10 09/29/16 11:30 10/01/16 12:25 Diphenhydramine HCl (Benadryl) 25 mg Q4H PRN PO BLOOD PRODUCT ADMINSTRATION 09/29/16 16:45 09/29/16 16:09 Acetaminophen (Tylenol) 650 mg Q4H PRN PO BLOOD PRODUCTS ADMINISTRATION 09/29/16 16:45 09/29/16 16:09 Heparin Sodium (Porcine) (Heparin Central Flush) 500 units UNSCH IV FLUSH 09/29/16 23:45 09/29/16 23:45 Objective Remarks GENERAL: malnourished male, lying supine in bed in nad SKIN: Warm and dry. HEAD: Normocephalic. EYES: No injection or drainage. NECK: Supple, trachea midline. CARDIOVASCULAR: Regular rate and rhythm RESPIRATORY: +scattered rhonchi. diminished along left base. CT in place. GASTROINTESTINAL: Abdomen soft, non-tender, nondistended. EXTREMITIES: No cyanosis. MUSCULOSKELETAL: generalized muscle wasting NEUROLOGICAL: awake and alert, normal speech. Assessment/Plan Problem List: (1) Metastatic lung carcinoma Status: Acute Plan: History: --presented with large left hilar mass with mediastinal adenopathy. +multiple liver lesions ++adenocarcinoma, not enough tissue to do EGFR or ALK study. --given palliative radiation with concurrent chemotherapy. -- admitted to the hospital last week with pneumonia. Since then, he has been getting weaker. --was discharged home with hospice. However, the family had decided to bring him into the hospital because of increased shortness of breath and weakness. This morning CT of the chest showed increased left lung disease. ++significant increase in the pleural-based masses in the left thorax. + increased liver metastasis. --not a good candidate for palliative chemotherapy. (2) Dyspnea Status: Acute Plan: --likely due to progression of disease (3) Dysphagia Status: Acute Plan: --s/p EGD for dilatation of the esophagus, 09/27 Assessment 66y/o male with metastatic lung cancer admitted with weakness and shortness of breath. h/o Coronary artery disease Hyperlipidemia Hypertension. Plan 1. if patient receives pleur-x catheter today, potential discharge this weekend 2. discussed with patient and patient's healthcare surrogate, also called Gunnar , placing the pleur-x catheter today. Gunnar is agreeable to have the procedure done. Attending Statement The exam, history, and the medical decision-making described in the above note were completed with the assistance of the mid-level provider. I reviewed and agree with the findings presented. I attest that I had a [id number] encounter with the patient on the same day, and personally performed and documented my assessment and findings in the medical record. S/p Aspira draining cath placement. No new c/o. Can be d/c home with hospice. Hospice can drain the pleural effusion. Discussed with pt's family. Marie Croft Oct 01, 2016 12:54 Gregory Bolaños MD Oct 01, 2016 18:47
[2016-10-01] MEDS ORDERED: MIDAZOLAM HCL 2 MG/2 ML VIAL ONE (14:03)
[2016-10-01] MEDS ORDERED: LIDOCAINE 1%/EPINEPHrine 1:100,000 SOLN 20 ML VIAL ONE (14:08)
[2016-10-01] MEDS ORDERED: IOHEXOL 350 MG/ML 50 ML BTL (for RAD DIAG) ONE (15:02)
--- NOTE | 2016-10-01 15:20 | PD.RAD ---
Post Procedure Progress Note Pre Procedure Diagnosis: (1) Pulmonary mass (2) Metastatic cancer to liver (3) Pleural effusion (4) Metastatic lung carcinoma Post Procedure Diagnosis: (1) Pulmonary mass (2) Pleural effusion (3) Metastatic lung carcinoma (4) Metastatic cancer to liver Procedure Date: Oct 01, 2016 Supervising Radiologist: Raymundo Rm Proceduralist/Assist: France Morejon, RT(R)(CV), Vandana Rodriguez, RT(R) Anesthesia: Local, Analgesia Plan of Activity Patient to Unit: Nursing Unit Patient Condition: Fair See PACS Report for procedural detail/treatment Drainage Procedure Procedure 1 Imaging Guidance: Fluoroscopy Side: Left Procedure Type: Chest Tube Tunneled Procedure: Exchange (Had CT guided chest tube) Drainage: Pleurovac Fluid Removal (CCs): 100 Fluid Description: Bloody Findings: Catheter and wire directed into the posterior pulmonary sulcus through existing chest tube. Aspira drain placed over this access wire. Raymundo Rm MD Oct 01, 2016 15:19
[2016-10-01] MEDS ORDERED: LEVA750T PO (15:22)
--- NOTE | 2016-10-01 15:23 | HHI.DS ---
Discharge Summary Admission Date Sep 24, 2016 at 02:28 Discharge Date: Oct 01, 2016 Admitting Diagnosis Left pleural effusion (1) Dysphagia ICD Code: R13.10 Diagnosis: Principal (2) Dyspnea ICD Code: R06.00 Diagnosis: Principal (3) Pleural effusion ICD Code: J90 Diagnosis: Principal Procedures Chest tube insertion 2 Brief History - From Admission 66-year-old male with past medical history of metastatic non-small cell lung cancer who presents to [facility] emergency department complaining of fatigue and shortness of breath. He states he has had progressive shortness of breath over several weeks/months. He was recently started on home O2. He has cough productive of white sputum and subjective fevers. No hemoptysis. CT C/A/P was performed in ED that demonstrates large L pleural effusion with evidence of L upper and left lower pleural metastases. He also has anemia with Hgb 6.5. He vomited x1 today, no hematemesis. He denies melena or bright red blood per rectum. Stool Hemoccult was positive. He is being transfused 2 units PRBC per ED physician. Family states that they met with Dr. Bolaños in clinic on Tuesday09/22/16 and that they were told he would not be a candidate for further chemotherapy due to poor functional status. He enrolled in hospice at that time. He states that his pain has not been adequately controlled with his pain medication regimen per hospice. He was initially on morphine 2.5 q3hr. He states it was recently increased in the last 24 hours to 10 mg q3hr but he indicates that his pain is not controlled and that he has not able to sleep despite Restoril and Ativan. CBC/BMP: 10/01/16 0547 09/30/16 0815 Significant Findings Laboratory Tests Test 09/29/16 09/30/16 10/01/16 05:35 08:15 05:47 Red Blood Count 2.27 MIL/MM3 3.32 MIL/MM3 2.73 MIL/MM3 (4.50-5.90) (4.50-5.90) (4.50-5.90) Hemoglobin 7.6 GM/DL 10.5 GM/DL 9.0 GM/DL (13.0-17.0) (13.0-17.0) (13.0-17.0) Hematocrit 22.9 % 32.1 % 26.7 % (39.0-51.0) (39.0-51.0) (39.0-51.0) Mean Corpuscular Volume 100.9 FL (80.0-100.0) Red Cell Distribution Width 19.9 % 18.0 % 18.5 % (11.6-17.2) (11.6-17.2) (11.6-17.2) Platelet Count 101 TH/MM3 89 TH/MM3 101 TH/MM3 (150-450) (150-450) (150-450) Neutrophils (%) (Auto) 80.3 % 80.9 % 81.1 % (16.0-70.0) (16.0-70.0) (16.0-70.0) Lymphocytes (%) (Auto) 4.9 % 3.3 % 4.5 % (9.0-44.0) (9.0-44.0) (9.0-44.0) Monocytes (%) (Auto) 13.6 % 13.1 % 13.2 % (0.0-8.0) (0.0-8.0) (0.0-8.0) Lymphocytes # (Auto) 0.5 TH/MM3 0.4 TH/MM3 0.5 TH/MM3 (1.0-4.8) (1.0-4.8) (1.0-4.8) Monocytes # (Auto) 1.3 TH/MM3 1.5 TH/MM3 1.5 TH/MM3 (0-0.9) (0-0.9) (0-0.9) Neutrophils % (Manual) 84 % (16-70) 79 % (16-70) 78 % (16-70) Band Neutrophils % 8 % (0-6) 13 % (0-6) Lymphocytes % 1 % (9-44) 3 % (9-44) 3 % (9-44) Neutrophils # (Manual) 8.6 TH/MM3 10.8 TH/MM3 9.7 TH/MM3 (1.8-7.7) (1.8-7.7) (1.8-7.7) Nucleated Red Blood Cells 4 /100 WBC 1 /100 WBC 1 /100 WBC (0-0) (0-0) (0-0) Platelet Estimate LOW (NORMAL) LOW (NORMAL) LOW (NORMAL) Polychromasia 2.1 % (0.0-1.9) 2.3 % (0.0-1.9) 2.7 % (0.0-1.9) White Blood Count 11.7 TH/MM3 11.5 TH/MM3 (4.0-11.0) (4.0-11.0) Neutrophils # (Auto) 9.5 TH/MM3 9.3 TH/MM3 (1.8-7.7) (1.8-7.7) Random Glucose 71 MG/DL (74-106) Calcium Level 8.1 MG/DL (8.5-10.1) Monocytes % 13 % (0-8) Imaging Last Impressions Chest X-Ray 10/01/16 0000 Signed Impressions: Service Date/Time: Saturday, October 01, 2016 06:02 - CONCLUSION: No pneumothorax and left apical density has not changed possibly consolidation or infiltrate and continued follow up is suggested. Dodie Jameson MD Chest Tube Insertion 09/30/16 0000 Signed Impressions: Service Date/Time: September 16:08 - CONCLUSION: Uncomplicated chest tube placement in the left lung base as above. Yfn Ventura MD Tunnelled Chest Tube Removal 09/29/16 0000 Signed Impressions: Service Date/Time: Thursday, September 29, 2016 00:00 - CONCLUSION: Uncomplicated chest tube removal. Raymundo Rm MD Chest CT 09/24/16 0000 Signed Impressions: Service Date/Time: Saturday, September 24, 2016 01:47 - CONCLUSION: 1. Large left pleural effusion with enhancing pleural masses in the posterior inferior left hemithorax. These findings are suspicious for pleural-based metastasis. The pleural effusion has significantly increased in size from the prior exams. 2. Please refer to abdomen and pelvis CT report for description of the subdiaphragmatic findings. Jamil Gates MD Abdomen/Pelvis CT 09/24/16 0000 Signed Impressions: Service Date/Time: Saturday, September 24, 2016 01:47 - CONCLUSION: 1. Innumerable liver masses characteristic of metastatic disease. Comparing to the partially visualized liver on the 08/16/2016 CT, suggest normal progression of metastatic disease. 2. Please refer to chest CT report for description of the supradiaphragmatic findings. Jamil Gates MD PE at Discharge GENERAL: Cachectic AAM, looks weak SKIN: Warm and dry. HEAD: Atraumatic. Normocephalic. EYES: Pupils equal and round. No scleral icterus. ENT: No nasal bleeding or discharge. Mucous membranes dry. NECK: Trachea midline. No JVD. CARDIOVASCULAR: Regular rate and rhythm, sinus on monitor. No murmurs rubs or gallops. RESPIRATORY: Diminished breath sounds left lung field. Chest tube in place GASTROINTESTINAL: Abdomen soft, tender RUQ with hepatomegaly. Bowel sounds present. Prior PEG site healed. MUSCULOSKELETAL: Extremities without clubbing, cyanosis, or edema. No obvious deformities. NEUROLOGICAL: Awake and alert. No obvious cranial nerve deficits. Motor grossly within normal limits. Normal speech. Nonfocal Hospital Course Pain secondary to metastatic lung cancer Stable continue Fentanyl patch 25 mcg, switch to morphine pills as needed and fentanyl IV for breakthrough. Ambien prn sleep RESP: Metastatic non-small cell lung cancer Large left pleural effusion Hypoxia Nasal cannula wean as tolerated. IS q1 hour awake. DuoNeb every 6 hours. Symbicort 2 puffs inhaled every 12 hours. Albuterol every 2 hours as needed Guafenesin 600 bid Discussed with IR, reinserted CT still with significant output. Pleur X cath vs pleurodesis when output has decreased significantly CV: CAD Hold ASA/plavix till cleared by IR Monitor hemodynamics GI: Dysphagia Abdominal pain and hepatomegaly secondary to multiple liver metastases Chronic severe protein energy malnutrition Status post EGD with dilation. Antireflux mechanisms. Continue PPI FEN/RENAL: Voiding. Monitor intake and output. Monitor electrolyte. Replace as indicated. ID: Postobstructive pneumonia Septic shock with elevated lactic acid Did not tolerate fluid bolus as per sepsis protocol. Clinically improved switched Zosyn to Levaquin Followup blood cultures negative to date. Influenza negative. HEME: Symptomatic anemia. Improved Transfused 2 units packed red cells 4/5. Hemoglobin 7.6, he agrees to receive another part RBC transfusion. Repeat CBC with improved blood count ENDO: Mild hyperglycemia. Monitor and initiate insulin sliding scale if indicated. PROPH: SCDs for DVT prophylaxis. Hold pharmacological prophylaxis secondary to anemia. Protonix 40 g every 12 hours. ACCESS: Right chest port is accessed. Patient states that he does not wish to be intubated for respiratory failure. He states he is DNR/DNI. Discharge Planning Dc when pleur x cath placed Pt Condition on Discharge: Stable Discharge Disposition: Hospice/ Home Discharge Time: <= 30 minutes Discharge Instructions DIET: Follow Instructions for: As Tolerated, No Restrictions Activities you can perform: Regular-No Restrictions Activities to Avoid: Driving Other Activity Instructions: no airplane rides Follow up Referrals: Appointment for Follow Up - Today with hospice Oncology - 1 Week PCP Follow-up - 1 Week New Medications: Levofloxacin (Levaquin) 750 Mg Tab 750 MG PO DAILY Infection #3 Ref 0 TAB Walker with Front Wheels (Walker with Front Wheels) 1 Mis Mis 1 EA .ROUTE DIRECTED #1 Ref 0 EA Diltiazem (Cardizem) 30 Mg Tab 30 MG PO TID Regulate Heart Beat #90 TAB Fentanyl Patch 72 HR (Duragesic Patch 72 HR) 25 Mcg/Hr Patch 1 PATCH T-DERMAL Q3D Pain Management #3 PATCH Morphine IR (Morphine IR) 15 Mg Tab 15 MG PO Q6HR PRN pain 1-10 #28 TAB Sennosides (Senna Lax) 8.6 Mg Tab 8.6 MG PO BID Bowel Management #60 TAB Continued Medications: Albuterol 18 GM Inh (Ventolin Hfa 18 GM Inh) 90 Mcg/Act Aer 2 PUFF INH Q4H PRN SHORTNESS OF BREATH #1 Ref [address] (Aspirin EC) 81 Mg Tabdr 81 MG PO DAILY Ref 0 TAB Budesonide-Formoterol Inh (Symbicort Inh) 160-4.5 Mcg/Act Aero 2 PUFF INH Q12HR #1 Ref 0 INHALER Clopidogrel (Plavix) 75 Mg Tab 75 MG PO DAILY Blood Clot Prevention #30 Ref 0 TAB Docusate Sodium (Colace) 100 Mg Cap 100 MG PO DAILY Constipation #60 Ref 0 CAP Guaifenesin ER 12 HR (Mucinex ER 12 HR) 600 Mg Kassidy 600 MG PO BID COPD #60 Ref 0 TAB Lorazepam (Lorazepam) 0.5 Mg Tab 0.5 MG PO HS PRN ANXIETY AND/OR INSOMNIA Ref 0 TAB Nitroglycerin SL (Nitroglycerin SL) 0.4 Mg Subl 0.4 MG SL DIRECTED ONE TABLET UNDER THE TONGUE NEEDED FOR CHEST PAIN, MAY REPEAT EVERY FIVE MINUTES FOR A TOTAL OF 3 DOSES OR CALL 911 IF NO RELIEF PRN CHEST PAIN #100 Ref 0 TAB.SL Hhlucbgh-Rhsfgouseghdoiz-Ibbdkcqkx Liq (Magic Mouthwash Adult Liq) 120 Ml Susp 5 ML SWISH-SWAL TIDAC Each 5mL contains: Nystatin 200,000units, Diphenhydramine 4.25mg, Viscous Lidocaine 10mg, Fernando syrup 0.8 mL Mouth sores #120 Ref 0 ML Omeprazole (Omeprazole) 20 Mg Tab 20 MG PO DAILY #30 Ref 0 TAB Ondansetron Odt (Ondansetron Odt) 8 Mg Tab 8 MG SL TID PRN NAUSEA OR VOMITING Ref 0 TAB Temazepam (Restoril) 30 Mg Cap 30 MG PO HS PRN INSOMNIA #30 Ref 0 CAP Suraj Smith MD Oct 01, 2016 15:23
[2016-10-01] MEDS: ONDANSETRON HCL 4 MG/2 ML VIAL IV PRN (15:40)
--- NOTE | 2016-10-01 15:58 | RADRPT ---
EXAM DATE/TIME: 10/01/2016 13:51 [facility] COMPARISON: CT GUIDED CHEST TUBE PLACEMENT LEFT, September 30, 2016, 16:08. INDICATIONS : Patient with metastatic lung carcinoma in need of Aspira drain placement for left pleural effusion. MEDICAL HISTORY : Non-small cell lung cancer status post palliative chemotherapy and radiation, CAD, HLD, HTN SURGICAL HISTORY : Port placement, PEG tube, Loop recorder, Coronary stent ENCOUNTER: Initial ACUITY: 4 - 6 months PAIN SCORE: 0/10 FLUORO TIME: 6.2 minutes IMAGE SERIES: 3 SEDATION TIME: 30 minutes CONTRAST: 40 cc Omnipaque (iohexol) 350 MEDICATION(S): 1.) 50 mcg fentanyl (Sublimaze) IV DEVICE(S): 1.) 15.5F Aspira pleural drainage catheter PROCEDURE : 1. Conversion of computerized tomography placed chest tube to Aspira drain 2. Continuous EKG and Oximetry monitoring. The risks, benefits and alternatives to the procedure were explained and verbal and written consent w as obtained. The site was prepped in sterile fashion. Full sterile technique was used, including ca p, mask, sterile gloves and gown and a large sterile sheet. Hand hygiene and 2% chlorhexidine prep w as utilized per protocol for cutaneous antisepsis with appropriate dry time for site. The skin and s ubcutaneous tissues were infiltrated with local anesthetic solution. The patient's existing computerized tomography placed chest tube was prepped and draped in the usual sterile fashion. The tube was injected with positive contrast showing the position near the apex of the epicardium. There was some loculation around the tip of the tube but there was some free flowing drainage posterior to the hemidiaphragm. Therefore, the dermatome site was anesthetized with approxi mately 4 cc of 1% Xylocaine and the anchoring suture excised. The catheter garcia removed over a wire. A hockey stick catheter was then used to guide the wire into the posterior costophrenic space. Posit ion was confirmed with positive contrast. Wire was used to determine the appropriate length of the A spira drain. An appropriate site on the left chest wall was then marked and anesthetized with an add ition 5 cc of 1% Xylocaine. Dermatome was made with an 11 blade scalpel. Subcutaneous tissues were b luntly dissected. The area between the original dermatome and more anterior dermatome was anesthetiz ed with an additional 4 cc of 1% Xylocaine and the metallic tunneler advanced from the chest wall acc ess site to the new dermatotome to facilitate placement of the Aspira drainage catheter through the s ubcutaneous tunnel. The wire securing the access to the lower pleural space was then used to serially dilate the tract an d accommodate the AirGuard Peel-Away sheath. Over the wire and through the sheath, the tip of the As pira catheter was then advanced into the pleural space. The external portion of the catheter was exc ised and the valve assembled to the tip. Contrast injection confirmed appropriate position in the pl eural space. The dermatome at the access site was secured with Dermabond adhesive and Steri-Strips. Catheter was connected to wall suction with aspiration of approximately 100 cc of bloody fluid. The catheter was then flushed to clear the bloody fluid from the tubing itself. IV analgesia was performed with the prescribed dosages and duration as above in the presence of an in dependent trained radiology nurse to assist in the monitoring of the patient. EKG and oximetry remai anjana stable throughout the procedure. CONCLUSION: Successful conversion of the CT-guided chest tube to a tunneled Aspira drainage ramon ter in the left chest as above. Raymundo Rm MD on October 01, 2016 at 15:32 Board Certified Radiologist. This report was verified electronically.
--- NOTE | 2016-10-01 16:18 | RADRPT ---
EXAM DATE/TIME: 10/01/2016 15:35 [facility] COMPARISON: CHEST EXPIRATION ONLY, October 01, 2016, 6:02. INDICATIONS : Left chest tube placement MEDICAL HISTORY : Cardiovascular disease. Carcinoma, lung. SURGICAL HISTORY : Coronary artery stent. Port placement. Loop recorder ENCOUNTER: Initial ACUITY: 1 week PAIN SCORE: 0/10 LOCATION: Left chest FINDINGS: A single frontal expiratory view of the chest was performed. Interval removal of the left [place] loop t horacostomy tube and placement of a tunneled Aspira type catheter paralleling the left hemidiaphragm. Possible minimal left-sided effusion. Stable left apical density. Right lung remains clear. Right-si ded Ximbhg-l-Njfm catheter is unchanged. Heart size is normal. Loop recorder projects over the heart. CONCLUSION: No pneumothorax post Aspira drainage catheter placement. Possible small left-sided effusion. Stable left apical consolidation. Raymundo Rm MD on October 01, 2016 at 16:12 Board Certified Radiologist. This report was verified electronically.
[2016-10-01] MEDS: LEVOFLOXACIN 750 MG TAB PO SCH (16:48)
[2016-10-02] VITALS (10 sets, daily range): BP systolic 103–122; BP diastolic 55–75; PULSE 92–106; RESP 16–22; TEMP 95.3–96.8; O2SAT 94–100
[2016-10-02] MEDS: MORPHINE SULFATE 15 MG TAB PO PRN (01:34)
[2016-10-02] MEDS: LACTATED RINGER'S 1000 ML INJ 1,000 ML IV SCH ×2 (03:30→23:43)
[2016-10-02] MEDS: CHLORHEXIDINE GLUCONATE 2 % 1 PACK (2 CLOTHS) TOP SCH ×2 (04:00→23:43)
[2016-10-02] MEDS: NYSTAT/DIPHENHY/LIDO MOUTHWASH (Adult) 120ML SWISH-SWAL SCH ×3 (08:00→17:00)
[2016-10-02] MEDS: SENNOSIDES 8.6 MG TAB PO SCH ×2 (08:53→21:00)
[2016-10-02] MEDS: PANTOPRAZOLE SOD 40 MG DELAYED RELEASE TAB PO SCH ×2 (08:53→21:00)
[2016-10-02] MEDS: DILTIAZEM HCL 30 MG TAB PO SCH ×3 (08:54→17:52)
[2016-10-02] MEDS: DOCUSATE SODIUM 100 MG CAP PO SCH ×2 (08:54→21:00)
[2016-10-02] MEDS: guaiFENesin E.R. 600 MG TAB PO SCH ×2 (08:54→21:00)
[2016-10-02] MEDS: ONDANSETRON HCL 4 MG/2 ML VIAL IV PRN ×3 (08:54→20:36)
[2016-10-02] MEDS: BUDESONIDE-FORMOTEROL 160/4.5 MCG INHALER INH SCH ×2 (09:00→21:00)
--- NOTE | 2016-10-02 09:28 | PD.ONC.PN ---
Subjective Subjective Remarks Afebrile overnight. Pt sitting up in bed about to eat breakfast. Nephew at bedside. He is about to eat breakfast but would like something for nausea prior. His SOB is about the same after having a Pleur-X catheter placed yesterday. Objective Data Date Time Temp Pulse Resp B/P Pulse Ox O2 Delivery O2 Flow Rate FiO2 10/02/16 08:00 96.8 10/02/16 07:32 102 16 107/65 10/02/16 04:00 95.5 104 17 109/59 98 10/02/16 02:35 16 10/02/16 00:00 95.3 103 17 103/55 100 10/01/16 20:47 109 10/01/16 20:00 95.0 109 20 94/53 94 10/01/16 18:04 96 Nasal Cannula 3.00 10/01/16 16:00 96.5 98 18 95/56 10/01/16 12:00 96.0 18 18 94/56 18 10/02/16 10/02/16 10/02/16 07:00 15:00 23:00 Intake Total 120 ml Balance 120 ml Result Diagram: 10/01/16 0547 09/30/16 0815 Administered Medications Medications (Trade) Dose Ordered Sig/Edvin Route PRN Reason Start Time Stop Time Status Last Admin Dose Admin Sodium Chloride (NS Flush) 2 ml UNSCH PRN IVF FLUSH AFTER USING IV ACCESS 09/24/16 00:30 09/24/16 03:08 Budesonide/ Formoterol Fumarate (Symbicort 160-4.5 Inh) 2 puff Q12HR INH 09/24/16 09:00 10/02/16 09:00 Guaifenesin (Mucinex Er) 600 mg BID PO 09/24/16 09:00 10/02/16 08:54 Multi-Ingredient Mouthwash/Gargle (Magic Mouthwash Adult Liq) 5 ml TIDAC SWISH-SWAL 09/24/16 08:00 10/08/16 07:59 10/02/16 08:00 Fentanyl (Duragesic 25 Mcg Patch.72 Hr) 1 patch Q3D T-DERMAL 09/24/16 05:00 09/30/16 06:14 Ondansetron HCl (Zofran Inj) 4 mg Q6H PRN IV NAUSEA OR VOMITING 09/24/16 04:00 10/02/16 08:54 Docusate Sodium (Colace) 100 mg BID PO 09/24/16 09:00 10/02/16 08:54 Zolpidem Tartrate (Ambien) 10 mg HS PRN PO INSOMNIA 09/24/16 04:00 09/30/16 20:24 Chlorhexidine Gluconate (Chlorhexidine 2% Cloth) Taper DAILY@04 TOP 09/24/16 04:00 09/20/17 03:59 09/29/16 04:32 Magnesium Hydroxide (Milk Of Leslie Lynn) 30 ml Q6H PRN PO CONSTIPATION 09/25/16 17:30 09/28/16 09:26 Diltiazem HCl (Cardizem) 30 mg TID PO 09/26/16 09:00 10/02/16 08:54 Pantoprazole Sodium (Protonix) 40 mg Q12HR PO 09/27/16 21:00 10/02/16 08:53 Sennosides (Senokot) 8.6 mg BID PO 09/29/16 09:00 10/02/16 08:53 Morphine Sulfate (Msir) 15 mg Q4H PRN PO pain 1-10 09/29/16 11:30 10/02/16 01:34 Diphenhydramine HCl (Benadryl) 25 mg Q4H PRN PO BLOOD PRODUCT ADMINSTRATION 09/29/16 16:45 09/29/16 16:09 Acetaminophen (Tylenol) 650 mg Q4H PRN PO BLOOD PRODUCTS ADMINISTRATION 09/29/16 16:45 09/29/16 16:09 Heparin Sodium (Porcine) (Heparin Central Flush) 500 units UNSCH IV FLUSH 09/29/16 23:45 09/29/16 23:45 Levofloxacin (Levaquin) 750 mg DAILY@11 PO 10/01/16 16:00 10/04/16 15:59 10/01/16 16:48 Objective Remarks GENERAL: Cachectic older male, sitting up in bed in nad SKIN: Warm and dry. HEAD: Normocephalic. EYES: No injection or drainage. NECK: Supple, trachea midline. CARDIOVASCULAR: +S1/S2. RESPIRATORY: +scattered rhonchi. diminished along left base. Pleur-X cath in place. GASTROINTESTINAL: Abdomen soft, non-tender, nondistended. EXTREMITIES: No cyanosis. MUSCULOSKELETAL: Generalized muscle wasting NEUROLOGICAL: Awake and alert, normal speech. Assessment/Plan Problem List: (1) Metastatic lung carcinoma Status: Acute Plan: History: --presented with large left hilar mass with mediastinal adenopathy. +multiple liver lesions ++adenocarcinoma, not enough tissue to do EGFR or ALK study. --given palliative radiation with concurrent chemotherapy. -- admitted to the hospital last week with pneumonia. Since then, he has been getting weaker. --was discharged home with hospice. However, the family had decided to bring him into the hospital because of increased shortness of breath and weakness. This morning CT of the chest showed increased left lung disease. ++significant increase in the pleural-based masses in the left thorax. + increased liver metastasis. --not a good candidate for palliative chemotherapy. (2) Dyspnea Status: Acute Plan: --likely due to progression of disease -- Pleur-X catheter placed (3) Dysphagia Status: Acute Plan: --s/p EGD for dilatation of the esophagus, 09/27 Assessment 66y/o male with metastatic lung cancer admitted with weakness and shortness of breath. h/o Coronary artery disease Hyperlipidemia Hypertension. Plan 1. Rec'd Pleur-X catheter yesterday. 2. OK for discharge to hospice from oncology standpoint. 2. Supportive care. Attending Statement The exam, history, and the medical decision-making described in the above note were completed with the assistance of the mid-level provider. I reviewed and agree with the findings presented. I attest that I had a [id number] encounter with the patient on the same day, and personally performed and documented my assessment and findings in the medical record. Pt seen and examined. No complaints. Continue present support. Plan to DC home with hospice. Family member at bedside comfortable with plan and it is what pt desire. Karley Hernandez Oct 02, 2016 09:28 Sonam Gilliam MD Oct 02, 2016 13:27
--- NOTE | 2016-10-02 11:14 | HHI.PR ---
Subjective Remarks Follow-up pneumonia with pleural effusion/history of metastasis lung cancer 10/02/16-patient seen and examined, agreeable now for discharge to hospice care center. Denies any significant shortness of breath. Vitals stable. Case discussed with hospice care nurse Objective Vitals Vital Signs Date Time Temp Pulse Resp B/P Pulse Ox O2 Delivery O2 Flow Rate FiO2 10/02/16 09:41 100 10/02/16 08:00 96.8 10/02/16 07:32 102 16 107/65 10/02/16 04:00 95.5 104 17 109/59 98 10/02/16 02:35 16 10/02/16 00:00 95.3 103 17 103/55 100 10/01/16 20:47 109 10/01/16 20:00 95.0 109 20 94/53 94 10/01/16 18:04 96 Nasal Cannula 3.00 10/01/16 16:00 96.5 98 18 95/56 10/01/16 12:00 96.0 18 18 94/56 18 I/O 10/01/16 10/01/16 10/01/16 10/02/16 10/02/16 10/02/16 07:00 15:00 23:00 07:00 15:00 23:00 Intake Total 120 ml 120 ml 120 ml Output Total 1180 ml 670 ml Balance -1060 ml -670 ml 120 ml 120 ml Intake Oral 120 ml 120 ml 120 ml Output Urine Total 600 ml 450 ml Chest Tube Drainage Total 220 ml Drainage Total 580 ml # Bowel Movements 0 Result Diagram: 10/01/16 0547 09/30/16 0815 Imaging Last Impressions Chest X-Ray 10/01/16 0000 Signed Impressions: Service Date/Time: Saturday, October 01, 2016 15:35 - CONCLUSION: No pneumothorax post Aspira drainage catheter placement. Possible small left-sided effusion. Stable left apical consolidation. Raymundo Rm MD Chest Tube Insertion 09/30/16 0000 Signed Impressions: Service Date/Time: September 16:08 - CONCLUSION: Uncomplicated chest tube placement in the left lung base as above. Yfn Ventura MD Tunnelled Chest Tube Removal 09/29/16 0000 Signed Impressions: Service Date/Time: Thursday, September 29, 2016 00:00 - CONCLUSION: Uncomplicated chest tube removal. Raymundo Rm MD Chest CT 09/24/16 0000 Signed Impressions: Service Date/Time: Saturday, September 24, 2016 01:47 - CONCLUSION: 1. Large left pleural effusion with enhancing pleural masses in the posterior inferior left hemithorax. These findings are suspicious for pleural-based metastasis. The pleural effusion has significantly increased in size from the prior exams. 2. Please refer to abdomen and pelvis CT report for description of the subdiaphragmatic findings. Jamil Gates MD Abdomen/Pelvis CT 09/24/16 0000 Signed Impressions: Service Date/Time: Saturday, September 24, 2016 01:47 - CONCLUSION: 1. Innumerable liver masses characteristic of metastatic disease. Comparing to the partially visualized liver on the 08/16/2016 CT, suggest normal progression of metastatic disease. 2. Please refer to chest CT report for description of the supradiaphragmatic findings. Jamil Gates MD Objective Remarks GENERAL: NAD SKIN: Warm and dry. HEAD: Normocephalic. EYES: No scleral icterus. No injection or drainage. NECK: Supple, trachea midline. No JVD or lymphadenopathy. CARDIOVASCULAR: Regular rate and rhythm without murmurs, gallops, or rubs. RESPIRATORY: Breath sounds equal bilaterally. No accessory muscle use.Pleurovac left sided GASTROINTESTINAL: Abdomen soft, non-tender, nondistended. MUSCULOSKELETAL: No cyanosis, or edema. BACK: Nontender without obvious deformity. No CVA tenderness. Procedures Chest tube insertion 2 Pleurovac placed 10/01/16 A/P Problem List: (1) Dysphagia ICD Code: R13.10 Status: Acute (2) Dyspnea ICD Code: R06.00 Status: Acute (3) Pleural effusion ICD Code: J90 Status: Acute (4) Pneumonia ICD Code: J18.9 Status: Acute Assessment and Plan 66-year-old man with Pain secondary to metastatic lung cancer Stable continue Fentanyl patch 25 mcg, morphine pills as needed and fentanyl IV for breakthrough. Ambien prn sleep Metastatic non-small cell lung cancer Large left pleural effusion Hypoxia Nasal cannula wean as tolerated. IS q1 hour awake. DuoNeb every 6 hours. Symbicort 2 puffs inhaled every 12 hours. Albuterol every 2 hours as needed Guafenesin 600 bid s/p. Pleur X cath placed 10/01/16 by interventional radiology Appreciate input from oncology CAD Resume ASA/Plavix Monitor hemodynamics Dysphagia Abdominal pain and hepatomegaly secondary to multiple liver metastases Chronic severe protein energy malnutrition Status post EGD with dilation. Antireflux mechanisms. Continue PPI Postobstructive pneumonia Septic shock with elevated lactic acid Did not tolerate fluid bolus as per sepsis protocol. s/p Zosyn and now on Levaquin Followup blood cultures negative to date. Influenza negative. Symptomatic anemia. Improved Transfused 3 units packed red cells total ENDO: Mild hyperglycemia. Monitor and initiate insulin sliding scale if indicated. PROPH: SCDs for DVT prophylaxis. Hold pharmacological prophylaxis secondary to anemia. Protonix 40 g every 12 hours. Osmin Beckman MD Oct 02, 2016 11:14
--- NOTE | 2016-10-02 11:16 | HHI.DS ---
Discharge Summary Admission Date Sep 24, 2016 at 02:28 Discharge Date: Oct 02, 2016 Admitting Diagnosis Left pleural effusion (1) Dysphagia ICD Code: R13.10 (2) Dyspnea ICD Code: R06.00 (3) Pleural effusion ICD Code: J90 (4) Pneumonia ICD Code: J18.9 (5) Metastatic lung carcinoma ICD Code: C78.00 Procedures Chest tube insertion 2 Pleurovac placed 10/01/16 Brief History - From Admission 66-year-old male with past medical history of metastatic non-small cell lung cancer who presents to [facility] emergency department complaining of fatigue and shortness of breath. He states he has had progressive shortness of breath over several weeks/months. He was recently started on home O2. He has cough productive of white sputum and subjective fevers. No hemoptysis. CT C/A/P was performed in ED that demonstrates large L pleural effusion with evidence of L upper and left lower pleural metastases. He also has anemia with Hgb 6.5. He vomited x1 today, no hematemesis. He denies melena or bright red blood per rectum. Stool Hemoccult was positive. He is being transfused 2 units PRBC per ED physician. Family states that they met with Dr. Bolaños in clinic on Tuesday09/22/16 and that they were told he would not be a candidate for further chemotherapy due to poor functional status. He enrolled in hospice at that time. He states that his pain has not been adequately controlled with his pain medication regimen per hospice. He was initially on morphine 2.5 q3hr. He states it was recently increased in the last 24 hours to 10 mg q3hr but he indicates that his pain is not controlled and that he has not able to sleep despite Restoril and Ativan. CBC/BMP: 10/01/16 0547 09/30/16 0815 Significant Findings Laboratory Tests Test 09/30/16 10/01/16 08:15 05:47 White Blood Count 11.7 TH/MM3 11.5 TH/MM3 (4.0-11.0) (4.0-11.0) Red Blood Count 3.32 MIL/MM3 2.73 MIL/MM3 (4.50-5.90) (4.50-5.90) Hemoglobin 10.5 GM/DL 9.0 GM/DL (13.0-17.0) (13.0-17.0) Hematocrit 32.1 % 26.7 % (39.0-51.0) (39.0-51.0) Red Cell Distribution Width 18.0 % 18.5 % (11.6-17.2) (11.6-17.2) Platelet Count 89 TH/MM3 101 TH/MM3 (150-450) (150-450) Neutrophils (%) (Auto) 80.9 % 81.1 % (16.0-70.0) (16.0-70.0) Lymphocytes (%) (Auto) 3.3 % 4.5 % (9.0-44.0) (9.0-44.0) Monocytes (%) (Auto) 13.1 % 13.2 % (0.0-8.0) (0.0-8.0) Neutrophils # (Auto) 9.5 TH/MM3 9.3 TH/MM3 (1.8-7.7) (1.8-7.7) Lymphocytes # (Auto) 0.4 TH/MM3 0.5 TH/MM3 (1.0-4.8) (1.0-4.8) Monocytes # (Auto) 1.5 TH/MM3 1.5 TH/MM3 (0-0.9) (0-0.9) Neutrophils % (Manual) 79 % (16-70) 78 % (16-70) Band Neutrophils % 13 % (0-6) Lymphocytes % 3 % (9-44) 3 % (9-44) Neutrophils # (Manual) 10.8 TH/MM3 9.7 TH/MM3 (1.8-7.7) (1.8-7.7) Nucleated Red Blood Cells 1 /100 WBC 1 /100 WBC (0-0) (0-0) Platelet Estimate LOW (NORMAL) LOW (NORMAL) Polychromasia 2.3 % (0.0-1.9) 2.7 % (0.0-1.9) Random Glucose 71 MG/DL (74-106) Calcium Level 8.1 MG/DL (8.5-10.1) Monocytes % 13 % (0-8) Imaging Last Impressions Chest X-Ray 10/01/16 0000 Signed Impressions: Service Date/Time: Saturday, October 01, 2016 15:35 - CONCLUSION: No pneumothorax post Aspira drainage catheter placement. Possible small left-sided effusion. Stable left apical consolidation. Raymundo Rm MD Chest Tube Insertion 09/30/16 0000 Signed Impressions: Service Date/Time: September 16:08 - CONCLUSION: Uncomplicated chest tube placement in the left lung base as above. Yfn Ventura MD Tunnelled Chest Tube Removal 09/29/16 0000 Signed Impressions: Service Date/Time: Thursday, September 29, 2016 00:00 - CONCLUSION: Uncomplicated chest tube removal. Raymundo Rm MD Chest CT 09/24/16 0000 Signed Impressions: Service Date/Time: Saturday, September 24, 2016 01:47 - CONCLUSION: 1. Large left pleural effusion with enhancing pleural masses in the posterior inferior left hemithorax. These findings are suspicious for pleural-based metastasis. The pleural effusion has significantly increased in size from the prior exams. 2. Please refer to abdomen and pelvis CT report for description of the subdiaphragmatic findings. Jamli Gates MD Abdomen/Pelvis CT 09/24/16 0000 Signed Impressions: Service Date/Time: Saturday, September 24, 2016 01:47 - CONCLUSION: 1. Innumerable liver masses characteristic of metastatic disease. Comparing to the partially visualized liver on the 08/16/2016 CT, suggest normal progression of metastatic disease. 2. Please refer to chest CT report for description of the supradiaphragmatic findings. Jamil Gates MD PE at Discharge GENERAL: NAD SKIN: Warm and dry. HEAD: Normocephalic. EYES: No scleral icterus. No injection or drainage. NECK: Supple, trachea midline. No JVD or lymphadenopathy. CARDIOVASCULAR: Regular rate and rhythm without murmurs, gallops, or rubs. RESPIRATORY: Breath sounds equal bilaterally. No accessory muscle use.Pleurovac left sided GASTROINTESTINAL: Abdomen soft, non-tender, nondistended. MUSCULOSKELETAL: No cyanosis, or edema. BACK: Nontender without obvious deformity. No CVA tenderness. Hospital Course Pain secondary to metastatic lung cancer Stable continue Fentanyl patch 25 mcg, morphine pills as needed and fentanyl IV for breakthrough. Ambien prn sleep Metastatic non-small cell lung cancer Large left pleural effusion Hypoxia Nasal cannula wean as tolerated. IS q1 hour awake. DuoNeb every 6 hours. Symbicort 2 puffs inhaled every 12 hours. Albuterol every 2 hours as needed Guafenesin 600 bid s/p. Pleur X cath placed 10/01/16 by interventional radiology Appreciated input from oncology CAD should continued ASA/Plavix Dysphagia Abdominal pain and hepatomegaly secondary to multiple liver metastases Chronic severe protein energy malnutrition Status post EGD with dilation. Antireflux mechanisms. Continue PPI Postobstructive pneumonia Septic shock with elevated lactic acid Did not tolerate fluid bolus as per sepsis protocol. s/p Zosyn and now on Levaquin Followup blood cultures negative to date. Influenza negative. Symptomatic anemia. Improved Transfused 3 units packed red cells total ENDO: Mild hyperglycemia. Monitor and initiate insulin sliding scale if indicated. PROPH: SCDs for DVT prophylaxis. Hold pharmacological prophylaxis secondary to anemia. Protonix 40 g every 12 hours. Pt Condition on Discharge: Guarded Discharge Disposition: Hospice/ Home Discharge Time: > 30 minutes Discharge Instructions DIET: Follow Instructions for: As Tolerated, No Restrictions Activities you can perform: Regular-No Restrictions Activities to Avoid: Driving Other Activity Instructions: no airplane rides Follow up Referrals: Appointment for Follow Up - Today with hospice Oncology - 1 Week PCP Follow-up - 1 Week New Medications: Levofloxacin (Levaquin) 750 Mg Tab 750 MG PO DAILY Infection #3 Ref 0 TAB Walker with Front Wheels (Walker with Front Wheels) 1 Mis Mis 1 EA .ROUTE DIRECTED #1 Ref 0 EA Diltiazem (Cardizem) 30 Mg Tab 30 MG PO TID Regulate Heart Beat #90 TAB Fentanyl Patch 72 HR (Duragesic Patch 72 HR) 25 Mcg/Hr Patch 1 PATCH T-DERMAL Q3D Pain Management #3 PATCH Morphine IR (Morphine IR) 15 Mg Tab 15 MG PO Q6HR PRN pain 1-10 #28 TAB Sennosides (Senna Lax) 8.6 Mg Tab 8.6 MG PO BID Bowel Management #60 TAB Continued Medications: Albuterol 18 GM Inh (Ventolin Hfa 18 GM Inh) 90 Mcg/Act Aer 2 PUFF INH Q4H PRN SHORTNESS OF BREATH #1 Ref [address] (Aspirin EC) 81 Mg Tabdr 81 MG PO DAILY Ref 0 TAB Budesonide-Formoterol Inh (Symbicort Inh) 160-4.5 Mcg/Act Aero 2 PUFF INH Q12HR #1 Ref 0 INHALER Clopidogrel (Plavix) 75 Mg Tab 75 MG PO DAILY Blood Clot Prevention #30 Ref 0 TAB Docusate Sodium (Colace) 100 Mg Cap 100 MG PO DAILY Constipation #60 Ref 0 CAP Guaifenesin ER 12 HR (Mucinex ER 12 HR) 600 Mg Kassidy 600 MG PO BID COPD #60 Ref 0 TAB Lorazepam (Lorazepam) 0.5 Mg Tab 0.5 MG PO HS PRN ANXIETY AND/OR INSOMNIA Ref 0 TAB Nitroglycerin SL (Nitroglycerin SL) 0.4 Mg Subl 0.4 MG SL DIRECTED ONE TABLET UNDER THE TONGUE NEEDED FOR CHEST PAIN, MAY REPEAT EVERY FIVE MINUTES FOR A TOTAL OF 3 DOSES OR CALL 911 IF NO RELIEF PRN CHEST PAIN #100 Ref 0 TAB.SL Eokbaedi-Pwmjoteqzgywayx-Kcjizndpb Liq (Magic Mouthwash Adult Liq) 120 Ml Susp 5 ML SWISH-SWAL TIDAC Each 5mL contains: Nystatin 200,000units, Diphenhydramine 4.25mg, Viscous Lidocaine 10mg, Fernando syrup 0.8 mL Mouth sores #120 Ref 0 ML Omeprazole (Omeprazole) 20 Mg Tab 20 MG PO DAILY #30 Ref 0 TAB Ondansetron Odt (Ondansetron Odt) 8 Mg Tab 8 MG SL TID PRN NAUSEA OR VOMITING Ref 0 TAB Temazepam (Restoril) 30 Mg Cap 30 MG PO HS PRN INSOMNIA #30 Ref 0 CAP Osmin Beckman MD Oct 02, 2016 11:16
[2016-10-02] MEDS: LEVOFLOXACIN 750 MG TAB PO SCH (12:20)
[2016-10-03] VITALS (12 sets, daily range): BP systolic 91–144; BP diastolic 55–64; PULSE 94–107; RESP 16–22; TEMP 95.7–97.9; O2SAT 97–100
[2016-10-03] MEDS: MORPHINE SULFATE 15 MG TAB PO PRN (00:52)
[2016-10-03] MEDS: ZOLPIDEM TARTRATE 10 MG TAB PO PRN (00:53)
[2016-10-03] MEDS: fentaNYL 25 MCG/HR PATCH T-DERMAL SCH (05:00)
[2016-10-03 06:30] LABS: AUTOMATED NEUTROPHIL # 8.8 TH/MM3 (1.8-7.7); BASOPHIL # 0.2 TH/MM3 (0-0.2); BASOPHIL % 1.4 % (0.0-2.0); EOSINOPHIL % 0.1 % (0.0-4.0); HEMATOCRIT 21.9 % (39.0-51.0); LYMPH % 5.1 % (9.0-44.0); LYMPHOCYTE # 0.6 TH/MM3 (1.0-4.8); MEAN CORPUSCULAR HEMOGLOBIN 33.1 PG (27.0-34.0); MEAN CORPUSCULAR HGB CONC 32.8 % (32.0-36.0); MONO % 12.8 % (0.0-8.0); NEUT % 80.6 % (16.0-70.0); PLATELET COUNT 99 TH/MM3 (150-450); RED BLOOD COUNT 2.17 MIL/MM3 (4.50-5.90); RED CELL DISTRIBUTION WIDTH 19.6 % (11.6-17.2); WHITE BLOOD COUNT 10.9 TH/MM3 (4.0-11.0)
[2016-10-03 06:45] LABS: HEMO FLAGS AUTO DIFF
[2016-10-03] MEDS: NYSTAT/DIPHENHY/LIDO MOUTHWASH (Adult) 120ML SWISH-SWAL SCH ×3 (08:00→17:00)
[2016-10-03] MEDS ORDERED: SODIUM CHLOR 0.9% 250 ML INJ 250 ML IV ONE (08:15)
[2016-10-03] MEDS: guaiFENesin E.R. 600 MG TAB PO SCH ×2 (08:20→21:56)
[2016-10-03] MEDS: PANTOPRAZOLE SOD 40 MG DELAYED RELEASE TAB PO SCH ×2 (08:21→21:56)
[2016-10-03] MEDS: DOCUSATE SODIUM 100 MG CAP PO SCH ×2 (08:21→21:56)
[2016-10-03] MEDS: SENNOSIDES 8.6 MG TAB PO SCH ×2 (08:21→21:56)
[2016-10-03] MEDS: DILTIAZEM HCL 30 MG TAB PO SCH ×3 (08:21→17:35)
[2016-10-03] MEDS: BUDESONIDE-FORMOTEROL 160/4.5 MCG INHALER INH SCH ×2 (08:32→21:56)
--- NOTE | 2016-10-03 09:03 | HHI.PR ---
Subjective Remarks Follow-up pneumonia with pleural effusion/history of metastasis lung cancer 10/02/16-patient seen and examined, agreeable now for discharge to hospice care center. Denies any significant shortness of breath. Vitals stable. Case discussed with hospice care nurse 10/03/16-patient seen and examined; looks tired; H/H low. Son by the bedside Objective Vitals Vital Signs Date Time Temp Pulse Resp B/P Pulse Ox O2 Delivery O2 Flow Rate FiO2 10/03/16 07:00 102/60 10/03/16 04:00 96.6 101 17 98/64 99 10/03/16 00:00 96.8 107 19 144/64 100 10/02/16 23:32 92 10/02/16 22:06 Nasal Cannula 3.00 10/02/16 20:31 96.1 97 18 106/69 94 10/02/16 16:00 96.7 95 22 122/55 10/02/16 13:45 106 10/02/16 12:00 96.8 100 16 111/75 10/02/16 09:41 100 I/O 10/02/16 10/02/16 10/02/16 10/03/16 10/03/16 10/03/16 07:00 15:00 23:00 07:00 15:00 23:00 Intake Total 120 ml 240 ml 240 ml 60 ml Output Total 300 ml 550 ml 350 ml Balance 120 ml -60 ml -310 ml -290 ml Intake Oral 120 ml 240 ml 240 ml 60 ml Output Urine Total 300 ml 150 ml 350 ml Drainage Total 400 ml # Voids 1 # Bowel Movements 0 Result Diagram: 10/03/16 0530 09/30/16 0815 Objective Remarks GENERAL: NAD SKIN: Warm and dry. HEAD: Normocephalic. EYES: No scleral icterus. No injection or drainage. NECK: Supple, trachea midline. No JVD or lymphadenopathy. CARDIOVASCULAR: Regular rate and rhythm without murmurs, gallops, or rubs. RESPIRATORY: Breath sounds equal bilaterally. No accessory muscle use.Pleurovac left sided GASTROINTESTINAL: Abdomen soft, non-tender, nondistended. MUSCULOSKELETAL: No cyanosis, or edema. BACK: Nontender without obvious deformity. No CVA tenderness. Procedures Chest tube insertion 2 Pleurovac placed 10/01/16 A/P Problem List: (1) Dysphagia ICD Code: R13.10 Status: Acute (2) Dyspnea ICD Code: R06.00 Status: Acute (3) Pleural effusion ICD Code: J90 Status: Acute (4) Pneumonia ICD Code: J18.9 Status: Acute (5) Metastatic lung carcinoma ICD Code: C78.00 Status: Acute Assessment and Plan 66-year-old man with Pain secondary to metastatic lung cancer Stable continue Fentanyl patch 25 mcg, morphine pills as needed and fentanyl IV for breakthrough. Ambien prn sleep Metastatic non-small cell lung cancer Large left pleural effusion Hypoxia Nasal cannula wean as tolerated. IS q1 hour awake. DuoNeb every 6 hours. Symbicort 2 puffs inhaled every 12 hours. Albuterol every 2 hours as needed Guafenesin 600 bid s/p. Pleur X cath placed 10/01/16 by interventional radiology Appreciate input from oncology CAD Resume ASA/Plavix Monitor hemodynamics Dysphagia Abdominal pain and hepatomegaly secondary to multiple liver metastases Chronic severe protein energy malnutrition Status post EGD with dilation. Antireflux mechanisms. Continue PPI Postobstructive pneumonia Septic shock with elevated lactic acid Did not tolerate fluid bolus as per sepsis protocol. s/p Zosyn and now on Levaquin Followup blood cultures negative to date. Influenza negative. Symptomatic anemia. Improved Transfused 3 units packed red cells total Transfuse 1 unit PRBC today 10/03/16 and monitor H/H PROPH: SCDs for DVT prophylaxis. Hold pharmacological prophylaxis secondary to anemia. Protonix 40 g every 12 hours. Osmin Beckman MD Oct 03, 2016 09:03
[2016-10-03 09:56] LABS: BANDS 8 % (0-6); BASOPHILS 1 % (0-2); NEUTROPHIL # MANUAL DIFF 9.2 TH/MM3 (1.8-7.7); POLYS (SEG NEUTROPHILS) 76 % (16-70); WBC DIFF SAMPLE 100
[2016-10-03 09:57] LABS: BURR CELLS 1+ (NORMAL); PLATELET ESTIMATE SMEAR LOW (NORMAL); PLATELET MORPHOLOGY NORMAL (NORMAL); POLYCHROMASIA 2.6 % (0.0-1.9); SCAN/DIFF FINAL DIFF MANUAL
[2016-10-03] MEDS: diphenhydrAMINE HCL 25 MG CAP PO PRN (13:07)
[2016-10-03] MEDS: ACETAMINOPHEN 325 MG TAB PO PRN (13:07)
[2016-10-03] MEDS: LEVOFLOXACIN 750 MG TAB PO SCH (13:07)
[2016-10-03 17:31] LABS: HEMATOCRIT 26.2 % (39.0-51.0)
[2016-10-04] MEDS: LACTATED RINGER'S 1000 ML INJ 1,000 ML IV SCH (03:30)
[2016-10-04] MEDS: CHLORHEXIDINE GLUCONATE 2 % 1 PACK (2 CLOTHS) TOP SCH (03:44)
[2016-10-04 08:00] VITALS: BP 95/51; PULSE 88; RESP 18; TEMP 96; O2SAT 100
[2016-10-04] MEDS: NYSTAT/DIPHENHY/LIDO MOUTHWASH (Adult) 120ML SWISH-SWAL SCH ×3 (08:00→17:00)
[2016-10-04] MEDS: BUDESONIDE-FORMOTEROL 160/4.5 MCG INHALER INH SCH ×2 (09:00→21:00)
[2016-10-04] MEDS: DILTIAZEM HCL 30 MG TAB PO SCH ×3 (09:00→17:42)
[2016-10-04] MEDS: PANTOPRAZOLE SOD 40 MG DELAYED RELEASE TAB PO SCH ×2 (09:11→21:00)
[2016-10-04] MEDS: SENNOSIDES 8.6 MG TAB PO SCH ×2 (09:12→21:00)
[2016-10-04] MEDS: DOCUSATE SODIUM 100 MG CAP PO SCH ×2 (09:12→21:00)
[2016-10-04] MEDS: guaiFENesin E.R. 600 MG TAB PO SCH ×2 (09:12→21:00)
[2016-10-04] MEDS: ONDANSETRON HCL 4 MG/2 ML VIAL IV PRN (09:20)
--- NOTE | 2016-10-04 09:52 | HHI.PR ---
Subjective Remarks Follow-up pneumonia with pleural effusion/history of metastasis lung cancer 10/02/16-patient seen and examined, agreeable now for discharge to hospice care center. Denies any significant shortness of breath. Vitals stable. Case discussed with hospice care nurse 10/03/16-patient seen and examined; looks tired; H/H low. Son by the bedside 10/04/16-patient seen and examined, some shortness of breath, + insomnia night, afebrile, very tired. Nephew at the bedside and now agreeable for discharge to hospice without pleural vac drainage Objective Vitals Vital Signs Date Time Temp Pulse Resp B/P Pulse Ox O2 Delivery O2 Flow Rate FiO2 10/04/16 08:00 96.0 88 18 95/51 100 10/03/16 22:30 Nasal Cannula 3.00 10/03/16 20:51 94 10/03/16 20:00 95.7 96 17 94/55 100 10/03/16 16:00 96.9 97 20 102/63 100 10/03/16 13:24 97.6 96 16 91/56 100 10/03/16 12:04 97.9 98 16 96/56 97 10/03/16 12:00 96.9 99 20 96/55 100 10/03/16 11:06 99 Nasal Cannula 3.00 I/O 10/03/16 10/03/16 10/03/16 10/04/16 10/04/16 10/04/16 07:00 15:00 23:00 07:00 15:00 23:00 Intake Total 60 ml 120 ml 480 ml 480 ml Output Total 350 ml 600 ml 1100 ml 600 ml Balance -290 ml -480 ml -620 ml -120 ml Intake Oral 60 ml 120 ml 480 ml 480 ml Output Urine Total 350 ml 600 ml 1100 ml 600 ml # Voids 1 4 1 # Bowel Movements 0 0 Result Diagram: 10/03/16 1715 09/30/16 0815 Objective Remarks GENERAL: NAD SKIN: Warm and dry. HEAD: Normocephalic. EYES: No scleral icterus. No injection or drainage. NECK: Supple, trachea midline. No JVD or lymphadenopathy. CARDIOVASCULAR: Regular rate and rhythm without murmurs, gallops, or rubs. RESPIRATORY: Breath sounds equal bilaterally. No accessory muscle use.Pleurovac left sided GASTROINTESTINAL: Abdomen soft, non-tender, nondistended. MUSCULOSKELETAL: No cyanosis, or edema. BACK: Nontender without obvious deformity. No CVA tenderness. Procedures Chest tube insertion 2 Pleurovac placed 10/01/16 A/P Problem List: (1) Dysphagia ICD Code: R13.10 Status: Acute (2) Dyspnea ICD Code: R06.00 Status: Acute (3) Pleural effusion ICD Code: J90 Status: Acute (4) Pneumonia ICD Code: J18.9 Status: Acute (5) Metastatic lung carcinoma ICD Code: C78.00 Status: Acute Assessment and Plan 66-year-old man with Pain secondary to metastatic lung cancer Stable continue Fentanyl patch 25 mcg, morphine pills as needed and fentanyl IV for breakthrough. Ambien prn sleep Metastatic non-small cell lung cancer Large left pleural effusion Hypoxia Nasal cannula wean as tolerated. IS q1 hour awake. DuoNeb every 6 hours. Symbicort 2 puffs inhaled every 12 hours. Albuterol every 2 hours as needed Guafenesin 600 bid s/p. Pleur X cath placed 10/01/16 by interventional radiology Appreciate input from oncology CAD Resume ASA/Plavix Monitor hemodynamics Dysphagia Abdominal pain and hepatomegaly secondary to multiple liver metastases Chronic severe protein energy malnutrition Status post EGD with dilation. Antireflux mechanisms. Continue PPI Postobstructive pneumonia Septic shock with elevated lactic acid Did not tolerate fluid bolus as per sepsis protocol. s/p Zosyn and now on Levaquin Followup blood cultures negative to date. Influenza negative. Symptomatic anemia. Improved Transfused 4 units packed red cells total Hypoxia: Patient will required home oxygen on discharge as other alternative measures were tried and ineffective as patient with mets non small cell lung cancer as well as PLeurovac placed d/t pleural effusion. Patient will be discharged home with Hospice and is currently unable to performed a walk test PROPH: SCDs for DVT prophylaxis. Hold pharmacological prophylaxis secondary to anemia. Protonix 40 g every 12 hours. Discharge Planning Discharge to hospice Osmin Beckman MD Oct 04, 2016 09:52
[2016-10-04 09:57] VITALS: O2SAT 100
[2016-10-04 12:00] VITALS: BP 95/54; PULSE 97; RESP 18; TEMP 96.2; O2SAT 96
[2016-10-04] MEDS: LEVOFLOXACIN 750 MG TAB PO SCH (12:03)
--- NOTE | 2016-10-04 12:56 | PD.ONC.PN ---
Subjective Subjective Remarks Afebrile overnight. Patient resting comfortably. Eager to go home. Objective Data Date Time Temp Pulse Resp B/P Pulse Ox O2 Delivery O2 Flow Rate FiO2 10/04/16 12:00 96.2 97 18 95/54 96 10/04/16 09:57 100 Nasal Cannula 3.00 10/04/16 08:00 96.0 88 18 95/51 100 10/03/16 22:30 Nasal Cannula 3.00 10/03/16 20:51 94 10/03/16 20:00 95.7 96 17 94/55 100 10/03/16 16:00 96.9 97 20 102/63 100 10/03/16 13:24 97.6 96 16 91/56 100 10/04/16 10/04/16 10/04/16 07:00 15:00 23:00 Intake Total 480 ml Output Total 600 ml 300 ml Balance -120 ml -300 ml Result Diagram: 10/03/16 1715 09/30/16 0815 Laboratory Results Laboratory Tests Test 10/03/16 17:15 Hemoglobin 8.7 GM/DL Hematocrit 26.2 % Administered Medications Medications (Trade) Dose Ordered Sig/Edvin Route PRN Reason Start Time Stop Time Status Last Admin Dose Admin Sodium Chloride (NS Flush) 2 ml UNSCH PRN IVF FLUSH AFTER USING IV ACCESS 09/24/16 00:30 09/24/16 03:08 Budesonide/ Formoterol Fumarate (Symbicort 160-4.5 Inh) 2 puff Q12HR INH 09/24/16 09:00 10/04/16 09:00 Guaifenesin (Mucinex Er) 600 mg BID PO 09/24/16 09:00 10/04/16 09:12 Multi-Ingredient Mouthwash/Gargle (Magic Mouthwash Adult Liq) 5 ml TIDAC SWISH-SWAL 09/24/16 08:00 10/08/16 07:59 10/04/16 12:00 Fentanyl (Duragesic 25 Mcg Patch.72 Hr) 1 patch Q3D T-DERMAL 09/24/16 05:00 09/30/16 06:14 Ondansetron HCl (Zofran Inj) 4 mg Q6H PRN IV NAUSEA OR VOMITING 09/24/16 04:00 10/04/16 09:20 Docusate Sodium (Colace) 100 mg BID PO 09/24/16 09:00 10/04/16 09:12 Zolpidem Tartrate (Ambien) 10 mg HS PRN PO INSOMNIA 09/24/16 04:00 10/03/16 00:53 Chlorhexidine Gluconate (Chlorhexidine 2% Cloth) Taper DAILY@04 TOP 09/24/16 04:00 09/20/17 03:59 09/29/16 04:32 Magnesium Hydroxide (Milk Of Leslie Lynn) 30 ml Q6H PRN PO CONSTIPATION 09/25/16 17:30 09/28/16 09:26 Diltiazem HCl (Cardizem) 30 mg TID PO 09/26/16 09:00 10/02/16 17:52 Pantoprazole Sodium (Protonix) 40 mg Q12HR PO 09/27/16 21:00 10/04/16 09:11 Sennosides (Senokot) 8.6 mg BID PO 09/29/16 09:00 10/04/16 09:12 Morphine Sulfate (Msir) 15 mg Q4H PRN PO pain 1-10 09/29/16 11:30 10/03/16 00:52 Diphenhydramine HCl (Benadryl) 25 mg Q4H PRN PO BLOOD PRODUCT ADMINSTRATION 09/29/16 16:45 10/03/16 13:07 Acetaminophen (Tylenol) 650 mg Q4H PRN PO BLOOD PRODUCT ADMINSTRATION 09/29/16 16:45 10/04/16 09:11 Acetaminophen (Tylenol) 650 mg Q4H PRN PO BLOOD PRODUCTS ADMINISTRATION 09/29/16 16:45 10/03/16 13:07 Heparin Sodium (Porcine) (Heparin Central Flush) 500 units UNSCH IV FLUSH 09/29/16 23:45 09/29/16 23:45 Levofloxacin (Levaquin) 750 mg DAILY@11 PO 10/01/16 16:00 10/04/16 15:59 10/04/16 12:03 Objective Remarks GENERAL: chronically ill male, lying in bed in nad SKIN: Warm and dry. HEAD: Normocephalic. EYES: No injection or drainage. NECK: Supple, trachea midline. CARDIOVASCULAR: Regular rate and rhythm RESPIRATORY: diminished at bases. pleur-x catheter in place. GASTROINTESTINAL: Abdomen soft, non-tender, nondistended. EXTREMITIES: No cyanosis MUSCULOSKELETAL: Adequate muscle tone. NEUROLOGICAL: awake and alert, normal speech. moving all extremities. Assessment/Plan Problem List: (1) Metastatic lung carcinoma Status: Acute Plan: History: --presented with large left hilar mass with mediastinal adenopathy. +multiple liver lesions ++adenocarcinoma, not enough tissue to do EGFR or ALK study. --given palliative radiation with concurrent chemotherapy. -- admitted to the hospital last week with pneumonia. Since then, he has been getting weaker. --was discharged home with hospice. However, the family had decided to bring him into the hospital because of increased shortness of breath and weakness. This morning CT of the chest showed increased left lung disease. ++significant increase in the pleural-based masses in the left thorax. + increased liver metastasis. --not a good candidate for palliative chemotherapy. (2) Dyspnea Status: Acute Plan: --likely due to progression of disease -- Pleur-X catheter placed (3) Dysphagia Status: Acute Plan: --s/p EGD for dilatation of the esophagus, 09/27 Assessment 66y/o male with metastatic lung cancer admitted with weakness and shortness of breath. h/o Coronary artery disease Hyperlipidemia Hypertension. Plan 1. clear for discharge to hospice 2. supportive care Attending Statement The exam, history, and the medical decision-making described in the above note were completed with the assistance of the mid-level provider. I reviewed and agree with the findings presented. I attest that I had a [id number] encounter with the patient on the same day, and personally performed and documented my assessment and findings in the medical record. Able to swallow. SOB improved. Still weak. S/p pleurx cath placement. he can be d/c home with hospice. Marie Croft Oct 04, 2016 12:56 Gregory Bolaños MD Oct 04, 2016 15:10
[2016-10-04] MEDS ORDERED: OXYGENTANK NAS.CANULA (14:38)
[2016-10-04 15:00] VITALS: BP 93/53; PULSE 99; RESP 18; TEMP 96.2; O2SAT 98
[2016-10-04 16:09] LABS: HEMATOCRIT 27.2 % (39.0-51.0)
[2016-10-04 16:12] LABS: REVIEW FLAG FINAL
[2016-10-04 20:00] VITALS: BP 100/58; PULSE 98; RESP 18; TEMP 97.1; O2SAT 100
== END 2016-10-04 23:29 | disposition hospice, home (50) | DRG 180 ==
LOC: NEPC 23:55 → NEDA 09-24 02:28 → NEDH 09-24 06:14 → HOCA 09-24 13:14
PROVIDERS: ADMIT Emergency Medicine; ATTEND Hospitalist
PROC: 30233N1 Transfusion of Nonautologous Red Blood Cells into Peripheral Vein, Percutaneous Approach (ICD-10-PCS; 2016-09-24)
PROC: 0D758ZZ Dilation of Esophagus, Via Natural or Artificial Opening Endoscopic (ICD-10-PCS; 2016-09-27)
PROC: 0W9B30Z Drainage of Left Pleural Cavity with Drainage Device, Percutaneous Approach (ICD-10-PCS; principal; 2016-09-27 08:54)
PROC: 0BPQX0Z Removal of Drainage Device from Pleura, External Approach (ICD-10-PCS; 2016-09-29)
PROC: 0W9B30Z Drainage of Left Pleural Cavity with Drainage Device, Percutaneous Approach (ICD-10-PCS; 2016-09-30)
DX: C78.2 Secondary malignant neoplasm of pleura (principal); E43 Unspecified severe protein-calorie malnutrition; R65.21 Severe sepsis with septic shock; A41.9 Sepsis, unspecified organism; C78.7 Secondary malignant neoplasm of liver and intrahepatic bile duct; J18.9 Pneumonia, unspecified organism; K22.2 Esophageal obstruction; J91.8 Pleural effusion in other conditions classified elsewhere; C34.02 Malignant neoplasm of left main bronchus; Z99.81 Dependence on supplemental oxygen; G89.3 Neoplasm related pain (acute) (chronic); I25.10 Atherosclerotic heart disease of native coronary artery without angina pectoris; I10 Essential (primary) hypertension; R09.02 Hypoxemia; D64.9 Anemia, unspecified; K20.9 Esophagitis, unspecified; E78.5 Hyperlipidemia, unspecified; Z51.5 Encounter for palliative care; R73.9 Hyperglycemia, unspecified; R53.1 Weakness; Z87.891 Personal history of nicotine dependence; Z92.3 Personal history of irradiation; Z95.5 Presence of coronary angioplasty implant and graft; Z92.21 Personal history of antineoplastic chemotherapy; I25.2 Old myocardial infarction
CPT/HCPCS: 32550; 32555; 32557; 36430; 36600; 71010; 71260; 74177; 75989; 80048; 82550; 82805; 83605; 83735; 83880; 84484; 85007; 85014; 85018; 85025; 85027; 85610; 85730; 86850; 86900; 86901; 86920; 87040; 87804; 93005; 94640; 94664; 99152; 99153; 99212; 99214; C1729; C1769; C1887; C9113; G0463; J1642; J1940; J2250; J2405; J2543; J2997; J3010; J3370; J7030; J7050; P9016; Q9967

== ENCOUNTER 2016-10-08 09:46 | Emergency (ER) | payer MEDICARE, OTHER ==
[~2016-10-08] VITALS: Ht 175.3 cm; Wt 50.0 kg
[~2016-10-08 09:46] MED LIST changes: -ATOR40TA16 PO; +DILT31TA PO; +DILT90TA PO; +FENT25T T-DERMAL; +MORP1SOL3 PO; +MSIR15 PO; +OXYGENTANK NAS.CANULA; +SENN8.6T15 PO; +WALKER WHEELS/F1 MIS
--- NOTE | 2016-10-08 12:55 | PD ---
HPI Chief Complaint: Code Blue Time Seen by Provider: 10:09 Travel History International Travel<30 days: No Contact w/Intl Traveler<30days: No Traveled to known affect area: No History of Present Illness HPI 66-year-old male arrives from triage unresponsive. He had agonal respirations and no pulse, history significantly limited PFSH Past Medical History Narrative Medical By records Hx Anticoagulant Therapy: Yes Arthritis: Yes Asthma: No Autoimmune Disease: No Blood Disorders: No Anxiety: No Depression: No Heart Rhythm Problems: No Cancer: Yes (LUNG CA) Cardiac Catheterization: Yes (W/ STENTS X 3) Cardiovascular Problems: Yes High Cholesterol: Yes Chemotherapy: Yes Chest Pain: No Congestive Heart Failure: No COPD: No Cerebrovascular Accident: No Diabetes: No Diminished Hearing: No Endocrine: No Gastrointestinal Disorders: No GERD: No Glaucoma: No Genitourinary: No Headaches: Yes Hepatitis: No Hiatal Hernia: No Heparin Induced Thrombocytopen: No Hypertension: Yes Immune Disorder: No Implanted Vascular Access Dvce: Yes (RIGHT CHEST) Kidney Stones: Yes Musculoskeletal: Yes Neurologic: No Psychiatric: No Reproductive: No Respiratory: Yes Migraines: No Myocardial Infarction: Yes (ND x2) Pneumonia: Yes Radiation Therapy: No Renal Failure: No Seizures: No Sickle Cell Disease: No Sleep Apnea: No Thyroid Disease: No Ulcer: Yes Past Surgical History Narrative Surgical by records Abdominal Surgery: No AICD: No Appendectomy: No Arteriovenous Shunt: No Cardiac Surgery: Yes (stents* 3, LOOP RECORDER) Cholecystectomy: No Coronary Stent: Yes (X 3) Ear Surgery: No Endocrine Surgery: No Eye Surgery: No Genitourinary Surgery: No Gynecologic Surgery: No Insulin Pump: No Joint Replacement: No Neurologic Surgery: No Oral Surgery: No Pacemaker: No Thoracic Surgery: No Other Surgery: Yes (PORT PLACED- RIGHT CHEST) Social History Narrative Social History by records Alcohol Use: No Tobacco Use: No Substance Use: No Allergies-Medications (Allergen,Severity, Reaction): Coded Allergies: No Known Allergies (Unverified , 09/07/16) Reported Meds & Prescriptions Reported Meds & Active Scripts Active Oxygen tank (Oxygen) 1 Ea Tank 2 Liter CRUZ.CANULA CONTINUOUS Oxygen Concentrator Portable Gaseous 2 L/min via Nasal Cannula Continuous For 99 months Levaquin (Levofloxacin) 750 Mg Tab 750 Mg PO DAILY Walker with Front Wheels (Device) 1 Mis Mis 1 Ea .ROUTE DIRECTED Senna Lax (Sennosides) 8.6 Mg Tab 8.6 Mg PO BID Morphine IR (Morphine Sulfate) 15 Mg Tab 15 Mg PO Q6HR PRN Duragesic Patch 72 HR (Fentanyl) 25 Mcg/Hr Patch 1 Patch T-DERMAL Q3D Cardizem (Diltiazem HCl) 30 Mg Tab 30 Mg PO TID Mucinex ER 12 HR (Guaifenesin) 600 Mg Kassidy 600 Mg PO BID Ventolin Hfa 18 GM Inh (Albuterol Sulfate) 90 Mcg/Act Aer 2 Puff INH Q4H PRN Reported Diltiazem (Diltiazem HCl) 90 Mg Tab 90 Mg PO TID Morphine Liq (Morphine Sulfate) 10 Mg/5 Ml Liq 10 Mg PO Q3HR Aspirin EC (Aspirin) 81 Mg Tabdr 81 Mg PO DAILY Plavix (Clopidogrel Bisulfate) 75 Mg Tab 75 Mg PO DAILY Lorazepam 0.5 Mg Tab 0.5 Mg PO HS PRN Omeprazole 20 Mg Tab 20 Mg PO DAILY Restoril (Temazepam) 30 Mg Cap 30 Mg PO HS PRN Symbicort Inh (Budesonide/Formoterol Fumarate) 160-4.5 Mcg/Act Aero 2 Puff INH Q12HR Colace (Docusate Sodium) 100 Mg Cap 100 Mg PO DAILY Ondansetron Odt 8 Mg Tab 8 Mg SL TID PRN Nitroglycerin SL (Nitroglycerin) 0.4 Mg Subl 0.4 Mg SL DIRECTED PRN ONE TABLET UNDER THE TONGUE NEEDED FOR CHEST PAIN, MAY REPEAT EVERY FIVE MINUTES FOR A TOTAL OF 3 DOSES OR CALL 911 IF NO RELIEF Magic Mouthwash Adult Liq (Multi-Ingredient Mouthwash/Gargle) 120 Ml Susp 5 Ml SWISH-SWAL TIDAC Each 5mL contains: Nystatin 200,000units, Diphenhydramine 4.25mg, Viscous Lidocaine 10mg, Fernando syrup 0.8 mL Review of Systems ROS Limitations: Clinical Condition Physical Exam Exam Limitations: Clinical Condition Narrative General: In severe distress, focused exam performed, cachectic male Eyes: Pupils dilated bilaterally Neck: Trachea midline Cardiovascular: PEA Respiratory: No respiratory effort noted chest wall: Catheter noted Neuro: Unresponsive MDM Medical Decision Making Medical Screen Exam Complete: Yes Emergency Medical Condition: Yes Medical Record Reviewed: Yes (past history confirm, recent hospitalization reviewed) Differential Diagnosis ND, respiratory arrest, pericardial effusion, PE, pleural effusion..... Narrative Course Patient arrived with agonal respirations and PEA. CPR was initiated. Bag-valve -mask started. Attempted IV access. Had staff talk with family who stated patient is a DNR hospice patient I went to triage and confirm this and came back to room and CPR and bag valve mask were stopped at 951, he remained in PEA and then went into asystole at 10 AM shortly after his nephew came back and time of was called at 10 AM Critical Care Narrative Aggregate critical care time was 35 minutes. Time to perform other separately billable procedures was not included in the critical care time. My time did not include minutes spent treating any other patients simultaneously or on activities that did not directly contribute to the patient's treatment. The services I provided to this patient were to treat and/or prevent clinically significant deterioration that could result in: I provided critical care services requiring my management, as noted below: Chart data review, documentation time, medication orders and management, vital sign assessments/reviewing monitor data, ordering and reviewing lab tests, ordering and interpreting/reviewing x-rays and diagnostic studies, care of the patient and discussion of the patient with the admitting physicians. Procedures Procedure Narrative Limited bedside ultrasound shows no pericardial fluid and faint cardiac activity which stopped at 10 AM Diagnosis Primary Impression: Cardiopulmonary arrest Disposition: 20 Condition: Marybeth Mcadams MD Oct 08, 2016 12:55
== END 2016-10-08 17:32 | disposition expired ==
LOC: NEPI 09:46
DX: I46.9 Cardiac arrest, cause unspecified (principal); Z66 Do not resuscitate
CPT/HCPCS: 92950